=== PATIENT | female | born 1995 | race Two or more races ===

== ENCOUNTER 2023-03-04 13:58 | Inpatient (IN) | payer MEDICAID ==
[2023-03-04] VITALS (15 sets, daily range): BP systolic 92–116; BP diastolic 52–66
[~2023-03-04] VITALS: Ht 170.2 cm; Wt 80.6 kg
[2023-03-04] MEDS ORDERED: DEXTROSE (50%) 50ML SYRG IV PRN (14:00)
[2023-03-04] MEDS ORDERED: INSULIN LANTUS (GLARGINE) 1 /0.01ml (100units/ml) SC ONE (14:00)
[2023-03-04] MEDS ORDERED: SODIUM CHLORIDE 0.9% 1,000 ML IV ONE ×3 (14:00→16:15)
[2023-03-04 14:45] LABS: Mean Corpuscular Volume 95.2 fL (80.0-100.0); Red Cell Distribution Width 14.9 % (11.8-14.3)
[2023-03-04 14:47] LABS: Basophils # (auto) 0 10 ^3/uL (0-0.2); Basophils % (auto) 0.2 % (0.0-2.0); Eosinophils # (auto) 0 10 ^3/uL (0-0.8); Hematocrit 46.6 % (36.0-46.0); Hemoglobin 14.5 g/dL (12.2-16.2); Lymphocytes # (auto) 1.3 10 ^3/uL (0.4-5.4); Lymphocytes % (auto) 8.5 % (10.0-50.0); Mean Corpuscular Hemoglobin 29.6 pg (28.0-32.0); Mean Corpuscular Hgb Conc. 31.1 g/dL (32.0-36.0); Monocytes # (auto) 0.1 10 ^3/uL (0-1.3); Monocytes % (auto) 0.9 % (0.0-12.0); Neutrophils # (auto) 14.1 10 ^3/uL (1.6-8.6); Neutrophils % (auto) 90.4 % (37.0-80.0); Red Blood Cells 4.89 10^6/uL (4.0-5.20); White Blood Cell 15.5 10^3/uL (4.4-10.8)
[2023-03-04 15:08] LABS: BUN/Creatinine Ratio 18.2 (10.0-20.0); Magnesium 2.5 mg/dL (1.6-2.6); Phosphorus 6.5 mg/dL (2.5-4.90)
[2023-03-04] MEDS ORDERED: SODIUM BICARBONATE 8.4 % INJ 50ML VIAL IV ONE ×2 (15:30→20:45)
[2023-03-04 15:31] LABS: Potassium 6.1 mmol/L (3.5-5.1)
[2023-03-04] MEDS ORDERED: CALCIUM GLUC 1,000mg/50ml-NS 50 ML IV ONE (15:45)
[2023-03-04] MEDS ORDERED: FUROSEMIDE 20 MG/2 ML VIAL IV ONE (15:45)
[2023-03-04] MEDS: ACCU-CHEK COMFORT CURVE STRIP VI SCH ×6 (15:56→23:01)
[2023-03-04] MEDS ORDERED: ONDANSETRON HCL 4 MG/2 ML VIAL IV ONE (16:00)
[2023-03-04] MEDS: SODIUM CHLORIDE 0.9% 1,000 ML IV SCH ×2 (16:13→17:35)
[2023-03-04] MEDS ORDERED: MORPHINE SULFATE INJ 2 MG/ml SYRG IV PRN (16:15)
[2023-03-04] MEDS ORDERED: HYDROcodone-ACET 5/325MG TAB PO PRN (16:15)
[2023-03-04] MEDS ORDERED: ONDANSETRON HCL 4 MG/2 ML VIAL IV PRN (16:15)
[2023-03-04] MEDS ORDERED: NITROGLYCERIN 0.4 MG SL TAB SL PRN (16:15)
[2023-03-04] MEDS ORDERED: ACETAMINOPHEN 325 MG TAB PO PRN (16:15)
[2023-03-04 16:30] LABS: Urine Bacteria FEW /hpf (None Seen); Urine Blood TRACE /uL (Negative); Urine Specific Gravity 1.023 (1.001-1.035); Urine WBC <1 /hpf (0 - 5)
[2023-03-04] MEDS ORDERED: PANTOPRAZOLE 40 MG/10 ML VIAL INJ IV ONE (16:30)
[2023-03-04] MEDS: InsuLIN R (HUMAN) 100 UNITS in SODIUM CHL 0.9% 99 ML IV SCH ×2 (16:58→18:25)
[2023-03-04] MEDS ORDERED: SODIUM CHLORIDE 0.9% 1,000 ML IV SCH ×3 (18:00→20:45)
[2023-03-04 20:43] LABS: BUN/Creatinine Ratio 15.1 (10.0-20.0); Calcium 7.9 mg/dL (8.5-10.1); Potassium 4.5 mmol/L (3.5-5.1)
[2023-03-04] MEDS ORDERED: SODIUM BICARBONATE 50ML VIAL 50 ML in SODIUM CHLORIDE 0.9% 1,000 ML IV SCH (21:15)
[2023-03-04] MEDS: SODIUM BICARBONATE 50ML VIAL 50 ML in SOD CHL 0.45% 1,000 ML IV SCH (23:32)
[2023-03-05] VITALS (33 sets, daily range): BP systolic 92–132; BP diastolic 48–82
[2023-03-05] MEDS: ACCU-CHEK COMFORT CURVE STRIP VI SCH ×14 (00:05→23:55)
[2023-03-05] MEDS ORDERED: SODIUM BICARBONATE 8.4 % INJ 50ML VIAL IV ONE (00:45)
[2023-03-05 02:50] LABS: Calcium 7.8 mg/dL (8.5-10.1); Potassium 3.7 mmol/L (3.5-5.1)
[2023-03-05 02:52] LABS: BUN/Creatinine Ratio 14.2 (10.0-20.0)
[2023-03-05 06:33] LABS: Basophils # (auto) 0 10 ^3/uL (0-0.2); Basophils % (auto) 0.2 % (0.0-2.0); Eosinophils # (auto) 0 10 ^3/uL (0-0.8); Hematocrit 39.1 % (36.0-46.0); Hemoglobin 12.7 g/dL (12.2-16.2); Lymphocytes # (auto) 1.6 10 ^3/uL (0.4-5.4); Lymphocytes % (auto) 9.1 % (10.0-50.0); Mean Corpuscular Hemoglobin 29.4 pg (28.0-32.0); Mean Corpuscular Hgb Conc. 32.5 g/dL (32.0-36.0); Mean Corpuscular Volume 90.4 fL (80.0-100.0); Monocytes # (auto) 0.6 10 ^3/uL (0-1.3); Monocytes % (auto) 3.2 % (0.0-12.0); Neutrophils # (auto) 15.9 10 ^3/uL (1.6-8.6); Neutrophils % (auto) 87.5 % (37.0-80.0); Red Blood Cells 4.33 10^6/uL (4.0-5.20); White Blood Cell 18.2 10^3/uL (4.4-10.8)
[2023-03-05 06:45] LABS: Albumin 3.3 g/dL (3.4-5.0); Potassium 3.8 mmol/L (3.5-5.1)
[2023-03-05] MEDS: METOCLOPRAMIDE HCL 5MG/ml INJ 2ml VIAL IV PRN ×2 (06:47→14:09)
[2023-03-05] MEDS: SODIUM BICARBONATE 50ML VIAL 50 ML in SOD CHL 0.45% 1,000 ML IV SCH (06:48)
[2023-03-05 06:49] LABS: BUN/Creatinine Ratio 16.2 (10.0-20.0); Bilirubin, Total 0.6 mg/dL (0.2-1.0); Total Protein 6.8 g/dL (6.4-8.2)
[2023-03-05] MEDS ORDERED: LACTATED RINGER'S 1,000 ML IV ONE (09:30)
[2023-03-05] MEDS: ENOXAPARIN SOD 40 MG/0.4 ML SYRINGE SC SCH (09:51)
[2023-03-05] MEDS: PANTOPRAZOLE 40 MG/10 ML VIAL INJ IV SCH (09:52)
[2023-03-05] MEDS ORDERED: INSULIN LANTUS (GLARGINE) 1 /0.01ml (100units/ml) SC SCH (10:00)
[2023-03-05] MEDS: LACTATED RINGER'S 1,000 ML IV SCH ×3 (13:58→20:19)
[2023-03-05 14:46] LABS: BUN/Creatinine Ratio 11.5 (10.0-20.0); Potassium 3.5 mmol/L (3.5-5.1)
[2023-03-05] MEDS ORDERED: DEXTROSE (50%) 50ML SYRG IV PRN (15:45)
[2023-03-05] MEDS: InsuLIN REG 1unit/0.01ml Soln (100units/ml) SC SCH ×2 (16:31→20:08)
[2023-03-05] MEDS: PROMETHAZINE HCL 25 MG/ML 1ML IV PRN (19:36)
[2023-03-05] MEDS: PIPERACILLIN-TAZOB 3.375GM 100 ML IV SCH (20:26)
[2023-03-06] VITALS (13 sets, daily range): BP systolic 97–131; BP diastolic 49–90
[2023-03-06] MEDS: InsuLIN REG 1unit/0.01ml Soln (100units/ml) SC SCH ×7 (04:00→23:13)
[2023-03-06] MEDS: ACCU-CHEK COMFORT CURVE STRIP VI SCH ×6 (04:25→23:14)
[2023-03-06 05:04] LABS: Basophils # (auto) 0 10 ^3/uL (0-0.2); Basophils % (auto) 0.1 % (0.0-2.0); Eosinophils # (auto) 0 10 ^3/uL (0-0.8); Hemoglobin 12.5 g/dL (12.2-16.2); Lymphocytes # (auto) 1.7 10 ^3/uL (0.4-5.4); Lymphocytes % (auto) 13.4 % (10.0-50.0); Mean Corpuscular Hemoglobin 30.1 pg (28.0-32.0); Mean Corpuscular Hgb Conc. 32.8 g/dL (32.0-36.0); Mean Corpuscular Volume 91.7 fL (80.0-100.0); Monocytes # (auto) 0.5 10 ^3/uL (0-1.3); Monocytes % (auto) 4.1 % (0.0-12.0); Neutrophils # (auto) 10.3 10 ^3/uL (1.6-8.6); Neutrophils % (auto) 82.4 % (37.0-80.0); Nucleated Red Blood Cells % 0.1 %; Red Blood Cells 4.14 10^6/uL (4.0-5.20); Red Cell Distribution Width 14.5 % (11.8-14.3); White Blood Cell 12.6 10^3/uL (4.4-10.8)
[2023-03-06] MEDS: PROMETHAZINE HCL 25 MG/ML 1ML IV PRN ×2 (05:14→19:36)
[2023-03-06 05:16] LABS: Calcium 8.5 mg/dL (8.5-10.1); Potassium 3.5 mmol/L (3.5-5.1)
[2023-03-06] MEDS: PIPERACILLIN-TAZOB 3.375GM 100 ML IV SCH ×3 (05:17→21:20)
[2023-03-06] MEDS: LACTATED RINGER'S 1,000 ML IV SCH ×2 (05:17→17:34)
[2023-03-06 05:19] LABS: Bilirubin, Total 0.4 mg/dL (0.2-1.0)
[2023-03-06] MEDS: MORPHINE SULFATE INJ 2 MG/ml SYRG IV PRN (08:14)
[2023-03-06] MEDS ORDERED: LACTATED RINGER'S 1,000 ML IV ONE (09:45)
[2023-03-06] MEDS: PANTOPRAZOLE 40 MG/10 ML VIAL INJ IV SCH (09:45)
[2023-03-06] MEDS: ENOXAPARIN SOD 40 MG/0.4 ML SYRINGE SC SCH (09:45)
[2023-03-06] MEDS: METOCLOPRAMIDE HCL 5MG/ml INJ 2ml VIAL IV SCH ×2 (14:51→21:21)
[2023-03-07] MEDS: LACTATED RINGER'S 1,000 ML IV SCH ×2 (00:03→11:45)
[2023-03-07] MEDS: ACCU-CHEK COMFORT CURVE STRIP VI SCH ×6 (03:33→23:24)
[2023-03-07] MEDS: InsuLIN REG 1unit/0.01ml Soln (100units/ml) SC SCH ×6 (03:35→23:26)
[2023-03-07] MEDS: PROMETHAZINE HCL 25 MG/ML 1ML IV PRN ×3 (04:42→18:19)
[2023-03-07 05:00] VITALS: BP 127/75
[2023-03-07] MEDS: PIPERACILLIN-TAZOB 3.375GM 100 ML IV SCH ×3 (05:05→21:37)
[2023-03-07] MEDS: METOCLOPRAMIDE HCL 5MG/ml INJ 2ml VIAL IV SCH ×3 (05:13→21:36)
[2023-03-07 06:41] LABS: Albumin 2.5 g/dL (3.4-5.0); BUN/Creatinine Ratio 11.8 (10.0-20.0); Calcium 8.2 mg/dL (8.5-10.1)
[2023-03-07 06:44] LABS: Bilirubin, Total 0.7 mg/dL (0.2-1.0); Total Protein 6.1 g/dL (6.4-8.2)
[2023-03-07 07:05] LABS: Basophils # (auto) 0.1 10 ^3/uL (0-0.2); Basophils % (auto) 0.6 % (0.0-2.0); Eosinophils # (auto) 0 10 ^3/uL (0-0.8); Eosinophils % (auto) 0.2 % (0.0-7.0); Hematocrit 34.9 % (36.0-46.0); Hemoglobin 11.8 g/dL (12.2-16.2); Lymphocytes # (auto) 1.7 10 ^3/uL (0.4-5.4); Lymphocytes % (auto) 18.7 % (10.0-50.0); Mean Corpuscular Hemoglobin 30.2 pg (28.0-32.0); Mean Corpuscular Hgb Conc. 33.7 g/dL (32.0-36.0); Mean Corpuscular Volume 89.4 fL (80.0-100.0); Monocytes # (auto) 0.4 10 ^3/uL (0-1.3); Monocytes % (auto) 4.6 % (0.0-12.0); Neutrophils # (auto) 6.9 10 ^3/uL (1.6-8.6); Neutrophils % (auto) 75.9 % (37.0-80.0); Nucleated Red Blood Cells % 0.2 %; Red Cell Distribution Width 13.9 % (11.8-14.3); White Blood Cell 9.1 10^3/uL (4.4-10.8)
[2023-03-07] MEDS: ENOXAPARIN SOD 40 MG/0.4 ML SYRINGE SC SCH (08:54)
[2023-03-07] MEDS: PANTOPRAZOLE 40 MG/10 ML VIAL INJ IV SCH (08:54)
[2023-03-07 09:00] VITALS: BP 149/86
[2023-03-07] MEDS ORDERED: POTASSIUM EFFERVESENT TAB 25 MEQ PO ONE (09:15)
[2023-03-07 13:00] VITALS: BP 167/92
[2023-03-07] MEDS ORDERED: hydrALAZINE HCL 20 MG/ML VL IV PRN (16:30)
[2023-03-07 16:44] VITALS: BP 173/72
[2023-03-07 16:48] VITALS: BP 156/87
[2023-03-07] MEDS: MORPHINE SULFATE INJ 2 MG/ml SYRG IV PRN (18:20)
[2023-03-07 22:00] VITALS: BP 137/86
[2023-03-08] MEDS: ACCU-CHEK COMFORT CURVE STRIP VI SCH ×6 (03:44→23:54)
[2023-03-08] MEDS: InsuLIN REG 1unit/0.01ml Soln (100units/ml) SC SCH ×6 (03:45→23:54)
[2023-03-08] MEDS: LACTATED RINGER'S 1,000 ML IV SCH (03:47)
[2023-03-08 04:49] VITALS: BP 142/96
[2023-03-08] MEDS: PIPERACILLIN-TAZOB 3.375GM 100 ML IV SCH ×3 (05:29→21:45)
[2023-03-08] MEDS: METOCLOPRAMIDE HCL 5MG/ml INJ 2ml VIAL IV SCH ×3 (05:29→21:45)
[2023-03-08 06:06] LABS: Basophils # (auto) 0 10 ^3/uL (0-0.2); Basophils % (auto) 0.5 % (0.0-2.0); Eosinophils # (auto) 0.1 10 ^3/uL (0-0.8); Eosinophils % (auto) 1.2 % (0.0-7.0); Hematocrit 37.3 % (36.0-46.0); Lymphocytes # (auto) 2.8 10 ^3/uL (0.4-5.4); Lymphocytes % (auto) 38.7 % (10.0-50.0); Mean Corpuscular Hemoglobin 30.5 pg (28.0-32.0); Mean Corpuscular Hgb Conc. 34.8 g/dL (32.0-36.0); Mean Corpuscular Volume 87.7 fL (80.0-100.0); Monocytes # (auto) 0.4 10 ^3/uL (0-1.3); Monocytes % (auto) 5.9 % (0.0-12.0); Neutrophils # (auto) 3.8 10 ^3/uL (1.6-8.6); Neutrophils % (auto) 53.7 % (37.0-80.0); Red Blood Cells 4.26 10^6/uL (4.0-5.20); Red Cell Distribution Width 13.7 % (11.8-14.3); White Blood Cell 7.1 10^3/uL (4.4-10.8)
[2023-03-08 06:17] LABS: BUN/Creatinine Ratio 8.5 (10.0-20.0); Calcium 7.7 mg/dL (8.5-10.1)
[2023-03-08 06:35] LABS: Potassium 2.7 mmol/L (3.5-5.1)
[2023-03-08 09:00] VITALS: BP 147/93
[2023-03-08] MEDS: POTASSIUM CHL 20MEQ/100ML 100 ML IV SCH ×3 (09:52→14:07)
[2023-03-08] MEDS: PANTOPRAZOLE 40 MG/10 ML VIAL INJ IV SCH (09:52)
[2023-03-08] MEDS: ENOXAPARIN SOD 40 MG/0.4 ML SYRINGE SC SCH (09:52)
[2023-03-08] MEDS: PROMETHAZINE HCL 25 MG/ML 1ML IV PRN ×2 (12:04→20:29)
[2023-03-08] MEDS: MORPHINE SULFATE INJ 2 MG/ml SYRG IV PRN (12:05)
[2023-03-08 13:00] VITALS: BP 142/71
[2023-03-08] MEDS: SOD CHL 0.45% WITH 20MEQ KCL 1,000 ML IV SCH ×4 (16:29→20:19)
[2023-03-08 16:50] VITALS: BP 133/86
[2023-03-08 20:00] VITALS: BP 134/86
[2023-03-09] MEDS: ACCU-CHEK COMFORT CURVE STRIP VI SCH ×5 (04:03→19:51)
[2023-03-09] MEDS: InsuLIN REG 1unit/0.01ml Soln (100units/ml) SC SCH ×5 (04:05→19:51)
[2023-03-09 05:21] VITALS: BP 146/93
[2023-03-09] MEDS: METOCLOPRAMIDE HCL 5MG/ml INJ 2ml VIAL IV SCH ×3 (05:47→21:23)
[2023-03-09] MEDS: PIPERACILLIN-TAZOB 3.375GM 100 ML IV SCH ×3 (05:47→21:24)
[2023-03-09 07:17] LABS: BUN/Creatinine Ratio 8.3 (10.0-20.0); Calcium 7.7 mg/dL (8.5-10.1); Magnesium 1.8 mg/dL (1.6-2.6)
[2023-03-09 07:25] LABS: Potassium 2.8 mmol/L (3.5-5.1)
[2023-03-09] MEDS ORDERED: POTASSIUM CHL 20 Meq TABLET PO ONE (07:30)
[2023-03-09 09:00] VITALS: BP 119/84
[2023-03-09] MEDS: PANTOPRAZOLE 40 MG/10 ML VIAL INJ IV SCH (09:04)
[2023-03-09] MEDS: ENOXAPARIN SOD 40 MG/0.4 ML SYRINGE SC SCH (09:04)
[2023-03-09] MEDS: SOD CHL 0.45% WITH 20MEQ KCL 1,000 ML IV SCH (09:06)
[2023-03-09] MEDS ORDERED: MAGNESIUM SULFATE 1GM/100ML 100 ML IV ONE (11:15)
[2023-03-09] MEDS ORDERED: POTASSIUM CHL 20MEQ/100ML 100 ML IV ONE (11:15)
[2023-03-09 13:00] VITALS: BP 130/86
[2023-03-09] MEDS: POTASSIUM CHLORIDE 40 MEQ in SOD CHL 0.45% 1,000 ML IV SCH (13:17)
[2023-03-09 16:45] VITALS: BP 143/95
[2023-03-09] MEDS: PROMETHAZINE HCL 25 MG/ML 1ML IV PRN (17:57)
[2023-03-09 20:00] VITALS: BP 105/63
[2023-03-09] MEDS ORDERED: INSU100I28 IJ (21:34)
[2023-03-09] MEDS ORDERED: LEVEMIR SC (21:35)
[2023-03-09 22:00] VITALS: BP 105/63
[2023-03-09 22:30] LABS: Urine Bacteria NONE SEEN /hpf (None Seen); Urine Blood Negative /uL (Negative); Urine Budding Yeast MODERATE /hpf (None Seen); Urine Specific Gravity 1.008 (1.001-1.035); Urine WBC 1 /hpf (0 - 5)
[2023-03-09 23:05] LABS: INR 1.19 (0.9-1.15); Partial Thromboplastin Time 27.3 sec (24.6-33.4)
[2023-03-10] MEDS: ACCU-CHEK COMFORT CURVE STRIP VI SCH ×6 (00:15→21:42)
[2023-03-10] MEDS: InsuLIN REG 1unit/0.01ml Soln (100units/ml) SC SCH ×6 (00:15→21:50)
[2023-03-10] MEDS: POTASSIUM CHLORIDE 40 MEQ in SOD CHL 0.45% 1,000 ML IV SCH ×2 (01:21→11:40)
[2023-03-10 05:00] VITALS: BP 114/69
[2023-03-10] MEDS: PIPERACILLIN-TAZOB 3.375GM 100 ML IV SCH ×3 (05:50→21:42)
[2023-03-10] MEDS: METOCLOPRAMIDE HCL 5MG/ml INJ 2ml VIAL IV SCH ×3 (05:50→21:42)
[2023-03-10] MEDS ORDERED: LIDOCAINE VISCOUS 2% 15ML UD ONE (08:34)
[2023-03-10] MEDS ORDERED: SODIUM CHLORIDE LOCK 10 ML ONE (08:35)
[2023-03-10] MEDS: PANTOPRAZOLE 40 MG/10 ML VIAL INJ IV SCH (09:33)
[2023-03-10] MEDS: ENOXAPARIN SOD 40 MG/0.4 ML SYRINGE SC SCH (09:38)
[2023-03-10 09:58] VITALS: BP 119/79
[2023-03-10] MEDS: diphenhdrAMINE HCL 50 MG/1 ML VL ONE ×2 (16:26→16:27)
[2023-03-10] MEDS: MIDAZOLAM HCL 5 MG/ML-1ML VIAL ONE ×2 (16:26→16:29)
[2023-03-10] MEDS: fentaNYL CITRATE 100 MCG/2 ML VL ONE ×2 (16:26→16:29)
[2023-03-10 17:04] VITALS: BP 139/90
[2023-03-10 22:00] VITALS: BP 135/81
[2023-03-11] MEDS: POTASSIUM CHLORIDE 40 MEQ in SOD CHL 0.45% 1,000 ML IV SCH ×2 (00:11→08:00)
[2023-03-11] MEDS: ACCU-CHEK COMFORT CURVE STRIP VI SCH ×6 (00:24→20:45)
[2023-03-11] MEDS: InsuLIN REG 1unit/0.01ml Soln (100units/ml) SC SCH ×6 (00:27→20:48)
[2023-03-11 05:00] VITALS: BP 102/69
[2023-03-11] MEDS: METOCLOPRAMIDE HCL 5MG/ml INJ 2ml VIAL IV SCH ×2 (05:48→14:11)
[2023-03-11] MEDS: PIPERACILLIN-TAZOB 3.375GM 100 ML IV SCH ×2 (05:48→14:11)
[2023-03-11 06:50] LABS: BUN/Creatinine Ratio 4.1 (10.0-20.0); Calcium 8.2 mg/dL (8.5-10.1); Potassium 3.5 mmol/L (3.5-5.1)
[2023-03-11 09:00] VITALS: BP 112/78
[2023-03-11] MEDS: PANTOPRAZOLE 40 MG/10 ML VIAL INJ IV SCH (10:39)
[2023-03-11] MEDS: ENOXAPARIN SOD 40 MG/0.4 ML SYRINGE SC SCH (10:40)
[2023-03-11 12:53] VITALS: BP 112/76
[2023-03-11] MEDS ORDERED: SUCR1SUS26 PO (16:49)
[2023-03-11] MEDS ORDERED: PANT40TA2 PO (16:49)
[2023-03-11 16:50] VITALS: BP 102/71
[2023-03-11] MEDS ORDERED: LEVEMIR SC (16:52)
[2023-03-11] MEDS ORDERED: LEVO500T91 PO (16:52)
== END 2023-03-11 21:15 | disposition home or self-care (01) | DRG 720 ==
LOC: ER 13:58 → EDBD 13:58 → TELE 16:03 → DOU IN ICU 17:57 → ICU CENTRL 23:34 → DOU IN ICU 03-05 11:17 → TELE-WESTW 03-06 16:22 → WEST WING 03-07 10:04
PROVIDERS: ADMIT Nurse Practitioner Family; ATTEND Internal Medicine
PROC: 02HV33Z Insertion of Infusion Device into Superior Vena Cava, Percutaneous Approach (ICD-10-PCS; 2023-03-04)
PROC: 0DB68ZX Excision of Stomach, Via Natural or Artificial Opening Endoscopic, Diagnostic (ICD-10-PCS; 2023-03-10)
PROC: 0DB98ZX Excision of Duodenum, Via Natural or Artificial Opening Endoscopic, Diagnostic (ICD-10-PCS; principal; 2023-03-10 16:22)
DX: A41.9 Sepsis, unspecified organism (principal); E11.10 Type 2 diabetes mellitus with ketoacidosis without coma; E43 Unspecified severe protein-calorie malnutrition; E87.1 Hypo-osmolality and hyponatremia; N30.90 Cystitis, unspecified without hematuria; E87.5 Hyperkalemia; K25.9 Gastric ulcer, unspecified as acute or chronic, without hemorrhage or perforation; K29.70 Gastritis, unspecified, without bleeding; K44.9 Diaphragmatic hernia without obstruction or gangrene; F32.A Depression, unspecified; Z68.28 Body mass index [BMI] 28.0-28.9, adult
CPT/HCPCS: 36415; 36556; 36600; 43239; 51702; 71045; 74018; 74176; 76705; 80048; 80053; 81001; 81025; 82010; 82805; 82962; 83036; 83690; 83735; 83930; 84100; 84132; 84484; 84702; 85025; 85610; 85730; 86850; 86900; 86901; 87040; 87081; 93005; 96365; 96372; 99291; C9113; G0378; J1815; J2250; J2405; J2543; J3480

== ENCOUNTER 2023-05-13 23:01 | Emergency (ER) | payer MEDICAID ==
[~2023-05-13] VITALS: Ht 167.6 cm; Wt 80.0 kg
[~2023-05-13 23:01] MED LIST: INSU100I28 IJ; LEVEMIR SC; LEVO500T91 PO; PANT40TA2 PO; SUCR1SUS26 PO
[2023-05-14 00:16] VITALS: TEMP 98.6
[2023-05-14 00:17] VITALS: PULSE 133; RESP 20; O2SAT 96
[2023-05-14 00:23] LABS: Basophils # (auto) 0 10 ^3/uL (0-0.2); Basophils % (auto) 0.2 % (0.0-2.0); Eosinophils # (auto) 0 10 ^3/uL (0-0.8); Eosinophils % (auto) 0.1 % (0.0-7.0); Hematocrit 46.4 % (36.0-46.0); Hemoglobin 14.9 g/dL (12.2-16.2); Lymphocytes % (auto) 9.1 % (10.0-50.0); Mean Corpuscular Hgb Conc. 32.1 g/dL (32.0-36.0); Mean Corpuscular Volume 90.4 fL (80.0-100.0); Monocytes # (auto) 0.7 10 ^3/uL (0-1.3); Neutrophils # (auto) 19.3 10 ^3/uL (1.6-8.6); Neutrophils % (auto) 87.6 % (37.0-80.0); Red Blood Cells 5.13 10^6/uL (4.0-5.20)
[2023-05-14 00:44] LABS: Alanine Aminotransferase 15 U/L (7-40); Albumin 4.3 g/dL (3.2-4.8); Alkaline Phosphatase 102 U/L (46-116); Anion Gap 12.1 (5-15); Aspartate Aminotransferase 14 U/L (13-40); BUN/Creatinine Ratio 13.2 (10.0-20.0); Blood Urea Nitrogen 10 mg/dL (9-23); Calcium 9.2 mg/dL (8.7-10.4); Carbon Dioxide 19.9 mmol/L (20-30); Chloride 99 mmol/L (98-107); Sodium 131 mmol/L (136-145)
[2023-05-14 00:45] LABS: Bilirubin, Total 0.3 mg/dL (0.2-1.0); Total Protein 7.2 g/dL (5.7-8.2)
[2023-05-14 01:12] LABS: Glucose 438 mg/dL (74-106)
[2023-05-14] MEDS ORDERED: SODIUM CHLORIDE 0.9% 1,000 ML IV ONE (02:45)
[2023-05-14 03:51] VITALS: BP 107/66; PULSE 84; RESP 20; O2SAT 97
== END 2023-05-14 04:13 | disposition home or self-care (01) ==
LOC: EDBD 23:01 → ER 23:09
DX: T78.40XA Allergy, unspecified, initial encounter (principal); R06.02 Shortness of breath; E11.9 Type 2 diabetes mellitus without complications; X58.XXXA Exposure to other specified factors, initial encounter
CPT/HCPCS: 36415; 71045; 80053; 82962; 85025; 96360; 99284; J7030

== ENCOUNTER 2023-07-31 18:09 | Inpatient (IN) | payer MEDICAID ==
[~2023-07-31] VITALS: Ht 170.2 cm; Wt 73.1 kg
[2023-07-31] MEDS ORDERED: SODIUM CHLORIDE 0.9% 3,000 ML IV ONE (18:30)
[2023-07-31 18:31] VITALS: PULSE 147; RESP 25; O2SAT 98
[2023-07-31 19:17] LABS: Eosinophils # (auto) 0 10 ^3/uL (0-0.8); Mean Corpuscular Hemoglobin 29.9 pg (28.0-32.0); Nucleated Red Blood Cells % 0.1 %
[2023-07-31 19:18] LABS: Basophils # (auto) 0 10 ^3/uL (0-0.2); Basophils % (auto) 0.5 % (0.0-2.0); Eosinophils % (auto) 0.2 % (0.0-7.0); Hematocrit 54.8 % (36.0-46.0); Hemoglobin 17.7 g/dL (12.2-16.2); Lymphocytes # (auto) 1.6 10 ^3/uL (0.4-5.4); Lymphocytes % (auto) 16.3 % (10.0-50.0); Mean Corpuscular Hgb Conc. 32.3 g/dL (32.0-36.0); Mean Corpuscular Volume 92.6 fL (80.0-100.0); Monocytes # (auto) 0.2 10 ^3/uL (0-1.3); Monocytes % (auto) 2.5 % (0.0-12.0); Neutrophils # (auto) 7.8 10 ^3/uL (1.6-8.6); Neutrophils % (auto) 80.5 % (37.0-80.0); Red Blood Cells 5.92 10^6/uL (4.0-5.20); Red Cell Distribution Width 14.6 % (11.8-14.3); White Blood Cell 9.7 10^3/uL (4.4-10.8)
[2023-07-31 19:30] VITALS: PULSE 140; RESP 24; O2SAT 100
[2023-07-31 19:44] LABS: Alanine Aminotransferase 13 U/L (7-40); Albumin 5.5 g/dL (3.2-4.8); Alkaline Phosphatase 122 U/L (46-116); Anion Gap 21.00001 (5-15); Aspartate Aminotransferase 15 U/L (13-40); BUN/Creatinine Ratio 6.6 (10.0-20.0); Bilirubin, Total 0.5 mg/dL (0.2-1.0); Blood Urea Nitrogen 10 mg/dL (9-23); Calcium 9.5 mg/dL (8.7-10.4); Chloride 97 mmol/L (98-107); Potassium 4.7 mmol/L (3.5-5.1); Sodium 128 mmol/L (136-145); Total Protein 9.4 g/dL (5.7-8.2)
[2023-07-31 20:06] LABS: Carbon Dioxide < 10 mmol/L (20-30); Glucose 593 mg/dL (74-106)
[2023-07-31] MEDS ORDERED: DEXTROSE (50%) 50ML SYRG IV PRN (20:15)
[2023-07-31] MEDS ORDERED: SODIUM CHLORIDE 0.9% 1,000 ML IV ONE (20:15)
[2023-07-31] MEDS ORDERED: INSULIN LANTUS (GLARGINE) 1 /0.01ml (100units/ml) SC ONE (20:15)
[2023-07-31 20:22] LABS: Urine WBC None Seen /hpf (0 - 5)
[2023-07-31] MEDS ORDERED: InsuLIN REG 1unit/0.01ml Soln (100units/ml) IV ONE (20:30)
[2023-07-31 20:36] LABS: Urine Bacteria FEW /hpf (None Seen); Urine Blood Negative /uL (Negative); Urine Clarity Clear (Clear); Urine Color Colorless (Yellow); Urine Protein, UAD TRACE (Negative); Urine Specific Gravity 1.028 (1.001-1.035); Urine Urobilinogen Normal (Negative)
[2023-07-31] MEDS: INSULIN DRIP 100 UNIT/100ML 100 ML IV SCH ×2 (20:38→21:40)
[2023-07-31 20:44] LABS: Amphetamine Screen, Urine Neg (NEGATIVE); Barbiturate Scree,Urine Neg (NEGATIVE); Benzodiazephine Screen, Urine Neg (NEGATIVE); Cocaine Screen, Urine Neg (NEGATIVE)
[2023-07-31 20:45] LABS: Cannabinoid Screen, Urine Neg (NEGATIVE); Opiate Scree,Urine Neg (NEGATIVE); Phencyclidine Screen, Urine Neg (NEGATIVE)
[2023-07-31] MEDS ORDERED: LACTATED RINGER'S 1,000 ML IV ONE (20:45)
[2023-07-31] MEDS: ACCU-CHEK COMFORT CURVE STRIP VI SCH ×2 (21:39→22:30)
[2023-07-31] MEDS ORDERED: ONDANSETRON HCL 4 MG/2 ML VIAL IV PRN (22:30)
[2023-07-31] MEDS ORDERED: HYDROcodone-ACET 5/325MG TAB PO PRN (22:30)
[2023-07-31] MEDS ORDERED: ACETAMINOPHEN 325 MG TAB PO PRN (22:30)
[2023-07-31] MEDS ORDERED: DOCUSATE SOD 100 MG CAP PO PRN (22:30)
[2023-07-31] MEDS ORDERED: MORPHINE SULFATE INJ 2 MG/ml SYRG IV PRN (23:00)
[2023-07-31] MEDS ORDERED: NITROGLYCERIN 0.4 MG SL TAB SL PRN (23:00)
[2023-08-01] VITALS (33 sets, daily range): BP systolic 94–119; BP diastolic 57–81; PULSE 79–112; RESP 14–19; TEMP 98.3–99.3; O2SAT 98–100
[2023-08-01] MEDS: ACCU-CHEK COMFORT CURVE STRIP VI SCH ×16 (00:06→22:32)
[2023-08-01] MEDS: D5W/SOD CHL 0.45% 1,000 ML IV SCH ×2 (00:32→12:47)
[2023-08-01 01:13] LABS: Albumin 3.7 g/dL (3.2-4.8); Alkaline Phosphatase 76 U/L (46-116); Anion Gap 16.00001 (5-15); Aspartate Aminotransferase 11 U/L (13-40); BUN/Creatinine Ratio 6.3 (10.0-20.0); Blood Urea Nitrogen 7 mg/dL (9-23); Calcium 7.8 mg/dL (8.7-10.4); Glucose 216 mg/dL (74-106); Potassium 4.4 mmol/L (3.5-5.1); Sodium 140 mmol/L (136-145)
[2023-08-01 01:14] LABS: Bilirubin, Total 0.3 mg/dL (0.2-1.0); Total Protein 6.4 g/dL (5.7-8.2)
[2023-08-01 01:15] LABS: Chloride 114 mmol/L (98-107)
[2023-08-01 01:16] LABS: Alanine Aminotransferase < 9 U/L (7-40)
[2023-08-01 05:44] LABS: Basophils # (auto) 0.1 10 ^3/uL (0-0.2); Basophils % (auto) 0.4 % (0.0-2.0); Eosinophils # (auto) 0.1 10 ^3/uL (0-0.8); Hematocrit 43.9 % (36.0-46.0); Hemoglobin 14.4 g/dL (12.2-16.2); Lymphocytes # (auto) 2.5 10 ^3/uL (0.4-5.4); Mean Corpuscular Hemoglobin 29.8 pg (28.0-32.0); Mean Corpuscular Hgb Conc. 32.8 g/dL (32.0-36.0); Mean Corpuscular Volume 90.6 fL (80.0-100.0); Monocytes # (auto) 0.9 10 ^3/uL (0-1.3); Monocytes % (auto) 7.1 % (0.0-12.0); Neutrophils # (auto) 8.4 10 ^3/uL (1.6-8.6); Neutrophils % (auto) 70.5 % (37.0-80.0); Nucleated Red Blood Cells % 0.1 %; Red Blood Cells 4.85 10^6/uL (4.0-5.20); Red Cell Distribution Width 14.1 % (11.8-14.3)
[2023-08-01 06:22] LABS: Albumin 3.9 g/dL (3.2-4.8); Alkaline Phosphatase 76 U/L (46-116); Anion Gap 16.00001 (5-15); Aspartate Aminotransferase 9 U/L (13-40); BUN/Creatinine Ratio 5.7 (10.0-20.0); Blood Urea Nitrogen 6 mg/dL (9-23); Calcium 8.4 mg/dL (8.7-10.4); Chloride 115 mmol/L (98-107); Glucose 168 mg/dL (74-106); Potassium 3.8 mmol/L (3.5-5.1); Sodium 141 mmol/L (136-145)
[2023-08-01 06:23] LABS: Bilirubin, Total 0.6 mg/dL (0.2-1.0); Total Protein 6.6 g/dL (5.7-8.2)
[2023-08-01 06:36] LABS: Alanine Aminotransferase < 9 U/L (7-40)
[2023-08-01 06:38] LABS: Carbon Dioxide < 10 mmol/L (20-30)
[2023-08-01] MEDS ORDERED: INSULIN LANTUS (GLARGINE) 1 /0.01ml (100units/ml) SC SCH (10:00)
[2023-08-01 10:05] LABS: Alanine Aminotransferase 10 U/L (7-40); Albumin 3.8 g/dL (3.2-4.8); Alkaline Phosphatase 66 U/L (46-116); Anion Gap 14 (5-15); Aspartate Aminotransferase < 8 U/L (13-40); BUN/Creatinine Ratio 9.9 (10.0-20.0); Blood Urea Nitrogen 9 mg/dL (9-23); Calcium 8.5 mg/dL (8.5-10.1); Carbon Dioxide 12 mmol/L (20-30); Chloride 116 mmol/L (98-107); Glucose 159 mg/dL (74-106); Potassium 3.5 mmol/L (3.5-5.1); Sodium 142 mmol/L (136-145)
[2023-08-01 10:06] LABS: Bilirubin, Total 0.4 mg/dL (0.2-1.0); Total Protein 6.2 g/dL (5.7-8.2)
[2023-08-01] MEDS: FAMOTIDINE (10MG/ML) 2ML VL IV SCH ×2 (11:41→21:45)
[2023-08-01] MEDS: INSULIN DRIP 100 UNIT/100ML 100 ML IV SCH ×2 (15:08→20:15)
[2023-08-01 15:44] LABS: Chloride 110 mmol/L (98-107); Potassium 3.6 mmol/L (3.5-5.1)
[2023-08-01 15:45] LABS: Anion Gap 15 (5-15); Carbon Dioxide 10 mmol/L (20-30)
[2023-08-01 15:46] LABS: Calcium 8.2 mg/dL (8.7-10.4)
[2023-08-01 15:50] LABS: BUN/Creatinine Ratio 8.2 (10.0-20.0); Blood Urea Nitrogen 8 mg/dL (9-23); Glucose 217 mg/dL (74-106)
[2023-08-01 15:58] LABS: Sodium 135 mmol/L (136-145)
[2023-08-01 21:31] LABS: Chloride 107 mmol/L (98-107); Potassium 3.1 mmol/L (3.5-5.1); Sodium 133 mmol/L (136-145)
[2023-08-01 21:32] LABS: Anion Gap 10 (5-15); Carbon Dioxide 16 mmol/L (20-30)
[2023-08-01 21:33] LABS: Calcium 8.1 mg/dL (8.7-10.4)
[2023-08-01 21:37] LABS: BUN/Creatinine Ratio 6.5 (10.0-20.0); Blood Urea Nitrogen 6 mg/dL (9-23); Glucose 207 mg/dL (74-106)
[2023-08-01] MEDS: INSULIN LANTUS (GLARGINE) 1 /0.01ml (100units/ml) SC SCH (21:46)
[2023-08-01] MEDS ORDERED: POTASSIUM CHL 20MEQ/100ML 100 ML IV ONE ×2 (22:30)
[2023-08-02] VITALS (43 sets, daily range): BP systolic 93–135; BP diastolic 59–93; PULSE 65–109; RESP 10–19; TEMP 98.4–98.6; O2SAT 95–100
[2023-08-02] MEDS: ACCU-CHEK COMFORT CURVE STRIP VI SCH ×10 (00:01→23:51)
[2023-08-02] MEDS: D5W/SOD CHL 0.45% 1,000 ML IV SCH (01:32)
[2023-08-02] MEDS ORDERED: INSULIN DRIP 100 UNIT/100ML 100 ML IV SCH (03:45)
[2023-08-02 04:08] LABS: Basophils # (auto) 0.1 10 ^3/uL (0-0.2); Eosinophils # (auto) 0.3 10 ^3/uL (0-0.8); Eosinophils % (auto) 3.3 % (0.0-7.0); Hematocrit 38.5 % (36.0-46.0); Lymphocytes # (auto) 2.7 10 ^3/uL (0.4-5.4); Lymphocytes % (auto) 29.9 % (10.0-50.0); Mean Corpuscular Hemoglobin 29.6 pg (28.0-32.0); Mean Corpuscular Hgb Conc. 33.6 g/dL (32.0-36.0); Mean Corpuscular Volume 88.1 fL (80.0-100.0); Monocytes # (auto) 0.7 10 ^3/uL (0-1.3); Monocytes % (auto) 7.4 % (0.0-12.0); Neutrophils # (auto) 5.3 10 ^3/uL (1.6-8.6); Neutrophils % (auto) 58.4 % (37.0-80.0); Red Blood Cells 4.38 10^6/uL (4.0-5.20); Red Cell Distribution Width 14.3 % (11.8-14.3); White Blood Cell 9.1 10^3/uL (4.4-10.8)
[2023-08-02 04:25] LABS: Chloride 111 mmol/L (98-107); Sodium 138 mmol/L (136-145)
[2023-08-02 04:26] LABS: Anion Gap 9 (5-15); Calcium 8.4 mg/dL (8.7-10.4); Carbon Dioxide 18 mmol/L (20-30)
[2023-08-02 04:31] LABS: BUN/Creatinine Ratio 5.9 (10.0-20.0); Blood Urea Nitrogen 5 mg/dL (9-23); Glucose 186 mg/dL (74-106)
[2023-08-02 04:46] LABS: Potassium 2.7 mmol/L (3.5-5.1)
[2023-08-02] MEDS ORDERED: POTASSIUM EFFERVESENT TAB 25 MEQ PO ONE (05:15)
[2023-08-02] MEDS: FAMOTIDINE (10MG/ML) 2ML VL IV SCH (09:23)
[2023-08-02] MEDS: INSULIN LANTUS (GLARGINE) 1 /0.01ml (100units/ml) SC SCH ×2 (09:24→21:32)
[2023-08-02 10:07] LABS: Chloride 111 mmol/L (98-107); Potassium 3.6 mmol/L (3.5-5.1); Sodium 139 mmol/L (136-145)
[2023-08-02 10:09] LABS: Anion Gap 8 (5-15); Calcium 8.6 mg/dL (8.5-10.1); Carbon Dioxide 20 mmol/L (20-30)
[2023-08-02 10:14] LABS: Glucose 182 mg/dL (74-106)
[2023-08-02 10:15] LABS: BUN/Creatinine Ratio 7.7 (10.0-20.0); Blood Urea Nitrogen < 5 mg/dL (9-23)
[2023-08-02] MEDS ORDERED: DEXTROSE (50%) 50ML SYRG IV PRN (10:45)
[2023-08-02] MEDS: InsuLIN REG 1unit/0.01ml Soln (100units/ml) SC SCH ×3 (12:19→23:52)
[2023-08-03] VITALS (13 sets, daily range): BP systolic 103–122; BP diastolic 63–89; PULSE 68–89; RESP 11–23; TEMP 98.3–98.5; O2SAT 97–100
[2023-08-03] MEDS: ACCU-CHEK COMFORT CURVE STRIP VI SCH (05:45)
[2023-08-03] MEDS: InsuLIN REG 1unit/0.01ml Soln (100units/ml) SC SCH (05:45)
[2023-08-03] MEDS ORDERED: INSU100I28 IJ (10:02)
[2023-08-03] MEDS ORDERED: LEVEMIR SC (10:02)
== END 2023-08-03 12:00 | disposition home or self-care (01) | DRG 420 ==
LOC: EDBD 18:09 → ER 18:09 → TELE 22:54 → ICU WEST 08-01 10:49
PROVIDERS: ADMIT Nurse Practitioner Family; ATTEND Hospitalist
DX: E11.10 Type 2 diabetes mellitus with ketoacidosis without coma (principal); N17.9 Acute kidney failure, unspecified; E87.1 Hypo-osmolality and hyponatremia; R00.0 Tachycardia, unspecified; D45 Polycythemia vera
CPT/HCPCS: 36415; 36600; 71045; 80048; 80053; 80307; 81001; 82010; 82805; 82962; 83036; 83605; 83735; 84702; 85025; 87081; G0378; J1815; J3480; J3490

== ENCOUNTER 2023-09-20 16:23 | Inpatient (IN) | payer MEDICAID ==
[~2023-09-20] VITALS: Ht 175.3 cm; Wt 72.4 kg
[~2023-09-20 16:23] MED LIST changes: -LEVO500T91 PO
[2023-09-20] MEDS ORDERED: SODIUM CHLORIDE 0.9% 2,000 ML IV ONE (16:45)
[2023-09-20] MEDS ORDERED: ONDANSETRON HCL 4 MG/2 ML VIAL IV ONE (17:15)
[2023-09-20] MEDS ORDERED: ONDANSETRON HCL 4 MG/2 ML VIAL ONE (17:17)
[2023-09-20 17:59] LABS: Urine Bacteria NONE SEEN /hpf (None Seen); Urine Blood Negative /uL (Negative); Urine Clarity Clear (Clear); Urine Color Colorless (Yellow); Urine Hyaline Cast FEW /lpf (0 - 2); Urine Protein, UAD 1+ (Negative); Urine Specific Gravity 1.017 (1.001-1.035); Urine Urobilinogen Normal (Negative); Urine WBC <1 /hpf (0 - 5)
[2023-09-20 18:55] VITALS: PULSE 130; RESP 38; O2SAT 0
[2023-09-20] MEDS ORDERED: SODIUM BICARBONATE 50ML VIAL 50 ML in SOD CHL 0.45% 1,000 ML IV ONE (19:15)
[2023-09-20] MEDS ORDERED: InsuLIN REG 1unit/0.01ml Soln (100units/ml) IV ONE (19:15)
[2023-09-20 19:23] LABS: Hematocrit 49.1 % (36.0-46.0); Hemoglobin 14.6 g/dL (12.2-16.2)
[2023-09-20] MEDS ORDERED: SODIUM BICARBONATE 8.4 % INJ 50ML VIAL IV ONE ×3 (19:28→21:45)
[2023-09-20 19:29] LABS: Mean Corpuscular Hemoglobin 29.5 pg (28.0-32.0); Mean Corpuscular Hgb Conc. 29.8 g/dL (32.0-36.0); Red Blood Cells 4.96 10^6/uL (4.0-5.20); Red Cell Distribution Width 15.7 % (11.8-14.3); White Blood Cell 27.8 10^3/uL (4.4-10.8)
[2023-09-20 19:30] VITALS: PULSE 138; RESP 24; O2SAT 98
[2023-09-20 19:37] LABS: Basophils % (manual) 0 (0.0-2.0); Blast Cells 0; Eosinophils % (manual) 0 (0-7); Metamyelocytes % 0; Myelocytes % 0; Promyelocytes % 0; Reactive Lymphocytes 0
[2023-09-20 19:42] LABS: Alanine Aminotransferase 28 U/L (7-40); Albumin 4.9 g/dL (3.2-4.8); Alkaline Phosphatase 128 U/L (46-116); Anion Gap 24.00001 (5-15); Aspartate Aminotransferase 15 U/L (13-40); BUN/Creatinine Ratio 12.1 (10.0-20.0); Blood Urea Nitrogen 18 mg/dL (9-23); Calcium 8.9 mg/dL (8.7-10.4); Chloride 106 mmol/L (98-107); Lipase 26 U/L (12-53); Magnesium 2.7 mg/dL (1.6-2.6); Sodium 140 mmol/L (136-145)
[2023-09-20 19:43] LABS: Bilirubin, Total 0.2 mg/dL (0.2-1.0); Total Protein 8.2 g/dL (5.7-8.2)
[2023-09-20 19:50] LABS: Band Neutrophils % (manual) 1; Lymphocytes % (manual) 14 (10.0-50.0); Monocytes % (manual) 4 (0-12); Platelet Estimate Adequate
[2023-09-20 20:00] LABS: Carbon Dioxide < 10 mmol/L (20-30); Glucose 661 mg/dL (74-106); Potassium 6.2 mmol/L (3.5-5.1)
[2023-09-20] MEDS ORDERED: cefTRIAXone 1GM/50ML D5W 50 ML IV ONE (20:00)
[2023-09-20] MEDS ORDERED: INSULIN LANTUS (GLARGINE) 1 /0.01ml (100units/ml) SC ONE (20:15)
[2023-09-20] MEDS ORDERED: INSULIN DRIP 100 UNIT/100ML 100 ML IV SCH (20:15)
[2023-09-20] MEDS: INSULIN DRIP 100 UNIT/100ML 100 ML IV SCH (20:41)
[2023-09-20 21:27] LABS: Lactic Acid w/Reflex 3.3 mmol/L (0.4-2.0)
[2023-09-20] MEDS ORDERED: VANCOMYCIN 1GM/200ML 250 ML IV ONE (21:30)
[2023-09-20] MEDS ORDERED: MORPHINE SULFATE INJ 2 MG/ml SYRG IV PRN (22:00)
[2023-09-20] MEDS ORDERED: NITROGLYCERIN 0.4 MG SL TAB SL PRN (22:00)
[2023-09-20] MEDS ORDERED: ONDANSETRON HCL 4 MG/2 ML VIAL IV PRN (22:00)
[2023-09-20] MEDS ORDERED: DEXTROSE (50%) 50ML SYRG IV PRN (22:00)
[2023-09-20] MEDS: ACCU-CHEK COMFORT CURVE STRIP VI SCH ×2 (22:14→23:39)
[2023-09-20 22:46] LABS: Mean Corpuscular Hgb Conc. 29.7 g/dL (32.0-36.0)
[2023-09-20 22:48] LABS: Hematocrit 49.7 % (36.0-46.0); Hemoglobin 14.7 g/dL (12.2-16.2); Mean Corpuscular Hemoglobin 29.5 pg (28.0-32.0); Mean Corpuscular Volume 99.3 fL (80.0-100.0); Red Cell Distribution Width 15.9 % (11.8-14.3)
[2023-09-20] MEDS ORDERED: SODIUM BICARBONATE 50ML VIAL 150 ML in SOD CHL 0.45% 1,000 ML IV ONE (23:00)
[2023-09-20 23:09] LABS: Basophils % (manual) 0 (0.0-2.0); Blast Cells 0; Eosinophils % (manual) 0 (0-7); Metamyelocytes % 0; Myelocytes % 0; Promyelocytes % 0; Reactive Lymphocytes 0
[2023-09-20 23:10] LABS: Alanine Aminotransferase 26 U/L (7-40); Albumin 4.8 g/dL (3.2-4.8); Alkaline Phosphatase 117 U/L (46-116); Anion Gap 24.00001 (5-15); Aspartate Aminotransferase 14 U/L (13-40); Bilirubin, Total 0.2 mg/dL (0.2-1.0); Blood Urea Nitrogen 16 mg/dL (9-23); Calcium 8.7 mg/dL (8.7-10.4); Chloride 113 mmol/L (98-107); Potassium 4.7 mmol/L (3.5-5.1)
[2023-09-20 23:11] LABS: Total Protein 7.9 g/dL (5.7-8.2)
[2023-09-20 23:25] LABS: Band Neutrophils % (manual) 5; Carbon Dioxide < 10 mmol/L (20-30); Glucose 499 mg/dL (74-106); Lymphocytes % (manual) 17 (10.0-50.0); Monocytes % (manual) 3 (0-12); Sodium 147 mmol/L (136-145)
[2023-09-20 23:26] LABS: Platelet Estimate Adequate
[2023-09-20] MEDS ORDERED: LABETALOL HCL 5 MG/ML 4ML SYRINGE IV ONE (23:45)
[2023-09-21] MEDS ORDERED: ACCU-CHEK COMFORT CURVE STRIP VI SCH
[2023-09-21] MEDS: ACCU-CHEK COMFORT CURVE STRIP VI SCH ×15 (01:15→23:04)
[2023-09-21] MEDS ORDERED: SODIUM CHLORIDE 0.9% 1,000 ML IV SCH (03:45)
[2023-09-21 05:57] LABS: Hematocrit 42.1 % (36.0-46.0); Hemoglobin 13.7 g/dL (12.2-16.2); Mean Corpuscular Hemoglobin 29.4 pg (28.0-32.0); Mean Corpuscular Hgb Conc. 32.6 g/dL (32.0-36.0); Mean Corpuscular Volume 90.2 fL (80.0-100.0); Red Blood Cells 4.66 10^6/uL (4.0-5.20); Red Cell Distribution Width 14.3 % (11.8-14.3); White Blood Cell 25.6 10^3/uL (4.4-10.8)
[2023-09-21 06:00] LABS: Chloride 120 mmol/L (98-107); Potassium 3.8 mmol/L (3.5-5.1)
[2023-09-21 06:01] LABS: Anion Gap 21 (5-15); Carbon Dioxide 13 mmol/L (20-30)
[2023-09-21 06:02] LABS: Calcium 9.1 mg/dL (8.5-10.1)
[2023-09-21 06:07] LABS: BUN/Creatinine Ratio 12.8 (10.0-20.0); Blood Urea Nitrogen 16 mg/dL (9-23); Glucose 135 mg/dL (74-106)
[2023-09-21 06:08] LABS: Base Excess -10.8 mmol/L (-2.0-2.0)
[2023-09-21 06:26] LABS: Sodium 154 mmol/L (136-145)
[2023-09-21] MEDS ORDERED: LACTATED RINGER'S 1,000 ML IV ONE (06:45)
[2023-09-21 07:31] VITALS: PULSE 120; RESP 16; O2SAT 96
[2023-09-21 08:06] LABS: Band Neutrophils % (manual) 0; Basophils % (manual) 0 (0.0-2.0); Blast Cells 0; Eosinophils % (manual) 0 (0-7); Metamyelocytes % 0; Myelocytes % 0; Promyelocytes % 0; Reactive Lymphocytes 0
[2023-09-21] MEDS ORDERED: cefTRIAXone 1GM/50ML D5W 50 ML IV ONE (09:00)
[2023-09-21] MEDS ORDERED: cefTRIAXone 1GM/50ML D5W 50 ML IV SCH ×2 (09:00→20:00)
[2023-09-21] MEDS ORDERED: INSULIN LANTUS (GLARGINE) 1 /0.01ml (100units/ml) SC SCH (10:00)
[2023-09-21 10:14] LABS: Lymphocytes % (manual) 10 (10.0-50.0); Monocytes % (manual) 7 (0-12); Platelet Estimate Adequate
[2023-09-21 10:37] LABS: Chloride 123 mmol/L (98-107); Potassium 3.7 mmol/L (3.5-5.1); Sodium 155 mmol/L (136-145)
[2023-09-21 10:38] LABS: Anion Gap 17 (5-15); Calcium 8.9 mg/dL (8.5-10.1); Carbon Dioxide 15 mmol/L (20-30)
[2023-09-21 10:43] LABS: BUN/Creatinine Ratio 13.1 (10.0-20.0); Blood Urea Nitrogen 14 mg/dL (9-23); Glucose 123 mg/dL (74-106)
[2023-09-21] MEDS: D5W 5% 1,000 ML IV SCH (15:51)
[2023-09-21 16:47] LABS: Chloride 117 mmol/L (98-107); Potassium 3.6 mmol/L (3.5-5.1)
[2023-09-21 16:48] LABS: Anion Gap 14 (5-15); Calcium 8.7 mg/dL (8.5-10.1); Carbon Dioxide 17 mmol/L (20-30)
[2023-09-21 16:53] LABS: BUN/Creatinine Ratio 10.2 (10.0-20.0); Blood Urea Nitrogen 10 mg/dL (9-23); Glucose 103 mg/dL (74-106)
[2023-09-21 17:04] LABS: Sodium 148 mmol/L (136-145)
[2023-09-21 19:30] VITALS: PULSE 106; RESP 16; O2SAT 97
[2023-09-21] MEDS: INSULIN DRIP 100 UNIT/100ML 100 ML IV SCH ×4 (20:43→23:29)
[2023-09-21 22:40] LABS: Chloride 112 mmol/L (98-107); Sodium 142 mmol/L (136-145)
[2023-09-21 22:41] LABS: Anion Gap 15 (5-15); Calcium 8.4 mg/dL (8.7-10.4); Carbon Dioxide 15 mmol/L (20-30)
[2023-09-21 22:46] LABS: BUN/Creatinine Ratio 9.5 (10.0-20.0); Blood Urea Nitrogen 8 mg/dL (9-23); Glucose 110 mg/dL (74-106)
[2023-09-22] MEDS: ACCU-CHEK COMFORT CURVE STRIP VI SCH ×9 (00:32→21:03)
[2023-09-22] MEDS ORDERED: POTASSIUM CHL 20 Meq TABLET PO ONE ×3 (03:45→12:00)
[2023-09-22] MEDS: D5W 5% 1,000 ML IV SCH (06:03)
[2023-09-22 07:09] LABS: Basophils # (auto) 0.1 10 ^3/uL (0-0.2); Basophils % (auto) 0.9 % (0.0-2.0); Eosinophils # (auto) 0.1 10 ^3/uL (0-0.8); Eosinophils % (auto) 0.9 % (0.0-7.0); Hematocrit 36.4 % (36.0-46.0); Hemoglobin 12.1 g/dL (12.2-16.2); Lymphocytes # (auto) 2.3 10 ^3/uL (0.4-5.4); Lymphocytes % (auto) 16.9 % (10.0-50.0); Mean Corpuscular Hemoglobin 29.7 pg (28.0-32.0); Mean Corpuscular Hgb Conc. 33.4 g/dL (32.0-36.0); Monocytes # (auto) 0.9 10 ^3/uL (0-1.3); Monocytes % (auto) 6.6 % (0.0-12.0); Neutrophils # (auto) 10.1 10 ^3/uL (1.6-8.6); Neutrophils % (auto) 74.7 % (37.0-80.0); Red Blood Cells 4.09 10^6/uL (4.0-5.20); Red Cell Distribution Width 14.4 % (11.8-14.3); White Blood Cell 13.5 10^3/uL (4.4-10.8)
[2023-09-22 07:27] LABS: Alanine Aminotransferase 16 U/L (7-40); Albumin 3.6 g/dL (3.2-4.8); Alkaline Phosphatase 72 U/L (46-116); Anion Gap 10 (5-15); Aspartate Aminotransferase 25 U/L (13-40); BUN/Creatinine Ratio 10.4 (10.0-20.0); Bilirubin, Total 0.4 mg/dL (0.2-1.0); Blood Urea Nitrogen 8 mg/dL (9-23); Calcium 8.2 mg/dL (8.7-10.4); Carbon Dioxide 19 mmol/L (20-30); Chloride 111 mmol/L (98-107); Glucose 130 mg/dL (74-106); Magnesium 1.7 mg/dL (1.6-2.6); Potassium 2.8 mmol/L (3.5-5.1); Sodium 140 mmol/L (136-145); Total Protein 5.8 g/dL (5.7-8.2)
[2023-09-22 07:30] VITALS: RESP 16; O2SAT 97
[2023-09-22] MEDS ORDERED: cefTRIAXone 1GM/50ML D5W 50 ML IV SCH (09:00)
[2023-09-22] MEDS ORDERED: DEXTROSE (50%) 50ML SYRG IV PRN (09:15)
[2023-09-22] MEDS: INSULIN LANTUS (GLARGINE) 1 /0.01ml (100units/ml) SC SCH ×2 (09:36→21:10)
[2023-09-22] MEDS: D5W/SOD CHL 0.45%/KCL 20MEQ 1,000 ML IV SCH ×2 (09:56→22:35)
[2023-09-22] MEDS: InsuLIN REG 1unit/0.01ml Soln (100units/ml) SC SCH ×2 (11:49→16:09)
[2023-09-22 13:58] VITALS: BP 125/86; PULSE 74; PULSE 79; RESP 16; RESP 19; TEMP 97.8; O2SAT 97; O2SAT 99
[2023-09-22 17:00] VITALS: BP 116/79; PULSE 90; RESP 15; TEMP 97.9; O2SAT 97
[2023-09-22 20:00] VITALS: PULSE 89; RESP 17; O2SAT 98
[2023-09-22 22:00] VITALS: BP 112/70; PULSE 94; RESP 20; TEMP 98.5; O2SAT 96
[2023-09-22] MEDS ORDERED: InsuLIN REG 1unit/0.01ml Soln (100units/ml) SC SCH (22:00)
[2023-09-23] MEDS: D5W/SOD CHL 0.45%/KCL 20MEQ 1,000 ML IV SCH (02:15)
[2023-09-23 05:00] VITALS: BP 117/74; PULSE 71; RESP 19; TEMP 98; O2SAT 97
[2023-09-23] MEDS: ACCU-CHEK COMFORT CURVE STRIP VI SCH ×2 (06:15→11:02)
[2023-09-23] MEDS: InsuLIN REG 1unit/0.01ml Soln (100units/ml) SC SCH ×2 (06:25→11:14)
[2023-09-23 06:35] LABS: Alanine Aminotransferase 17 U/L (7-40); Alkaline Phosphatase 75 U/L (46-116); Anion Gap 6 (5-15); BUN/Creatinine Ratio 6.9 (10.0-20.0); Blood Urea Nitrogen 5 mg/dL (9-23); Calcium 8.2 mg/dL (8.7-10.4); Carbon Dioxide 25 mmol/L (20-30); Chloride 108 mmol/L (98-107); Glucose 267 mg/dL (74-106); Magnesium 1.7 mg/dL (1.6-2.6); Potassium 3.8 mmol/L (3.5-5.1); Sodium 139 mmol/L (136-145)
[2023-09-23 06:36] LABS: Albumin 3.3 g/dL (3.2-4.8); Aspartate Aminotransferase 23 U/L (13-40); Bilirubin, Total 0.6 mg/dL (0.2-1.0)
[2023-09-23 07:03] LABS: Basophils # (auto) 0.1 10 ^3/uL (0-0.2); Eosinophils # (auto) 0.3 10 ^3/uL (0-0.8); Eosinophils % (auto) 3.7 % (0.0-7.0); Hematocrit 36.1 % (36.0-46.0); Lymphocytes # (auto) 2.7 10 ^3/uL (0.4-5.4); Lymphocytes % (auto) 39.4 % (10.0-50.0); Mean Corpuscular Hemoglobin 29.3 pg (28.0-32.0); Mean Corpuscular Hgb Conc. 33.2 g/dL (32.0-36.0); Mean Corpuscular Volume 88.4 fL (80.0-100.0); Monocytes # (auto) 0.6 10 ^3/uL (0-1.3); Monocytes % (auto) 8.5 % (0.0-12.0); Neutrophils # (auto) 3.3 10 ^3/uL (1.6-8.6); Neutrophils % (auto) 47.4 % (37.0-80.0); Nucleated Red Blood Cells % 0.2 %; Red Blood Cells 4.08 10^6/uL (4.0-5.20); White Blood Cell 6.9 10^3/uL (4.4-10.8)
[2023-09-23 07:08] LABS: Total Protein 5.4 g/dL (5.7-8.2)
[2023-09-23] MEDS: INSULIN LANTUS (GLARGINE) 1 /0.01ml (100units/ml) SC SCH (08:39)
[2023-09-23 09:00] VITALS: BP 120/88; PULSE 72; RESP 18; TEMP 97.6; O2SAT 97
== END 2023-09-23 12:29 | disposition home or self-care (01) | DRG 420 ==
LOC: EDBD 16:23 → ER 16:23 → TELE 21:57 → TELE-CENTR 09-22 14:13
PROVIDERS: ADMIT Nurse Practitioner; ATTEND Internal Medicine Geriatric Medicine
DX: E10.10 Type 1 diabetes mellitus with ketoacidosis without coma (principal); N17.9 Acute kidney failure, unspecified; E87.0 Hyperosmolality and hypernatremia; E87.5 Hyperkalemia; E87.6 Hypokalemia; D72.829 Elevated white blood cell count, unspecified; Z79.4 Long term (current) use of insulin; Z91.018 Allergy to other foods
CPT/HCPCS: 36415; 36600; 71045; 80048; 80053; 81001; 82010; 82805; 82962; 83605; 83690; 83735; 83930; 84702; 85007; 85025; 85027; 87040; 96365; 96367; 96372; 96375; G0378; J1815; J2405

== ENCOUNTER 2024-03-08 20:26 | Emergency (ER) | payer MEDICAID ==
[~2024-03-08] VITALS: Ht 170.2 cm; Wt 60.0 kg
[2024-03-08 20:53] VITALS: BP 129/89; RESP 21; O2SAT 97
[2024-03-08 23:36] VITALS: PULSE 115
== END 2024-03-09 00:07 | disposition left against medical advice (07) ==
LOC: ER 20:26
DX: R05.9 Cough, unspecified (principal); R06.02 Shortness of breath; R09.89 Other specified symptoms and signs involving the circulatory and respiratory systems; M79.10 Myalgia, unspecified site; Z53.21 Procedure and treatment not carried out due to patient leaving prior to being seen by health care provider

== ENCOUNTER 2024-08-02 17:27 | Inpatient (IN) | payer MEDICAID ==
[~2024-08-02] VITALS: Ht 170.2 cm; Wt 74.8 kg
--- NOTE | 2024-08-02 18:09 | ED.PDOC ---
STOCK TRACER HPI Comments HPI: Poor Historian. 28-year-old female presents to emergency department for evaluation of right inguinal abscess that she noted four days ago. Yesterday she started noticing it draining while she was in the shower. She went to urgent care today. She was sent from urgent care with a note stating labial majora abscess with hyperglycemia. Patient's blood sugar was 430 so they sent her to the emergency department for further evaluation and treatment. Patient has history of diabetes compliant with the medications. Denies any history of STDs. Vitals: respiratory rate of 16, pulse rate of 97, SpO2 of 96%RA, and a blood pressure of 118/81 PMHx: DM I PSHx: denies REVIEW OF SYSTEMS: CONSTITUTIONAL: Denies acute: fever, diaphoresis, chills, generalized weakness. HEAD: Denies acute: headache, photophobia Eyes: Denies acute: Double vision, vision loss, eye pain, eye discharge. EARS: Denies acute: tinnitus, hearing loss, ear discharge, ear pain, THROAT: Denies acute: sore throat, swelling, difficulty swallowing , pain with swallowing, change in voice. NECK: Denies acute: neck pain, neck swelling, stiff neck. HEART: Denies acute : chest pain, palpitations, LUNGS: Denies acute: SOB, wheezing, cough, hemoptysis ABDOMEN: Denies acute: abdominal pain, Nausea, Vomiting, diarrhea, melena , hematemesis, hematochezia SKIN: Denies acute: rash, redness, lesions, itchiness. EXTREMITIES: Denies acute: calf pain, numbness, tingling, weakness, denies pain in extremity. Denies acute: Low back pain. Neuro: Denies acute: focal neurological deficit, motor or sensory focal neurological deficit, tremors, seizure like activity, confusion, dizziness, change in mental status, loss of bowel or bladder function, cauda equina like symptoms. : Denies acute: dysuria, hematuria, flank pain, increase in urinary frequency. PSYCH: Denies acute: hallucination, suicidal ideation, homicidal ideation. FEMALE: Denies acute: abnormal vaginal bleeding, foul odor, unusual discharge. PHYSICAL EXAM: General: no acute distress, awake and alert. Head: normocephalic, atraumatic. Neck: supple, trachea is midline, no swelling. Throat: Normal phonation. Eyes:, no erythema, no purulent discharge, no proptosis, no icterus. Heart: regular rate, regular rhythm, no significant murmur appreciated. Lungs: no apparent respiratory distress, Able to speak in full sentences. No wheezing, no rhonchi, no crackles. No stridors Clear to auscultation bilaterally. Abdomen: RLQ tender to palpation, non distended, soft, no guarding, no rebound, + bowel sounds. : Evaluation of the abscess in the presence of a tank tender nurse Odalys in triage Noted right inguinal abscess with purulent discharge with erythema it and swelling and tenderness to palpation. This also noted right medial proximal thigh enlarged mass with associated erythema on the skin that is also firm and tender to palpation. Neuro: Awake, Alert, oriented to name, self, situation, follows commands GCS=15. Speech is normal. Skin: no petechia, no purpura, no cyanosis, non-pale, not jaundice. Lower extremities: --no - Pitting edema no deformity, no focal swelling, no calf TTP. Makes eye contact. moves all four extremities. Face: no apparent facial droop. Ambulating in the ED independently. No nuchal rigidity, Kernig's sign, Brudzinski's sign, no meningeal signs. Chief Complaint: Hyperglycemia Time Seen by MD: 18:00 Reviewed Notes: Nurses Notes, Medications, Allergies Allergies: Coded Allergies: Soy Allergy (Verified Allergy, Severe, sob, 05/14/23) Home Meds Active Scripts Insulin Detemir (Levemir) Inj, 20 ' SC HS, #30 INJ Prov:JUAN CARLOS VOGEL MD 08/03/23 Insulin Aspart (Novolog) 100 Unit/Ml Inj, 10 UNIT IJ TID, #30 INJ Prov:JUAN CARLOS VOGEL MD 08/03/23 Sucralfate (CARAFATE SUSP) 1 Gm/10 Ml Ss, 10 ML PO QID, #1200 ML 3 Refills Prov:ANATOLIY SANCHEZ MD 03/11/23 Pantoprazole Sodium Sesquihydr (Protonix) 40 Mg Tab, 40 MG PO QAM, #30 TAB Prov:ANATOLIY SANCHEZ MD 03/11/23 Information Source: Patient Was a procedure done? Was a procedure done?: No Differential Diagnosis (HEALTHCARE SPECIALIST) Vaginal Bleeding: N/A Mass / Lesion: Bartholin Abscess, Bartholin Cyst, Hidradenitis Suppurativa, Perianal Abscess, PID, Subcutaneous Abscess, Vaginitis - Bacterial, Vaginitis - Candidal, Vaginitis - Herpetic, Vaginitis - Trichomonas X-Ray, Labs, Meds, VS Vital Signs Date Time Temp Pulse Resp B/P (MAP) Pulse Ox O2 Delivery O2 Flow Rate FiO2 08/02/24 17:40 98.6 97 16 118/81 (93) 96 Lab Test 08/02/24 18:13 Range/Units White Blood Count 10.6 4.4-10.8 10^3/uL Red Blood Count 4.46 4.0-5.20 10^6/uL Hemoglobin 13.0 12.2-16.2 g/dL Hematocrit 39.0 36.0-46.0 % Mean Corpuscular Volume 87.4 80.0-100.0 fL Mean Corpuscular Hemoglobin 29.1 28.0-32.0 pg Mean Corpuscular Hemoglobin Concent 33.2 32.0-36.0 g/dL Red Cell Distribution Width 14.0 11.8-14.3 % Platelet Count 463 H 140-450 10^3/uL Mean Platelet Volume 6.8 L 6.9-10.8 fL Neutrophils (%) (Auto) 76.8 37.0-80.0 % Lymphocytes (%) (Auto) 17.4 10.0-50.0 % Monocytes (%) (Auto) 3.7 0.0-12.0 % Eosinophils (%) (Auto) 1.4 0.0-7.0 % Basophils (%) (Auto) 0.7 0.0-2.0 % Neutrophils # (Auto) 8.2 1.6-8.6 10 ^3/uL Lymphocytes # (Auto) 1.8 0.4-5.4 10 ^3/uL Monocytes # (Auto) 0.4 0-1.3 10 ^3/uL Eosinophils # (Auto) 0.1 0-0.8 10 ^3/uL Basophils # (Auto) 0.1 0-0.2 10 ^3/uL Nucleated Red Blood Cells 0.0 % Sodium Level 134 L 136-145 mmol/L Potassium Level 4.7 3.5-5.1 mmol/L Chloride Level 99 98-107 mmol/L Carbon Dioxide Level 19 L 20-31 mmol/L Anion Gap 16 H 5-15 Blood Urea Nitrogen 13 9-23 mg/dL Creatinine 0.93 0.550-1.02 mg/dL Glomerular Filtration Rate Calc 87 >90 mL/min BUN/Creatinine Ratio 14.0 10.0-20.0 Serum Glucose 488 *H 74-106 mg/dL Lactic Acid Level 1.3 0.4-2.0 mmol/L Calcium Level 9.3 8.7-10.4 mg/dL Magnesium Level 1.7 1.6-2.6 mg/dL Total Bilirubin 0.3 0.2-1.0 mg/dL Aspartate Amino Transferase (AST) 8 L 13-40 U/L Alanine Aminotransferase (ALT) 10 7-40 U/L Alkaline Phosphatase 165 H 46-116 U/L Total Protein 7.0 5.7-8.2 g/dL Albumin 4.1 3.2-4.8 g/dL Lipase 25 12-53 U/L Beta-Hydroxybutyric Acid 4.455 H < 0.4 mmol/L Beta HCG, Quantitative 0.1 L 1.5-4.2 mIU/mL Current Medications Medications (Trade) Dose Ordered Sig/Alfie Route Start Time Stop Time Status Last Admin Sodium Chloride 1,000 ml @ 1,000 mls/hr Q1H ONCE IV 08/02/24 18:15 08/02/24 19:14 DC 08/02/24 22:28 Piperacillin Sod/ Tazobactam Sod 100 ml @ 100 mls/hr ONCE ONCE IV 08/02/24 18:45 08/02/24 19:44 DC 08/02/24 22:27 Insulin Human Regular (InsuLIN R) 5 units ONCE ONCE IV 08/02/24 19:30 08/02/24 19:32 DC 08/02/24 22:34 [place] [id number] Ph: [phone] DIAGNOSTIC IMAGING Diagnostic Imaging Report : [id number] Signed PATIENT: FERNANDO SINGHIAACCT: [id number] UNIT: [id number] : 1995 LOC: ER ROOM / BED: / AGE / SEX: 28 / F ADM STATUS: REG ER SERVICE 1800 ORDERING PHYSICIAN: LIBERTY GARRIDO DO PROCEDURE(s): PELUS - PELVIC REASON: RLQ pain, Labia abscess ORDER NUMBER(s): [id number], ACCESSION NUMBER(s): [id number] TRANSABDOMINAL PELVIC ULTRASOUND CLINICAL HISTORY: RLQ pain, Labia abscess TECHNIQUE: Multiple grayscale ultrasound images were obtained of the pelvis via transabdominal approach. Limited color Doppler and spectral Doppler acquisition s were also obtained. COMPARISON: None FINDINGS: Uterus: 8.9 x 4.1 x 5.1 cm. The uterine contour is smooth. No myometrial masses are seen. Endometrium: 1.2 cm. No endometrial mass is seen. Right adnexa: right ovary 2.1 x 1.0 x 1.9 cm. Normal arterial blood flow in the ovary. No right adnexal mass seen. Left adnexa: left ovary 2.7 x 3.0 x 1.4 cm. Normal arterial blood flow in the ovary. No left adnexal mass seen. Other: There is particulate debris in the urinary bladder. Additional trans labial images demonstrate ill-defined pocket of fluid in the right labia measuring 3.1 x 3.1 x 1.6 cm with surrounding hyperemia and soft tissue swelling. IMPRESSION: 1. Normal uterus and ovaries. 2. Ill-defined pocket of fluid in the right labia measuring up to 3.1 cm with surrounding hyperemia and soft tissue swelling which could reflect developing abscess and surrounding cellulitis ATED BY: BREANA GLOVER MD DICTATED DATE/TIME: 08/02/241949 SIGNED BY: BREANA GLOVER MD SIGNED DATE/TIME: 08/02/241949 CC: Time of 1ST Reevaluation: 18:30 Reevaluation 1ST: Unchanged Patient Education/Counseling: Diagnosis, Treatment Family Education/Counseling: No Family Present Comments Patient presented with the above HPI.--hyperglycemia and right inguinal abscess----workup was initiated. patient was found with the above mentioned diagnosis. Patient was given: Fluids, insulin, fluids, antibiotics Zosyn and vancomycin. Patient ED course and VS have been stabilized. Patient has been reassessed in the ED and remained in a stable condition. Pertinent incidental findings were discussed with the patient and/or family. Patient/family voices understanding and is agreeable with plan. Patient has been observed in the ED adequate length of time to insure improvement/stability. patient was admitted to the medicine team for further evaluation and treatment of their presentation. CT scan report is still pending. All the reports of any imaging studies that were ordered by myself were reviewed by myself. Evaluation of the abscess appears to be draining pus already. He is in a benefit from further debridement by surgery. CT scan was ordered with contrast to see if there is any deep communication of the abscess. Departure 1 Departure Time of Disposition: 19:28 Impression: Primary Impression: Hyperglycemia Additional Impressions: Inguinal abscess Abscess of labia majora Cellulitis of groin, right Disposition: HOME / SELF CARE / HOMELESS Condition: Stable Discharged With: Self Critical Care Note Critical Care Time?: Yes (1 hr-critical care time only) I personally scribed for LIBERTY GARRIDO DO ([email or web address]) on 08/02/24 at 18:09. Electronically submitted by Lewis Oliver ([email or web address]). I personally scribed for LIBERTY GARRIDO DO ([email or web address]) on 08/02/24 at 19:35. Electronically submitted by Lewis Oliver ([email or web address]). I personally scribed for LIBERTY GARRIDO DO ([email or web address]) on 08/02/24 at 21:39. Electronically submitted by Lewis Oliver [email or web address]). LIBERTY GARRIDO DO Aug 02, 2024 18:09
[2024-08-02 18:39] LABS: Lymphocytes # (auto) 1.8 10 ^3/uL (0.4-5.4); Neutrophils # (auto) 8.2 10 ^3/uL (1.6-8.6); White Blood Cell 10.6 10^3/uL (4.4-10.8)
[2024-08-02 18:40] LABS: Basophils # (auto) 0.1 10 ^3/uL (0-0.2); Basophils % (auto) 0.7 % (0.0-2.0); Eosinophils # (auto) 0.1 10 ^3/uL (0-0.8); Eosinophils % (auto) 1.4 % (0.0-7.0); Lymphocytes % (auto) 17.4 % (10.0-50.0); Mean Corpuscular Hemoglobin 29.1 pg (28.0-32.0); Mean Corpuscular Hgb Conc. 33.2 g/dL (32.0-36.0); Mean Corpuscular Volume 87.4 fL (80.0-100.0); Monocytes # (auto) 0.4 10 ^3/uL (0-1.3); Monocytes % (auto) 3.7 % (0.0-12.0); Neutrophils % (auto) 76.8 % (37.0-80.0); Platelet Count (auto) 463 10^3/uL (140-450); Red Blood Cells 4.46 10^6/uL (4.0-5.20)
[2024-08-02] MEDS ORDERED: VANCOMYCIN PER PHARMACY 0 MG IV SCH (18:45)
[2024-08-02 18:52] LABS: Alanine Aminotransferase 10 U/L (7-40); Albumin 4.1 g/dL (3.2-4.8); Alkaline Phosphatase 165 U/L (46-116); Anion Gap 16 (5-15); Aspartate Aminotransferase 8 U/L (13-40); Bilirubin, Total 0.3 mg/dL (0.2-1.0); Blood Urea Nitrogen 13 mg/dL (9-23); Calcium 9.3 mg/dL (8.7-10.4); Carbon Dioxide 19 mmol/L (20-31); Chloride 99 mmol/L (98-107); Lipase 25 U/L (12-53); Potassium 4.7 mmol/L (3.5-5.1); Sodium 134 mmol/L (136-145)
[2024-08-02 19:15] LABS: Glucose 488 mg/dL (74-106)
--- NOTE | 2024-08-02 19:52 | DVH ---
TRANSABDOMINAL PELVIC ULTRASOUND CLINICAL HISTORY: RLQ pain, Labia abscess TECHNIQUE: Multiple grayscale ultrasound images were obtained of the pelvis via transabdominal appro ach. Limited color Doppler and spectral Doppler acquisitions were also obtained. COMPARISON: None FINDINGS: Uterus: 8.9 x 4.1 x 5.1 cm. The uterine contour is smooth. No myometrial masses are seen. Endometrium: 1.2 cm. No endometrial mass is seen. Right adnexa: right ovary 2.1 x 1.0 x 1.9 cm. Normal arterial blood flow in the ovary. No right adnex al mass seen. Left adnexa: left ovary 2.7 x 3.0 x 1.4 cm. Normal arterial blood flow in the ovary. No left adnexal mass seen. Other: There is particulate debris in the urinary bladder. Additional trans labial images demonstrate ill-defined pocket of fluid in the right labia measuring 3 .1 x 3.1 x 1.6 cm with surrounding hyperemia and soft tissue swelling. IMPRESSION: 1. Normal uterus and ovaries. 2. Ill-defined pocket of fluid in the right labia measuring up to 3.1 cm with surrounding hyperemia a nd soft tissue swelling which could reflect developing abscess and surrounding cellulitis
[2024-08-02] MEDS ORDERED: MORPHINE SULFATE INJ 2 MG/ml SYRG IV PRN (20:45)
[2024-08-02] MEDS ORDERED: NITROGLYCERIN 0.4 MG SL TAB SL PRN (20:45)
[2024-08-02 22:10] VITALS: PULSE 106; RESP 20; O2SAT 99
[2024-08-02] MEDS ORDERED: DEXTROSE (50%) 50ML SYRG IV PRN ×2 (22:15→23:45)
--- NOTE | 2024-08-02 22:16 | DVHHPRES ---
History of Present Illness Resident Creating Document: ANETTE MORALES RESIDENT History of Present Illness Antoine Duong is a 28 years old female with a PMH of type 1 DM presented to the ED with the chief complaints of right inguinal abscess for 5 days. Patient reported she has been having abscess for 5 days which is recently been tested oozing pus, painful unable to walk properly, She went to urgent care today. She was sent from urgent care with a note stating labial majora abscess with hyperglycemia. On my assessment patient denies fever, vomiting, diarrhea, abdominal pain, abnormal sexual behaviour and other associated symptoms Past Medical History Type 1 DM Past Surgical History: None Family History: None Past Social History Patient lives with cousin. denies smoking, alcohol and other drug abuse Review of Systems Constitutional: No: Fever, Chills, Sweats, Weakness, Malaise, Other Eyes: No: Pain, Vision change, Conjunctivae inflammation, Eyelid inflammation, Other, Redness ENT: No: Ear pain, Ear discharge, Nose pain, Nose discharge, Nose congestion, Mouth pain, Mouth swelling, Throat pain, Throat swelling, Other Respiratory: No: Cough, Dry, Shortness of breath, SOB with excertion, Wheezing, Hemoptysis, Pleuritic Pain, Sputum, Wheezing, Other Cardiovascular: No: Chest Pain, Palpitations, Orthopnea, Paroxysmal Noc. Dyspnea, Edema, Lt Headedness, Other Gastrointestinal: No: Nausea, Vomiting, Abdominal Pain, Diarrhea, Constipation, Melena, Hematochezia, Other Genitourinary: Other (Pus oozing, draining abscess near right labia ) Allergies: Coded Allergies: Soy Allergy (Verified Allergy, Severe, sob, 05/14/23) Medications Current Medications Medications Dose Ordered Sig/Alfie Route Start Time Stop Time Status Last Admin Dose Admin Vancomycin HCl 0 ml @ 0 mls/hr UD IV 08/02/24 18:45 Sodium Chloride 10 ml Q8HR IV 08/02/24 22:00 Ondansetron HCl 4 mg Q4HP PRN IV 08/02/24 20:45 Acetaminophen 650 mg Q6HP PRN PO 08/02/24 20:45 Morphine Sulfate 2 mg Q4HPRN PRN IV 08/02/24 20:45 Nitroglycerin 0.4 mg Q5MINP PRN SL 08/02/24 20:45 Morphine Sulfate 2 mg Q30M PRN IV 08/02/24 20:45 Piperacillin Sod/ Tazobactam Sod 100 ml @ 25 mls/hr Q8HR IV 08/03/24 06:00 Diagnostic Test (Pha) 1 strip ACHS 08/03/24 07:00 Insulin Human Regular HS SC 08/03/24 22:00 Insulin Human Regular AC SC 08/03/24 07:00 Dextrose 50 ml UD PRN IV 08/02/24 22:15 Insulin Glargine 15 units QAM SC 08/03/24 07:00 Exam Vital Signs Vital Signs Date Time Temp Pulse Resp B/P (MAP) Pulse Ox O2 Delivery O2 Flow Rate FiO2 08/02/24 22:10 106 20 121/94 (103) 99 08/02/24 17:40 98.6 Exam Pt is lying on bed General Appearance: Alert, Oriented X3, Cooperative, Moderate distress HEENT: Atraumatic, Mucous membranes moist/pink Respiratory: Clear to auscultation, Normal air movement, No added sounds Cardiovascular: Regular rate, Normal S1, Normal S2, No murmurs Abdominal: Active bowel sounds, Soft, no distention, no tenderness Extremities: No edema, Normal pulses, No tenderness/swelling Skin: Pus oozing, draining abscess, red, swollen, tender in right medial inguinal, right labia majora Neuro: Normal speech, sensorimotor deficits none Psych/Mental Status: Mental status NL, Mood NL Nurse was there as sharperone during examination Labs/Xrays Labs Test 08/02/24 18:13 Range/Units White Blood Count 10.6 4.4-10.8 10^3/uL Red Blood Count 4.46 4.0-5.20 10^6/uL Hemoglobin 13.0 12.2-16.2 g/dL Hematocrit 39.0 36.0-46.0 % Mean Corpuscular Volume 87.4 80.0-100.0 fL Mean Corpuscular Hemoglobin 29.1 28.0-32.0 pg Mean Corpuscular Hemoglobin Concent 33.2 32.0-36.0 g/dL Red Cell Distribution Width 14.0 11.8-14.3 % Platelet Count 463 H 140-450 10^3/uL Mean Platelet Volume 6.8 L 6.9-10.8 fL Neutrophils (%) (Auto) 76.8 37.0-80.0 % Lymphocytes (%) (Auto) 17.4 10.0-50.0 % Monocytes (%) (Auto) 3.7 0.0-12.0 % Eosinophils (%) (Auto) 1.4 0.0-7.0 % Basophils (%) (Auto) 0.7 0.0-2.0 % Neutrophils # (Auto) 8.2 1.6-8.6 10 ^3/uL Lymphocytes # (Auto) 1.8 0.4-5.4 10 ^3/uL Monocytes # (Auto) 0.4 0-1.3 10 ^3/uL Eosinophils # (Auto) 0.1 0-0.8 10 ^3/uL Basophils # (Auto) 0.1 0-0.2 10 ^3/uL Nucleated Red Blood Cells 0.0 % Sodium Level 134 L 136-145 mmol/L Potassium Level 4.7 3.5-5.1 mmol/L Chloride Level 99 98-107 mmol/L Carbon Dioxide Level 19 L 20-31 mmol/L Anion Gap 16 H 5-15 Blood Urea Nitrogen 13 9-23 mg/dL Creatinine 0.93 0.550-1.02 mg/dL Glomerular Filtration Rate Calc 87 >90 mL/min BUN/Creatinine Ratio 14.0 10.0-20.0 Serum Glucose 488 *H 74-106 mg/dL Lactic Acid Level 1.3 0.4-2.0 mmol/L Calcium Level 9.3 8.7-10.4 mg/dL Magnesium Level 1.7 1.6-2.6 mg/dL Total Bilirubin 0.3 0.2-1.0 mg/dL Aspartate Amino Transferase (AST) 8 L 13-40 U/L Alanine Aminotransferase (ALT) 10 7-40 U/L Alkaline Phosphatase 165 H 46-116 U/L Total Protein 7.0 5.7-8.2 g/dL Albumin 4.1 3.2-4.8 g/dL Lipase 25 12-53 U/L Beta-Hydroxybutyric Acid 4.455 H < 0.4 mmol/L Beta HCG, Quantitative 0.1 L 1.5-4.2 mIU/mL Assessment/Plan Assessment/Plan # right labia majora abscess with draining pus -ordered wound cultures -ordered wound consult -given vancomycin and Zosyn, discontinued Zosyn -consulted OBGYN and surgical for further evaluation -pain management as needed # diabetic ketoacidosis # hyponatremia likely due to DKA # uncontrolled type 1 DM -elevated anion gap -ordered insulin drip -ordered DKA protocol -HbA1c more than 14 -ordered ABG # Vit D deficiency - Repleting # acute complicated UTI -evident on urinalysis -Currently on Rocephin -ordered urine culture No VTE ppx for now No GIB ppx NPo after midnight Reconciled home meds Goals of care discussed with the patient for more than 27 minutes: Full code status Case management discussed with Dr. Rocha, patient and nurse Plan discussed with: Patient My Orders Orders - ANETTE MORALES RESIDENT Procedure Category Date Status Time Admit ADMIT 08/02/24 Transmitted 20:40 Allergies MOY 08/02/24 In Process 20:40 Code Status CODE 08/02/24 Transmitted 20:40 Sodium Chloride Lock PHA 08/02/24 In Process (Saline Lock Ns) 22:00 Ondansetron Hcl PHA 08/02/24 In Process (Zofran) 20:45 Complete Blood Count LAB 08/03/24 Verified 04:00 Comprehensive LAB 08/03/24 Verified Metabolic Panel 04:00 Npo (Nothing By DIET 08/03/24 Transmitted Mouth) Diet Breakfast Acetaminophen Tablet PHA 08/02/24 In Process (Tylenol Tablet) 20:45 Morphine Sulfate PHA 08/02/24 In Process Injection 20:45 Nitroglycerin PHA 08/02/24 In Process Sublingual (Ntrostat 20:45 Morphine Sulfate PHA 08/02/24 In Process Injection 20:45 Oxygen By Nasal RT 08/02/24 Transmitted Cannula 20:40 Stat Ekg For Chest MOY 08/02/24 In Process Pain 20:40 Notify Of Changes [facility] 08/02/24 In Process From Base 20:40 Professor Of Languages For [facility] 08/02/24 In Process 24 Hours 20:40 Emergency Dysrhythmia MOY 08/02/24 In Process Protocol 20:40 Rhythm Strips Once MOY 08/02/24 In Process Every Shift 20:40 * Hop Weigher Consultation CONS 08/02/24 Transmitted 22:01 Piperacillin-Tazob PHA 08/03/24 In Process 3.375gm (Zosyn 3.375g 06:00 Chlamydia/Gc LAB 08/02/24 Logged Amplification 22:01 Vitamin D, 25-Hydroxy LAB 08/02/24 Logged 22:07 Vitamin B12 LAB 08/02/24 Logged 22:07 Thyroid Stimulating LAB 08/02/24 Logged Hormone 22:07 PTPTT LAB 08/02/24 Logged 22:07 Hemoglobin A1c LAB 08/02/24 Logged 22:07 Drug Screen LAB 08/02/24 Logged 22:07 Blood Alcohol LAB 08/02/24 Logged 22:07 Chest Xray 1 View XY 08/02/24 Logged 22:07 Glucose Blood PHA 08/03/24 In Process (Accu-Chek Comfort 07:00 Insulin R (Human) PHA 08/03/24 In Process (Insulin R) 22:00 Insulin R (Human) PHA 08/03/24 In Process (Insulin R) 07:00 Dextrose 50% Syringe PHA 08/02/24 In Process 22:15 Insulin Lantus PHA 08/03/24 In Process (Glargine) (Lantus) 07:00 Date of Service: Aug 02, 2024 Billing Provider: ANATOLIY ROCHA MD Common Visit Codes: 29400-AUSTGNA INP/OBS CARE (HIGH) Secondary Visit Codes: 73020-RMTEOSSH CARE PLAN 30 MINUTES ANETTE MORALES RESIDENT Aug 02, 2024 22:16 ANATOLIY ROCHA MD Aug 03, 2024 13:36
[2024-08-02] MEDS: SODIUM CHLOR 0.9% PF (SALINE LOCK) 10ML VIAL/SYR IV SCH (22:21)
[2024-08-02] MEDS: IOHEXOL 300 MG/ML 100ML BOTTLE IJ ONE (22:27)
[2024-08-02] MEDS: PIPERACILLIN-TAZOB 3.375GM 100 ML IV ONE (22:27)
[2024-08-02] MEDS: SODIUM CHLORIDE 0.9% 1,000 ML IV ONE (22:28)
[2024-08-02] MEDS: InsuLIN REG 1unit/0.01ml Soln (100units/ml) IV ONE (22:34)
--- NOTE | 2024-08-02 22:41 | DVH ---
CHEST RADIOGRAPH Indication:sob Technique: Single frontal view of the chest was obtained Comparison: XY CHEST PORTABLE on DOS: 09/20/23, XY CHEST PORTABLE on DOS: 07/31/23, XY CHEST XRAY 1 VIE W on DOS: 05/14/23 FINDINGS: Lines and Tubes: None Lungs: No focal consolidation. Pleura: No effusion. No pneumothorax. Cardiomediastinal contours: Unremarkable Bones: No acute osseous abnormality. IMPRESSION: 1. No acute cardiopulmonary disease.
[2024-08-02 22:45] LABS: Urine Bacteria FEW /hpf (None Seen); Urine Blood 1+ /uL (Negative); Urine Clarity Turbid (Clear); Urine Color Colorless (Yellow); Urine Protein, UAD TRACE (Negative); Urine Specific Gravity 1.031 (1.001-1.035); Urine Urobilinogen Normal (Negative); Urine WBC 167 /hpf (0 - 5); Urine WBC Clumps PRESENT /hpf (None Seen)
[2024-08-02 22:46] LABS: Amphetamine Screen, Urine Neg (NEGATIVE); Barbiturate Scree,Urine Neg (NEGATIVE); Benzodiazephine Screen, Urine Neg (NEGATIVE); Cocaine Screen, Urine Neg (NEGATIVE)
[2024-08-02 22:47] LABS: Cannabinoid Screen, Urine Neg (NEGATIVE); Opiate Scree,Urine Neg (NEGATIVE); Phencyclidine Screen, Urine Neg (NEGATIVE)
[2024-08-02 23:05] LABS: Base Excess -12.4 mmol/L (-2.0-3.0)
[2024-08-02 23:17] LABS: Chloride 100 mmol/L (98-107); Potassium 3.7 mmol/L (3.5-5.1); Sodium 133 mmol/L (136-145)
[2024-08-02 23:18] LABS: Anion Gap 21 (5-15); Calcium 8.9 mg/dL (8.7-10.4); Carbon Dioxide 12 mmol/L (20-31)
[2024-08-02 23:23] LABS: Blood Urea Nitrogen 11 mg/dL (9-23); INR 1.08 (0.9-1.15); Partial Thromboplastin Time 33.9 SEC (24.5-34.5); Prothrombin Time 11.4 sec (9.3-11.8)
[2024-08-02 23:33] LABS: Glucose 498 mg/dL (74-106)
[2024-08-02] MEDS: ERGOCALCIFEROL 50,000 UNIT(1.25MG) CAP PO SCH (23:45)
[2024-08-03] VITALS (13 sets, daily range): BP systolic 97–124; BP diastolic 71–84; PULSE 84–99; RESP 12–19; TEMP 97.9–98.3; O2SAT 95–99
[2024-08-03 00:10] LABS: Phosphorus 3.2 mg/dL (2.4-5.1)
[2024-08-03] MEDS: ACCU-CHEK COMFORT CURVE STRIP VI SCH ×2 (00:24→17:28)
[2024-08-03] MEDS: INSULIN LANTUS (GLARGINE) 1 /0.01ml (100units/ml) SC ONE (00:28)
[2024-08-03] MEDS: INSULIN DRIP 100 UNIT/100ML 100 ML IV SCH (00:29)
--- NOTE | 2024-08-03 00:31 | DVH ---
CLINICAL HISTORY: RLQ pain, Labia abscess TECHNIQUE: CT of the abdomen and pelvis was performed with intravenous contrast. This exam was perfor med according to our departmental dose optimization program. Up-to-date CT equipment and radiation do se reduction techniques are utilized as appropriate. WID: COMPARISON: Report from CT CT AB PEL WO CON-NO ORAL OR IV on DOS: 03/05/23 FINDINGS: Lower Thorax: Unremarkable. Liver and Biliary system: Unremarkable. Spleen: Unremarkable. Adrenal Glands and Kidneys: Unremarkable. Pancreas and Retroperitoneum: Unremarkable. Aorta and Major Vessels: Unremarkable. Bowel, Mesentery and Peritoneal space: Normal caliber small and large bowel. Moderate distention of the stomach with ingested contents. There is no free air or loculated fluid collection. There is mild ascites in the pelvis Pelvis: Circumferential bladder wall thickening. The uterus and ovaries are grossly unremarkable. The re is no pelvic lymphadenopathy. Abdominal wall and Osseous Structures: There is mild body wall edema. No destructive osseous lesion. Minor lower thoracic and lumbar spondylosis. There is skin thickening and ill-defined fluid within th e lower right inguinal region extending to the anterior right perineum no soft tissue gas IMPRESSION: 1. Soft tissue thickening and ill-defined fluid within the lower right inguinal region extending to t he anterior right perineum which could be cellulitis and developing abscess. 2. Circumferential bladder wall thickening. This could reflect cystitis. Correlate with urinalysis.
[2024-08-03 00:41] LABS: Magnesium 1.7 mg/dL (1.6-2.6)
[2024-08-03] MEDS: VANCOMYCIN 1.5GM/300ML 300 ML IV ONE (03:16)
[2024-08-03] MEDS: SODIUM CHLORIDE 0.9% 1,000 ML IV SCH ×3 (03:26→08:20)
[2024-08-03 05:53] LABS: Basophils # (auto) 0.1 10 ^3/uL (0-0.2); Basophils % (auto) 0.5 % (0.0-2.0); Eosinophils # (auto) 0.2 10 ^3/uL (0-0.8); Eosinophils % (auto) 1.6 % (0.0-7.0); Hematocrit 33.3 % (36.0-46.0); Hemoglobin 10.9 g/dL (12.2-16.2); Lymphocytes # (auto) 2.1 10 ^3/uL (0.4-5.4); Lymphocytes % (auto) 17.5 % (10.0-50.0); Mean Corpuscular Hemoglobin 28.6 pg (28.0-32.0); Mean Corpuscular Hgb Conc. 32.8 g/dL (32.0-36.0); Mean Corpuscular Volume 87.3 fL (80.0-100.0); Monocytes # (auto) 0.7 10 ^3/uL (0-1.3); Monocytes % (auto) 5.5 % (0.0-12.0); Neutrophils % (auto) 74.9 % (37.0-80.0); Platelet Count (auto) 450 10^3/uL (140-450); Red Blood Cells 3.82 10^6/uL (4.0-5.20); Red Cell Distribution Width 14.2 % (11.8-14.3)
[2024-08-03] MEDS ORDERED: PIPERACILLIN-TAZOB 3.375GM 100 ML IV SCH (06:00)
[2024-08-03 06:11] LABS: Alkaline Phosphatase 139 U/L (46-116); Anion Gap 15 (5-15); Blood Urea Nitrogen 9 mg/dL (9-23); Calcium 8.6 mg/dL (8.7-10.4); Carbon Dioxide 17 mmol/L (20-31); Chloride 107 mmol/L (98-107); Glucose 279 mg/dL (74-106); Potassium 3.5 mmol/L (3.5-5.1); Sodium 139 mmol/L (136-145)
[2024-08-03 06:12] LABS: Albumin 3.6 g/dL (3.2-4.8); Aspartate Aminotransferase < 8 U/L (13-40); Bilirubin, Total 0.2 mg/dL (0.2-1.0); Total Protein 6.6 g/dL (5.7-8.2)
[2024-08-03 06:19] LABS: Alanine Aminotransferase < 9 U/L (7-40)
[2024-08-03] MEDS ORDERED: INSULIN LANTUS (GLARGINE) 1 /0.01ml (100units/ml) SC SCH (07:00)
[2024-08-03] MEDS ORDERED: InsuLIN REG 1unit/0.01ml Soln (100units/ml) SC SCH ×2 (07:00→22:00)
[2024-08-03] MEDS ORDERED: ACCU-CHEK COMFORT CURVE STRIP VI SCH (07:00)
[2024-08-03 07:23] LABS: Base Excess -4.4 mmol/L (-2.0-3.0)
[2024-08-03] MEDS: cefTRIAXone 1GM/50ML D5W 50 ML IV SCH (09:08)
[2024-08-03] MEDS: INSULIN LANTUS (GLARGINE) 1 /0.01ml (100units/ml) SC SCH (10:12)
[2024-08-03 10:49] LABS: Chloride 110 mmol/L (98-107); Potassium 3.5 mmol/L (3.5-5.1); Sodium 142 mmol/L (136-145)
[2024-08-03 10:50] LABS: Anion Gap 12 (5-15); Calcium 8.6 mg/dL (8.7-10.4); Carbon Dioxide 20 mmol/L (20-31)
[2024-08-03 10:55] LABS: BUN/Creatinine Ratio 11.1 (10.0-20.0); Blood Urea Nitrogen 8 mg/dL (9-23); Glucose 178 mg/dL (74-106)
[2024-08-03] MEDS: VANCOMYCIN 1GM/200ML PREMIX 200 ML IV SCH (12:54)
[2024-08-03] MEDS ORDERED: DEXTROSE (50%) 50ML SYRG IV PRN (15:30)
[2024-08-03] MEDS: InsuLIN REG 1unit/0.01ml Soln (100units/ml) SC SCH (17:28)
[2024-08-03] MEDS: MORPHINE SULFATE INJ 2 MG/ml SYRG IV PRN (17:53)
[2024-08-03] MEDS: ONDANSETRON HCL 4 MG/2 ML VIAL IV PRN (17:54)
[2024-08-04] VITALS (7 sets, daily range): BP systolic 97–132; BP diastolic 67–93; PULSE 76–124; RESP 16–20; TEMP 97.6–98.3; O2SAT 97–98
[2024-08-04] MEDS: ACETAMINOPHEN 325 MG TAB PO PRN (09:49)
--- NOTE | 2024-08-04 11:31 | DVHINCON2 ---
Date of service: Aug 04, 2024 History of Present Illness 28-year-old female with type 1 diabetes complaining of one-week history of painful swelling and drainage in the right inguinal region. Patient denies any fevers or chills. Past Medical History Diabetes Past Surgical History None Family History: Cervical cancer G8 MOTHER Family History Noncontributory Social History Denies alcohol, tobacco, IV drug use Allergies: Coded Allergies: Soy Allergy (Verified Allergy, Severe, sob, 05/14/23) Home Meds Active Scripts Insulin Detemir (Levemir) Inj, 20 ' SC HS, #30 INJ Prov:JUAN CARLOS VOGEL MD 08/03/23 Insulin Aspart (Novolog) 100 Unit/Ml Inj, 10 UNIT IJ TID, #30 INJ Prov:JUAN CARLOS VOGEL MD 08/03/23 Sucralfate (CARAFATE SUSP) 1 Gm/10 Ml Ss, 10 ML PO QID, #1200 ML 3 Refills Prov:ANATOLIY SANCHEZ MD 03/11/23 Pantoprazole Sodium Sesquihydr (Protonix) 40 Mg Tab, 40 MG PO QAM, #30 TAB Prov:ANATOLIY SANCHEZ MD 03/11/23 Current Medications Current Medications Medications (Trade) Dose Ordered Sig/Alfie Route PRN Reason Start Time Stop Time Status Last Admin Insulin Human Regular (InsuLIN R) HS ID 08/03/24 22:00 08/02/24 23:58 DC Insulin Human Regular (InsuLIN R) Q6HR SC 08/03/24 18:00 08/04/24 11:01 Dextrose 50 ml UD PRN IV Blood Sugar LESS THAN 60 08/03/24 15:30 Diagnostic Test (Pha) (Accu-Chek Comfort Curve T) 1 strip Q6HR 08/03/24 18:00 08/04/24 10:51 Vancomycin HCl 250 ml @ 200 mls/hr Q12H IV 08/04/24 12:00 Vital Signs Vital Signs Date Time Temp Pulse Resp B/P (MAP) Pulse Ox O2 Delivery O2 Flow Rate FiO2 08/04/24 08:53 97.9 81 16 105/69 (81) 97 97.9 08/03/24 19:30 Room Air* 0 21 Physical Exam GEN: Age-appropriate young female in no acute distress. Alert. HEENT: Normocephalic atraumatic. Moist mucous membranes. Anicteric sclerae. CV: RRR Respiratory: CTAB ABD: Soft. Nontender nondistended Right inguinal region: There is a 5 x 3 cm erythematous fluctuance involving the right inguinal region extending into her peritoneum with purulent fluid draining. Area is tender to palpation. Labs/Diagnostic Data Labs Test 08/04/24 10:49 08/04/24 06:05 08/04/24 01:53 08/03/24 10:10 Range/Units POC Glucose 243 H 70-106 mg/dl Creatinine 0.54 L 0.550-1.02 mg/dL Glomerular Filtration Rate Calc 130 >90 mL/min Vancomycin Level Trough 10.8 H 5-10 ug/mL Sodium Level 142 136-145 mmol/L Potassium Level 3.5 3.5-5.1 mmol/L Chloride Level 110 H 98-107 mmol/L Carbon Dioxide Level 20 20-31 mmol/L Anion Gap 12 5-15 Blood Urea Nitrogen 8 L 9-23 mg/dL BUN/Creatinine Ratio 11.1 10.0-20.0 Serum Glucose 178 H 74-106 mg/dL Calcium Level 8.6 L 8.7-10.4 mg/dL Test 08/03/24 07:16 08/03/24 05:07 08/02/24 22:55 08/02/24 22:51 Range/Units Blood Gas Specimen Type Arterial Blood Gas Sample Site Right brachial Blood Gas Patient Temperature 37.0 Arterial Blood Date Drawn [id number] Arterial Blood pH 7.390 7.350-7.450 Arterial Blood Partial Pressure CO2 33.4 32.0-45.0 mmHg Arterial Blood Partial Pressure O2 84.8 83.0-108.0 mmHg Arterial Blood HCO3 19.8 L 21.0-28.0 mmol/L Arterial Blood Oxygen Saturation 96.6 94.0-98.0 % Arterial Blood Base Excess -4.4 L -2.0-3.0 mmol/L Arterial Blood Oxyhemoglobin 95.7 94.0-98.0 % Arterial Blood Carboxyhemoglobin 0.4 L 0.5-1.5 % Arterial Blood Methemoglobin 0.5 0.0-1.5 % [place] Test N/a Blood Gas Total Hemoglobin 11.90 L 12.0-16.0 g/dL Blood Gas Modality Room air FiO2 % 21.0 White Blood Count 12.0 H 4.4-10.8 10^3/uL Red Blood Count 3.82 L 4.0-5.20 10^6/uL Hemoglobin 10.9 #L 12.2-16.2 g/dL Hematocrit 33.3 #L 36.0-46.0 % Mean Corpuscular Volume 87.3 80.0-100.0 fL Mean Corpuscular Hemoglobin 28.6 28.0-32.0 pg Mean Corpuscular Hemoglobin Concent 32.8 32.0-36.0 g/dL Red Cell Distribution Width 14.2 11.8-14.3 % Platelet Count 450 140-450 10^3/uL Mean Platelet Volume 7.0 6.9-10.8 fL Neutrophils (%) (Auto) 74.9 37.0-80.0 % Lymphocytes (%) (Auto) 17.5 10.0-50.0 % Monocytes (%) (Auto) 5.5 0.0-12.0 % Eosinophils (%) (Auto) 1.6 0.0-7.0 % Basophils (%) (Auto) 0.5 0.0-2.0 % Neutrophils # (Auto) 9.0 H 1.6-8.6 10 ^3/uL Lymphocytes # (Auto) 2.1 0.4-5.4 10 ^3/uL Monocytes # (Auto) 0.7 0-1.3 10 ^3/uL Eosinophils # (Auto) 0.2 0-0.8 10 ^3/uL Basophils # (Auto) 0.1 0-0.2 10 ^3/uL Nucleated Red Blood Cells 0.0 % Total Bilirubin 0.2 0.2-1.0 mg/dL Aspartate Amino Transferase (AST) < 8 L 13-40 U/L Alanine Aminotransferase (ALT) < 9 7-40 U/L Alkaline Phosphatase 139 H 46-116 U/L Total Protein 6.6 5.7-8.2 g/dL Albumin 3.6 3.2-4.8 g/dL Prothrombin Time 11.4 9.3-11.8 sec Prothrombin Time INR 1.08 0.9-1.15 Activated Partial Thromboplast Time 33.9 24.5-34.5 SEC Hemoglobin A1c > 14.0 H <5.7 % A1C Serum Osmolality 314 H 278-298 mOsm/kg Phosphorus Level 3.2 2.4-5.1 mg/dL Magnesium Level 1.7 1.6-2.6 mg/dL Vitamin B12 Level 745 211-911 pg/mL Vitamin D 25-Hydroxy 23.0 L 30.0-100 ng/mL Beta-Hydroxybutyric Acid > 4.500 H < 0.4 mmol/L Thyroid Stimulating Hormone (TSH) 1.35 0.55-4.78 uIU/mL Plasma/Serum Blood Alcohol 4.4 <10 mg/dL Blood Gas Liter Flow 0.00 Test 08/02/24 22:24 08/02/24 18:13 Range/Units Urine Color Colorless Yellow Urine Clarity Turbid H Clear Urine pH 5.0 5.0-9.0 Urine Specific [place] 1.031 1.001-1.035 Urine Protein Trace H Negative Urine Ketones 4+ H Negative Urine Blood 1+ H Negative /uL Urine Nitrite Negative Negative Urine Bilirubin Negative Negative Urine Urobilinogen Normal Negative mg/dL Urine Leukocyte Esterase 3+ Negative /uL Urine RBC 9 0 - 4 /hpf Urine WBC 167 0 - 5 /hpf Urine WBC Clumps Present None Seen /hpf Urine Squamous Epithelial Cells Few <5 /hpf Urine Bacteria Few H None Seen /hpf Urine Glucose 4+ H Normal mg/dL Urine Opiates Screen Neg NEGATIVE Urine Fentanyl Screen Neg NEGATIVE Urine Barbiturates Screen Neg NEGATIVE Urine Phencyclidine Screen Neg NEGATIVE Urine Amphetamines Screen Neg NEGATIVE Urine Benzodiazepines Screen Neg NEGATIVE Urine Cocaine Screen Neg NEGATIVE Urine Cannabinoids Screen Neg NEGATIVE Lactic Acid Level 1.3 0.4-2.0 mmol/L Lipase 25 12-53 U/L Beta HCG, Quantitative 0.1 L 1.5-4.2 mIU/mL Microbiology Date/Time Source Procedure Growth Status 08/02/24 22:24 Voided Urine Urine Culture - Preliminary Resulted Assessment 1. Right inguinal abscess Plan/Recommendation 1. Incision drainage of right inguinal abscess Informed consent: The surgery and its risks including but not limited to infection, bleeding requiring possible blood transfusion, open surgical site requiring local wound care were explained to the patient. All questions were answered to her satisfaction. She expressed verbal understanding and wished to proceed with the surgery. Plan discussed with: Patient KARY PICKERING MD Aug 04, 2024 11:31
[2024-08-04] MEDS: VANCOMYCIN 1.25GM/250ML 250 ML IV SCH (11:44)
[2024-08-04] MEDS ORDERED: MIDAZOLAM HCL 2MG/2ML 2ml VIAL (1mg/ml) ONE (16:04)
[2024-08-04] MEDS ORDERED: fentaNYL CITRATE 100 MCG/2 ML VL ONE (16:04)
[2024-08-04] MEDS ORDERED: HYDROmorphone HCL 2 MG/ML VL/or syr ONE (16:04)
[2024-08-04] MEDS ORDERED: PROPOFOL 10 MG/ML 20 ML IV ONE (16:05)
[2024-08-04] MEDS ORDERED: LIDOCAINE 2% (LOCAL ANESTH.) PF 5ml SDV ONE (16:05)
[2024-08-04] MEDS ORDERED: GLYCOPYRROLATE 0.2 MG/ML 1ML VIAL ONE (16:05)
[2024-08-04] MEDS ORDERED: ONDANSETRON HCL 4 MG/2 ML VIAL ONE (16:05)
[2024-08-04] MEDS ORDERED: ROCURONIUM 10MG/ML 10ML VIAL IV ONE (16:05)
[2024-08-04] MEDS ORDERED: KETOROLAC TROMETH 30 MG/ML 1ML VIAL ONE (16:05)
[2024-08-04] MEDS: LIDOCAINE W/ EPINEPHRINE 1% 20ML VIAL ONE (16:38)
[2024-08-04] MEDS: BUPIVACAINE W/ EPINEPH 0.5% MPF 30ML VIAL IJ ONE (16:38)
[2024-08-04] MEDS: ONDANSETRON HCL 4 MG/2 ML VIAL IV ONE (17:00)
[2024-08-04] MEDS ORDERED: HYDROmorphone HCL 2 MG/ML VL/or syr IV PRN (17:00)
[2024-08-04] MEDS ORDERED: SUGAMMADEX 200mg/2ml Vial (100MG/ML) IV ONE (17:31)
--- NOTE | 2024-08-04 17:39 | DVHOP2 ---
Operative Report - 2 Report Details Date: 08/04/24 Preop Diagnosis: Right inguinal abscess Postop Diagnosis: Same Surgeon: Kary Briggs MD Glued Wood Tester: None Anesthesiologist: Dr. Valverde Anesthesia: General, Local Consent: The surgery and its risks including but not limited to infection, bleeding, open surgical site requiring local wound care were explained to the patient. All questions were answered to her satisfaction. She expressed verbal understanding and wished to proceed with the surgery. Complications: None Estimated Blood Loss: 5 mL Fluids: 1 L Name of Procedure Performed Incision and drainage of right inguinal abscess Procedure Details Procedure Details: After induction of general anesthesia, patient's right inguinal region was prepped and draped in standard surgical fashion. Approximately 15 mL of 1% lidocaine with epinephrine was used as a local anesthesia. Patient already had a 1 cm opening of the skin I was packed with infected fibrinous plug which was removed. Abscess cavity was then swabbed for Gram stain and culture. The abscess cavity continued subcutaneously and extended more inferiorly and so this was fully opened. Some of the fibrinous exudate covering the base of the absce ss wall was curetted until healthier tissue was encountered. The area was well irrigated and packed with 4 x 4 gauze dressing soaked in diluted Betadine irrigation. Surgical site was cleaned and dried and dressings were applied. Sponge, needle, instrument count at the end of the case were reported to be correct by the nursing staff. The patient tolerated procedure well. At the time of dictation she is being awakened from general anesthesia. Specimen: Gram stain and culture Condition Stable Disposition Still a Patient KARY BRIGGS MD Aug 04, 2024 17:39
[2024-08-05] VITALS (7 sets, daily range): BP systolic 101–124; BP diastolic 61–89; PULSE 70–91; RESP 18–20; TEMP 98.1–98.9; O2SAT 96–98
[2024-08-05 05:07] LABS: Chlamydia Trachomatis, NAA Negative (Negative); Neisseria gonorrhoeae, NAA Negative (Negative)
[2024-08-05 06:38] LABS: Basophils # (auto) 0 10 ^3/uL (0-0.2); Basophils % (auto) 0.4 % (0.0-2.0); Eosinophils # (auto) 0.2 10 ^3/uL (0-0.8); Eosinophils % (auto) 3.7 % (0.0-7.0); Hematocrit 33.9 % (36.0-46.0); Hemoglobin 11.8 g/dL (12.2-16.2); Lymphocytes # (auto) 2.1 10 ^3/uL (0.4-5.4); Lymphocytes % (auto) 35.7 % (10.0-50.0); Mean Corpuscular Hemoglobin 29.6 pg (28.0-32.0); Mean Corpuscular Hgb Conc. 34.6 g/dL (32.0-36.0); Mean Corpuscular Volume 85.6 fL (80.0-100.0); Monocytes # (auto) 0.4 10 ^3/uL (0-1.3); Monocytes % (auto) 6.9 % (0.0-12.0); Neutrophils # (auto) 3.1 10 ^3/uL (1.6-8.6); Neutrophils % (auto) 53.3 % (37.0-80.0); Nucleated Red Blood Cells % 0.1 %; Platelet Count (auto) 384 10^3/uL (140-450); Red Blood Cells 3.97 10^6/uL (4.0-5.20); Red Cell Distribution Width 13.8 % (11.8-14.3); White Blood Cell 5.8 10^3/uL (4.4-10.8)
--- NOTE | 2024-08-05 13:39 | DVHPN2 ---
Progress Note - Dictate Date Seen: Aug 05, 2024 Medical Necessity Reason Pt with a Central, PICC or Fol: No Subjective E: no major events o/n. no complaints. vital signs Vital Sign Date Time Temp Pulse Resp B/P (MAP) Pulse Ox O2 Delivery O2 Flow Rate FiO2 08/05/24 09:03 70 18 104/73 08/05/24 08:00 98 Room Air* 0 21 08/05/24 08:00 98.4 98.4 Total Intake and Output 08/04/24 08/04/24 08/05/24 15:00 23:00 07:00 Intake Total 660 ml 1800 ml Output Total 300 ml 1500 ml Balance 360 ml 300 ml medications Current Medications Medications Dose Ordered Sig/Alfie Route Start Time Stop Time Status Last Admin Dose Admin Vancomycin HCl 0 ml @ 0 mls/hr UD IV 08/02/24 18:45 Sodium Chloride 10 ml Q8HR IV 08/02/24 22:00 08/05/24 05:31 10 ML Ondansetron HCl 4 mg Q4HP PRN IV 08/02/24 20:45 08/03/24 17:54 4 MG Acetaminophen 650 mg Q6HP PRN PO 08/02/24 20:45 08/04/24 09:49 650 MG Morphine Sulfate 2 mg Q4HPRN PRN IV 08/02/24 20:45 08/05/24 08:33 2 MG Nitroglycerin 0.4 mg Q5MINP PRN SL 08/02/24 20:45 Morphine Sulfate 2 mg Q30M PRN IV 08/02/24 20:45 Ergocalciferol 50,000 unit Q7D PO 08/02/24 23:45 Hold Ceftriaxone Sodium 50 ml @ 100 mls/hr DAILY@09 IV 08/03/24 09:00 08/05/24 08:22 100 MLS/HR Insulin Human Regular Q6HR SC 08/03/24 18:00 08/04/24 22:44 9 UNITS Dextrose 50 ml UD PRN IV 08/03/24 15:30 Diagnostic Test (Pha) 1 strip Q6HR 08/03/24 18:00 08/05/24 12:00 1 STRIP Vancomycin HCl 250 ml @ 200 mls/hr Q12H IV 08/04/24 12:00 08/05/24 12:35 200 MLS/HR objective GEN: NAD RIGHT INGUINAL: surgical dressing intact. laboratory and microbiology Laboratory Tests 08/05/24 05:35 08/03/24 10:10 Test 08/03/24 10:10 Range/Units Serum Glucose 178 H 74-106 mg/dL Assessment/Plan A: 1. s/p I+D right groin abscess POD #1 doing well. P: 1. BID dressing with 1/2 iodoform packing strips. 2. if DC'ed f/u on 08/15 clinic. call [phone] for appt. Dietary Evaluation Review Comments: 1) Consider JEET 1 pkt BID 2) Refer pt to a RD/CDE for upon DC 3) Continue current plan of care Expected Outcomes/Goals: 1) Pt appetite to improve 2) Pt labs to improve Plan discussed with: Patient KARY PICKERING MD Aug 05, 2024 13:39
--- NOTE | 2024-08-05 14:30 | DVHPN2 ---
Reviewed: Care Plan, H&P, Labs, Medications, Previous Orders, Radiology Changes from previous H/P or p: No Changes General: Per HPI Eyes: No Pain, No Vision change, No Conjunctivae inflammation, No Eyelid inflammation, No Other, No Redness ENT: No Ear pain, No Ear discharge, No Nose pain, No Nose discharge, No Nose congestion, No Mouth pain, No Mouth swelling, No Throat pain, No Throat swelling, No Other Cardiovascular: No Chest Pain, No Palpitations, No Orthopnea, No Paroxysmal Noc. Dyspnea, No Edema, No Lt Headedness, No Other Respiratory: No Cough, No Dry, No Shortness of breath, No SOB with excertion, No Wheezing, No Hemoptysis, No Pleuritic Pain, No Sputum, No Other Gastrointestinal: No Nausea, No Vomiting, No Abdominal Pain, No Diarrhea, No Constipation, No Melena, No Hematochezia, No Other Genitourinary: Other (Pus oozing, draining abscess near right labia ) Objective Vitals Vital Signs Date Time Temp Pulse Resp B/P (MAP) Pulse Ox O2 Delivery O2 Flow Rate FiO2 08/05/24 12:00 98.8 75 18 124/86 (99) 96 98.8 08/05/24 08:00 Room Air* 0 21 Intake/Output Intake and Output 08/05/24 07:00 Intake Total 2460 ml Output Total 1800 ml Balance 660 ml Intake Oral 2160 ml IV Total 300 ml Output Urine Total 1800 ml General Appearance: Alert, Oriented X3, Cooperative, No acute distress Cardiovascular: Regular rate, Normal S1, Normal S2 Abdomen: Normal bowel sounds, Soft Medications Current Medications Medications Dose Ordered Sig/Alfie Route Start Time Stop Time Status Last Admin Dose Admin Vancomycin HCl 0 ml @ 0 mls/hr UD IV 08/02/24 18:45 Sodium Chloride 10 ml Q8HR IV 08/02/24 22:00 08/05/24 14:03 10 ML Ondansetron HCl 4 mg Q4HP PRN IV 08/02/24 20:45 08/03/24 17:54 4 MG Acetaminophen 650 mg Q6HP PRN PO 08/02/24 20:45 08/04/24 09:49 650 MG Morphine Sulfate 2 mg Q4HPRN PRN IV 08/02/24 20:45 08/05/24 08:33 2 MG Nitroglycerin 0.4 mg Q5MINP PRN SL 08/02/24 20:45 Morphine Sulfate 2 mg Q30M PRN IV 08/02/24 20:45 Ergocalciferol 50,000 unit Q7D PO 08/02/24 23:45 Hold Ceftriaxone Sodium 50 ml @ 100 mls/hr DAILY@09 IV 08/03/24 09:00 08/05/24 08:22 100 MLS/HR Insulin Human Regular Q6HR SC 08/03/24 18:00 08/05/24 13:40 12 UNITS Dextrose 50 ml UD PRN IV 08/03/24 15:30 Diagnostic Test (Pha) 1 strip Q6HR 08/03/24 18:00 08/05/24 12:00 1 STRIP Vancomycin HCl 250 ml @ 200 mls/hr Q12H IV 08/04/24 12:00 08/05/24 12:35 200 MLS/HR Laboratory Results Laboratory Tests 08/03/24 10:10 08/05/24 05:35 Urinalysis Test 08/02/24 22:24 Urine Color Colorless (Yellow) Urine Clarity Turbid (Clear) H Urine pH 5.0 (5.0-9.0) Urine Specific [place] 1.031 (1.001-1.035) Urine Protein Trace (Negative) H Urine Ketones 4+ (Negative) H Urine Blood 1+ /uL (Negative) H Urine Nitrite Negative (Negative) Urine Bilirubin Negative (Negative) Urine Urobilinogen Normal mg/dL (Negative) Urine Leukocyte Esterase 3+ /uL (Negative) Urine RBC 9 /hpf (0 - 4) Urine WBC 167 /hpf (0 - 5) Urine WBC Clumps Present /hpf (None Seen) Urine Squamous Epithelial Cells Few /hpf (<5) Urine Bacteria Few /hpf (None Seen) H Urine Glucose 4+ mg/dL (Normal) H Microbiology Microbiology Date/Time Source Procedure Growth Status 08/04/24 18:10 Groin Gram Stain - Final Resulted 08/04/24 18:10 Groin Anaerobic Culture Pending Resulted 08/04/24 18:10 Groin Aerobic Culture - Preliminary Resulted 08/04/24 00:45 Genital Gram Stain - Final Resulted 08/04/24 00:45 Genital Wound Culture - Preliminary Resulted 08/02/24 22:24 Voided Urine Urine Culture - Final Complete Labs and/or images reviewed: Labs reviewed by me, Image(s) reviewed by me Assessment/Plan Assessment/Plan Antoine Duong is a 28 years old female with a PMH of type 1 DM presented to the ED with the chief complaints of right inguinal abscess for 5 days. Patient reported she has been having abscess for 5 days which is recently been tested oozing pus, painful unable to walk properly, She went to urgent care today. She was sent from urgent care with a note stating labial majora abscess with hyperglycemia. On my assessment patient denies fever, vomiting, diarrhea, abdominal pain, abnormal sexual behaviour and other associated symptoms # right labia majora abscess with draining pus -ordered wound cultures -ordered wound consult -given vancomycin and Zosyn, discontinued Zosyn -consulted OBGYN and surgical for further evaluation -pain management as needed # diabetic ketoacidosis # hyponatremia likely due to DKA # uncontrolled type 1 DM -elevated anion gap -ordered insulin drip -ordered DKA protocol -HbA1c more than 14 -ordered ABG # Vit D deficiency - Repleting # acute complicated UTI -evident on urinalysis -Currently on Rocephin -ordered urine culture Plan discussed with: Patient My Orders Orders - HERIBERTO MASON DO Procedure Category Date Status Time Dietary NOTICE 08/04/24 Transmitted Recommendations 15:14 Date of Service: Aug 04, 2024 Billing Provider: HERIBERTO MASON DO Common Visit Codes: [id number] INP/OBS CARE(HIGH) HERIBERTO MASON DO Aug 05, 2024 14:30
--- NOTE | 2024-08-05 14:32 | DVHPN2 ---
Reviewed: Care Plan, H&P, Labs, Medications, Previous Orders, Radiology Changes from previous H/P or p: No Changes General: Per HPI Eyes: No Pain, No Vision change, No Conjunctivae inflammation, No Eyelid inflammation, No Other, No Redness ENT: No Ear pain, No Ear discharge, No Nose pain, No Nose discharge, No Nose congestion, No Mouth pain, No Mouth swelling, No Throat pain, No Throat swelling, No Other Cardiovascular: No Chest Pain, No Palpitations, No Orthopnea, No Paroxysmal Noc. Dyspnea, No Edema, No Lt Headedness, No Other Respiratory: No Cough, No Dry, No Shortness of breath, No SOB with excertion, No Wheezing, No Hemoptysis, No Pleuritic Pain, No Sputum, No Other Gastrointestinal: No Nausea, No Vomiting, No Abdominal Pain, No Diarrhea, No Constipation, No Melena, No Hematochezia, No Other Genitourinary: Other (Pus oozing, draining abscess near right labia ) Objective Vitals Vital Signs Date Time Temp Pulse Resp B/P (MAP) Pulse Ox O2 Delivery O2 Flow Rate FiO2 08/05/24 12:00 98.8 75 18 124/86 (99) 96 98.8 08/05/24 08:00 Room Air* 0 21 Intake/Output Intake and Output 08/05/24 07:00 Intake Total 2460 ml Output Total 1800 ml Balance 660 ml Intake Oral 2160 ml IV Total 300 ml Output Urine Total 1800 ml General Appearance: Alert, Oriented X3, Cooperative Lungs: Clear to auscultation Cardiovascular: Regular rate, Normal S1, Normal S2 Abdomen: Normal bowel sounds Medications Current Medications Medications Dose Ordered Sig/Alfie Route Start Time Stop Time Status Last Admin Dose Admin Vancomycin HCl 0 ml @ 0 mls/hr UD IV 08/02/24 18:45 Sodium Chloride 10 ml Q8HR IV 08/02/24 22:00 08/05/24 14:03 10 ML Ondansetron HCl 4 mg Q4HP PRN IV 08/02/24 20:45 08/03/24 17:54 4 MG Acetaminophen 650 mg Q6HP PRN PO 08/02/24 20:45 08/04/24 09:49 650 MG Morphine Sulfate 2 mg Q4HPRN PRN IV 08/02/24 20:45 08/05/24 08:33 2 MG Nitroglycerin 0.4 mg Q5MINP PRN SL 08/02/24 20:45 Morphine Sulfate 2 mg Q30M PRN IV 08/02/24 20:45 Ergocalciferol 50,000 unit Q7D PO 08/02/24 23:45 Hold Ceftriaxone Sodium 50 ml @ 100 mls/hr DAILY@09 IV 08/03/24 09:00 08/05/24 08:22 100 MLS/HR Insulin Human Regular Q6HR SC 08/03/24 18:00 08/05/24 13:40 12 UNITS Dextrose 50 ml UD PRN IV 08/03/24 15:30 Diagnostic Test (Pha) 1 strip Q6HR 08/03/24 18:00 08/05/24 12:00 1 STRIP Vancomycin HCl 250 ml @ 200 mls/hr Q12H IV 08/04/24 12:00 08/05/24 12:35 200 MLS/HR Laboratory Results Laboratory Tests 08/03/24 10:10 08/05/24 05:35 Urinalysis Test 08/02/24 22:24 Urine Color Colorless (Yellow) Urine Clarity Turbid (Clear) H Urine pH 5.0 (5.0-9.0) Urine Specific [place] 1.031 (1.001-1.035) Urine Protein Trace (Negative) H Urine Ketones 4+ (Negative) H Urine Blood 1+ /uL (Negative) H Urine Nitrite Negative (Negative) Urine Bilirubin Negative (Negative) Urine Urobilinogen Normal mg/dL (Negative) Urine Leukocyte Esterase 3+ /uL (Negative) Urine RBC 9 /hpf (0 - 4) Urine WBC 167 /hpf (0 - 5) Urine WBC Clumps Present /hpf (None Seen) Urine Squamous Epithelial Cells Few /hpf (<5) Urine Bacteria Few /hpf (None Seen) H Urine Glucose 4+ mg/dL (Normal) H Microbiology Microbiology Date/Time Source Procedure Growth Status 08/04/24 18:10 Groin Gram Stain - Final Resulted 08/04/24 18:10 Groin Anaerobic Culture Pending Resulted 08/04/24 18:10 Groin Aerobic Culture - Preliminary Resulted 08/04/24 00:45 Genital Gram Stain - Final Resulted 08/04/24 00:45 Genital Wound Culture - Preliminary Resulted 08/02/24 22:24 Voided Urine Urine Culture - Final Complete Labs and/or images reviewed: Labs reviewed by me, Image(s) reviewed by me Assessment/Plan Assessment/Plan Antoine Duong is a 28 years old female with a PMH of type 1 DM presented to the ED with the chief complaints of right inguinal abscess for 5 days. Patient reported she has been having abscess for 5 days which is recently been tested oozing pus, painful unable to walk properly, She went to urgent care today. She was sent from urgent care with a note stating labial majora abscess with hyperglycemia. On my assessment patient denies fever, vomiting, diarrhea, abdominal pain, abnormal sexual behaviour and other associated symptoms # right labia majora abscess with draining pus -ordered wound cultures -ordered wound consult -given vancomycin and Zosyn, discontinued Zosyn -consulted OBGYN and surgical for further evaluation -pain management as needed # diabetic ketoacidosis # hyponatremia likely due to DKA # uncontrolled type 1 DM -elevated anion gap -ordered insulin drip -ordered DKA protocol -HbA1c more than 14 -ordered ABG # Vit D deficiency - Repleting # acute complicated UTI -evident on urinalysis -Currently on Rocephin -ordered urine culture s/p I&D, needs 2-3 days of IV aBx Plan discussed with: Patient My Orders Orders - HERIEBRTO MASON DO Procedure Category Date Status Time Dietary NOTICE 08/04/24 Transmitted Recommendations 15:14 Date of Service: Aug 05, 2024 Billing Provider: HERIBERTO MASON DO Common Visit Codes: [id number] INP/OBS CARE(HIGH) HERIBERTO MASON DO Aug 05, 2024 14:32
[2024-08-06] VITALS (7 sets, daily range): BP systolic 105–119; BP diastolic 71–80; PULSE 76–101; RESP 16–19; TEMP 97.4–98.5; O2SAT 96–99
[2024-08-06 06:59] LABS: Basophils # (auto) 0 10 ^3/uL (0-0.2); Basophils % (auto) 0.9 % (0.0-2.0); Eosinophils # (auto) 0.3 10 ^3/uL (0-0.8); Eosinophils % (auto) 5.7 % (0.0-7.0); Hematocrit 32.9 % (36.0-46.0); Hemoglobin 11.4 g/dL (12.2-16.2); Lymphocytes # (auto) 1.9 10 ^3/uL (0.4-5.4); Lymphocytes % (auto) 40.6 % (10.0-50.0); Mean Corpuscular Hemoglobin 29.5 pg (28.0-32.0); Mean Corpuscular Hgb Conc. 34.6 g/dL (32.0-36.0); Mean Corpuscular Volume 85.2 fL (80.0-100.0); Monocytes # (auto) 0.4 10 ^3/uL (0-1.3); Monocytes % (auto) 7.7 % (0.0-12.0); Neutrophils # (auto) 2.1 10 ^3/uL (1.6-8.6); Neutrophils % (auto) 45.1 % (37.0-80.0); Nucleated Red Blood Cells % 0.1 %; Platelet Count (auto) 400 10^3/uL (140-450); Red Blood Cells 3.87 10^6/uL (4.0-5.20); Red Cell Distribution Width 13.9 % (11.8-14.3); White Blood Cell 4.7 10^3/uL (4.4-10.8)
--- NOTE | 2024-08-06 08:25 | DVHPN2 ---
Progress Note - Dictate Date Seen: Aug 06, 2024 Medical Necessity Reason Pt with a Central, PICC or Fol: No Subjective E: no major events o/n. no complaints. vital signs Vital Sign Date Time Temp Pulse Resp B/P (MAP) Pulse Ox O2 Delivery O2 Flow Rate FiO2 08/06/24 05:00 97.4 79 18 107/71 (83) 96 97.4 08/05/24 20:00 Room Air* 0 21 Total Intake and Output 08/05/24 08/05/24 08/06/24 15:00 23:00 07:00 Intake Total 753 ml 1000 ml 550 ml Output Total 2000 ml 350 ml Balance 753 ml -1000 ml 200 ml medications Current Medications Medications Dose Ordered Sig/Alfie Route Start Time Stop Time Status Last Admin Dose Admin Vancomycin HCl 0 ml @ 0 mls/hr UD IV 08/02/24 18:45 Sodium Chloride 10 ml Q8HR IV 08/02/24 22:00 08/06/24 05:47 10 ML Ondansetron HCl 4 mg Q4HP PRN IV 08/02/24 20:45 08/03/24 17:54 4 MG Acetaminophen 650 mg Q6HP PRN PO 08/02/24 20:45 08/04/24 09:49 650 MG Morphine Sulfate 2 mg Q4HPRN PRN IV 08/02/24 20:45 08/05/24 17:53 2 MG Nitroglycerin 0.4 mg Q5MINP PRN SL 08/02/24 20:45 Morphine Sulfate 2 mg Q30M PRN IV 08/02/24 20:45 Ergocalciferol 50,000 unit Q7D PO 08/02/24 23:45 Hold Ceftriaxone Sodium 50 ml @ 100 mls/hr DAILY@09 IV 08/03/24 09:00 08/05/24 08:22 100 MLS/HR Insulin Human Regular Q6HR SC 08/03/24 18:00 08/06/24 05:42 6 UNITS Dextrose 50 ml UD PRN IV 08/03/24 15:30 Diagnostic Test (Pha) 1 strip Q6HR 08/03/24 18:00 08/06/24 05:37 1 STRIP Vancomycin HCl 250 ml @ 200 mls/hr Q12H IV 08/04/24 12:00 08/05/24 23:39 200 MLS/HR objective GEN: NAD RIGHT INGUINAL: surgical dressing intact. laboratory and microbiology Laboratory Tests 08/06/24 06:12 08/03/24 10:10 Test 08/03/24 10:10 Range/Units Serum Glucose 178 H 74-106 mg/dL Assessment/Plan A: 1. s/p I+D right groin abscess POD #2 doing well. P: 1. BID dressing with 1/2 iodoform packing strips. 2. if DC'ed f/u on 08/15 clinic. call [phone] for appt. Dietary Evaluation Review Comments: 1) Consider JEET 1 pkt BID 2) Refer pt to a RD/CDE for upon DC 3) Continue current plan of care Expected Outcomes/Goals: 1) Pt appetite to improve 2) Pt labs to improve Plan discussed with: Patient KARY PICKERING MD Aug 06, 2024 08:25
[2024-08-06] MEDS ORDERED: VANCOMYCIN 1.5GM/300ML 300 ML IV SCH (11:00)
[2024-08-06] MEDS: VANCOMYCIN 1.5GM/300ML 300 ML IV SCH (13:38)
[2024-08-06] MEDS: VANCOMYCIN 1,500 MG in D5W 5% 250 ML IV ONE (13:39)
[2024-08-06] MEDS ORDERED: LEVO500T91 PO (14:41)
--- NOTE | 2024-08-06 14:43 | DVHDS2 ---
Discharge Summary Date of Admission Aug 02, 2024 at 20:40 Date of Discharge: Aug 06, 2024 Labs/Diagnostic Data: Laboratory Results Test 08/06/24 11:17 08/06/24 06:12 08/05/24 22:00 08/03/24 10:10 POC Glucose 244 mg/dl (70-106) White Blood Count 4.7 10^3/uL (4.4-10.8) Red Blood Count 3.87 10^6/uL (4.0-5.20) Hemoglobin 11.4 g/dL (12.2-16.2) Hematocrit 32.9 % (36.0-46.0) Mean Corpuscular Volume 85.2 fL (80.0-100.0) Mean Corpuscular Hemoglobin 29.5 pg (28.0-32.0) Mean Corpuscular Hemoglobin Concent 34.6 g/dL (32.0-36.0) Red Cell Distribution Width 13.9 % (11.8-14.3) Platelet Count 400 10^3/uL (140-450) Mean Platelet Volume 7.3 fL (6.9-10.8) Neutrophils (%) (Auto) 45.1 % (37.0-80.0) Lymphocytes (%) (Auto) 40.6 % (10.0-50.0) Monocytes (%) (Auto) 7.7 % (0.0-12.0) Eosinophils (%) (Auto) 5.7 % (0.0-7.0) Basophils (%) (Auto) 0.9 % (0.0-2.0) Neutrophils # (Auto) 2.1 10 ^3/uL (1.6-8.6) Lymphocytes # (Auto) 1.9 10 ^3/uL (0.4-5.4) Monocytes # (Auto) 0.4 10 ^3/uL (0-1.3) Eosinophils # (Auto) 0.3 10 ^3/uL (0-0.8) Basophils # (Auto) 0 10 ^3/uL (0-0.2) Nucleated Red Blood Cells 0.1 % Creatinine 0.49 mg/dL (0.550-1.02) Glomerular Filtration Rate Calc 133 mL/min (>90) Vancomycin Level Trough 8.1 ug/mL (5-10) Sodium Level 142 mmol/L (136-145) Potassium Level 3.5 mmol/L (3.5-5.1) Chloride Level 110 mmol/L (98-107) Carbon Dioxide Level 20 mmol/L (20-31) Anion Gap 12 (5-15) Blood Urea Nitrogen 8 mg/dL (9-23) BUN/Creatinine Ratio 11.1 (10.0-20.0) Serum Glucose 178 mg/dL (74-106) Calcium Level 8.6 mg/dL (8.7-10.4) Test 08/03/24 07:16 08/03/24 05:07 08/02/24 22:55 08/02/24 22:51 Blood Gas Specimen Type Arterial Blood Gas Sample Site Right brachial Blood Gas Patient Temperature 37.0 Arterial Blood Date Drawn [id number] Arterial Blood pH 7.390 (7.350-7.450) Arterial Blood Partial Pressure CO2 33.4 mmHg (32.0-45.0) Arterial Blood Partial Pressure O2 84.8 mmHg (83.0-108.0) Arterial Blood HCO3 19.8 mmol/L (21.0-28.0) Arterial Blood Oxygen Saturation 96.6 % (94.0-98.0) Arterial Blood Base Excess -4.4 mmol/L (-2.0-3.0) Arterial Blood Oxyhemoglobin 95.7 % (94.0-98.0) Arterial Blood Carboxyhemoglobin 0.4 % (0.5-1.5) Arterial Blood Methemoglobin 0.5 % (0.0-1.5) Zenon Test N/a Blood Gas Total Hemoglobin 11.90 g/dL (12.0-16.0) Blood Gas Modality Room air FiO2 % 21.0 Total Bilirubin 0.2 mg/dL (0.2-1.0) Aspartate Amino Transferase (AST) < 8 U/L (13-40) Alanine Aminotransferase (ALT) < 9 U/L (7-40) Alkaline Phosphatase 139 U/L (46-116) Total Protein 6.6 g/dL (5.7-8.2) Albumin 3.6 g/dL (3.2-4.8) Prothrombin Time 11.4 sec (9.3-11.8) Prothrombin Time INR 1.08 (0.9-1.15) Activated Partial Thromboplast Time 33.9 SEC (24.5-34.5) Hemoglobin A1c > 14.0 % A1C (<5.7) Serum Osmolality 314 mOsm/kg (278-298) Phosphorus Level 3.2 mg/dL (2.4-5.1) Magnesium Level 1.7 mg/dL (1.6-2.6) Vitamin B12 Level 745 pg/mL (211-911) Vitamin D 25-Hydroxy 23.0 ng/mL (30.0-100) Beta-Hydroxybutyric Acid > 4.500 mmol/L (< 0.4) Thyroid Stimulating Hormone (TSH) 1.35 uIU/mL (0.55-4.78) Plasma/Serum Blood Alcohol 4.4 mg/dL (<10) Blood Gas Liter Flow 0.00 Test 08/02/24 22:24 08/02/24 18:13 Urine Color Colorless (Yellow) Urine Clarity Turbid (Clear) Urine pH 5.0 (5.0-9.0) Urine Specific [place] 1.031 (1.001-1.035) Urine Protein Trace (Negative) Urine Ketones 4+ (Negative) Urine Blood 1+ /uL (Negative) Urine Nitrite Negative (Negative) Urine Bilirubin Negative (Negative) Urine Urobilinogen Normal mg/dL (Negative) Urine Leukocyte Esterase 3+ /uL (Negative) Urine RBC 9 /hpf (0 - 4) Urine WBC 167 /hpf (0 - 5) Urine WBC Clumps Present /hpf (None Seen) Urine Squamous Epithelial Cells Few /hpf (<5) Urine Bacteria Few /hpf (None Seen) Urine Glucose 4+ mg/dL (Normal) Urine Opiates Screen Neg (NEGATIVE) Urine Fentanyl Screen Neg (NEGATIVE) Urine Barbiturates Screen Neg (NEGATIVE) Urine Phencyclidine Screen Neg (NEGATIVE) Urine Amphetamines Screen Neg (NEGATIVE) Urine Benzodiazepines Screen Neg (NEGATIVE) Urine Cocaine Screen Neg (NEGATIVE) Urine Cannabinoids Screen Neg (NEGATIVE) Chlamydia trachomatis (MAHSA) Negative (Negative) Neisseria gonorrhoeae (MAHSA) Negative (Negative) Lactic Acid Level 1.3 mmol/L (0.4-2.0) Lipase 25 U/L (12-53) Beta HCG, Quantitative 0.1 mIU/mL (1.5-4.2) Other Laboratory Tests 08/06/24 06:12 08/03/24 10:10 Brief Hx & Hospital Course: Antoine Duong is a 28 years old female with a PMH of type 1 DM presented to the ED with the chief complaints of right inguinal abscess for 5 days. Patient reported she has been having abscess for 5 days which is recently been tested oozing pus, painful unable to walk properly, She went to urgent care today. She was sent from urgent care with a note stating labial majora abscess with hyperglycemia. On my assessment patient denies fever, vomiting, diarrhea, abdominal pain, abnormal sexual behaviour and other associated symptoms # right labia majora abscess with draining pus -ordered wound cultures -ordered wound consult -given vancomycin and Zosyn, discontinued Zosyn -consulted OBGYN and surgical for further evaluation -pain management as needed # diabetic ketoacidosis # hyponatremia likely due to DKA # uncontrolled type 1 DM -elevated anion gap -ordered insulin drip -ordered DKA protocol -HbA1c more than 14 -ordered ABG # Vit D deficiency - Repleting # acute complicated UTI -evident on urinalysis -Currently on Rocephin -ordered urine culture s/p I&D, needs 2-3 days of IV aBx after 2 days of IV abx, pt discharged to home with self care oral abx sent to local pharmacy for picker 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 Patient was counseled about treatment plan, medications, possible side effects, patientverbalized understanding. All questions were answered to the best of my ability. This discharge took greater then 30 minutes in planning, reviewing documentation, counseling the patient, and discussing with other team members." ASSESSMENT ASSESSMENT Assessment Same Date of Service: Aug 06, 2024 Billing Provider: HERIBERTO MASON DO Common Visit Codes: [id number] DISCH DAY >30min HERIBERTO MASON DO Aug 06, 2024 14:42
[2024-08-06] MEDS ORDERED: VANCOMYCIN 1,500 MG in SODIUM CHL 0.9% 250 ML IV ONE (23:00)
== END 2024-08-06 19:10 | disposition home or self-care (01) | DRG 364 ==
LOC: ER 17:27 → OVERFLOW 20:40 → WEST WING 08-03 23:37
PROVIDERS: ADMIT Internal Medicine; ATTEND Internal Medicine
PROC: 0Y950ZZ Drainage of Right Inguinal Region, Open Approach (ICD-10-PCS; principal; 2024-08-04 17:06)
DX: L02.214 Cutaneous abscess of groin (principal); E10.10 Type 1 diabetes mellitus with ketoacidosis without coma; N76.4 Abscess of vulva; L03.314 Cellulitis of groin; N39.0 Urinary tract infection, site not specified; E55.9 Vitamin D deficiency, unspecified; Z80.49 Family history of malignant neoplasm of other genital organs; Z79.4 Long term (current) use of insulin
CPT/HCPCS: 36415; 36600; 71045; 74177; 76856; 80048; 80053; 80202; 80307; 80320; 81001; 82010; 82306; 82565; 82607; 82805; 82962; 83036; 83605; 83690; 83735; 83930; 84100; 84443; 84702; 85025; 85610; 85730; 87070; 87075; 87077; 87086; 87186; 87205; 96365; 99291; G0378; J1815; J1885; J2003; J2250; J2405; J2543; J2704; J7060

== ENCOUNTER 2024-08-09 19:42 | Inpatient (IN) | payer MEDICAID ==
[~2024-08-09] VITALS: Ht 172.7 cm; Wt 78.5 kg
[~2024-08-09 19:42] MED LIST changes: +LEVO500T91 PO
[2024-08-09 20:15] VITALS: PULSE 143; RESP 27; O2SAT 97
[2024-08-09] MEDS ORDERED: ONDANSETRON HCL 4 MG/2 ML VIAL IV PRN ×2 (20:15→22:30)
[2024-08-09] MEDS ORDERED: DEXTROSE (50%) 50ML SYRG IV PRN ×2 (20:30→22:30)
--- NOTE | 2024-08-09 20:35 | ED.PDOC ---
History of Present Illness HPI Comments 28 year female past medical history of type 1 diabetes mellitus presented with complaints of nausea/vomiting/abdominal pain. She was recently discharged from the hospital with diagnosis of right inguinal abscess status post I and D. patient is tachypneic and having difficulty to finish sentences, gave a brief history. Per EMS, patient was with her boyfriend started having increased rate of breathing and later nausea/vomiting and abdominal pain and then Boyfriend called the EMS. Past medical history type 1 diabetes mellitus, DKA, right inguinal abscess Surgical history I and D done for inguinal abscess Social history Medication history insulin, pantoprazole and Sucralfate allergic history Soy ROS as described in HPI Examination General Appearance: Alert, Oriented X3, Cooperative, in distress, not able to finish sentences Respiratory: Clear to auscultation, tachypneic, in distress Cardiovascular: Regular rate, Normal S1, Normal S2 Abdominal: Normal bowel sounds Extremities: No cyanosis, No edema, Normal pulses, No tenderness/swelling Skin: No rashes, No breakdown, right inguinal dressing Neuro: Normal speech, tone Chief Complaint: Hyperglycemia Time Seen by MD: 20:25 Primary Care Provider: unknown Allergies: Coded Allergies: Soy Allergy (Verified Allergy, Severe, sob, 05/14/23) Home Meds Active Scripts Levofloxacin Hemihydrate (LEVOFLOXACIN) 500 Mg Tab, 1 TAB PO DAILY, #10 TAB Prov:HERIBERTO MASON DO 08/06/24 Insulin Detemir (Levemir) Inj, 20 ' SC HS, #30 INJ Prov:JUAN CARLOS VOGEL MD 08/03/23 Insulin Aspart (Novolog) 100 Unit/Ml Inj, 10 UNIT IJ TID, #30 INJ Prov:JUAN CARLOS VOGEL MD 08/03/23 Sucralfate (CARAFATE SUSP) 1 Gm/10 Ml Ss, 10 ML PO QID, #1200 ML 3 Refills Prov:ANATOLIY SANCHEZ MD 03/11/23 Pantoprazole Sodium Sesquihydr (Protonix) 40 Mg Tab, 40 MG PO QAM, #30 TAB Prov:ANATOLIY SANCHEZ MD 03/11/23 Mode of Arrival: Ambulatory Differential Dx Considerations may include: DKA UTI Sepsis [place] PE Pneumonia peritonitis gastritis gastroenteritis pancreatitis electrolyte abnormality X-Ray, Labs, Meds, VS Vital Signs Date Time Temp Pulse Resp B/P (MAP) Pulse Ox O2 Delivery O2 Flow Rate FiO2 08/09/24 20:00 139 08/09/24 19:59 141 08/09/24 19:42 98.9 140 20 117/82 (94) 99 Lab Test 08/09/24 21:25 08/09/24 20:59 08/09/24 20:25 08/09/24 20:23 Range/Units Troponin I High Sensitivity < 3 L < 3 L </=34 ng/L POC Glucose 569 *H 70-106 mg/dl Blood Gas Specimen Type Arterial Blood Gas Sample Site Right radial Blood Gas Patient Temperature 37.0 Arterial Blood Date Drawn [id number] Arterial Blood pH 6.989 *L 7.350-7.450 Arterial Blood Partial Pressure CO2 < 12.6 *L 32.0-45.0 mmHg Arterial Blood Partial Pressure O2 102.1 83.0-108.0 mmHg Arterial Blood Oxygen Saturation 96.5 94.0-98.0 % Arterial Blood Oxyhemoglobin 95.2 94.0-98.0 % Arterial Blood Carboxyhemoglobin 0.6 0.5-1.5 % Arterial Blood Methemoglobin 0.7 0.0-1.5 % Zenon Test Yes Blood Gas Total Hemoglobin 14.70 12.0-16.0 g/dL Blood Gas Liter Flow 0.00 Blood Gas Modality Room air FiO2 % 21.0 Blood Gas Critical Value Read Back Yes Blood Gas Notified Whom Blood Gas Notified Time [id number] Blood Gas Notified By [employer] cassy rojo White Blood Count 22.6 #H 4.4-10.8 10^3/uL Red Blood Count 5.06 4.0-5.20 10^6/uL Hemoglobin 14.6 # 12.2-16.2 g/dL Hematocrit 46.7 #H 36.0-46.0 % Mean Corpuscular Volume 92.3 # 80.0-100.0 fL Mean Corpuscular Hemoglobin 28.9 28.0-32.0 pg Mean Corpuscular Hemoglobin Concent 31.3 L 32.0-36.0 g/dL Red Cell Distribution Width 15.6 H 11.8-14.3 % Platelet Count 634 H 140-450 10^3/uL Mean Platelet Volume 7.4 6.9-10.8 fL Neutrophils (%) (Auto) 37.0-80.0 % Lymphocytes (%) (Auto) 10.0-50.0 % Monocytes (%) (Auto) 0.0-12.0 % Basophils (%) (Auto) 0.0-2.0 % Neutrophils # (Auto) 1.6-8.6 10 ^3/uL Lymphocytes # (Auto) 0.4-5.4 10 ^3/uL Monocytes # (Auto) 0-1.3 10 ^3/uL Differential Total Cells Counted Pending Neutrophils % (Manual) Pending Band Neutrophils % (Manual) Pending Lymphocytes % (Manual) Pending Monocytes % (Manual) Pending Eosinophils % (Manual) Pending Basophils % (Manual) Pending Metamyelocytes % (manual) Pending Myelocytes % (Manual) Pending Promyelocytes % (Manual) Pending Blast Cells % (Manual) Pending Reactive Lymphocytes Pending Platelet Estimate Pending Sodium Level 132 #L 136-145 mmol/L Potassium Level 5.1 3.5-5.1 mmol/L Chloride Level 102 98-107 mmol/L Carbon Dioxide Level < 10 *L 20-31 mmol/L Anion Gap 20.79277 H 5-15 Blood Urea Nitrogen 13 9-23 mg/dL Creatinine 1.43 #H 0.550-1.02 mg/dL Glomerular Filtration Rate Calc 52 >90 mL/min BUN/Creatinine Ratio 9.1 L 10.0-20.0 Serum Glucose 588 *H 74-106 mg/dL Serum Osmolality 331 H 278-298 mOsm/kg Lactic Acid Level 3.5 *H 0.4-2.0 mmol/L Calcium Level 9.6 8.7-10.4 mg/dL Phosphorus Level 4.8 2.4-5.1 mg/dL Magnesium Level 2.1 1.6-2.6 mg/dL Total Bilirubin 0.2 0.2-1.0 mg/dL Aspartate Amino Transferase (AST) 13 13-40 U/L Alanine Aminotransferase (ALT) < 9 7-40 U/L Alkaline Phosphatase 128 H 46-116 U/L B-Type Natriuretic Peptide 6.28 0-100 pg/mL Total Protein 8.8 H 5.7-8.2 g/dL Albumin 4.8 3.2-4.8 g/dL Beta-Hydroxybutyric Acid > 4.500 H < 0.4 mmol/L Thyroid Stimulating Hormone (TSH) 2.15 0.55-4.78 uIU/mL Beta HCG, Quantitative 1.8 1.5-4.2 mIU/mL Current Medications Medications (Trade) Dose Ordered Sig/Alfie Route Start Time Stop Time Status Last Admin Sodium Chloride 1,000 ml @ 1,000 mls/hr Q1H ONCE IV 08/09/24 20:15 08/09/24 21:14 DC 08/09/24 21:08 Diagnostic Test (Pha) (Accu-Chek Comfort Curve T) 1 strip Q90MIN 08/09/24 21:00 08/09/24 21:22 Insulin Human (Reg)/Sodium Chloride 100 ml @ 0.5 mls/hr Q24H IV 08/09/24 20:30 08/09/24 21:24 Sodium Bicarbonate 100 ml ONCE ONCE IV 08/09/24 20:45 08/09/24 20:46 DC 08/09/24 21:22 Time of 1ST Reevaluation: 22:00 (Patient is still tachypneic, has nausea) Reevaluation 1ST: Unchanged Patient Education/Counseling: Diagnosis, Treatment Family Education/Counseling: No Family Present Comments Patient presented with the above HPI. Tachypnea, nausea, vomiting, abdominal pain. workup was initiated. Patient was found to be tachypneic and tachycardic 140s, EKG revealed sinus tach, blood glucose was found to be 569 Patient was given: IV fluids 1 L bolus ABG revealed pH of 7.69, 2 amps of bicarb were initiated Patient was started on DKA protocol and insulin drip per protocol labs showed elevated WBC count, patient was started on 1 g vancomycin and 3.375 g of Zosyn once. Labs were reviewed Repeat BMP and ABG were ordered 2 hours after the 1st check patient was admitted to the medicine team for further evaluation and treatment of their presentation. Level of care suggested was ICU level Departure 1 Departure Time of Disposition: 22:00 Impression: Primary Impression: DKA (diabetic ketoacidosis) Additional Impressions: Sepsis Tachycardia Tachypnea Vomiting Disposition: ADMITTED INPATIENT Admit to: ICU Condition: Critical Critical Care Note Critical Care Time?: Yes (1 hr-critical care time only) ANNA MARIE PENA RESIDENT Aug 09, 2024 20:35
--- NOTE | 2024-08-09 20:50 | DVH ---
EXAM: XY CHEST PORTABLE CLINICAL HISTORY: sob TECHNIQUE: Single AP view of the chest WID: COMPARISON: XY CHEST XRAY 1 VIEW on DOS: 08/02/24, FINDINGS: Lines and tubes: None Chest: The heart size and pulmonary vasculature is within normal limits. No pleural effusion, pneumothorax, or consolidation. The osseous structures are grossly intact. IMPRESSION: No acute cardiopulmonary abnormality.
[2024-08-09 21:05] LABS: Hematocrit 46.7 % (36.0-46.0); Hemoglobin 14.6 g/dL (12.2-16.2); Mean Corpuscular Hemoglobin 28.9 pg (28.0-32.0); Mean Corpuscular Hgb Conc. 31.3 g/dL (32.0-36.0); Mean Corpuscular Volume 92.3 fL (80.0-100.0); Platelet Count (auto) 634 10^3/uL (140-450); Red Blood Cells 5.06 10^6/uL (4.0-5.20); Red Cell Distribution Width 15.6 % (11.8-14.3); White Blood Cell 22.6 10^3/uL (4.4-10.8)
[2024-08-09] MEDS: SODIUM CHLORIDE 0.9% 1,000 ML IV ONE ×2 (21:08→22:55)
[2024-08-09 21:10] LABS: Albumin 4.8 g/dL (3.2-4.8); Alkaline Phosphatase 128 U/L (46-116); Anion Gap 20.00001 (5-15); Aspartate Aminotransferase 13 U/L (13-40); BUN/Creatinine Ratio 9.1 (10.0-20.0); Bilirubin, Total 0.2 mg/dL (0.2-1.0); Blood Urea Nitrogen 13 mg/dL (9-23); Calcium 9.6 mg/dL (8.7-10.4); Chloride 102 mmol/L (98-107); Magnesium 2.1 mg/dL (1.6-2.6); Phosphorus 4.8 mg/dL (2.4-5.1); Potassium 5.1 mmol/L (3.5-5.1)
[2024-08-09 21:11] LABS: Total Protein 8.8 g/dL (5.7-8.2)
[2024-08-09] MEDS: SODIUM BICARB 8.4% 50Meq/50ml SYR Vial IV ONE (21:22)
[2024-08-09] MEDS: ACCU-CHEK COMFORT CURVE STRIP VI SCH (21:22)
[2024-08-09] MEDS: INSULIN DRIP 100 UNIT/100ML 100 ML IV SCH ×2 (21:24→22:36)
[2024-08-09 21:42] LABS: Alanine Aminotransferase < 9 U/L (7-40); Sodium 132 mmol/L (136-145)
[2024-08-09 21:46] LABS: Basophils % (manual) 0 (0.0-2.0); Blast Cells 0; Carbon Dioxide < 10 mmol/L (20-31); Eosinophils % (manual) 0 (0-7); Glucose 588 mg/dL (74-106); Lactic Acid w/Reflex 3.5 mmol/L (0.4-2.0); Metamyelocytes % 0; Myelocytes % 0; Promyelocytes % 0; Reactive Lymphocytes 0
[2024-08-09 22:30] LABS: Band Neutrophils % (manual) 4; Lymphocytes % (manual) 5 (10.0-50.0); Monocytes % (manual) 1 (0-12); Platelet Estimate Increased; RBC Morphology Normal
[2024-08-09] MEDS ORDERED: ACETAMINOPHEN 325 MG TAB PO PRN (22:30)
[2024-08-09] MEDS ORDERED: HYDROcodone-ACET 5/325MG TAB PO PRN (22:30)
[2024-08-09] MEDS ORDERED: MORPHINE SULFATE INJ 2 MG/ml SYRG IV PRN (22:30)
[2024-08-09] MEDS ORDERED: NITROGLYCERIN 0.4 MG SL TAB SL PRN (22:30)
[2024-08-09] MEDS: VANCOMYCIN 1GM/200ML PREMIX 200 ML IV ONE (23:15)
[2024-08-09] MEDS: INSULIN LANTUS (GLARGINE) 1 /0.01ml (100units/ml) SC ONE (23:17)
[2024-08-10] MEDS: SODIUM BICARB 50mEq/50ml Vial 150 ML in SOD CHL 0.45% 1,000 ML IV SCH ×2 (00:09→05:01)
[2024-08-10] MEDS: InsuLIN REG 1unit/0.01ml Soln (100units/ml) IV ONE (00:20)
[2024-08-10] MEDS: SODIUM BICARB 8.4% 50Meq/50ml SYR Vial IV ONE ×2 (00:25→05:11)
[2024-08-10 00:46] LABS: Urine Bacteria FEW /hpf (None Seen); Urine Blood 3+ /uL (Negative); Urine Clarity Clear (Clear); Urine Color Light-Yellow (Yellow); Urine Protein, UAD 1+ (Negative); Urine Specific Gravity 1.024 (1.001-1.035); Urine Urobilinogen Normal (Negative); Urine WBC 1 /hpf (0 - 5); Urine pH 5.5 (5.0-9.0)
[2024-08-10] MEDS: PIPERACILLIN-TAZOB 3.375GM 100 ML IV ONE (01:05)
[2024-08-10 01:59] LABS: Amphetamine Screen, Urine Neg (NEGATIVE); Barbiturate Scree,Urine Neg (NEGATIVE); Benzodiazephine Screen, Urine Neg (NEGATIVE); Cannabinoid Screen, Urine Neg (NEGATIVE); Cocaine Screen, Urine Neg (NEGATIVE); Opiate Scree,Urine Neg (NEGATIVE); Phencyclidine Screen, Urine Neg (NEGATIVE)
[2024-08-10 02:20] LABS: Potassium 3.9 mmol/L (3.5-5.1); Sodium 145 mmol/L (136-145)
[2024-08-10 02:21] LABS: Anion Gap 22.00001 (5-15); Calcium 8.5 mg/dL (8.7-10.4)
[2024-08-10 02:26] LABS: Blood Urea Nitrogen 13 mg/dL (9-23); Glucose 400 mg/dL (74-106)
[2024-08-10 02:29] LABS: Carbon Dioxide < 10 mmol/L (20-31); Chloride 113 mmol/L (98-107)
[2024-08-10] MEDS: SODIUM CHLORIDE 0.9% 1,000 ML IV SCH ×2 (02:57→05:08)
--- NOTE | 2024-08-10 04:16 | ECG ---
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
[2024-08-10] MEDS: SODIUM CHLORIDE 0.9% 1,000 ML IV ONE (05:01)
[2024-08-10] MEDS ORDERED: PIPERACILLIN-TAZOB 3.375GM 100 ML IV SCH ×2 (06:00→09:00)
--- NOTE | 2024-08-10 06:29 | DVHHP2 ---
History of Present Illness Reason for Visit: Nausea and vomiting History of Present Illness 28-year-old female presents for evaluation of nausea and vomiting. Patient was recently discharged after being admitted for a left groin abscess status post I&D. She was discharged in stable condition. Today she returns with complaints of a one day history of nausea vomiting and abdominal pain. She is slightly altered as well with Kussmaul respirations. Her blood sugars were greater than 600 on arrival. DKA protocol was initiated in the emergency department. Past Medical History Diabetes mellitus Past Surgical History I and D Family History Noncontributory Smoke: No ALCOHOL: none Drugs: None Lives: with Family Review of Systems Review of Systems Review of systems are currently negative otherwise addressed in HPI. Allergies: Coded Allergies: Soy Allergy (Verified Allergy, Severe, sob, 05/14/23) Medications Current Medications Medications Dose Ordered Sig/Alfie Route Start Time Stop Time Status Last Admin Dose Admin Diagnostic Test (Pha) 1 strip Q90MIN 08/09/24 21:00 08/10/24 06:04 1 STRIP Sodium Chloride 1,000 ml @ 150 mls/hr Q6H40M IV 08/10/24 04:30 08/10/24 05:08 150 MLS/HR Insulin Human (Reg)/Sodium Chloride 100 ml @ 0.5 mls/hr Q24H IV 08/09/24 22:30 08/10/24 01:45 0.5 MLS/HR Dextrose 50 ml UD PRN IV 08/09/24 22:30 Insulin Glargine 15 units DAILY SC 08/10/24 10:00 Acetaminophen/ Hydrocodone Bitart 1 tab Q4HP PRN PO 08/09/24 22:30 Ondansetron HCl 4 mg Q4HP PRN IV 08/09/24 22:30 Acetaminophen 650 mg Q6HP PRN PO 08/09/24 22:30 Nitroglycerin 0.4 mg Q5MINP PRN SL 08/09/24 22:30 Morphine Sulfate 2 mg Q30M PRN IV 08/09/24 22:30 Sodium Bicarbonate 150 ml/Sodium Chloride 1,150 ml @ 125 mls/hr Q9H12M IV 08/10/24 04:45 08/10/24 05:01 125 MLS/HR Piperacillin Sod/ Tazobactam Sod 100 ml @ 25 mls/hr Q8H IV 08/10/24 09:00 Exam Vital Signs Vital Signs Date Time Temp Pulse Resp B/P (MAP) Pulse Ox O2 Delivery O2 Flow Rate FiO2 08/09/24 20:15 143 27 97 Room Air* 0 21 08/09/24 19:42 98.9 117/82 (94) Exam Gen: 28-year-old female in moderate distress Skin: Warm, dry, normal color and texture, right inguinal healing wound HEENT: Normocephalic atraumatic, mucous membranes moist and pink. Neck: Cervical and supraclavicular nodes normal without enlargement, trachea is midline, thyroid gland is normal without masses. Pulmonary: Clear to auscultation and percussion bilaterally. Cardiac: Sinus tachycardia Abdomen: Soft, nontender, nondistended, bowel sounds present all 4 quadrants, no guarding, no rigidity, no organomegaly. Extremities: No cyanosis, clubbing, no edema Neuro: Cranial nerves II through XII grossly intact, normal affect and speech, no focal motor deficits. Labs/Xrays ORDERING PHYSICIAN: ANNA MARIE PENA RESIDENT PROCEDURE(s): CXRP - CHEST PORTABLE REASON: sob ORDER NUMBER(s): [id number], ACCESSION NUMBER(s): [id number] EXAM: XY CHEST PORTABLE CLINICAL HISTORY: sob TECHNIQUE: Single AP view of the chest WID: COMPARISON: XY CHEST XRAY 1 VIEW on DOS: 08/02/24, FINDINGS: Lines and tubes: None Chest: The heart size and pulmonary vasculature is within normal limits. No pleural effusion, pneumothorax, or consolidation. The osseous structures are grossly intact. IMPRESSION: No acute cardiopulmonary abnormality. ATED BY: BREANA GLOVER MD DICTATED DATE/TIME: 08/09/242047 Labs Test 08/10/24 06:04 08/10/24 06:02 08/10/24 02:35 08/10/24 00:25 Range/Units POC Glucose 204 H 70-106 mg/dl Blood Gas Specimen Type Arterial Blood Gas Sample Site Left brachial Blood Gas Patient Temperature 37.0 Arterial Blood Date Drawn [id number] Arterial Blood pH 7.192 *L 7.350-7.450 Arterial Blood Partial Pressure CO2 < 12.6 *L 32.0-45.0 mmHg Arterial Blood Partial Pressure O2 92.8 83.0-108.0 mmHg Arterial Blood Oxygen Saturation 97.8 94.0-98.0 % Arterial Blood Oxyhemoglobin 96.4 94.0-98.0 % Arterial Blood Carboxyhemoglobin 0.6 0.5-1.5 % Arterial Blood Methemoglobin 0.8 0.0-1.5 % Zenon Test N/a Blood Gas Total Hemoglobin 13.50 12.0-16.0 g/dL Blood Gas Modality Room air FiO2 % 21.0 Specimen Drawn By Mine Motor Engineer cassy rojo Blood Gas Critical Value Read Back Yes Blood Gas Notified Whom Blood Gas Notified Time Blood Gas Notified By Mine Motor Engineer cassy rojo Urine Color Light-yellow Yellow Urine Clarity Clear Clear Urine pH 5.5 5.0-9.0 Urine Specific [place] 1.024 1.001-1.035 Urine Protein 1+ H Negative Urine Blood 3+ H Negative /uL Urine Nitrite Negative Negative Urine Bilirubin Negative Negative Urine Urobilinogen Normal Negative mg/dL Urine Leukocyte Esterase Negative Negative /uL Urine RBC 24 0 - 4 /hpf Urine WBC 1 0 - 5 /hpf Urine Squamous Epithelial Cells Few <5 /hpf Urine Bacteria Few H None Seen /hpf Urine Glucose 4+ H Normal mg/dL Urine Test Negative Negative Urine Opiates Screen Neg NEGATIVE Urine Fentanyl Screen Neg NEGATIVE Urine Barbiturates Screen Neg NEGATIVE Urine Phencyclidine Screen Neg NEGATIVE Urine Amphetamines Screen Neg NEGATIVE Urine Benzodiazepines Screen Neg NEGATIVE Urine Cocaine Screen Neg NEGATIVE Urine Cannabinoids Screen Neg NEGATIVE Test 08/09/24 22:18 08/09/24 21:25 08/09/24 20:25 08/09/24 20:23 Range/Units Lactic Acid Level 3.8 *H 0.4-2.0 mmol/L Troponin I High Sensitivity < 3 L </=34 ng/L Blood Gas Liter Flow 0.00 Differential Total Cells Counted 100.0 100 Neutrophils % (Manual) 90 H 37.0-80.0 Band Neutrophils % (Manual) 4 Lymphocytes % (Manual) 5 L 10.0-50.0 Monocytes % (Manual) 1 0-12 Eosinophils % (Manual) 0 0-7 Basophils % (Manual) 0 0.0-2.0 Metamyelocytes % (manual) 0 Myelocytes % (Manual) 0 Promyelocytes % (Manual) 0 Blast Cells % (Manual) 0 Reactive Lymphocytes 0 Platelet Estimate Increased Red Blood Cell Morphology Normal Serum Osmolality 331 H 278-298 mOsm/kg Phosphorus Level 4.8 2.4-5.1 mg/dL Magnesium Level 2.1 1.6-2.6 mg/dL B-Type Natriuretic Peptide 6.28 0-100 pg/mL Beta-Hydroxybutyric Acid > 4.500 H < 0.4 mmol/L Thyroid Stimulating Hormone (TSH) 2.15 0.55-4.78 uIU/mL Beta HCG, Quantitative 1.8 1.5-4.2 mIU/mL Assessment/Plan Assessment/Plan Assessment Diabetic ketoacidosis Leukocytosis ? Reactive versus early sepsis Acute kidney injury Plan Admit the patient to ICU to the hospitalist DKA protocol Blood cultures pending Prophylactic Zosyn continue treatment per orders Total critical care time excluding procedures performed this 50 minutes. Plan discussed with: Patient My Orders Orders - GIAN LINDSAY AGACNP Procedure Category Date Status Time Sodium Chloride 0.9% PHA 08/10/24 In Process 04:30 Insulin Drip 100 PHA 08/09/24 In Process Unit/100ml (Myxredlin 22:30 Dextrose 50% Syringe PHA 08/09/24 In Process 22:30 Insulin Lantus PHA 08/10/24 In Process (Glargine) (Lantus) 10:00 Admit ADMIT 08/09/24 Transmitted 22:20 Hydrocodone-Acet PHA 08/09/24 In Process 5/325mg Tab ([place] 22:30 Ondansetron Hcl PHA 08/09/24 In Process (Zofran) 22:30 Complete Blood Count LAB 08/10/24 In Process 04:00 Comprehensive LAB 08/10/24 In Process Metabolic Panel 04:00 Npo (Nothing By DIET 08/10/24 Transmitted Mouth) Diet Breakfast Condition: Critical MOY 08/09/24 In Process 22:20 Acetaminophen Tablet PHA 08/09/24 In Process (Tylenol Tablet) 22:30 Bedrest With Bathroom MOY 08/09/24 In Process Privileg 22:20 Nitroglycerin PHA 08/09/24 In Process Sublingual (Ntrostat 22:30 Morphine Sulfate PHA 08/09/24 In Process Injection 22:30 Stat Ekg For Chest MOY 08/09/24 In Process Pain 22:20 Notify Of Changes MOY 08/09/24 In Process From Base 22:20 Feather Renovator For MOY 08/09/24 In Process 24 Hours 22:20 Emergency Dysrhythmia MOY 08/09/24 In Process Protocol 22:20 Rhythm Strips Once MOY 08/09/24 In Process Every Shift 22:20 Oxygen By Nasal RT 08/09/24 Transmitted Cannula 22:20 Abg W/ Co-Ox RT 08/10/24 Logged 01:30 Sod Chl 0.45% PHA 08/10/24 In Process (Sodi... W/Sodium 04:45 Piperacillin-Tazob PHA 08/10/24 In Process 3.375gm (Zosyn 3.375g 09:00 Date of Service: Aug 09, 2024 Billing Provider: GIAN LINDSAY Common Visit Codes: [id number] CARE 30-74 MIN GIAN LINDSAY Aug 10, 2024 06:29
[2024-08-10 06:34] LABS: Mean Corpuscular Hemoglobin 28.8 pg (28.0-32.0); Mean Corpuscular Volume 89.5 fL (80.0-100.0)
[2024-08-10 06:37] LABS: Hematocrit 34.2 % (36.0-46.0); Mean Corpuscular Hgb Conc. 32.2 g/dL (32.0-36.0); Platelet Count (auto) 521 10^3/uL (140-450); Red Blood Cells 3.83 10^6/uL (4.0-5.20); Red Cell Distribution Width 14.4 % (11.8-14.3)
[2024-08-10 06:50] LABS: Albumin 3.5 g/dL (3.2-4.8); Alkaline Phosphatase 87 U/L (46-116); Anion Gap 21.00001 (5-15); Aspartate Aminotransferase < 8 U/L (13-40); BUN/Creatinine Ratio 10.4 (10.0-20.0); Bilirubin, Total 0.3 mg/dL (0.2-1.0); Blood Urea Nitrogen 11 mg/dL (9-23); Calcium 8.4 mg/dL (8.7-10.4); Chloride 118 mmol/L (98-107); Glucose 227 mg/dL (74-106); Potassium 3.3 mmol/L (3.5-5.1); Sodium 149 mmol/L (136-145); Total Protein 6.3 g/dL (5.7-8.2)
[2024-08-10 06:55] LABS: Alanine Aminotransferase < 9 U/L (7-40); Carbon Dioxide < 10 mmol/L (20-31)
[2024-08-10 06:59] LABS: White Blood Cell 41.7 10^3/uL (4.4-10.8)
[2024-08-10 07:00] LABS: Basophils % (manual) 0 (0.0-2.0); Blast Cells 0; Eosinophils % (manual) 0 (0-7); Metamyelocytes % 0; Myelocytes % 0; Promyelocytes % 0; Reactive Lymphocytes 0
[2024-08-10] MEDS ORDERED: VANCOMYCIN PER PHARMACY 0 MG IV SCH (07:15)
[2024-08-10 07:30] VITALS: PULSE 107; RESP 17; O2SAT 98
[2024-08-10 07:47] LABS: Band Neutrophils % (manual) 1; Lymphocytes % (manual) 10 (10.0-50.0); Monocytes % (manual) 1 (0-12); Platelet Estimate Increased
[2024-08-10 07:48] LABS: RBC Morphology Normal
[2024-08-10] MEDS: METOCLOPRAMIDE HCL 5MG/ml INJ 2ml VIAL IV ONE (07:56)
[2024-08-10] MEDS: PIPERACILLIN-TAZOB 3.375GM 100 ML IV SCH (07:56)
--- NOTE | 2024-08-10 08:19 | DVH ---
Exam: CT CT AB PEL WO CON-NO ORAL OR IV History: abd. pain Comparison Study: None available at time of dictation. TECHNIQUE: Multidetector CT of the abdomen and pelvis was performed from lung bases to ischial tubero sities. Imaging was performed without IV contrast using axial images. Coronal and sagittal reformats were obtained from the axial data set by the technologist. Radiation Dose Information: CT Dose: CTDI volume is 7.1 mGy. Dose-length product is 375.54 mGy*cm FINDINGS: Evaluation of solid organs is limited due to lack of intravenous contrast use. Findings: Lung Bases: No acute or significant lung base finding. Normal heart size. No pleural or pericardial effusion. Liver: The liver is normal in size. No focal lesions. Gallbladder and Biliary Tree: Gallbladder is unremarkable. No biliary ductal dilatation. Spleen: Unremarkable Pancreas: The pancreas is grossly normal in appearance. Adrenal Glands: Unremarkable Kidneys: Mild right hydronephrosis. No obstructing stone. GI Tract: The stomach is grossly normal in appearance. Small bowel and colon are normal in caliber an d distribution. The appendix is not visualized; however, no secondary findings of acute appendicitis identified. Peritoneal cavity: No pneumoperitoneum. No ascites. Lymphadenopathy: No mesenteric, retroperitoneal or periportal lymphadenopathy. Abdominal Wall and Mesentery: Unremarkable. Vasculature: The visualized abdominal aorta is normal in size and caliber. Evaluation of abdominal a nd pelvic vessels is limited due to lack of intravenous contrast. Pelvic Organs: Unremarkable Urinary Bladder: Distended urinary bladder. Small locule of air in the urinary bladder Musculoskeletal: No aggressive focal bony lesions, acute fractures or dislocation. Soft tissues: Unremarkable IMPRESSION: 1. Distended urinary bladder. Mild right hydronephrosis which may be related to the distended urinar y bladder. There is a small locule of air in the urinary bladder. Infection not excluded. Radiation optimization: All CT scans at this facility use at least one of these dose optimization mary carmen hniques: automated exposure control mA and/or kV adjustment per patient size (includes targeted exam s where dose is matched to clinical indication) or iterative reconstruction.
[2024-08-10 11:10] LABS: Anion Gap 18 (5-15); Calcium 8.2 mg/dL (8.7-10.4); Carbon Dioxide 13 mmol/L (20-31); Chloride 120 mmol/L (98-107); Sodium 151 mmol/L (136-145)
[2024-08-10 11:15] LABS: Glucose 187 mg/dL (74-106)
[2024-08-10 11:16] LABS: BUN/Creatinine Ratio 10.4 (10.0-20.0); Blood Urea Nitrogen 10 mg/dL (9-23)
[2024-08-10] MEDS: INSULIN LANTUS (GLARGINE) 1 /0.01ml (100units/ml) SC SCH (11:31)
[2024-08-10] MEDS: VANCOMYCIN 1GM/200ML PREMIX 200 ML IV ONE (11:41)
[2024-08-10] MEDS: POTASSIUM EFFERVESENT TAB 25 MEQ PO ONE ×2 (13:29→16:44)
[2024-08-10] MEDS: POTASSIUM CHLORIDE 40 MEQ in D5W/LACTATED RINGERS 1,000 ML IV SCH ×2 (13:29→18:50)
--- NOTE | 2024-08-10 14:28 | DVHPN2 ---
Assessment/Plan Assessment/Plan ICU progress note Subjective 28-year-old female with type 1 diabetes on insulin at home admitted for DKA Objective Physical exam Alert, oriented x3 Speaking in full sentences PERRLA No JVD Clear breath sounds bilaterally No increased work of breathing S1-S2 regular rate and rhythm no murmur Abdomen soft nontender, no organomegaly Moving all four extremities No lower extremity edema Lab Elevated lactate Low bicarb Elevated anion gap Elevated glucose Hypokalemia Hypernatremia Imaging CT abdomen and pelvis with air on the bladder Chest x-ray clear Assessment and plan DKA, improving Possible UTI, asymptomatic Type 1 diabetes insulin-dependent Continue an insulin drip, titrate up to goal of 0.1/kg/hr Maintain blood glucose between 180-250, increase rate of D5 as needed BMP q.6 Fingerstick q.2 D5 LR plus potassium running on 200 Continue with Yan Strict I&O Continue with ceftriaxone Once gap close x2 we will bridge Lines For large-bore pIV, Yan phosphate of 3 and magnesium of 2 Diet NPO except meds DVT prophylaxis ambulatory 85 minutes critical care time spent on this patient including evaluation, chart review, formulating plan and communication with team, excluding any procedures or point of care imaging Plan discussed with: Patient My Orders Orders - ROSELIA BAUM MD Procedure Category Date Status Time D5w/Lactated PHA 08/10/24 In Process Ringer... W/Potassium 12:45 Venous Blood Gas RT 08/10/24 Logged 14:00 Blood Glucose Q2h MOY 08/10/24 In Process 14:00 Npo Except For MOY 08/10/24 In Process Medications 12:44 Communication Order ORDERS 08/10/24 Transmitted 12:44 Date of Service: Aug 10, 2024 Billing Provider: ROSELIA BAUM MD Common Visit Codes: [id number] INP/OBS CARE(HIGH), [id number] CARE 30-74 MIN, [id number] CARE-EACH +30MIN ROSELIA BAUM MD Aug 10, 2024 14:28
[2024-08-10 14:31] LABS: Chloride 120 mmol/L (98-107); Potassium 2.9 mmol/L (3.5-5.1); Sodium 152 mmol/L (136-145)
[2024-08-10 14:32] LABS: Anion Gap 17 (5-15); Calcium 8.3 mg/dL (8.7-10.4); Carbon Dioxide 15 mmol/L (20-31)
[2024-08-10 14:37] LABS: BUN/Creatinine Ratio 10.5 (10.0-20.0); Blood Urea Nitrogen 10 mg/dL (9-23); Glucose 163 mg/dL (74-106)
[2024-08-10 19:08] LABS: Chloride 118 mmol/L (98-107); Potassium 3.9 mmol/L (3.5-5.1); Sodium 150 mmol/L (136-145)
[2024-08-10 19:09] LABS: Anion Gap 13 (5-15); Carbon Dioxide 19 mmol/L (20-31)
[2024-08-10 19:10] LABS: Calcium 8.5 mg/dL (8.7-10.4)
[2024-08-10 19:14] LABS: BUN/Creatinine Ratio 9.9 (10.0-20.0); Blood Urea Nitrogen 9 mg/dL (9-23); Glucose 259 mg/dL (74-106)
[2024-08-10 20:00] VITALS: PULSE 107; RESP 13; O2SAT 98
[2024-08-10] MEDS: VANCOMYCIN 1GM/200ML PREMIX 200 ML IV SCH (21:17)
[2024-08-10 22:39] LABS: Chloride 112 mmol/L (98-107); Potassium 3.2 mmol/L (3.5-5.1); Sodium 143 mmol/L (136-145)
[2024-08-10 22:40] LABS: Anion Gap 12 (5-15); Carbon Dioxide 19 mmol/L (20-31)
[2024-08-10 22:41] LABS: Calcium 7.5 mg/dL (8.7-10.4)
[2024-08-10 22:45] LABS: Glucose 235 mg/dL (74-106)
[2024-08-10 22:46] LABS: BUN/Creatinine Ratio 8.8 (10.0-20.0); Blood Urea Nitrogen 6 mg/dL (9-23)
[2024-08-11 00:50] LABS: Chloride 117 mmol/L (98-107); Potassium 3.4 mmol/L (3.5-5.1)
[2024-08-11 00:51] LABS: Anion Gap 10 (5-15); Calcium 8.6 mg/dL (8.7-10.4); Carbon Dioxide 23 mmol/L (20-31)
[2024-08-11 00:54] LABS: Sodium 150 mmol/L (136-145)
[2024-08-11 00:56] LABS: BUN/Creatinine Ratio 6.4 (10.0-20.0); Blood Urea Nitrogen 5 mg/dL (9-23); Glucose 232 mg/dL (74-106)
[2024-08-11 06:49] LABS: Chloride 118 mmol/L (98-107); Potassium 3.4 mmol/L (3.5-5.1); Sodium 151 mmol/L (136-145)
[2024-08-11 06:50] LABS: Anion Gap 9 (5-15); Calcium 8.4 mg/dL (8.7-10.4); Carbon Dioxide 24 mmol/L (20-31)
[2024-08-11 06:55] LABS: Glucose 197 mg/dL (74-106)
[2024-08-11 06:56] LABS: BUN/Creatinine Ratio 7.1 (10.0-20.0); Blood Urea Nitrogen < 5 mg/dL (9-23)
[2024-08-11 07:30] VITALS: PULSE 87; RESP 14; O2SAT 98
[2024-08-11] MEDS: INSULIN LANTUS (GLARGINE) 1 /0.01ml (100units/ml) SC ONE ×2 (09:21→21:39)
[2024-08-11 12:03] LABS: Chloride 117 mmol/L (98-107); Potassium 3.6 mmol/L (3.5-5.1); Sodium 149 mmol/L (136-145)
[2024-08-11 12:04] LABS: Anion Gap 8 (5-15); Carbon Dioxide 24 mmol/L (20-31)
[2024-08-11 12:05] LABS: Calcium 8.5 mg/dL (8.7-10.4)
[2024-08-11 12:09] LABS: Glucose 183 mg/dL (74-106)
[2024-08-11 12:16] LABS: BUN/Creatinine Ratio 6.4 (10.0-20.0); Blood Urea Nitrogen < 5 mg/dL (9-23)
[2024-08-11 16:13] VITALS: BP 112/68; PULSE 88; RESP 16; TEMP 98.2; O2SAT 96
[2024-08-11 17:00] VITALS: BP 142/95; PULSE 74; RESP 17; TEMP 97.5; O2SAT 97
[2024-08-11 17:38] LABS: Chloride 109 mmol/L (98-107); Potassium 3.6 mmol/L (3.5-5.1); Sodium 139 mmol/L (136-145)
[2024-08-11 17:39] LABS: Anion Gap 8 (5-15); Carbon Dioxide 22 mmol/L (20-31)
[2024-08-11 17:40] LABS: Calcium 8.5 mg/dL (8.7-10.4)
[2024-08-11 17:44] LABS: Glucose 321 mg/dL (74-106)
[2024-08-11 17:46] LABS: BUN/Creatinine Ratio 6.8 (10.0-20.0); Blood Urea Nitrogen < 5 mg/dL (9-23)
[2024-08-11] MEDS: POTASSIUM EFFERVESENT TAB 25 MEQ PO ONE (17:48)
[2024-08-11] MEDS: ACCU-CHEK COMFORT CURVE STRIP VI SCH (17:49)
[2024-08-11] MEDS: InsuLIN REG 1unit/0.01ml Soln (100units/ml) SC SCH ×2 (17:49→21:37)
[2024-08-11 20:00] VITALS: PULSE 81; PULSE 84; RESP 19; O2SAT 99
--- NOTE | 2024-08-11 20:40 | DVHPN2 ---
Assessment/Plan Assessment/Plan ICU progress note Subjective 28-year-old female with type 1 diabetes on insulin at home admitted for DKA. Patient is seen by me today during rounds, gap closed x2, bridged. downgrade to tele Objective Physical exam Alert, oriented x3 Speaking in full sentences PERRLA No JVD Clear breath sounds bilaterally No increased work of breathing S1-S2 regular rate and rhythm no murmur Abdomen soft nontender, no organomegaly Moving all four extremities No lower extremity edema Lab Elevated lactate Low bicarb Elevated anion gap Elevated glucose Hypokalemia Hypernatremia Imaging CT abdomen and pelvis with air on the bladder Chest x-ray clear Assessment and plan DKA, resolved Possible UTI, asymptomatic Type 1 diabetes insulin-dependent Continue an insulin drip, titrate up to goal of 0.1/kg/hr Maintain blood glucose between 180-250, increase rate of D5 as needed BMP q.6 Fingerstick q.2 D5 LR plus potassium running on 200 Continue with Solorio Strict I&O Continue with ceftriaxone closed gap x2 bridge with 15 units lantus, hyperglycemic after, increased to 25 moderate sliding scale downgrade to telemetry Lines For large-bore pIV, dc solorio K of 4 phosphate of 3 and magnesium of 2 Diet NPO except meds DVT prophylaxis ambulatory 82 minutes critical care time spent on this patient including evaluation, chart review, formulating plan and communication with team, excluding any procedures or point of care imaging Plan discussed with: Patient My Orders Orders - ROSELIA BAUM MD Procedure Category Date Status Time Communication Order ORDERS 08/11/24 Transmitted 09:09 Consistent DIET 08/11/24 Transmitted Carb(Ccho)Diabetes Lunch Mrsa Screen MEREDITH 08/11/24 In Process 17:51 * Wound Consult CONS 08/11/24 Transmitted Wound Culture W/ Gs MEREDITH 08/11/24 In Process 17:51 Insulin Lantus PHA 08/12/24 Verified (Glargine) (Lantus) 22:00 Insulin Lantus PHA 08/11/24 Verified (Glargine) (Lantus) 20:45 Basic Metabolic Panel LAB 08/12/24 Verified 04:00 Magnesium LAB 08/12/24 Verified 04:00 Phosphorus LAB 08/12/24 Verified 04:00 Date of Service: Aug 11, 2024 Billing Provider: ROSELIA BAUM MD Common Visit Codes: [id number] INP/OBS CARE(HIGH), [id number] CARE 30-74 MIN, 44230-FEKDEQUE CARE-EACH +30MIN ROSELIA BAUM MD Aug 11, 2024 20:40
[2024-08-11 21:00] VITALS: BP 132/96; PULSE 81; RESP 19; TEMP 97.9; O2SAT 99
[2024-08-11] MEDS: PIPERACILLIN-TAZOB 3.375GM 100 ML IV SCH (21:46)
[2024-08-12 01:00] VITALS: BP 107/75; PULSE 75; RESP 19; TEMP 98.2; O2SAT 97
[2024-08-12 05:00] VITALS: BP 97/67; PULSE 67; RESP 19; TEMP 98.2; O2SAT 97
[2024-08-12 06:02] LABS: Basophils # (auto) 0.1 10 ^3/uL (0-0.2); Basophils % (auto) 1.2 % (0.0-2.0); Eosinophils # (auto) 0.3 10 ^3/uL (0-0.8); Eosinophils % (auto) 4.2 % (0.0-7.0); Hematocrit 30.8 % (36.0-46.0); Hemoglobin 10.5 g/dL (12.2-16.2); Lymphocytes # (auto) 3.4 10 ^3/uL (0.4-5.4); Lymphocytes % (auto) 44.9 % (10.0-50.0); Mean Corpuscular Hemoglobin 29.1 pg (28.0-32.0); Mean Corpuscular Volume 85.6 fL (80.0-100.0); Monocytes # (auto) 0.4 10 ^3/uL (0-1.3); Monocytes % (auto) 5.8 % (0.0-12.0); Neutrophils # (auto) 3.3 10 ^3/uL (1.6-8.6); Neutrophils % (auto) 43.9 % (37.0-80.0); Nucleated Red Blood Cells % 0.1 %; Platelet Count (auto) 392 10^3/uL (140-450); Red Cell Distribution Width 14.3 % (11.8-14.3); White Blood Cell 7.5 10^3/uL (4.4-10.8)
[2024-08-12 06:12] LABS: Anion Gap 6 (5-15); Carbon Dioxide 29 mmol/L (20-31); Chloride 105 mmol/L (98-107); Potassium 3.2 mmol/L (3.5-5.1); Sodium 140 mmol/L (136-145)
[2024-08-12 06:13] LABS: Calcium 8.4 mg/dL (8.7-10.4)
[2024-08-12 06:18] LABS: Glucose 144 mg/dL (74-106)
[2024-08-12 06:19] LABS: Magnesium 1.4 mg/dL (1.6-2.6)
[2024-08-12 06:20] LABS: Phosphorus 1.3 mg/dL (2.4-5.1)
[2024-08-12 06:46] LABS: BUN/Creatinine Ratio 7.7 (10.0-20.0); Blood Urea Nitrogen < 5 mg/dL (9-23)
[2024-08-12 07:11] VITALS: PULSE 70
[2024-08-12 09:00] VITALS: BP 101/68; PULSE 60; RESP 16; TEMP 97.9; O2SAT 98
[2024-08-12 13:00] VITALS: BP 118/87; PULSE 72; RESP 16; TEMP 98; O2SAT 98
[2024-08-12] MEDS ORDERED: LEVO500T91 PO (14:59)
[2024-08-12] MEDS ORDERED: LEVEMIR SC (14:59)
[2024-08-12] MEDS ORDERED: INSU100I28 IJ (14:59)
[2024-08-12] MEDS: POTASSIUM EFFERVESENT TAB 25 MEQ PO ONE (16:29)
[2024-08-12 16:55] VITALS: BP 149/99; PULSE 75; RESP 17; TEMP 97.8; O2SAT 98
--- NOTE | 2024-08-12 20:26 | DVHDS2 ---
Discharge Summary Date of Admission Aug 09, 2024 at 22:20 Date of Discharge: Aug 12, 2024 Labs/Diagnostic Data: Laboratory Results Test 08/12/24 11:40 08/12/24 05:20 08/11/24 11:15 08/10/24 06:04 POC Glucose 309 mg/dl (70-106) White Blood Count 7.5 10^3/uL (4.4-10.8) Red Blood Count 3.60 10^6/uL (4.0-5.20) Hemoglobin 10.5 g/dL (12.2-16.2) Hematocrit 30.8 % (36.0-46.0) Mean Corpuscular Volume 85.6 fL (80.0-100.0) Mean Corpuscular Hemoglobin 29.1 pg (28.0-32.0) Mean Corpuscular Hemoglobin Concent 34.0 g/dL (32.0-36.0) Red Cell Distribution Width 14.3 % (11.8-14.3) Platelet Count 392 10^3/uL (140-450) Mean Platelet Volume 6.9 fL (6.9-10.8) Neutrophils (%) (Auto) 43.9 % (37.0-80.0) Lymphocytes (%) (Auto) 44.9 % (10.0-50.0) Monocytes (%) (Auto) 5.8 % (0.0-12.0) Eosinophils (%) (Auto) 4.2 % (0.0-7.0) Basophils (%) (Auto) 1.2 % (0.0-2.0) Neutrophils # (Auto) 3.3 10 ^3/uL (1.6-8.6) Lymphocytes # (Auto) 3.4 10 ^3/uL (0.4-5.4) Monocytes # (Auto) 0.4 10 ^3/uL (0-1.3) Eosinophils # (Auto) 0.3 10 ^3/uL (0-0.8) Basophils # (Auto) 0.1 10 ^3/uL (0-0.2) Nucleated Red Blood Cells 0.1 % Sodium Level 140 mmol/L (136-145) Potassium Level 3.2 mmol/L (3.5-5.1) Chloride Level 105 mmol/L (98-107) Carbon Dioxide Level 29 mmol/L (20-31) Anion Gap 6 (5-15) Blood Urea Nitrogen < 5 mg/dL (9-23) Creatinine 0.65 mg/dL (0.550-1.02) Glomerular Filtration Rate Calc 124 mL/min (>90) BUN/Creatinine Ratio 7.7 (10.0-20.0) Serum Glucose 144 mg/dL (74-106) Calcium Level 8.4 mg/dL (8.7-10.4) Phosphorus Level 1.3 mg/dL (2.4-5.1) Magnesium Level 1.4 mg/dL (1.6-2.6) Vancomycin Level Trough 15.6 ug/mL (5-10) Differential Total Cells Counted 100.0 (100) Neutrophils % (Manual) 88 (37.0-80.0) Band Neutrophils % (Manual) 1 Lymphocytes % (Manual) 10 (10.0-50.0) Monocytes % (Manual) 1 (0-12) Eosinophils % (Manual) 0 (0-7) Basophils % (Manual) 0 (0.0-2.0) Metamyelocytes % (manual) 0 Myelocytes % (Manual) 0 Promyelocytes % (Manual) 0 Blast Cells % (Manual) 0 Reactive Lymphocytes 0 Platelet Estimate Increased Red Blood Cell Morphology Normal Total Bilirubin 0.3 mg/dL (0.2-1.0) Aspartate Amino Transferase (AST) < 8 U/L (13-40) Alanine Aminotransferase (ALT) < 9 U/L (7-40) Alkaline Phosphatase 87 U/L (46-116) Total Protein 6.3 g/dL (5.7-8.2) Albumin 3.5 g/dL (3.2-4.8) Test 08/10/24 02:35 08/10/24 02:00 08/10/24 00:25 08/09/24 22:18 Blood Gas Specimen Type Arterial Blood Gas Sample Site Left brachial Blood Gas Patient Temperature 37.0 Arterial Blood Date Drawn [id number] Arterial Blood pH 7.192 (7.350-7.450) Arterial Blood Partial Pressure CO2 < 12.6 mmHg (32.0-45.0) Arterial Blood Partial Pressure O2 92.8 mmHg (83.0-108.0) Arterial Blood Oxygen Saturation 97.8 % (94.0-98.0) Arterial Blood Oxyhemoglobin 96.4 % (94.0-98.0) Arterial Blood Carboxyhemoglobin 0.6 % (0.5-1.5) Arterial Blood Methemoglobin 0.8 % (0.0-1.5) Zenon Test N/a Blood Gas Total Hemoglobin 13.50 g/dL (12.0-16.0) Blood Gas Modality Room air FiO2 % 21.0 Specimen Drawn By Landing Signal Officer cassy rojo Blood Gas Critical Value Read Back Yes Blood Gas Notified Whom Blood Gas Notified Time Blood Gas Notified By Landing Signal Officer cassy rojo Lipase 30 U/L (12-53) Urine Color Light-yellow (Yellow) Urine Clarity Clear (Clear) Urine pH 5.5 (5.0-9.0) Urine Specific [place] 1.024 (1.001-1.035) Urine Protein 1+ (Negative) Urine Ketones 4+ (Negative) Urine Blood 3+ /uL (Negative) Urine Nitrite Negative (Negative) Urine Bilirubin Negative (Negative) Urine Urobilinogen Normal mg/dL (Negative) Urine Leukocyte Esterase Negative /uL (Negative) Urine RBC 24 /hpf (0 - 4) Urine WBC 1 /hpf (0 - 5) Urine Squamous Epithelial Cells Few /hpf (<5) Urine Bacteria Few /hpf (None Seen) Urine Glucose 4+ mg/dL (Normal) Urine Test Negative (Negative) Urine Opiates Screen Neg (NEGATIVE) Urine Fentanyl Screen Neg (NEGATIVE) Urine Barbiturates Screen Neg (NEGATIVE) Urine Phencyclidine Screen Neg (NEGATIVE) Urine Amphetamines Screen Neg (NEGATIVE) Urine Benzodiazepines Screen Neg (NEGATIVE) Urine Cocaine Screen Neg (NEGATIVE) Urine Cannabinoids Screen Neg (NEGATIVE) Lactic Acid Level 3.8 mmol/L (0.4-2.0) Test 08/09/24 21:25 08/09/24 20:25 08/09/24 20:23 Troponin I High Sensitivity < 3 ng/L (</=34) Blood Gas Liter Flow 0.00 Serum Osmolality 331 mOsm/kg (278-298) B-Type Natriuretic Peptide 6.28 pg/mL (0-100) Beta-Hydroxybutyric Acid > 4.500 mmol/L (< 0.4) Thyroid Stimulating Hormone (TSH) 2.15 uIU/mL (0.55-4.78) Beta HCG, Quantitative 1.8 mIU/mL (1.5-4.2) Other Laboratory Tests 08/12/24 05:20 Brief Hx & Hospital Course: 28-year-old female admitted for DKA, initially started on low-dose insulin drip in ED. switched to DKA protocol for insulin, with addition of D5 LR and potassium. Gap close time stool, bridge to subcutaneous long-acting insulin. Patient able to tolerate diet, vomiting resolved, stable to discharge. Given antibiotics to cover for possible UTI Condition at Discharge: Good Final Diagnosis/Problems List DKA possible UTI Discharge Disposition: Home Discharge Instruct/Medications Diet: Consistent carbohydrate Activity: No Restrictions, As Tolerated Follow Up/Referral: machine inker PCP Medications: detemir 25 units daily aspart sliding scale levofloxacin for 5 days 45 Discharge Statement: "Patient was advised to return to the ER or call 911 if any headaches, dizziness, shortness of breath, chest pain, abdominal pain, bleeding, fevers, or worsening of medical condition. Patient was counseled about treatment plan, medications, possible side effects, patientverbalized understanding. All questions were answered to the best of my ability. This discharge took greater then 30 minutes in planning, reviewing documentation, counseling the patient, and discussing with other team members." ASSESSMENT ASSESSMENT Assessment DKA possible UTI IDDM type 1 Date of Service: Aug 12, 2024 Billing Provider: ROSELIA BAUM MD Common Visit Codes: [id number]/[id number] DISCH DAY >30min ROSELIA BAUM MD Aug 12, 2024 20:26
[2024-08-12] MEDS ORDERED: INSULIN LANTUS (GLARGINE) 1 /0.01ml (100units/ml) SC SCH (22:00)
== END 2024-08-12 18:58 | disposition home or self-care (01) | DRG 720 ==
LOC: ER 19:42 → EDBD 19:42 → OVERFLOW 22:20 → TELE-CENTR 08-11 16:12
PROVIDERS: ADMIT Nurse Practitioner; ATTEND Student in an Organized Health Care Education/Training Program
DX: A41.9 Sepsis, unspecified organism (principal); N17.0 Acute kidney failure with tubular necrosis; E10.10 Type 1 diabetes mellitus with ketoacidosis without coma; N39.0 Urinary tract infection, site not specified; Z79.4 Long term (current) use of insulin; Z91.018 Allergy to other foods; Z79.899 Other long term (current) drug therapy
CPT/HCPCS: 36415; 36600; 71045; 74176; 80048; 80053; 80202; 80307; 81001; 81025; 82010; 82805; 82962; 83605; 83690; 83735; 83880; 83930; 84100; 84443; 84484; 84702; 85007; 85025; 85027; 87040; 87077; 87081; 87086; 87088; 87186; 87205; 93005; 99291; G0378; J1815; J2405; J2543

== ENCOUNTER 2024-09-05 09:58 | Emergency (ER) | payer MEDICAID ==
[~2024-09-05] VITALS: Ht 170.2 cm; Wt 72.8 kg
[~2024-09-05 09:58] MED LIST changes: -PANT40TA2 PO; -SUCR1SUS26 PO
[2024-09-05] MEDS ORDERED: CLIN1CAP70 PO (12:15)
[2024-09-05] MEDS ORDERED: IBUP-1454 PO (12:15)
[2024-09-05] MEDS ORDERED: HYDR-4902 PO (12:15)
--- NOTE | 2024-09-05 12:17 | ED.PDOC ---
History of Present Illness(SKN HPI Comments 28 year old female patient presents to the clinic for pain to the left buttocks area. Patient reports that she started to feel a bump 4 days ago. Patient has a history of diabetes. Patient reports that drainage started 2 days ago. Patient has a moderate amount of drainage on the dressing at this time that is both purulent and bloody. Patient denies any fevers. Skin is warm to the touch. Chief Complaint: Abscess Time Seen by MD: 10:18 Primary Care Provider: JUAN Allergies: Coded Allergies: Soy Allergy (Verified Allergy, Severe, sob, 05/14/23) Home Meds Active Scripts Ibuprofen (Ibuprofen) 600 Mg Tab, 1 TAB PO TID PRN for 30 Days, #90 TAB 0 Refills Prov:JOEL [facility] 09/05/24 Hydrocodone-Acetaminophen (Hydrocodone Bitartrate/AC 5-325 mg) 1 Tab Tab, 1 TAB PO Q6HR for 3 Days, #12 TAB 0 Refills Prov:[facility] 09/05/24 Clindamycin Hcl (Clindamycin Hcl) 300 Mg Cap, 1 CAP PO TID for 10 Days, #21 CAP 0 Refills Prov:[facility] 09/05/24 Levofloxacin Hemihydrate (LEVOFLOXACIN) 500 Mg Tab, 1 TAB PO DAILY for 5 Days, #5 TAB Prov:ROSELIA BAUM MD 08/12/24 Insulin Detemir (Levemir) Inj, 25 ' SC HS, #30 INJ Prov:ROSLEIA BAUM MD 08/12/24 Insulin Aspart (Novolog) 100 Unit/Ml Inj, 10 UNIT IJ TID, #30 INJ Prov:ROSELIA BAUM MD 08/12/24 Information Source: Patient Mode of Arrival: Ambulatory Past Medical History PAST MEDICAL HISTORY: DM Surgical History: Unknown YARD PIPE GRADER History: Denies all YARD PIPE GRADER Hx Family History Family History: Unknown Social History Smoker: Non-Smoker Alcohol: Denies ETOH Use Drugs: Marijuana Lives In: Home Integumetry: reports: wounds (abscess to the inner portion of the left buttocks with drainage) Physical Exam General Appearance: No Apparent Distress, Normal HEENT: Normal ENT Inspection, Pharynx Normal, TMs Normal Neck: Full Range of Motion, Non-Tender, Normal, Normal Inspection Respiratory: Chest Non-Tender, Lungs Clear, No Accessory Muscle Use, No Respiratory Distress, Normal Breath Sounds Cardiovascular: No Edema, No JVD, No Murmur, No Gallop, Normal Peripheral Pulses, Regular Rate/Rhythm Breast Exam: Deferred Gastrointestinal: No Organomegaly, Non Tender, No Pulsatile Mass, Normal Bowel Sounds, Soft Genitalia: Deferred Pelvic: Deferred Rectal: Deferred Extremities: No calf tenderness, Normal capillary refill, Normal inspection, Normal range of motion, Non-tender, No pedal edema Musculoskeletal : Location: NOT DONE Apperance: Normal Neurologic: Alert, fleet technician II-XII nml as Tested, No Motor Deficits, Normal Affect, Normal Mood, No Sensory Deficits Cerebellar Function: Normal Reflexes: Normal Skin: Dry, Normal Color, Wounds (area of erythema to the left upper buttock approximately 8 cm in diameter, abscess with drainage and excoriated skin with surrounding erythema, small amount of fluctuation noted. Moderate amount of purulent drainage. ) Lymphatic: No Adenopathy Was a procedure done? Was a procedure done?: No Differential Diagnosis (INTG) Differential Diagnosis: Cellulitis, Hematoma Differential Diagnosis: Abscess, Cellulitis Differential Diagnosis: Cellulitis, Hematoma Abscess: Abscess, Bacteremia, Cellulitis Differential Diagnosis: Cellulitis X-Ray, Labs, Meds, VS Vital Signs Date Time Temp Pulse Resp B/P (MAP) Pulse Ox O2 Delivery O2 Flow Rate FiO2 09/05/24 13:45 98.1 90 17 91/54 (66) 97 98.1 09/05/24 13:45 17 97 Room Air* 0 21 09/05/24 10:10 98.7 98 17 93/60 (71) 97 Current Medications Medications (Trade) Dose Ordered Sig/Alfie Route Start Time Stop Time Status Last Admin Ketorolac Tromethamine (Toradol Injection) 60 mg ONCE ONCE IM 09/05/24 12:30 09/05/24 13:11 DC 09/05/24 13:35 X-Ray, Labs, Meds, VS Comment Pt advised to take antibiotics as prescribed and to apply warm compresses to facilitate drainage. Pt to return for an I and D if she has worsening pain or increased redness. On re-evaluation patient has symptomatic improvement. Patient is stable for discharge at this time. All test results and diagnostic imaging have been interpreted. All diagnostic findings, discharge care, and education instruction provided to the patient. Follow-up with PCP in 2-3 days Patient verbalized understanding, discharge instructions and agrees to treatment plan Vital signs are stable Patient is ambulatory Patient advised of which symptoms necessitate a return visit to the emergency room. Patient to return emergency room for any new worsening symptoms. Patient is aware that the purpose of this visit is for an acute medical emergency requiring emergent stabilization. Chronic conditions, including malignancies have not been ruled out. Patient is instructed to follow up with PCP as directed for continued care and workup. If unable to arrange follow up, patient is to return to the emergency room for reassessment. Patient was given verbal and written discharge instructions and acknowledges understanding Time of 1ST Reevaluation: 12:30 Reevaluation 1ST: Improved Patient Education/Counseling: Diagnosis, Treatment, Prognosis, Need For Follow Up Family Education/Counseling: No Family Present Departure 1 Departure Time of Disposition: 12:47 Impression: Primary Impression: Abscess Disposition: 01 HOME / SELF CARE / HOMELESS Condition: Stable e-Prescriptions Ibuprofen (Ibuprofen) 600 Mg Tab 1 TAB PO TID PRN for 30 Days, #90 TAB 0 Refills Prov: [facility] 09/05/24 Hydrocodone-Acetaminophen (Hydrocodone Bitartrate/AC 5-325 mg) 1 Tab Tab 1 TAB PO Q6HR for 3 Days, #12 TAB 0 Refills Prov: [facility] 09/05/24 Clindamycin Hcl (Clindamycin Hcl) 300 Mg Cap 1 CAP PO TID for 10 Days, #21 CAP 0 Refills Prov: [facility] 09/05/24 Critical Care Note Critical Care Time?: No Stability Stability form required: No Heart Score Heart Score: Heart Score Response (Comments) Value History N/A 0 EKG N/A 0 Age N/A 0 Risk Factors N/A 0 Troponin N/A 0 Total 0 [facility] Sep 05, 2024 12:17
[2024-09-05] MEDS: KETOROLAC TROMETH 60MG/2ML VIAL IM ONE (13:35)
[2024-09-05 13:45] VITALS: BP 91/54; PULSE 90; RESP 17; TEMP 98.1; O2SAT 97
== END 2024-09-05 13:47 | disposition home or self-care (01) ==
LOC: ER 09:58
DX: L02.31 Cutaneous abscess of buttock (principal); E11.9 Type 2 diabetes mellitus without complications; Z79.899 Other long term (current) drug therapy; Z88.8 Allergy status to other drugs, medicaments and biological substances
CPT/HCPCS: 96372; 99283; J1885

== ENCOUNTER → 2024-11-21 | Outpatient (CLI) | payer MEDICAID ==
[~2024-11-21] MED LIST changes: +CLIN1CAP70 PO; +HYDR-4902 PO; +IBUP-1454 PO
[2024-11-21 09:00] LABS: Basophils # (auto) 0.1 10 ^3/uL (0-0.2); Eosinophils # (auto) 0.3 10 ^3/uL (0-0.8); Eosinophils % (auto) 4.6 % (0.0-7.0); Hematocrit 37.6 % (36.0-46.0); Hemoglobin 12.5 g/dL (12.2-16.2); Lymphocytes # (auto) 2.3 10 ^3/uL (0.4-5.4); Lymphocytes % (auto) 33.4 % (10.0-50.0); Mean Corpuscular Hemoglobin 27.4 pg (28.0-32.0); Mean Corpuscular Hgb Conc. 33.2 g/dL (32.0-36.0); Mean Corpuscular Volume 82.6 fL (80.0-100.0); Monocytes # (auto) 0.4 10 ^3/uL (0-1.3); Monocytes % (auto) 5.5 % (0.0-12.0); Neutrophils # (auto) 3.9 10 ^3/uL (1.6-8.6); Neutrophils % (auto) 55.5 % (37.0-80.0); Nucleated Red Blood Cells % 0.1 %; Platelet Count (auto) 411 10^3/uL (140-450); Red Blood Cells 4.55 10^6/uL (4.0-5.20); Red Cell Distribution Width 15.1 % (11.8-14.3)
[2024-11-21 09:30] LABS: Creatinine, Urine 59.46 mg/dL (30.0-125.0)
[2024-11-21 09:32] LABS: Alanine Aminotransferase 20 U/L (7-40); Anion Gap 10 (5-15); Aspartate Aminotransferase 18 U/L (13-40); Calcium 9.6 mg/dL (8.7-10.4); Carbon Dioxide 22 mmol/L (20-31); Chloride 102 mmol/L (98-107); Potassium 4.3 mmol/L (3.5-5.1)
[2024-11-21 09:33] LABS: BUN/Creatinine Ratio 19.8 (10.0-20.0); Blood Urea Nitrogen 16 mg/dL (9-23); Triglycerides 113 mg/dL (< 150)
[2024-11-21 09:34] LABS: Albumin 4.5 g/dL (3.2-4.8); Cholesterol 176 mg/dL (< 200)
[2024-11-21 09:35] LABS: Bilirubin, Total 0.5 mg/dL (0.2-1.0)
[2024-11-21 09:52] LABS: Glucose 271 mg/dL (74-106); HDL Cholesterol 61 mg/dL (40-59); LDL Cholesterol 106 mg/dL (< 100); Sodium 134 mmol/L (136-145)
[2024-11-21 10:09] LABS: Alkaline Phosphatase 116 U/L (46-116)
== END | disposition home or self-care (01) ==
LOC: LAB 08:10
PROVIDERS: ATTEND Nurse Practitioner Family
DX: E10.649 Type 1 diabetes mellitus with hypoglycemia without coma (principal); E10.69 Type 1 diabetes mellitus with other specified complication
CPT/HCPCS: 36415; 80053; 80061; 82043; 82570; 83036; 84443; 85025

== ENCOUNTER 2025-02-07 08:44 | Emergency (ER) | payer MEDICAID ==
[~2025-02-07] VITALS: Ht 170.2 cm; Wt 76.4 kg
[2025-02-07 10:12] LABS: Basophils # (auto) 0 10 ^3/uL (0-0.2); Basophils % (auto) 0.4 % (0.0-2.0); Eosinophils # (auto) 0.2 10 ^3/uL (0-0.8); Eosinophils % (auto) 2.9 % (0.0-7.0); Hematocrit 39.1 % (36.0-46.0); Lymphocytes # (auto) 1.8 10 ^3/uL (0.4-5.4); Lymphocytes % (auto) 28.5 % (10.0-50.0); Mean Corpuscular Hgb Conc. 33.4 g/dL (32.0-36.0); Mean Corpuscular Volume 83.8 fL (80.0-100.0); Monocytes # (auto) 0.4 10 ^3/uL (0-1.3); Monocytes % (auto) 6.2 % (0.0-12.0); Neutrophils # (auto) 3.9 10 ^3/uL (1.6-8.6); Platelet Count (auto) 378 10^3/uL (140-450); Red Blood Cells 4.66 10^6/uL (4.0-5.20); Red Cell Distribution Width 15.8 % (11.8-14.3); White Blood Cell 6.3 10^3/uL (4.4-10.8)
[2025-02-07 10:19] VITALS: BP 112/72; PULSE 103; RESP 16; TEMP 98.6; O2SAT 100
[2025-02-07 10:22] LABS: Chloride 106 mmol/L (98-107); Potassium 4.4 mmol/L (3.5-5.1)
[2025-02-07 10:23] LABS: Anion Gap 11 (5-15); Calcium 9.6 mg/dL (8.7-10.4)
[2025-02-07 10:24] LABS: Carbon Dioxide 19 mmol/L (20-31); Sodium 136 mmol/L (136-145)
[2025-02-07 10:28] LABS: BUN/Creatinine Ratio 25.7 (10.0-20.0); Blood Urea Nitrogen 19 mg/dL (9-23)
[2025-02-07 10:33] LABS: Glucose 164 mg/dL (74-106)
[2025-02-07 10:54] LABS: Urine Bacteria None Seen /hpf (None Seen)
[2025-02-07 11:17] LABS: Urine Blood 1+ /uL (Negative); Urine Clarity Turbid (Clear); Urine Color Yellow (Yellow); Urine Mucus FEW (None Seen); Urine Protein, UAD TRACE (Negative); Urine Specific Gravity 1.029 (1.001-1.035); Urine Squamous Epithelial Cell FEW /hpf (<5); Urine Urobilinogen Normal (Negative); Urine WBC 6 /HPF (0-5)
[2025-02-07 12:02] LABS: COVID19 ANTIGEN SOFIA FIA NEGATIVE (NEGATIVE)
[2025-02-07] MEDS ORDERED: METH-1181 PO (12:23)
--- NOTE | 2025-02-07 12:23 | ED.PDOC ---
Back pain HPI HPI Comments 29-year-old female with a history of type 1 diabetes migraines presents with a chief complaint of myalgia. Predominantly located to the upper shoulders and lower back. Symptoms started three days ago. No trauma no injury. Pain has been constant since in his aggravated with lateral movements. Tried [id number] ibuprofen in his able to get temporary relief. Denies any associated symptoms. Chief Complaint: Headache Time Seen by MD: 09:05 Primary Care Provider: Shivani WOLFE Reviewed Notes: Nurses Notes, Medications, Allergies Allergies: Coded Allergies: Soy Allergy (Verified Allergy, Severe, sob, 05/14/23) Home Meds Active Scripts Methocarbamol (Methocarbamol) 500 Mg Tab, 500 MG PO Q6HP PRN for 10 Days, #40 TAB 0 Refills Prov:NITA GEORGES [employer]LECTRO MECHANIC 02/07/25 Ibuprofen (Ibuprofen) 600 Mg Tab, 1 TAB PO TID PRN for 30 Days, #90 TAB 0 Refills Prov:JOEL HOWE [facility] 09/05/24 Hydrocodone-Acetaminophen (Hydrocodone Bitartrate/AC 5-325 mg) 1 Tab Tab, 1 TAB PO Q6HR for 3 Days, #12 TAB 0 Refills Prov:JOEL HOWE [facility] 09/05/24 Clindamycin Hcl (Clindamycin Hcl) 300 Mg Cap, 1 CAP PO TID for 10 Days, #21 CAP 0 Refills Prov:[facility]LEYJOEL [facility] 09/05/24 Levofloxacin Hemihydrate (LEVOFLOXACIN) 500 Mg Tab, 1 TAB PO DAILY for 5 Days, #5 TAB Prov:ROSELIA BAUM MD 08/12/24 Insulin Detemir (Levemir) Inj, 25 ' SC HS, #30 INJ Prov:ROSELIA BAUM MD 08/12/24 Insulin Aspart (Novolog) 100 Unit/Ml Inj, 10 UNIT IJ TID, #30 INJ Prov:ROSELIA BAUM MD 08/12/24 Information Source: Patient Mode of Arrival: Ambulatory Past Medical History PAST MEDICAL HISTORY: DM, Denies Surgical History: Unknown DIRECTOR GEOPHYSICAL LABORATORY History: Denies all DIRECTOR GEOPHYSICAL LABORATORY Hx Family History Family History: Unknown Social History Smoker: Non-Smoker Alcohol: Denies ETOH Use Drugs: Marijuana Lives In: Home All Other Systems: Reviewed and Negative (Per hpi) Physical Exam General Appearance: No Apparent Distress, Normal HEENT: Normal ENT Inspection, Pharynx Normal, TMs Normal Neck: Full Range of Motion, Non-Tender, Normal, Normal Inspection Respiratory: Chest Non-Tender, Lungs Clear, No Accessory Muscle Use, No Respiratory Distress, Normal Breath Sounds Cardiovascular: No Edema, No JVD, No Murmur, No Gallop, Normal Peripheral Pulses, Regular Rate/Rhythm Breast Exam: Deferred Gastrointestinal: No Organomegaly, Non Tender, No Pulsatile Mass, Normal Bowel Sounds, Soft Genitalia: Deferred Pelvic: Deferred Rectal: Deferred Extremities: No calf tenderness, Normal capillary refill, Normal inspection, Normal range of motion, Non-tender, No pedal edema Musculoskeletal : Apperance: Normal Neurologic: Alert, education paraprofessional II-XII nml as Tested, No Motor Deficits, Normal Affect, Normal Mood, No Sensory Deficits Cerebellar Function: Normal Reflexes: Normal Skin: Dry, Normal Color, Warm Lymphatic: No Adenopathy Was a procedure done? Was a procedure done?: No Back Pain Differential Dx Differential Diagnosis: Musculoskeletal Pain, Strain, Other X-Ray, Labs, Meds, VS Vital Signs Date Time Temp Pulse Resp B/P (MAP) Pulse Ox O2 Delivery O2 Flow Rate FiO2 02/07/25 10:19 103 16 100 Room Air 02/07/25 10:19 98.6 103 16 112/72 (85) 100 98.6 02/07/25 08:52 98.6 103 16 112/72 (85) 100 98.6 Lab Test 02/07/25 10:53 02/07/25 10:35 02/07/25 10:04 02/07/25 08:51 Range/Units SARS-CoV-2 Antigen (Rapid) Negative NEGATIVE Urine Color Yellow Yellow Urine Clarity Turbid H Clear Urine pH 6.0 5.0-9.0 Urine Specific [place] 1.029 1.001-1.035 Urine Protein Trace H Negative Urine Ketones 1+ H Negative Urine Blood 1+ H Negative /uL Urine Nitrite Negative Negative Urine Bilirubin Negative Negative Urine Urobilinogen Normal Negative mg/dL Urine Leukocyte Esterase Negative Negative /uL Urine RBC 104 0 - 4 /hpf Urine Microscopic WBC 6 H 0-5 /HPF Urine Squamous Epithelial Cells Few <5 /hpf Urine Bacteria None seen None Seen /hpf Urine Mucus Few None Seen Urine Glucose 3+ H Normal mg/dL Urine Test Negative Negative White Blood Count 6.3 4.4-10.8 10^3/uL Red Blood Count 4.66 4.0-5.20 10^6/uL Hemoglobin 13.0 12.2-16.2 g/dL Hematocrit 39.1 36.0-46.0 % Mean Corpuscular Volume 83.8 80.0-100.0 fL Mean Corpuscular Hemoglobin 28.0 28.0-32.0 pg Mean Corpuscular Hemoglobin Concent 33.4 32.0-36.0 g/dL Red Cell Distribution Width 15.8 H 11.8-14.3 % Platelet Count 378 140-450 10^3/uL Mean Platelet Volume 6.6 L 6.9-10.8 fL Neutrophils (%) (Auto) 62.0 37.0-80.0 % Lymphocytes (%) (Auto) 28.5 10.0-50.0 % Monocytes (%) (Auto) 6.2 0.0-12.0 % Eosinophils (%) (Auto) 2.9 0.0-7.0 % Basophils (%) (Auto) 0.4 0.0-2.0 % Neutrophils # (Auto) 3.9 1.6-8.6 10 ^3/uL Lymphocytes # (Auto) 1.8 0.4-5.4 10 ^3/uL Monocytes # (Auto) 0.4 0-1.3 10 ^3/uL Eosinophils # (Auto) 0.2 0-0.8 10 ^3/uL Basophils # (Auto) 0 0-0.2 10 ^3/uL Nucleated Red Blood Cells 0.0 % Sodium Level 136 136-145 mmol/L Potassium Level 4.4 3.5-5.1 mmol/L Chloride Level 106 98-107 mmol/L Carbon Dioxide Level 19 L 20-31 mmol/L Anion Gap 11 5-15 Blood Urea Nitrogen 19 9-23 mg/dL Creatinine 0.74 0.550-1.02 mg/dL Glomerular Filtration Rate Calc 114 >90 mL/min BUN/Creatinine Ratio 25.7 H 10.0-20.0 Serum Glucose 164 H 74-106 mg/dL Calcium Level 9.6 8.7-10.4 mg/dL POC Glucose 128 H 70-106 mg/dl X-Ray, Labs, Meds, VS Comment Presentation most consistent with nonemergent musculoskeletal etiology ED workup: Defer imaging and lab work for outpatient follow up at this time Disposition: Discharge. Strict return precautions discussed with the patient with full understanding. Supportive care advised (rest, ice, heat, NSAIDs, stretching exercises) Massage muscles with cold pack or ice for 20 minutes 4 times per day. Usually most useful if there is swelling during the first 48 hours Heating pad on the most painful area for 20 minutes to relieve muscle spasm Sleep and the most comfortable sleeping position (usually on the side with knees bent) Light stretching, no strenuous activity, avoid frequent bending, avoid carrying heavy objects Discussed possible benefits of yoga and acupuncture Additional MDM Review of External, Non-ED records: External records reviewed. Discussion with independent historian (EMS, family) history obtained from the patient at bedside Chronic conditions affecting care: none Social determinants of health affecting care: none Consideration of admission (observation or admission): I considered escalation of care to admission for this patient, however given the reassuring workup, the patient is safe for outpatient management. Time of 1ST Reevaluation: 12:22 Reevaluation 1ST: Improved Patient Education/Counseling: Diagnosis, Treatment Family Education/Counseling: Diagnosis, Treatment Departure 1 Departure Time of Disposition: 12:23 Impression: Primary Impression: Myalgia Additional Impression: Malaise Disposition: 01 HOME / SELF CARE / HOMELESS Condition: Stable e-Prescriptions Methocarbamol (Methocarbamol) 500 Mg Tab 500 MG PO Q6HP PRN for 10 Days, #40 TAB 0 Refills Prov: NITA GEORGES NP 02/07/25 Critical Care Note Critical Care Time?: No Stability Stability form required: No Heart Score Heart Score: Heart Score Response (Comments) Value History N/A 0 EKG N/A 0 Age N/A 0 Risk Factors N/A 0 Troponin N/A 0 Total 0 NITA GEORGES NP February 07, 2025 12:23
== END 2025-02-07 12:29 | disposition home or self-care (01) ==
LOC: ER 08:44
DX: M79.10 Myalgia, unspecified site (principal); R53.81 Other malaise; G43.909 Migraine, unspecified, not intractable, without status migrainosus; E10.9 Type 1 diabetes mellitus without complications; F19.90 Other psychoactive substance use, unspecified, uncomplicated; Z88.8 Allergy status to other drugs, medicaments and biological substances; Z79.899 Other long term (current) drug therapy; Z79.4 Long term (current) use of insulin; Z20.822 Contact with and (suspected) exposure to COVID-19
CPT/HCPCS: 36415; 80048; 81001; 81025; 82947; 82962; 85025; 87426

== ENCOUNTER 2025-02-13 13:40 | Inpatient (IN) | payer BC, MEDICAID ==
[~2025-02-13] VITALS: Ht 170.2 cm; Wt 76.9 kg
[~2025-02-13 13:40] MED LIST changes: +METH-1181 PO
[2025-02-13 14:20] LABS: Basophils # (auto) 0 10 ^3/uL (0-0.2); Basophils % (auto) 0.4 % (0.0-2.0); Eosinophils # (auto) 0 10 ^3/uL (0-0.8); Eosinophils % (auto) 0.2 % (0.0-7.0); Hematocrit 39.3 % (36.0-46.0); Hemoglobin 12.9 g/dL (12.2-16.2); Lymphocytes % (auto) 7.6 % (10.0-50.0); Mean Corpuscular Hemoglobin 27.9 pg (28.0-32.0); Mean Corpuscular Hgb Conc. 32.8 g/dL (32.0-36.0); Mean Corpuscular Volume 85.1 fL (80.0-100.0); Monocytes # (auto) 0.2 10 ^3/uL (0-1.3); Monocytes % (auto) 1.6 % (0.0-12.0); Neutrophils # (auto) 11.4 10 ^3/uL (1.6-8.6); Neutrophils % (auto) 90.2 % (37.0-80.0); Platelet Count (auto) 360 10^3/uL (140-450); Red Blood Cells 4.61 10^6/uL (4.0-5.20); Red Cell Distribution Width 15.4 % (11.8-14.3); White Blood Cell 12.6 10^3/uL (4.4-10.8)
[2025-02-13 14:29] LABS: Urine Bacteria None Seen /hpf (None Seen)
[2025-02-13 14:43] LABS: Urine Blood TRACE /uL (Negative); Urine Clarity Clear (Clear); Urine Color Yellow (Yellow); Urine Protein, UAD Negative (Negative); Urine Specific Gravity 1.024 (1.001-1.035); Urine Squamous Epithelial Cell FEW /hpf (<5); Urine Urobilinogen Normal (Negative); Urine WBC 1 /HPF (0-5); Urine pH 5.5 (5.0-9.0)
[2025-02-13] MEDS: SODIUM CHLORIDE 0.9% 1,000 ML IV ONE (14:51)
--- NOTE | 2025-02-13 15:21 | DVH ---
INDICATION: sob TECHNIQUE: Frontal view of the chest. COMPARISON: XY CHEST PORTABLE on DOS: 08/09/24, XY CHEST XRAY 1 VIEW on DOS: 08/02/24, XY CHEST RUI BLE on DOS: 09/20/23, XY CHEST PORTABLE on DOS: 07/31/23, XY CHEST XRAY 1 VIEW on DOS: 05/14/23 FINDINGS: . The heart and mediastinal contours are grossly unremarkable. There is no evidence of pleural disea se. The lungs are clear. The bony structures of the chest are intact without fracture. IMPRESSION: 1. No evidence of acute disease.
[2025-02-13 15:22] LABS: Chloride 98 mmol/L (98-107)
[2025-02-13 15:23] LABS: Anion Gap 20.00001 (5-15); Calcium 9.6 mg/dL (8.7-10.4)
[2025-02-13 15:28] LABS: BUN/Creatinine Ratio 16.4 (10.0-20.0); Blood Urea Nitrogen 18 mg/dL (9-23)
[2025-02-13] MEDS: InsuLIN REG 1unit/0.01ml Soln (100units/ml) IV ONE (15:29)
--- NOTE | 2025-02-13 15:32 | ED.PDOC ---
History of Present Illness HPI Comments 29-year-old female who comes in with chief complaint of elevated blood sugar. The symptoms started this morning and the patient checked her blood sugar and was well over 500. She has been complaining of weakness as well as decreased urine output, nausea and vomiting for the past two weeks. She was brought into the emergency department's by her significant other. The patient denies any chest pain but she is complaining of some mild shortness a breath Chief Complaint: Shortness of Breath Time Seen by MD: 13:58 Primary Care Provider: Shivani WOLFE Reviewed Notes: Nurses Notes, Medications, Allergies (No allergies to medications) Allergies: Coded Allergies: Soy Allergy (Verified Allergy, Severe, sob, 05/14/23) Home Meds Active Scripts Methocarbamol (Methocarbamol) 500 Mg Tab, 500 MG PO Q6HP PRN for 10 Days, #40 TAB 0 Refills Prov:NITA GEORGES [employer]VAGE DETERMINER 02/07/25 Ibuprofen (Ibuprofen) 600 Mg Tab, 1 TAB PO TID PRN for 30 Days, #90 TAB 0 Refills Prov:JOEL HOWE [facility] 09/05/24 Hydrocodone-Acetaminophen (Hydrocodone Bitartrate/AC 5-325 mg) 1 Tab Tab, 1 TAB PO Q6HR for 3 Days, #12 TAB 0 Refills Prov:JOEL HOWE [facility] 09/05/24 Clindamycin Hcl (Clindamycin Hcl) 300 Mg Cap, 1 CAP PO TID for 10 Days, #21 CAP 0 Refills Prov:JOEL HOWE [facility] 09/05/24 Levofloxacin Hemihydrate (LEVOFLOXACIN) 500 Mg Tab, 1 TAB PO DAILY for 5 Days, #5 TAB Prov:ROSELIA BAUM MD 08/12/24 Insulin Detemir (Levemir) Inj, 25 ' SC HS, #30 INJ Prov:ROSELIA BAUM MD 08/12/24 Insulin Aspart (Novolog) 100 Unit/Ml Inj, 10 UNIT IJ TID, #30 INJ Prov:ROSELIA BAUM MD 08/12/24 Information Source: Patient Mode of Arrival: Ambulatory Severity: Moderate Timing: Hours (Symptoms seemed to start this morning) Duration: Since onset Prehospital treatment: None Associated signs and symptoms Generalized weakness with decreased urine output as well as nausea and vomiting Past Medical History PAST MEDICAL HISTORY: DM Surgical History (Other): Abscess removed from the right pelvis area GENERAL PRODUCTION LABORER History: Denies all GENERAL PRODUCTION LABORER Hx Family History Family History: Family hx of Cancer Social History Smoker: Non-Smoker Alcohol: Denies ETOH Use Drugs: Marijuana Lives In: Home Constitutional: reports: weakness; denies: chills, diaphoresis, fatigue, fever, malaise, sweats, others EENTM: denies: blurred vision, double vision, ear bleeding, ear discharge, ear drainage, ear pain, ear ringing, eye pain, eye redness, hearing loss, mouth pain, mouth swelling, nasal discharge, nose bleeding, nose congestion, nose pain, photophobia, tearing, throat pain, throat swelling, voice changes, others Respiratory: denies: cough, hemoptysis, orthopnea, SOB at rest, shortness of breath, SOB with excertion, stridor, wheezing, others Cardiovascular: denies: chest pain, dizzy spells, diaphoresis, Dyspnea on exertion, edema, irregular heart beat, left arm pain, lightheadedness, palpitations, PND, syncope, others Gastrointestinal: reports: nausea, vomiting; denies: abdomen distended, abdominal pain, blood streaked bowels, constipated, diarrhea, dysphagia, difficulty swallowing, hematemesis, melena, poor appetite, poor fluid intake, rectal bleeding, rectal pain, others Genitourinary: reports: others (Decreased urine output); denies: abnormal vagina bleeding, burning, dyspareunia, dysuria, flank pain, frequency, hematuria, incontinence, pain, , vagina discharge, urgency Neurological: denies: dizziness, fainting, headache, left sided numbness, left sided weakness, numbness, paresthesia, pre-existing deficit, right sided numbness, right sided weakness, seizure, speech problems, tingling, tremors, weakness, others Musculoskeletal: denies: back pain, gout, joint pain, joint swelling, muscle pain, muscle stiffness, neck pain, others Integumetry: denies: bruises, change in color, change in hair/nails, dryness, laceration, lesions, lumps, rash, wounds, others Allergic/Immunocompromised: denies: Difficulty Healing, Frequent Infections, Hives, Itching, others Hematologic/Lymphatic: denies: anemia, blood clots, easy bleeding, easy bruising, swollen glands, others Endocrine: denies: excessive hunger, excessive sweating, excessive thirst, excessive urination, flushing, intolerance to cold, intolerance to heat, unexplained weight gain, unexplained weight loss, others Psychiatric: denies: anxiety, bipolar disorder, depression, hopeless, panic disorder, schizophrenia, sleepless, suicidal, others Physical Exam General Appearance: Moderate Distress HEENT: Pale [place] (L), Pale Conjuntivae (R), Pharynx Normal, TMs Normal Neck: Full Range of Motion, Non-Tender, Normal, Normal Inspection Respiratory: Chest Non-Tender, Lungs Clear, No Accessory Muscle Use, No Respiratory Distress, Normal Breath Sounds Cardiovascular: No Edema, No JVD, No Murmur, No Gallop, Normal Peripheral Pulses, Tachycardia Breast Exam: Deferred Gastrointestinal: No Organomegaly, Non Tender, No Pulsatile Mass, Normal Bowel Sounds, Soft Genitalia: Deferred Pelvic: Deferred Rectal: Deferred Extremities: No calf tenderness, Normal capillary refill, No pedal edema Musculoskeletal : Apperance: Normal Neurologic: Alert, family worker II-XII nml as Tested, Motor Weakness, Normal Affect, Normal Mood, No Sensory Deficits Cerebellar Function: Unable to Test Reflexes: Normal Skin: Dry, Normal Color, Warm Lymphatic: No Adenopathy Was a procedure done? Was a procedure done?: No EKG EKG : Pulse Rate (adult): 122 Cardiac Rhythm: ST Block: None ST: Nonsp Differential Dx Considerations may include: DKA, generalized weakness, hyperglycemia, dehydration X-Ray, Labs, Meds, VS Vital Signs Date Time Temp Pulse Resp B/P (MAP) Pulse Ox O2 Delivery O2 Flow Rate FiO2 02/13/25 13:57 122 02/13/25 13:56 98.2 138 18 85/56 (66) 95 98.2 Lab Test 02/13/25 15:03 02/13/25 14:28 02/13/25 14:03 Range/Units Sodium Level Pending Potassium Level Pending Chloride Level Pending Carbon Dioxide Level Pending Anion Gap Pending Blood Urea Nitrogen Pending Creatinine Pending Glomerular Filtration Rate Calc Pending BUN/Creatinine Ratio Pending Serum Glucose Pending Calcium Level Pending Urine Color Yellow Yellow Urine Clarity Clear Clear Urine pH 5.5 5.0-9.0 Urine Specific [place] 1.024 1.001-1.035 Urine Protein Negative Negative Urine Ketones 3+ H Negative Urine Blood Trace H Negative /uL Urine Nitrite Negative Negative Urine Bilirubin Negative Negative Urine Urobilinogen Normal Negative mg/dL Urine Leukocyte Esterase Negative Negative /uL Urine RBC 18 0 - 4 /hpf Urine Microscopic WBC 1 0-5 /HPF Urine Squamous Epithelial Cells Few <5 /hpf Urine Bacteria None seen None Seen /hpf Urine Glucose 4+ H Normal mg/dL Urine Test Negative Negative White Blood Count 12.6 #H 4.4-10.8 10^3/uL Red Blood Count 4.61 4.0-5.20 10^6/uL Hemoglobin 12.9 12.2-16.2 g/dL Hematocrit 39.3 36.0-46.0 % Mean Corpuscular Volume 85.1 80.0-100.0 fL Mean Corpuscular Hemoglobin 27.9 L 28.0-32.0 pg Mean Corpuscular Hemoglobin Concent 32.8 32.0-36.0 g/dL Red Cell Distribution Width 15.4 H 11.8-14.3 % Platelet Count 360 140-450 10^3/uL Mean Platelet Volume 7.5 6.9-10.8 fL Neutrophils (%) (Auto) 90.2 H 37.0-80.0 % Lymphocytes (%) (Auto) 7.6 L 10.0-50.0 % Monocytes (%) (Auto) 1.6 0.0-12.0 % Eosinophils (%) (Auto) 0.2 0.0-7.0 % Basophils (%) (Auto) 0.4 0.0-2.0 % Neutrophils # (Auto) 11.4 H 1.6-8.6 10 ^3/uL Lymphocytes # (Auto) 1.0 0.4-5.4 10 ^3/uL Monocytes # (Auto) 0.2 0-1.3 10 ^3/uL Eosinophils # (Auto) 0 0-0.8 10 ^3/uL Basophils # (Auto) 0 0-0.2 10 ^3/uL Nucleated Red Blood Cells 0.0 % Beta-Hydroxybutyric Acid > 4.500 H < 0.4 mmol/L Current Medications Medications (Trade) Dose Ordered Sig/Alfie Route Start Time Stop Time Status Last Admin Sodium Chloride 1,000 ml @ 1,000 mls/hr Q1H ONCE IV 02/13/25 14:15 02/13/25 15:18 DC 02/13/25 14:51 Insulin Human Regular (InsuLIN R) 5 units ONCE ONCE IV 02/13/25 14:15 02/13/25 14:16 DC 02/13/25 15:29 IV Hep-Lock was established. The patient was given a 1 L bolus of normal saline initially. The patient's Accu-Chek read very high so the patient was given insulin 5 units IV push. The patient's beta hydroxybutyric acid is greater than 4.5 The patient's CBC shows an elevated white blood cell count of 12.6 The patient's chemistry panel is pending. The urine test is negative for glucose. An ABG was done which shows a pH of approximately 7.2 The patient is being admitted at this time Images Reviewed?: Images reviewed and evaluated by me Time of 1ST Reevaluation: 17:01 Reevaluation 1ST: Unchanged Patient Education/Counseling: Diagnosis, Treatment, Prognosis Family Education/Counseling: Diagnosis, Treatment, Prognosis Departure 1 Departure Time of Disposition: 17:42 Impression: Primary Impression: DKA (diabetic ketoacidosis) Qualified Codes: E13.10 - Other specified diabetes mellitus with ketoacidosis without coma Disposition: ADMITTED INPATIENT Admit to: TERE Condition: Fair Critical Care Note Critical Care Time?: Yes (55 min-critical care time only) Stability Stability form required: Yes Unstable for transfer: ICU, CCU, PCU, TERE (Intensive VS monitoring), ED Physician Assesment (Clinical assesment) Heart Score Heart Score: Heart Score Response (Comments) Value History N/A 0 EKG N/A 0 Age N/A 0 Risk Factors N/A 0 Troponin N/A 0 Total 0 YUNIOR ROWAN MD February 13, 2025 15:32
[2025-02-13 15:34] LABS: Potassium 5.4 mmol/L (3.5-5.1); Sodium 128 mmol/L (136-145)
[2025-02-13 15:36] LABS: Carbon Dioxide < 10 mmol/L (20-31); Glucose 571 mg/dL (74-106)
[2025-02-13] MEDS ORDERED: ACETAMINOPHEN 325 MG TAB PO PRN (16:00)
[2025-02-13] MEDS ORDERED: INSULIN DRIP 100 UNIT/100ML 100 ML IV SCH (16:00)
[2025-02-13] MEDS ORDERED: DOCUSATE SOD 100 MG CAP PO PRN ×2 (16:00→16:15)
[2025-02-13] MEDS ORDERED: HYDROcodone-ACET 5/325MG TAB PO PRN (16:00)
[2025-02-13] MEDS ORDERED: MORPHINE SULFATE INJ 2 MG/ml SYRG IV PRN ×2 (16:00→16:15)
[2025-02-13] MEDS ORDERED: SODIUM CHLORIDE 0.9% 1,000 ML IV SCH ×3 (16:00→22:00)
[2025-02-13] MEDS ORDERED: ONDANSETRON HCL 4 MG/2 ML VIAL IV PRN (16:00)
[2025-02-13] MEDS ORDERED: DEXTROSE (50%) 50ML SYRG IV PRN ×2 (16:00→16:15)
[2025-02-13] MEDS ORDERED: INSULIN LANTUS (GLARGINE) 1 /0.01ml (100units/ml) SC ONE (16:00)
--- NOTE | 2025-02-13 16:18 | DVHHP2 ---
History of Present Illness Reason for Visit: Shortness of breath History of Present Illness Antoine Duong is a 29-year-old female with past medical history of type 1 diabetes, who came in due to shortness of breath. Patient states for the past 1.5 weeks she has not been feeling well. She has had shortness of breath, abdominal pain, fatigue, and low back pain. Labs were completed while in the ER that showed the patient is in DKA. She will be admitted for further care. Patient states she use to take long acting and short acting insulin. She has been switched to an insulin pump and her long acting insulin has been stopped. Endocrine: Diabetes Past Surgical History: Other (abscess removal) Smoke: No ALCOHOL: none Drugs: None Lives: with Family Domestic Violence: Neg Review of Systems Constitutional: Yes: Weakness, Malaise; No: Fever, Chills, Sweats, Other Eyes: No: Pain, Vision change, Conjunctivae inflammation, Eyelid inflammation, Other, Redness ENT: No: Ear pain, Ear discharge, Nose pain, Nose discharge, Nose congestion, Mouth pain, Mouth swelling, Throat pain, Throat swelling, Other Respiratory: Shortness of breath; No: Cough, Dry, SOB with excertion, Wheezing, Hemoptysis, Pleuritic Pain, Sputum, Wheezing, Other Cardiovascular: No: Chest Pain, Palpitations, Orthopnea, Paroxysmal Noc. Dyspnea, Edema, Lt Headedness, Other Gastrointestinal: Nausea, Abdominal Pain; No: Vomiting, Diarrhea, Constipation, Melena, Hematochezia, Other Genitourinary: No Dysuria, No Frequency, No Incontinence, No Hematuria, No Retention, No Other Musculoskeletal: No: other, neck pain, shoulder pain, arm pain, back pain, hand pain, leg pain, foot pain Skin: No: Rash, Lesions, Jaundice, Bruising, Other Neurological: No: Weakness, Numbness, Incoordination, Change in speech, Confusi on, Seizures, Other Allergies: Coded Allergies: Soy Allergy (Verified Allergy, Severe, sob, 05/14/23) Exam Vital Signs Vital Signs Date Time Temp Pulse Resp B/P (MAP) Pulse Ox O2 Delivery O2 Flow Rate FiO2 02/13/25 15:43 98.7 126 25 97 98.7 General Appearance: Alert, Oriented X3, Cooperative, moderate distress HEENT: Atraumatic, PERRLA Respiratory: Clear to auscultation, Other (Diminshed breath sounds, short of breath) Cardiovascular: Normal S1, Normal S2, Other (ST) Abdominal: Normal bowel sounds, Soft, No hepatospenomegaly, Other (C/O abdomina l pain) Extremities: No clubbing, No cyanosis, No edema, Normal pulses, No tenderness/swelling Skin: No rashes, No breakdown, No significant lesion Neuro: Normal gait, Normal speech, Strength at 5/5 X4 ext Psych/Mental Status: Mental status NL, Mood NL Labs/Xrays Labs Test 02/13/25 15:35 02/13/25 15:21 02/13/25 15:03 02/13/25 14:28 Range/Units Blood Gas Specimen Type Arterial Blood Gas Sample Site Right radial Blood Gas Patient Temperature 37.0 Arterial Blood Date Drawn [id number] Arterial Blood pH 7.276 L 7.350-7.450 Arterial Blood Partial Pressure CO2 18.7 *L 32.0-45.0 mmHg Arterial Blood Partial Pressure O2 98.3 83.0-108.0 mmHg Arterial Blood HCO3 8.5 L 21.0-28.0 mmol/L Arterial Blood Oxygen Saturation 96.8 94.0-98.0 % Arterial Blood Base Excess -16.0 L -2.0-3.0 mmol/L Arterial Blood Oxyhemoglobin 95.8 94.0-98.0 % Arterial Blood Carboxyhemoglobin 0.4 L 0.5-1.5 % Arterial Blood Methemoglobin 0.6 0.0-1.5 % Zenon Test Yes Blood Gas Total Hemoglobin 12.90 12.0-16.0 g/dL Blood Gas Modality Room air FiO2 % 21.0 Blood Gas Critical Value Read Back Yes Blood Gas Notified Whom dilshad Kelly md Blood Gas Notified Time [id number] Blood Gas Notified By Scuba Diving Instructor dona chowdhury POC Glucose 554 *H 70-106 mg/dl Sodium Level 128 #L 136-145 mmol/L Potassium Level 5.4 H 3.5-5.1 mmol/L Chloride Level 98 98-107 mmol/L Carbon Dioxide Level < 10 *L 20-31 mmol/L Anion Gap 20.34060 H 5-15 Blood Urea Nitrogen 18 9-23 mg/dL Creatinine 1.10 #H 0.550-1.02 mg/dL Glomerular Filtration Rate Calc 71 >90 mL/min BUN/Creatinine Ratio 16.4 10.0-20.0 Serum Glucose 571 *H 74-106 mg/dL Calcium Level 9.6 8.7-10.4 mg/dL Urine Color Yellow Yellow Urine Clarity Clear Clear Urine pH 5.5 5.0-9.0 Urine Specific [place] 1.024 1.001-1.035 Urine Protein Negative Negative Urine Ketones 3+ H Negative Urine Blood Trace H Negative /uL Urine Nitrite Negative Negative Urine Bilirubin Negative Negative Urine Urobilinogen Normal Negative mg/dL Urine Leukocyte Esterase Negative Negative /uL Urine RBC 18 0 - 4 /hpf Urine Microscopic WBC 1 0-5 /HPF Urine Squamous Epithelial Cells Few <5 /hpf Urine Bacteria None seen None Seen /hpf Urine Glucose 4+ H Normal mg/dL Urine Test Negative Negative Test 02/13/25 14:03 Range/Units White Blood Count 12.6 #H 4.4-10.8 10^3/uL Red Blood Count 4.61 4.0-5.20 10^6/uL Hemoglobin 12.9 12.2-16.2 g/dL Hematocrit 39.3 36.0-46.0 % Mean Corpuscular Volume 85.1 80.0-100.0 fL Mean Corpuscular Hemoglobin 27.9 L 28.0-32.0 pg Mean Corpuscular Hemoglobin Concent 32.8 32.0-36.0 g/dL Red Cell Distribution Width 15.4 H 11.8-14.3 % Platelet Count 360 140-450 10^3/uL Mean Platelet Volume 7.5 6.9-10.8 fL Neutrophils (%) (Auto) 90.2 H 37.0-80.0 % Lymphocytes (%) (Auto) 7.6 L 10.0-50.0 % Monocytes (%) (Auto) 1.6 0.0-12.0 % Eosinophils (%) (Auto) 0.2 0.0-7.0 % Basophils (%) (Auto) 0.4 0.0-2.0 % Neutrophils # (Auto) 11.4 H 1.6-8.6 10 ^3/uL Lymphocytes # (Auto) 1.0 0.4-5.4 10 ^3/uL Monocytes # (Auto) 0.2 0-1.3 10 ^3/uL Eosinophils # (Auto) 0 0-0.8 10 ^3/uL Basophils # (Auto) 0 0-0.2 10 ^3/uL Nucleated Red Blood Cells 0.0 % Beta-Hydroxybutyric Acid > 4.500 H < 0.4 mmol/L Chest X-Ray FINDINGS: The heart and mediastinal contours are grossly unremarkable. There is no evidence of pleural disease. The lungs are clear. The bony structures of the chest are intact without fracture. IMPRESSION: 1. No evidence of acute disease. Assessment/Plan Assessment/Plan Assessment: DKA (diabetic ketoacidosis), Tachycardia, Hypotension, Leukocytosis, Plan: Admit to TERE, Insulin drip, IV hydration, NPO except ice chips, Manage/Monitor electrolytes closely, BMP Q 6 hours, A1c, Plan discussed with: Patient My Orders Orders - CARMELITA JIANG CAFE ASSOCIATE Procedure Category Date Status Time Admit ADMIT 02/13/25 Transmitted 15:58 Code Status CODE 02/13/25 Transmitted 15:58 Hydrocodone-Acet PHA 02/13/25 Transmitted 5/325mg Tab ([place] 16:00 Ondansetron Hcl PHA 02/13/25 Transmitted (Zofran) 16:00 Docusate Sodium PHA 02/13/25 Verified Capsule ([place] 16:00 Complete Blood Count LAB 02/14/25 Verified 04:00 Npo (Nothing By DIET 02/13/25 Verified Mouth) Diet Dinner Condition: Critical MOY 02/13/25 Verified 15:58 Acetaminophen Tablet PHA 02/13/25 Verified (Tylenol Tablet) 16:00 Morphine Sulfate PHA 02/13/25 Verified Injection 16:00 Insulin Drip Protocol MOY 02/13/25 Verified Sodium Chloride 0.9% PHA 02/13/25 Verified 16:00 Sodium Chloride 0.9% PHA 02/13/25 Verified 20:00 Sodium Chloride 0.9% PHA 02/13/25 Verified 22:00 Insulin Algorithm # 1 PHA 02/13/25 Verified 16:00 Dextrose 50% Syringe PHA 02/13/25 Verified 16:00 Glucose Blood PHA 02/13/25 Verified (Accu-Chek Comfort 16:30 Phosphorus LAB 02/13/25 Verified 15:58 Magnesium LAB 02/13/25 Verified 15:58 Osmolality, Serum LAB 02/13/25 Verified 15:58 Basic Metabolic Panel LAB 02/13/25 Verified 15:58 Basic Metabolic Panel LAB 02/13/25 Verified 21:58 Basic Metabolic Panel LAB 02/14/25 Verified 03:58 Basic Metabolic Panel LAB 02/14/25 Verified 09:58 Urinalysis LAB 02/13/25 Verified 15:58 Neurological MOY 02/13/25 Verified Assessment 15:58 Vs/Hemodynamics MOY 02/13/25 Verified 15:58 Acetone LAB 02/13/25 Verified 15:58 Long Acting Insulin PHA 02/13/25 Verified 16:00 Long Acting Insulin PHA 02/14/25 Verified 10:00 Date of Service: February 13, 2025 Billing Provider: CARMELITA JIANG Common Visit Codes: [id number] INP/OBS CARE (HIGH) CARMELITA JIANG February 13, 2025 16:18
[2025-02-13] MEDS ORDERED: ACCU-CHEK COMFORT CURVE STRIP VI SCH (16:30)
[2025-02-13] MEDS: SODIUM CHLORIDE 0.9% 1,000 ML IV SCH ×3 (17:03→22:09)
[2025-02-13] MEDS: INSULIN LANTUS (GLARGINE) 1 /0.01ml (100units/ml) SC ONE (17:04)
[2025-02-13] MEDS: INSULIN DRIP 100 UNIT/100ML 100 ML IV SCH ×2 (17:05→18:15)
[2025-02-13 17:07] LABS: Magnesium 1.9 mg/dL (1.6-2.6)
[2025-02-13 17:14] LABS: Phosphorus 5.5 mg/dL (2.4-5.1)
[2025-02-13 17:20] LABS: Chloride 100 mmol/L (98-107); Potassium 4.8 mmol/L (3.5-5.1)
[2025-02-13 17:21] LABS: Anion Gap 23.00001 (5-15)
[2025-02-13 17:26] LABS: BUN/Creatinine Ratio 18.7 (10.0-20.0)
[2025-02-13 17:31] LABS: Blood Urea Nitrogen 25 mg/dL (9-23); Carbon Dioxide < 10 mmol/L (20-31); Glucose 524 mg/dL (74-106); Sodium 133 mmol/L (136-145)
[2025-02-13] MEDS: ACCU-CHEK COMFORT CURVE STRIP VI SCH (18:15)
[2025-02-13 19:45] VITALS: RESP 21; O2SAT 98
[2025-02-13 22:08] LABS: Calcium 9.2 mg/dL (8.7-10.4)
[2025-02-13 22:13] LABS: BUN/Creatinine Ratio 19.6 (10.0-20.0); Blood Urea Nitrogen 20 mg/dL (9-23)
[2025-02-13 22:15] LABS: Potassium 4.2 mmol/L (3.5-5.1); Sodium 140 mmol/L (136-145)
[2025-02-13 22:18] LABS: Chloride 112 mmol/L (98-107)
[2025-02-13 22:19] LABS: Anion Gap 11 (5-15); Carbon Dioxide 17 mmol/L (20-31); Glucose 230 mg/dL (74-106)
[2025-02-14] MEDS ORDERED: DEXTROSE (50%) 50ML SYRG IV PRN ×2 (00:45→12:15)
[2025-02-14] MEDS: InsuLIN REG 1unit/0.01ml Soln (100units/ml) SC SCH (03:38)
[2025-02-14] MEDS: ACCU-CHEK COMFORT CURVE STRIP VI SCH ×2 (03:38→18:41)
[2025-02-14 06:39] LABS: Basophils # (auto) 0.1 10 ^3/uL (0-0.2); Basophils % (auto) 0.5 % (0.0-2.0); Eosinophils # (auto) 0.1 10 ^3/uL (0-0.8); Eosinophils % (auto) 0.6 % (0.0-7.0); Hematocrit 32.8 % (36.0-46.0); Hemoglobin 10.9 g/dL (12.2-16.2); Lymphocytes # (auto) 2.2 10 ^3/uL (0.4-5.4); Lymphocytes % (auto) 18.8 % (10.0-50.0); Mean Corpuscular Hemoglobin 27.8 pg (28.0-32.0); Mean Corpuscular Hgb Conc. 33.1 g/dL (32.0-36.0); Mean Corpuscular Volume 83.9 fL (80.0-100.0); Monocytes # (auto) 0.5 10 ^3/uL (0-1.3); Monocytes % (auto) 4.8 % (0.0-12.0); Neutrophils # (auto) 8.7 10 ^3/uL (1.6-8.6); Neutrophils % (auto) 75.3 % (37.0-80.0); Platelet Count (auto) 337 10^3/uL (140-450); Red Blood Cells 3.91 10^6/uL (4.0-5.20); Red Cell Distribution Width 15.9 % (11.8-14.3); White Blood Cell 11.6 10^3/uL (4.4-10.8)
[2025-02-14 06:50] LABS: Sodium 142 mmol/L (136-145)
[2025-02-14 06:51] LABS: Anion Gap 12 (5-15)
[2025-02-14 06:57] LABS: BUN/Creatinine Ratio 18.2 (10.0-20.0); Blood Urea Nitrogen 16 mg/dL (9-23)
[2025-02-14 07:05] LABS: Carbon Dioxide 16 mmol/L (20-31); Chloride 114 mmol/L (98-107); Glucose 151 mg/dL (74-106)
[2025-02-14 07:50] VITALS: PULSE 122; RESP 16; O2SAT 97
[2025-02-14] MEDS: ONDANSETRON HCL 4 MG/2 ML VIAL IV PRN (08:24)
[2025-02-14] MEDS ORDERED: INSULIN LANTUS (GLARGINE) 1 /0.01ml (100units/ml) SC SCH (10:00)
[2025-02-14 10:08] LABS: Potassium 4.1 mmol/L (3.5-5.1); Sodium 141 mmol/L (136-145)
[2025-02-14 10:09] LABS: Anion Gap 15 (5-15)
[2025-02-14 10:10] LABS: Calcium 8.8 mg/dL (8.7-10.4); Carbon Dioxide 13 mmol/L (20-31); Chloride 113 mmol/L (98-107)
[2025-02-14 10:15] LABS: Glucose 229 mg/dL (74-106)
[2025-02-14] MEDS: INSULIN LANTUS (GLARGINE) 1 /0.01ml (100units/ml) SC SCH (10:41)
[2025-02-14 10:52] LABS: BUN/Creatinine Ratio 16.7 (10.0-20.0); Blood Urea Nitrogen 15 mg/dL (9-23)
[2025-02-14 12:21] LABS: Base Excess -10.8 mmol/L (-2.0-3.0)
[2025-02-14] MEDS: SODIUM CHLORIDE 0.9% 1,000 ML IV SCH (12:42)
[2025-02-14] MEDS: INSULIN LISPRO (HUMAN) 100 UNITS/ML ML SC SCH (12:51)
--- NOTE | 2025-02-14 13:38 | DVHPN2 ---
Subjective Seen and examined at bedside, patient is admitted for DKA. Will get Endo consult. C/o Nausea and Vomiting. Changes from previous H/P or p: No Changes Eyes: No Pain, No Vision change, No Conjunctivae inflammation, No Eyelid inflammation, No Other, No Redness ENT: No Ear pain, No Ear discharge, No Nose pain, No Nose discharge, No Nose congestion, No Mouth pain, No Mouth swelling, No Throat pain, No Throat swelling, No Other Cardiovascular: No Chest Pain, No Palpitations, No Orthopnea, No Paroxysmal Noc. Dyspnea, No Edema, No Lt Headedness, No Other Respiratory: No Cough, No Dry, No Shortness of breath, No SOB with excertion, No Wheezing, No Hemoptysis, No Pleuritic Pain, No Sputum, No Other Gastrointestinal: No Nausea, No Vomiting, No Abdominal Pain, No Diarrhea, No Constipation, No Melena, No Hematochezia, No Other Genitourinary: No Dysuria, No Frequency, No Incontinence, No Hematuria, No Retention, No Other Musculoskeletal: No other, No neck pain, No shoulder pain, No arm pain, No back pain, No hand pain, No leg pain, No foot pain Skin: No Rash, No Lesions, No Jaundice, No Bruising, No Other Objective Vitals Vital Signs Date Time Temp Pulse Resp B/P (MAP) Pulse Ox O2 Delivery O2 Flow Rate FiO2 02/14/25 08:00 122 02/14/25 07:50 98.5 16 92/51 (65) 97 98.5 02/14/25 07:50 Room Air* 0 21 Intake/Output Intake and Output 02/14/25 07:00 Intake Total 4350 ml Balance 4350 ml Intake IV Total 4350 ml General Appearance: Alert, Oriented X3, Cooperative, mild distress HEENT: Atraumatic Lungs: Clear to auscultation Cardiovascular: Other (Tachycardic) Abdomen: Normal bowel sounds, Soft Psych/Mental Status: Mental status NL Medications Current Medications Medications Dose Ordered Sig/Alfie Route Start Time Stop Time Status Last Admin Dose Admin Ondansetron HCl 4 mg Q4HP PRN IV 02/13/25 16:15 02/14/25 08:24 4 MG Morphine Sulfate 2 mg Q4HPRN PRN IV 02/13/25 16:15 Insulin Glargine 15 units DAILY SC 02/14/25 10:00 02/14/25 10:41 15 UNITS Acetaminophen/ Hydrocodone Bitart 1 tab Q4HP PRN PO 02/13/25 16:15 Docusate Sodium 100 mg BIDPRN PRN PO 02/13/25 16:15 Acetaminophen 650 mg Q6HP PRN PO 02/13/25 16:15 Sodium Chloride 1,000 ml @ 125 mls/hr Q8H IV 02/14/25 12:15 02/14/25 12:42 125 MLS/HR Diagnostic Test (Pha) 1 strip ACHS 02/14/25 17:00 Dextrose 50 ml PRN PRN IV 02/14/25 12:15 Insulin Human Lispro ACHS SC 02/14/25 12:51 Laboratory Results Laboratory Tests 02/14/25 06:04 02/14/25 09:52 Chemistry Test 02/13/25 15:03 02/13/25 16:41 02/13/25 21:45 02/14/25 06:04 Calcium Level 9.6 mg/dL (8.7-10.4) 10.0 mg/dL (8.7-10.4) 9.2 mg/dL (8.7-10.4) 9.0 mg/dL (8.7-10.4) Magnesium Level 1.9 mg/dL (1.6-2.6) Phosphorus Level 5.5 mg/dL (2.4-5.1) H Test 02/14/25 09:52 Calcium Level 8.8 mg/dL (8.7-10.4) HgA1c, TSH Test 02/14/25 06:04 Hemoglobin A1c 6.6 % A1C (<5.7) H Urinalysis Test 02/13/25 14:28 Urine Color Yellow (Yellow) Urine Clarity Clear (Clear) Urine pH 5.5 (5.0-9.0) Urine Specific [place] 1.024 (1.001-1.035) Urine Protein Negative (Negative) Urine Ketones 3+ (Negative) H Urine Blood Trace /uL (Negative) H Urine Nitrite Negative (Negative) Urine Bilirubin Negative (Negative) Urine Urobilinogen Normal mg/dL (Negative) Urine Leukocyte Esterase Negative /uL (Negative) Urine RBC 18 /hpf (0 - 4) Urine Microscopic WBC 1 /HPF (0-5) Urine Squamous Epithelial Cells Few /hpf (<5) Urine Bacteria None seen /hpf (None Seen) Urine Glucose 4+ mg/dL (Normal) H Urine Test Negative (Negative) Blood Gas Results Test 02/13/25 15:35 02/14/25 12:17 Arterial Blood pH 7.276 (7.350-7.450) 7.350 (7.350-7.450) FiO2 % 21.0 21.0 Assessment/Plan Assessment/Plan # DKA - Insulin Drip DC # Uncontrolled DM1 - Endo Consult - Has Insulin Pump at home # FER due to VMN/ATN - NS IVF - Improving # SIRS and Sepsis RULED OUT Critical care time 45 mins Plan discussed with: Patient My Orders Orders - ANATOLIY SANCHEZ MD Procedure Category Date Status Time * Endocrinology CONS 02/14/25 Transmitted Consult 12:05 Sodium Chloride 0.9% PHA 02/14/25 In Process 12:15 Glucose Blood PHA 02/14/25 In Process (Accu-Chek Comfort 17:00 Dextrose 50% Syringe PHA 02/14/25 In Process 12:15 Insulin Lispro PHA 02/14/25 In Process (Human) (Humalog) 12:51 Thyroid Stimulating LAB 02/14/25 Verified Hormone 13:34 Free T4 (Free LAB 02/14/25 Verified Thyroxine) 13:34 Date of Service: February 14, 2025 Billing Provider: ANATOLIY SANCHEZ MD Common Visit Codes: [id number] CARE 30-74 MIN ANATOLIY SANCHEZ MD February 14, 2025 13:38
[2025-02-14] MEDS ORDERED: MAALOX PLUS or MAALOX 30 ML PO PRN (13:45)
[2025-02-14] MEDS ORDERED: ONDANSETRON ODT 4 MG TAB PO PRN (13:45)
[2025-02-14] MEDS: PANTOPRAZOLE 40 MG TAB PO ONE (14:23)
[2025-02-14 17:00] VITALS: BP 120/77; PULSE 106; RESP 18; TEMP 98.3; O2SAT 99
[2025-02-14] MEDS ORDERED: InsuLIN REG 1unit/0.01ml Soln (100units/ml) SC SCH (17:00)
[2025-02-14 18:06] VITALS: BP 130/72; PULSE 105; RESP 16; O2SAT 98
[2025-02-14 20:00] VITALS: PULSE 101; PULSE 104; RESP 16; O2SAT 97
[2025-02-14] MEDS: ACETAMINOPHEN 325 MG TAB PO PRN (20:41)
[2025-02-14 21:00] VITALS: BP 131/89; PULSE 101; RESP 16; TEMP 99.1; O2SAT 97
[2025-02-14 22:54] LABS: Anion Gap 8 (5-15); Sodium 139 mmol/L (136-145)
[2025-02-14 22:55] LABS: Calcium 8.8 mg/dL (8.7-10.4)
[2025-02-14 23:00] LABS: BUN/Creatinine Ratio 13.3 (10.0-20.0); Blood Urea Nitrogen 11 mg/dL (9-23); Magnesium 1.6 mg/dL (1.6-2.6)
[2025-02-14 23:04] LABS: Carbon Dioxide 20 mmol/L (20-31); Chloride 111 mmol/L (98-107); Glucose 123 mg/dL (74-106); Phosphorus 2.1 mg/dL (2.4-5.1); Potassium 3.4 mmol/L (3.5-5.1)
--- NOTE | 2025-02-14 23:50 | DVHINCON2 ---
Date of service: February 14, 2025 History of Present Illness 29yo F w/ hx of type I DM who presented to hospital with progressive onset malaise, nausea, dec appetite. Patient states for 3 days prior to admission she had been experiencing generalized malaise and weakness. She also endorsed intermittent nausea, diffuse upper back and lower back sharp pain, as well as some decreased appetite. She had also noticed her insulin pump was not attached properly and when eval uating her BG values they were persistently elevatdd > 500mg/dL. Upon presentation to ED, labs notable for BG 571, HCO3 < 10, AG 20, Cr 1.1., BHB > 4.5. Patient was started on insulin gtt provided IVF and admitted for further management. After improvement in acidosis and closure of anion gap patient was switched to basal-correctional regimen of insulin. Regarding hx, patient follows with me in outpatient endocrinology clinic. She wears an Omnipod 5 insulin pump with Humalog. Originally dx with DM at age 18yo. Last seen in my clinic on 12/15 at that time with substantial improvements in dysglycemia. Most recent A1c 6.6%. Past Medical History Problems Medical Problems: (1) DKA (diabetic ketoacidosis) Status: Acute Past Surgical History Past Surgical History Medical Problems: (1) DKA (diabetic ketoacidosis) Status: Acute Family History: Cervical cancer G8 MOTHER Allergies: Coded Allergies: Soy Allergy (Verified Allergy, Severe, sob, 05/14/23) Home Meds Active Scripts Methocarbamol (Methocarbamol) 500 Mg Tab, 500 MG PO Q6HP PRN for 10 Days, #40 TAB 0 Refills Prov:NITA GEORGES RAILWAY ENGINEER 02/07/25 Ibuprofen (Ibuprofen) 600 Mg Tab, 1 TAB PO TID PRN for 30 Days, #90 TAB 0 Refills Prov:JOEL HOWE SLITTER SCORER CUT OFF OPERATOR 09/05/24 Hydrocodone-Acetaminophen (Hydrocodone Bitartrate/AC 5-325 mg) 1 Tab Tab, 1 TAB PO Q6HR for 3 Days, #12 TAB 0 Refills Prov:JOEL HOWE SLITTER SCORER CUT OFF OPERATOR 09/05/24 Insulin Detemir (Levemir) Inj, 25 ' SC HS, #30 INJ Prov:ROSELIA BAUM MD 08/12/24 Insulin Aspart (Novolog) 100 Unit/Ml Inj, 10 UNIT IJ TID, #30 INJ Prov:ROSELIA BAUM MD 08/12/24 Discontinued Scripts Clindamycin Hcl (Clindamycin Hcl) 300 Mg Cap, 1 CAP PO TID for 10 Days, #21 CAP 0 Refills Prov:JOEL HOWE SLITTER SCORER CUT OFF OPERATOR 09/05/24 Levofloxacin Hemihydrate (LEVOFLOXACIN) 500 Mg Tab, 1 TAB PO DAILY for 5 Days, #5 TAB Prov:ROSELIA BAUM MD 08/12/24 Current Medications Current Medications Medications (Trade) Dose Ordered Sig/Alfie Route PRN Reason Start Time Stop Time Status Last Admin Insulin Glargine (Lantus) 15 units DAILY SC 02/14/25 10:00 02/13/25 16:16 DC Insulin Glargine (Lantus) 15 units DAILY SC 02/14/25 10:00 02/14/25 10:41 Diagnostic Test (Pha) (Accu-Chek Comfort Curve T) 1 strip IQ4HR 02/14/25 04:00 02/14/25 12:15 DC 02/14/25 12:07 Insulin Human Regular (InsuLIN R) IQ4HR SC 02/14/25 04:00 02/14/25 12:15 DC 02/14/25 12:09 Dextrose 50 ml UD PRN IV Blood Sugar LESS THAN 60 02/14/25 00:45 02/14/25 12:15 DC Sodium Chloride 1,000 ml @ 125 mls/hr Q8H IV 02/14/25 12:15 02/14/25 21:15 Diagnostic Test (Pha) (Accu-Chek Comfort Curve T) 1 strip ACHS 02/14/25 17:00 02/14/25 21:12 Insulin Human Regular (InsuLIN R) ACHS SC 02/14/25 17:00 02/14/25 12:46 DC Dextrose 50 ml PRN PRN IV Blood Sugar LESS THAN 60 02/14/25 12:15 Insulin Human Lispro (HumaLOG) ACHS SC 02/14/25 12:51 02/14/25 21:12 Pantoprazole Sodium (Protonix Tablet) 40 mg DAILY@0600 PO 02/15/25 06:00 Al Hydrox/Mg Hydrox/Simethicone (Maalox Plus) 30 ml Q8HP PRN PO FOR STOMACH DISTRESS 02/14/25 13:45 Ondansetron HCl (Zofran Po) 4 mg Q6HP PRN PO NAUSEA / VOMITING 02/14/25 13:45 Vital Signs Vital Signs Date Time Temp Pulse Resp B/P (MAP) Pulse Ox O2 Delivery O2 Flow Rate FiO2 02/14/25 21:00 99.1 101 16 131/89 (103) 97 99.1 02/14/25 18:06 Room Air* 0 21 Physical Exam Gen - no acute distress HEENT - no thyromegaly, no lymphadenopathy CV - RRR, no m/r/g Resp - CTAB Ext - no edema Psych - appropriate mood and affect Labs/Diagnostic Data Labs Test 02/14/25 21:58 02/14/25 21:00 02/14/25 12:17 02/14/25 09:52 Range/Units Sodium Level 139 136-145 mmol/L Potassium Level 3.4 L 3.5-5.1 mmol/L Chloride Level 111 H 98-107 mmol/L Carbon Dioxide Level 20 20-31 mmol/L Anion Gap 8 5-15 Blood Urea Nitrogen 11 9-23 mg/dL Creatinine 0.83 0.550-1.02 mg/dL Glomerular Filtration Rate Calc 99 >90 mL/min BUN/Creatinine Ratio 13.3 10.0-20.0 Serum Glucose 123 H 74-106 mg/dL Calcium Level 8.8 8.7-10.4 mg/dL Phosphorus Level 2.1 L 2.4-5.1 mg/dL Magnesium Level 1.6 1.6-2.6 mg/dL POC Glucose 146 H 70-106 mg/dl Blood Gas Specimen Type Arterial Blood Gas Sample Site Right radial Blood Gas Patient Temperature 37.0 Arterial Blood Date Drawn [id number] Arterial Blood pH 7.350 7.350-7.450 Arterial Blood Partial Pressure CO2 24.4 L 32.0-45.0 mmHg Arterial Blood Partial Pressure O2 95.2 83.0-108.0 mmHg Arterial Blood HCO3 13.2 L 21.0-28.0 mmol/L Arterial Blood Oxygen Saturation 97.2 94.0-98.0 % Arterial Blood Base Excess -10.8 L -2.0-3.0 mmol/L Arterial Blood Oxyhemoglobin 96.5 94.0-98.0 % Arterial Blood Carboxyhemoglobin 0.3 L 0.5-1.5 % Arterial Blood Methemoglobin 0.4 0.0-1.5 % Zenon Test Yes Blood Gas Total Hemoglobin 11.20 L 12.0-16.0 g/dL Blood Gas Modality Room air FiO2 % 21.0 Thyroid Stimulating Hormone (TSH) 1.18 0.55-4.78 uIU/mL Free Thyroxine (T4) Calculated 1.34 0.89-1.76 ng/dL Test 02/14/25 06:04 02/13/25 16:41 02/13/25 15:35 02/13/25 14:28 Range/Units White Blood Count 11.6 H 4.4-10.8 10^3/uL Red Blood Count 3.91 L 4.0-5.20 10^6/uL Hemoglobin 10.9 #L 12.2-16.2 g/dL Hematocrit 32.8 #L 36.0-46.0 % Mean Corpuscular Volume 83.9 80.0-100.0 fL Mean Corpuscular Hemoglobin 27.8 L 28.0-32.0 pg Mean Corpuscular Hemoglobin Concent 33.1 32.0-36.0 g/dL Red Cell Distribution Width 15.9 H 11.8-14.3 % Platelet Count 337 140-450 10^3/uL Mean Platelet Volume 6.9 6.9-10.8 fL Neutrophils (%) (Auto) 75.3 37.0-80.0 % Lymphocytes (%) (Auto) 18.8 10.0-50.0 % Monocytes (%) (Auto) 4.8 0.0-12.0 % Eosinophils (%) (Auto) 0.6 0.0-7.0 % Basophils (%) (Auto) 0.5 0.0-2.0 % Neutrophils # (Auto) 8.7 H 1.6-8.6 10 ^3/uL Lymphocytes # (Auto) 2.2 0.4-5.4 10 ^3/uL Monocytes # (Auto) 0.5 0-1.3 10 ^3/uL Eosinophils # (Auto) 0.1 0-0.8 10 ^3/uL Basophils # (Auto) 0.1 0-0.2 10 ^3/uL Nucleated Red Blood Cells 0.0 % Hemoglobin A1c 6.6 H <5.7 % A1C Beta-Hydroxybutyric Acid 2.519 H < 0.4 mmol/L Serum Osmolality 313 H 278-298 mOsm/kg Blood Gas Critical Value Read Back Yes Blood Gas Notified Whom dilshad Kelly md Blood Gas Notified Time [id number] Blood Gas Notified By Electric Serviceman dona chowdhury Urine Color Yellow Yellow Urine Clarity Clear Clear Urine pH 5.5 5.0-9.0 Urine Specific [place] 1.024 1.001-1.035 Urine Protein Negative Negative Urine Ketones 3+ H Negative Urine Blood Trace H Negative /uL Urine Nitrite Negative Negative Urine Bilirubin Negative Negative Urine Urobilinogen Normal Negative mg/dL Urine Leukocyte Esterase Negative Negative /uL Urine RBC 18 0 - 4 /hpf Urine Microscopic WBC 1 0-5 /HPF Urine Squamous Epithelial Cells Few <5 /hpf Urine Bacteria None seen None Seen /hpf Urine Glucose 4+ H Normal mg/dL Urine Test Negative Negative Assessment # DKA # Type I DM # 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 DKA resolved now switched to basal-correctional reigmen. - Continue glargine 15 units daily - Continue low intensity correctional lispro tidac, qhs - POC BG tidac, qhs - Hypoglycemia protocol - Asked patient to have her OmniPod 5 supplies brought to the hospital so she can attach her pod and sensor prior to discharge Plan discussed with: Patient NANDO PACHECO MD February 14, 2025 23:50
[2025-02-15] VITALS (8 sets, daily range): BP systolic 115–143; BP diastolic 72–85; PULSE 90–98; RESP 16–18; TEMP 97.9–98.6; O2SAT 97–99
[2025-02-15 02:33] LABS: Urine Bacteria None Seen /hpf (None Seen)
[2025-02-15 02:42] LABS: Urine Blood Negative /uL (Negative); Urine Clarity Clear (Clear); Urine Color Light-Yellow (Yellow); Urine Mucus FEW (None Seen); Urine Protein, UAD Negative (Negative); Urine Specific Gravity 1.019 (1.001-1.035); Urine Squamous Epithelial Cell FEW /hpf (<5); Urine Urobilinogen Normal (Negative); Urine WBC 1 /HPF (0-5)
[2025-02-15] MEDS: PANTOPRAZOLE 40 MG TAB PO SCH (06:38)
[2025-02-15 06:55] LABS: Sodium 142 mmol/L (136-145)
[2025-02-15 06:56] LABS: Anion Gap 11 (5-15); Calcium 8.7 mg/dL (8.7-10.4)
[2025-02-15 07:01] LABS: BUN/Creatinine Ratio 11.4 (10.0-20.0)
[2025-02-15 07:02] LABS: Magnesium 1.7 mg/dL (1.6-2.6)
[2025-02-15 07:03] LABS: Blood Urea Nitrogen 8 mg/dL (9-23); Carbon Dioxide 19 mmol/L (20-31); Chloride 112 mmol/L (98-107); Glucose 54 mg/dL (74-106); Phosphorus 3.2 mg/dL (2.4-5.1); Potassium 3.5 mmol/L (3.5-5.1)
--- NOTE | 2025-02-15 09:47 | ECG ---
[facility] Test Date: 2025-02-13 Test Time: 13:57:14 Pat Name: FERNANDO AYALA Department: ER Room: 0205 A Gender: F Quality Control Assistant: WARNER : 1995 Requested By: YUNIOR ROWAN Order Number: [id number] Reading MD: Maciej Espinal Measurements Intervals [place] Rate: 122 P: 64 IN: 148 QRS: 112 QRSD: 76 T: 56 QT: 319 QTc: 455 Interpretive Statements Sinus tachycardia Right axis deviation Baseline wander in lead(s) V2,V4 Electronically Signed On 02-18-2025 21:54:54 PDT by Maciej Espinal Please click the below link to view image of tracing.
--- NOTE | 2025-02-15 14:04 | DVHPN2 ---
Subjective Seen and examined at bedside, Blood sugars improving. Need to get Insulin pump prior to DC Home. Changes from previous H/P or p: No Changes Eyes: No Pain, No Vision change, No Conjunctivae inflammation, No Eyelid inflammation, No Other, No Redness ENT: No Ear pain, No Ear discharge, No Nose pain, No Nose discharge, No Nose congestion, No Mouth pain, No Mouth swelling, No Throat pain, No Throat swelling, No Other Cardiovascular: No Chest Pain, No Palpitations, No Orthopnea, No Paroxysmal Noc. Dyspnea, No Edema, No Lt Headedness, No Other Respiratory: No Cough, No Dry, No Shortness of breath, No SOB with excertion, No Wheezing, No Hemoptysis, No Pleuritic Pain, No Sputum, No Other Gastrointestinal: No Nausea, No Vomiting, No Abdominal Pain, No Diarrhea, No Constipation, No Melena, No Hematochezia, No Other Genitourinary: No Dysuria, No Frequency, No Incontinence, No Hematuria, No Retention, No Other Musculoskeletal: No other, No neck pain, No shoulder pain, No arm pain, No back pain, No hand pain, No leg pain, No foot pain Skin: No Rash, No Lesions, No Jaundice, No Bruising, No Other Objective Vitals Vital Signs Date Time Temp Pulse Resp B/P (MAP) Pulse Ox O2 Delivery O2 Flow Rate FiO2 02/15/25 12:30 98.0 96 18 126/80 (95) 99 98.0 02/15/25 08:00 Room Air* 0 21 Intake/Output Intake and Output 02/15/25 07:00 Intake Total 1200 ml Balance 1200 ml Intake Oral 300 ml IV Total 900 ml # Voids 2 General Appearance: Alert, Oriented X3, Cooperative HEENT: Atraumatic Lungs: Clear to auscultation Cardiovascular: Other (Tachycardic) Abdomen: Normal bowel sounds, Soft Psych/Mental Status: Mental status NL Medications Current Medications Medications Dose Ordered Sig/Alfie Route Start Time Stop Time Status Last Admin Dose Admin Morphine Sulfate 2 mg Q4HPRN PRN IV 02/13/25 16:15 Insulin Glargine 15 units DAILY SC 02/14/25 10:00 02/15/25 11:02 15 UNITS Acetaminophen/ Hydrocodone Bitart 1 tab Q4HP PRN PO 02/13/25 16:15 Docusate Sodium 100 mg BIDPRN PRN PO 02/13/25 16:15 Acetaminophen 650 mg Q6HP PRN PO 02/13/25 16:15 02/14/25 20:41 650 MG Sodium Chloride 1,000 ml @ 125 mls/hr Q8H IV 02/14/25 12:15 02/15/25 04:10 125 MLS/HR Diagnostic Test (Pha) 1 strip ACHS 02/14/25 17:00 02/15/25 11:01 1 STRIP Dextrose 50 ml PRN PRN IV 02/14/25 12:15 Insulin Human Lispro ACHS SC 02/14/25 12:51 02/15/25 11:03 6 UNITS Pantoprazole Sodium 40 mg DAILY@0600 PO 02/15/25 06:00 02/15/25 06:38 40 MG Al Hydrox/Mg Hydrox/Simethicone 30 ml Q8HP PRN PO 02/14/25 13:45 Ondansetron HCl 4 mg Q6HP PRN PO 02/14/25 13:45 Laboratory Results Laboratory Tests 02/14/25 06:04 02/15/25 05:18 Chemistry Test 02/14/25 21:58 02/15/25 05:18 Calcium Level 8.8 mg/dL (8.7-10.4) 8.7 mg/dL (8.7-10.4) Magnesium Level 1.6 mg/dL (1.6-2.6) 1.7 mg/dL (1.6-2.6) Phosphorus Level 2.1 mg/dL (2.4-5.1) L 3.2 mg/dL (2.4-5.1) Urinalysis Test 02/13/25 14:28 02/15/25 00:00 Urine Test Negative (Negative) Urine Color Light-yellow (Yellow) Urine Clarity Clear (Clear) Urine pH 6.0 (5.0-9.0) Urine Specific [place] 1.019 (1.001-1.035) Urine Protein Negative (Negative) Urine Ketones 3+ (Negative) H Urine Blood Negative /uL (Negative) Urine Nitrite Negative (Negative) Urine Bilirubin Negative (Negative) Urine Urobilinogen Normal mg/dL (Negative) Urine Leukocyte Esterase Negative /uL (Negative) Urine RBC 3 /hpf (0 - 4) Urine Microscopic WBC 1 /HPF (0-5) Urine Squamous Epithelial Cells Few /hpf (<5) Urine Bacteria None seen /hpf (None Seen) Urine Mucus Few (None Seen) Urine Glucose 3+ mg/dL (Normal) H Assessment/Plan Assessment/Plan # DKA - Insulin Drip DC # Uncontrolled DM1 A1c 6.6 - Endo Consult - Has Insulin Pump at home # FER due to VMN/ATN - NS IVF - Improving # SIRS and Sepsis RULED OUT Plan discussed with: Patient My Orders Orders - ANATOLIY SANCHEZ MD Procedure Category Date Status Time Potassium Er Tablet PHA 02/15/25 Transmitted (Klor-Con Tablet) 14:15 Magnesium Oxide PHA 02/15/25 Transmitted Tablet (Mag-Ox Tablet) 22:00 Magnesium Oxide PHA 02/15/25 Transmitted Tablet (Mag-Ox Tablet) 14:15 Date of Service: February 15, 2025 Billing Provider: ANATOLIY SANCHEZ MD Common Visit Codes: [id number] INP/OBS CARE(HIGH) ANATOLIY SANCHEZ MD February 15, 2025 14:04
[2025-02-15 14:13] LABS: Chloride 107 mmol/L (98-107)
[2025-02-15 14:14] LABS: Anion Gap 8 (5-15)
[2025-02-15 14:19] LABS: BUN/Creatinine Ratio 7.9 (10.0-20.0)
[2025-02-15 14:20] LABS: Blood Urea Nitrogen 6 mg/dL (9-23); Carbon Dioxide 20 mmol/L (20-31); Glucose 227 mg/dL (74-106); Magnesium 1.6 mg/dL (1.6-2.6); Potassium 3.4 mmol/L (3.5-5.1); Sodium 135 mmol/L (136-145)
[2025-02-15 14:23] LABS: Phosphorus 1.9 mg/dL (2.4-5.1)
[2025-02-15] MEDS: MAGNESIUM OXIDE 400 MG TAB PO ONE (15:07)
[2025-02-15] MEDS: POTASSIUM CHL 20 Meq TABLET PO ONE (15:08)
--- NOTE | 2025-02-15 15:50 | DVHPN2 ---
Progress Note - Dictate Date Seen: February 15, 2025 Medical Necessity Reason Pt with a Central, PICC or Fol: No Subjective No acute complaints. Some labile BG values including fasting hypoglycemia and postprandial hyperglycemia. vital signs Vital Sign Date Time Temp Pulse Resp B/P (MAP) Pulse Ox O2 Delivery O2 Flow Rate FiO2 02/15/25 12:30 98.0 96 18 126/80 (95) 99 98.0 02/15/25 08:00 Room Air* 0 21 Total Intake and Output 02/14/25 02/14/25 02/15/25 15:00 23:00 07:00 Intake Total 1200 ml Balance 1200 ml medications Current Medications Medications Dose Ordered Sig/Alfie Route Start Time Stop Time Status Last Admin Dose Admin Morphine Sulfate 2 mg Q4HPRN PRN IV 02/13/25 16:15 Insulin Glargine 15 units DAILY SC 02/14/25 10:00 02/15/25 11:02 15 UNITS Acetaminophen/ Hydrocodone Bitart 1 tab Q4HP PRN PO 02/13/25 16:15 Docusate Sodium 100 mg BIDPRN PRN PO 02/13/25 16:15 Acetaminophen 650 mg Q6HP PRN PO 02/13/25 16:15 02/14/25 20:41 650 MG Sodium Chloride 1,000 ml @ 125 mls/hr Q8H IV 02/14/25 12:15 02/15/25 04:10 125 MLS/HR Diagnostic Test (Pha) 1 strip ACHS 02/14/25 17:00 02/15/25 11:01 1 STRIP Dextrose 50 ml PRN PRN IV 02/14/25 12:15 Insulin Human Lispro ACHS SC 02/14/25 12:51 02/15/25 11:03 6 UNITS Pantoprazole Sodium 40 mg DAILY@0600 PO 02/15/25 06:00 02/15/25 06:38 40 MG Al Hydrox/Mg Hydrox/Simethicone 30 ml Q8HP PRN PO 02/14/25 13:45 Ondansetron HCl 4 mg Q6HP PRN PO 02/14/25 13:45 Magnesium Oxide 800 mg BID PO 02/15/25 22:00 objective Gen - no acute distress HEENT - no thyromegaly, no lymphadenopathy CV - RRR, no m/r/g Resp - CTAB Ext - no edema laboratory and microbiology Laboratory Tests 02/15/25 13:58 02/14/25 06:04 Test 02/15/25 13:58 Range/Units Serum Glucose 227 H 74-106 mg/dL Assessment/Plan # DKA # Type I DM # nursing home use of insulin pump Longstanding hx of type I DM, presented with DKA due to insulin pump malfunction, otherwise reasonably well controlled dysglycemia as an outpatient. DKA resolved now with labile BG values on MDI subq regimen. - Decrease glargine 10 units daily - Continue low intensity correctional lispro tidac, qhs - POC BG tidac, qhs - Hypoglycemia protocol - Asked patient to have her OmniPod 5 supplies brought to the hospital so she can attach her pod and sensor prior to discharge Plan discussed with: Patient NANDO PACHECO MD February 15, 2025 15:50
[2025-02-15] MEDS: POTASSIUM PHOSPHATE 26.4 MEQ in SODIUM CHL 0.9% 100 ML IV ONE (18:26)
[2025-02-15 22:30] LABS: Potassium 3.9 mmol/L (3.5-5.1); Sodium 138 mmol/L (136-145)
[2025-02-15] MEDS: MAGNESIUM OXIDE 400 MG TAB PO SCH (22:30)
[2025-02-15 22:31] LABS: Anion Gap 7 (5-15); Carbon Dioxide 22 mmol/L (20-31)
[2025-02-15 22:35] LABS: Calcium 8.5 mg/dL (8.7-10.4); Chloride 109 mmol/L (98-107)
[2025-02-15 22:37] LABS: BUN/Creatinine Ratio 6.8 (10.0-20.0); Magnesium 1.6 mg/dL (1.6-2.6)
[2025-02-15 22:39] LABS: Blood Urea Nitrogen 5 mg/dL (9-23); Glucose 215 mg/dL (74-106); Phosphorus 3.3 mg/dL (2.4-5.1)
[2025-02-16 01:00] VITALS: BP 123/85; PULSE 99; RESP 18; TEMP 98.1; O2SAT 95
[2025-02-16 05:00] VITALS: BP 139/86; PULSE 92; RESP 18; TEMP 98; O2SAT 98
[2025-02-16 06:50] LABS: Potassium 3.5 mmol/L (3.5-5.1); Sodium 139 mmol/L (136-145)
[2025-02-16 06:51] LABS: Anion Gap 9 (5-15); Calcium 8.8 mg/dL (8.7-10.4); Carbon Dioxide 22 mmol/L (20-31)
[2025-02-16 06:57] LABS: BUN/Creatinine Ratio 7.8 (10.0-20.0); Magnesium 1.6 mg/dL (1.6-2.6)
[2025-02-16 07:00] LABS: Blood Urea Nitrogen 5 mg/dL (9-23); Chloride 108 mmol/L (98-107); Glucose 226 mg/dL (74-106)
[2025-02-16 08:00] VITALS: PULSE 90; PULSE 93; RESP 18; O2SAT 97
[2025-02-16 09:00] VITALS: BP 140/92; PULSE 93; RESP 18; TEMP 98.3; O2SAT 97
[2025-02-16] MEDS: HYDROcodone-ACET 5/325MG TAB PO PRN (09:52)
[2025-02-16] MEDS: INSULIN LANTUS (GLARGINE) 1 /0.01ml (100units/ml) SC SCH (11:25)
--- NOTE | 2025-02-16 12:11 | DVHDS2 ---
Discharge Summary Date of Admission February 13, 2025 at 15:58 Date of Discharge: February 16, 2025 Admitting Diagnosis DKA Labs/Diagnostic Data: Laboratory Results Test 02/16/25 05:10 02/15/25 16:36 02/15/25 00:00 02/14/25 12:17 Sodium Level 139 mmol/L (136-145) Potassium Level 3.5 mmol/L (3.5-5.1) Chloride Level 108 mmol/L (98-107) Carbon Dioxide Level 22 mmol/L (20-31) Anion Gap 9 (5-15) Blood Urea Nitrogen 5 mg/dL (9-23) Creatinine 0.64 mg/dL (0.550-1.02) Glomerular Filtration Rate Calc 124 mL/min (>90) BUN/Creatinine Ratio 7.8 (10.0-20.0) Serum Glucose 226 mg/dL (74-106) Calcium Level 8.8 mg/dL (8.7-10.4) Phosphorus Level 3.0 mg/dL (2.4-5.1) Magnesium Level 1.6 mg/dL (1.6-2.6) POC Glucose 232 mg/dl (70-106) Urine Color Light-yellow (Yellow) Urine Clarity Clear (Clear) Urine pH 6.0 (5.0-9.0) Urine Specific [place] 1.019 (1.001-1.035) Urine Protein Negative (Negative) Urine Ketones 3+ (Negative) Urine Blood Negative /uL (Negative) Urine Nitrite Negative (Negative) Urine Bilirubin Negative (Negative) Urine Urobilinogen Normal mg/dL (Negative) Urine Leukocyte Esterase Negative /uL (Negative) Urine RBC 3 /hpf (0 - 4) Urine Microscopic WBC 1 /HPF (0-5) Urine Squamous Epithelial Cells Few /hpf (<5) Urine Bacteria None seen /hpf (None Seen) Urine Mucus Few (None Seen) Urine Glucose 3+ mg/dL (Normal) Blood Gas Specimen Type Arterial Blood Gas Sample Site Right radial Blood Gas Patient Temperature 37.0 Arterial Blood Date Drawn [id number] Arterial Blood pH 7.350 (7.350-7.450) Arterial Blood Partial Pressure CO2 24.4 mmHg (32.0-45.0) Arterial Blood Partial Pressure O2 95.2 mmHg (83.0-108.0) Arterial Blood HCO3 13.2 mmol/L (21.0-28.0) Arterial Blood Oxygen Saturation 97.2 % (94.0-98.0) Arterial Blood Base Excess -10.8 mmol/L (-2.0-3.0) Arterial Blood Oxyhemoglobin 96.5 % (94.0-98.0) Arterial Blood Carboxyhemoglobin 0.3 % (0.5-1.5) Arterial Blood Methemoglobin 0.4 % (0.0-1.5) Zenon Test Yes Blood Gas Total Hemoglobin 11.20 g/dL (12.0-16.0) Blood Gas Modality Room air FiO2 % 21.0 Test 02/14/25 09:52 02/14/25 06:04 02/13/25 16:41 02/13/25 15:35 Thyroid Stimulating Hormone (TSH) 1.18 uIU/mL (0.55-4.78) Free Thyroxine (T4) Calculated 1.34 ng/dL (0.89-1.76) White Blood Count 11.6 10^3/uL (4.4-10.8) Red Blood Count 3.91 10^6/uL (4.0-5.20) Hemoglobin 10.9 g/dL (12.2-16.2) Hematocrit 32.8 % (36.0-46.0) Mean Corpuscular Volume 83.9 fL (80.0-100.0) Mean Corpuscular Hemoglobin 27.8 pg (28.0-32.0) Mean Corpuscular Hemoglobin Concent 33.1 g/dL (32.0-36.0) Red Cell Distribution Width 15.9 % (11.8-14.3) Platelet Count 337 10^3/uL (140-450) Mean Platelet Volume 6.9 fL (6.9-10.8) Neutrophils (%) (Auto) 75.3 % (37.0-80.0) Lymphocytes (%) (Auto) 18.8 % (10.0-50.0) Monocytes (%) (Auto) 4.8 % (0.0-12.0) Eosinophils (%) (Auto) 0.6 % (0.0-7.0) Basophils (%) (Auto) 0.5 % (0.0-2.0) Neutrophils # (Auto) 8.7 10 ^3/uL (1.6-8.6) Lymphocytes # (Auto) 2.2 10 ^3/uL (0.4-5.4) Monocytes # (Auto) 0.5 10 ^3/uL (0-1.3) Eosinophils # (Auto) 0.1 10 ^3/uL (0-0.8) Basophils # (Auto) 0.1 10 ^3/uL (0-0.2) Nucleated Red Blood Cells 0.0 % Hemoglobin A1c 6.6 % A1C (<5.7) Beta-Hydroxybutyric Acid 2.519 mmol/L (< 0.4) Serum Osmolality 313 mOsm/kg (278-298) Blood Gas Critical Value Read Back Yes Blood Gas Notified Whom dilshad Kelly md Blood Gas Notified Time [id number] Blood Gas Notified By Renal Medicine Physician dona chowdhury Test 02/13/25 14:28 Urine Test Negative (Negative) Other Laboratory Tests 02/16/25 05:10 02/14/25 06:04 Brief Hx & Hospital Course: 29yo F w/ hx of type I DM who presented to hospital with progressive onset malaise, nausea, dec appetite. Patient states for 3 days prior to admission she had been experiencing generalized malaise and weakness. She also endorsed intermittent nausea, diffuse upper back and lower back sharp pain, as well as some decreased appetite. She had also noticed her insulin pump was not attached properly and when evaluating her BG values they were persistently elevated > 500mg/dL. Upon presentation to ED, labs notable for BG 571, HCO3 < 10, AG 20, Cr 1.1., BHB > 4.5. Patient was started on insulin gtt provided IVF and admitted for further management. After improvement in acidosis and closure of anion gap patient was switched to basal-correctional regimen of insulin. DKA resolved, patient was seen in Endocrine consult, Insulin pump was brought and restarted. Patient will need to followup with Dr. Munroe as outpatient. Condition at Discharge: Stable Final Diagnosis/Problems List # DKA - Insulin Pump # Uncontrolled DM1 A1c 6.6 - Endo Consult noted - Has Insulin Pump at home # FER due to VMN/ATN - Resolved # SIRS and Sepsis RULED OUT Discharge Disposition: Home Discharge Instruct/Medications Diet: Consistent carbohydrate Activity: Light activity Follow Up/Referral: Dr. Munroe Endocrine Medications: Insulin Pump Discharge Statement: "Patient was advised to return to the ER or call 911 if any headaches, dizziness, shortness of breath, chest pain, abdominal pain, bleeding, fevers, or worsening of medical condition. Patient was counseled about treatment plan, medications, possible side effects, patientverbalized understanding. All questions were answered to the best of my ability. This discharge took greater then 30 minutes in planning, reviewing documentation, counseling the patient, and discussing with other team members." ASSESSMENT ASSESSMENT Assessment Date of Service: February 16, 2025 Billing Provider: ANATOLIY SANCHEZ MD Common Visit Codes: [id number] DISCH DAY >30min ANATOLIY SANCHEZ MD February 16, 2025 12:11
[2025-02-16 13:00] VITALS: BP 112/80; PULSE 89; RESP 16; TEMP 98.2; O2SAT 98
[2025-02-16 14:26] LABS: Chloride 106 mmol/L (98-107); Sodium 137 mmol/L (136-145)
[2025-02-16 14:27] LABS: Anion Gap 7 (5-15); Calcium 9.1 mg/dL (8.7-10.4); Carbon Dioxide 24 mmol/L (20-31)
[2025-02-16 14:32] LABS: BUN/Creatinine Ratio 7.2 (10.0-20.0)
[2025-02-16 14:33] LABS: Blood Urea Nitrogen 5 mg/dL (9-23); Glucose 265 mg/dL (74-106); Magnesium 1.6 mg/dL (1.6-2.6); Potassium 3.5 mmol/L (3.5-5.1)
[2025-02-16 14:35] LABS: Phosphorus 2.3 mg/dL (2.4-5.1)
[2025-02-16 14:53] VITALS: BP 112/80; PULSE 89; RESP 16; TEMP 98.2; O2SAT 98
== END 2025-02-16 15:40 | disposition home or self-care (01) | DRG 919 ==
LOC: ER 13:44 → OVERFLOW 15:58 → ER 16:01 → CENTRAL 02-14 15:26
PROVIDERS: ADMIT Internal Medicine; ATTEND Internal Medicine
DX: T85.614A Breakdown (mechanical) of insulin pump, initial encounter (principal); E10.10 Type 1 diabetes mellitus with ketoacidosis without coma; N17.0 Acute kidney failure with tubular necrosis; D72.829 Elevated white blood cell count, unspecified; Z96.41 Presence of insulin pump (external) (internal); Y74.2 Prosthetic and other implants, materials and accessory general hospital and personal-use devices associated with adverse incidents; M54.50 Low back pain, unspecified; R00.0 Tachycardia, unspecified; I95.9 Hypotension, unspecified; Z91.018 Allergy to other foods; Z79.1 Long term (current) use of non-steroidal anti-inflammatories (NSAID); Z79.4 Long term (current) use of insulin; Z79.891 Long term (current) use of opiate analgesic; Z79.899 Other long term (current) drug therapy; Z80.49 Family history of malignant neoplasm of other genital organs; Y92.89 Other specified places as the place of occurrence of the external cause
CPT/HCPCS: 36415; 36600; 71045; 80048; 81001; 81025; 82010; 82805; 82962; 83036; 83735; 83930; 84100; 84439; 84443; 85025; 93005; 96374; 99291; G0378; J1815; J2405

== ENCOUNTER 2025-03-24 13:41 | Inpatient (IN) | payer BC, MEDICAID ==
[~2025-03-24] VITALS: Ht 170.2 cm; Wt 73.5 kg
[~2025-03-24 13:41] MED LIST changes: -CLIN1CAP70 PO; -HYDR-4902 PO; -IBUP-1454 PO; -LEVO500T91 PO; -METH-1181 PO
[2025-03-24 14:00] VITALS: PULSE 116; RESP 22; O2SAT 99
--- NOTE | 2025-03-24 14:03 | ED.PDOC ---
History of Present Illness HPI Comments 29-year-old female with PMHx DM presents with a chief complaint of weakness, chest pain, nausea, vomiting, headache, abdominal pain, and SOB x 3 days. Patient was sent over from Urgent Care due to chest pain and SOB. Patient states that she normally gets this way when she is in DKA, sugar was 173 in triage. Patient denies any diarrhea, rectal bleeding, hematemesis, or syncope. Chief Complaint: Chest Pain Time Seen by MD: 13:41 Primary Care Provider: Shivani WOLFE Reviewed Notes: Medications, Allergies Allergies: Coded Allergies: Soy Allergy (Verified Allergy, Severe, sob, 05/14/23) Home Meds Active Scripts Insulin Detemir (Levemir) Inj, 25 ' SC HS, #30 INJ Prov:ROSELIA BAUM MD 08/12/24 Insulin Aspart (Novolog) 100 Unit/Ml Inj, 10 UNIT IJ TID, #30 INJ Prov:ROSELIA BAUM MD 08/12/24 Information Source: Patient Mode of Arrival: Wheelchair Severity: Moderate Timing: Days Duration: Since onset Prehospital treatment: None Past Medical History PAST MEDICAL HISTORY: DM Surgical History: Denies all surgeries [employer] History: Denies all [employer]NT Hx Family History Family History: Reviewed,noncontributory to illness Social History Smoker: Non-Smoker Alcohol: Denies ETOH Use Drugs: Marijuana Lives In: Home Constitutional: reports: weakness; denies: chills, diaphoresis, fatigue, fever, malaise, sweats, others EENTM: denies: blurred vision, double vision, ear bleeding, ear discharge, ear drainage, ear pain, ear ringing, eye pain, eye redness, hearing loss, mouth pain, mouth swelling, nasal discharge, nose bleeding, nose congestion, nose pain, photophobia, tearing, throat pain, throat swelling, voice changes, others Respiratory: reports: shortness of breath; denies: cough, hemoptysis, orthopnea, SOB at rest, SOB with excertion, stridor, wheezing, others Cardiovascular: reports: chest pain; denies: dizzy spells, diaphoresis, Dyspnea on exertion, edema, irregular heart beat, left arm pain, lightheadedness, palpitations, PND, syncope, others Gastrointestinal: reports: abdominal pain, nausea, vomiting; denies: abdomen distended, blood streaked bowels, constipated, diarrhea, dysphagia, difficulty swallowing, hematemesis, melena, poor appetite, poor fluid intake, rectal bleeding, rectal pain, others Genitourinary: denies: abnormal vagina bleeding, burning, dyspareunia, dysuria, flank pain, frequency, hematuria, incontinence, pain, , vagina d ischarge, urgency, others Neurological: reports: headache; denies: dizziness, fainting, left sided numbness, left sided weakness, numbness, paresthesia, pre-existing deficit, right sided numbness, right sided weakness, seizure, speech problems, tingling, tremors, weakness, others Musculoskeletal: denies: back pain, gout, joint pain, joint swelling, muscle pain, muscle stiffness, neck pain, others Integumetry: denies: bruises, change in color, change in hair/nails, dryness, laceration, lesions, lumps, rash, wounds, others Allergic/Immunocompromised: denies: Difficulty Healing, Frequent Infections, Hives, Itching, others Hematologic/Lymphatic: denies: anemia, blood clots, easy bleeding, easy bruising, swollen glands, others Endocrine: denies: excessive hunger, excessive sweating, excessive thirst, excessive urination, flushing, intolerance to cold, intolerance to heat, unexplained weight gain, unexplained weight loss, others Psychiatric: denies: anxiety, bipolar disorder, depression, hopeless, panic disorder, schizophrenia, sleepless, suicidal, others All Other Systems: Reviewed and Negative Physical Exam General Appearance: Moderate Distress, Normal HEENT: Normal ENT Inspection, Pharynx Normal, TMs Normal Neck: Full Range of Motion, Non-Tender, Normal, Normal Inspection Respiratory: Chest Non-Tender, Lungs Clear, No Accessory Muscle Use, No Respi ratory Distress, Normal Breath Sounds Cardiovascular: No Edema, No JVD, No Murmur, No Gallop, Normal Peripheral Pulses, Tachycardia Breast Exam: Deferred Gastrointestinal: No Organomegaly, Non Tender, No Pulsatile Mass, Normal Bowel Sounds, Soft Genitalia: Deferred Pelvic: Deferred Rectal: Deferred Extremities: No calf tenderness, Normal capillary refill, Normal inspection, Normal range of motion, Non-tender, No pedal edema Musculoskeletal : Apperance: Normal Neurologic: Alert, inside sales account executive II-XII nml as Tested, No Motor Deficits, Normal Affect, Normal Mood, No Sensory Deficits Cerebellar Function: NOT DONE Reflexes: NOT DONE Skin: Dry, Normal Color, Warm Peripheral Pulses: 3+ Radial (R), 3+ Radial (L) Lymphatic: No Adenopathy Was a procedure done? Was a procedure done?: No EKG EKG : Pulse Rate (adult): 108 [place]: Normal Cardiac Rhythm: NSR Block: None Hypertrophy: None ST: Normal Differential Dx Considerations may include: Uncontrolled diabetes Electrolyte imbalance X-Ray, Labs, Meds, VS Vital Signs Date Time Temp Pulse Resp B/P (MAP) Pulse Ox O2 Delivery O2 Flow Rate FiO2 03/24/25 14:18 106 24 142/99 03/24/25 14:12 108 03/24/25 14:06 108 03/24/25 13:46 98.2 124 25 140/103 (115) 99 98.2 Lab Test 03/24/25 14:26 03/24/25 13:54 Range/Units Blood Gas Specimen Type Arterial Blood Gas Sample Site Right radial Blood Gas Patient Temperature 37.0 Arterial Blood Date Drawn [id number] Arterial Blood pH 7.561 *H 7.350-7.450 Arterial Blood Partial Pressure CO2 20.9 L 32.0-45.0 mmHg Arterial Blood Partial Pressure O2 104.0 83.0-108.0 mmHg Arterial Blood HCO3 18.3 L 21.0-28.0 mmol/L Arterial Blood Oxygen Saturation 98.6 H 94.0-98.0 % Arterial Blood Base Excess -1.6 -2.0-3.0 mmol/L Arterial Blood Oxyhemoglobin 97.0 94.0-98.0 % Arterial Blood Carboxyhemoglobin 1.1 0.5-1.5 % Arterial Blood Methemoglobin 0.5 0.0-1.5 % Zenon Test Yes Blood Gas Total Hemoglobin 14.20 12.0-16.0 g/dL Blood Gas Modality Nasal cannula FiO2 % 28.0 Blood Gas Critical Value Read Back yes Blood Gas Notified Whom antwon Yadav md Blood Gas Notified Time [id number] Blood Gas Notified By Angel chowdhury i. White Blood Count 6.8 4.4-10.8 10^3/uL Red Blood Count 5.19 4.0-5.20 10^6/uL Hemoglobin 14.4 12.2-16.2 g/dL Hematocrit 42.5 36.0-46.0 % Mean Corpuscular Volume 82.0 80.0-100.0 fL Mean Corpuscular Hemoglobin 27.9 L 28.0-32.0 pg Mean Corpuscular Hemoglobin Concent 33.9 32.0-36.0 g/dL Red Cell Distribution Width 14.9 H 11.8-14.3 % Platelet Count 426 140-450 10^3/uL Mean Platelet Volume 7.1 6.9-10.8 fL Neutrophils (%) (Auto) 72.9 37.0-80.0 % Lymphocytes (%) (Auto) 21.8 10.0-50.0 % Monocytes (%) (Auto) 4.4 0.0-12.0 % Eosinophils (%) (Auto) 0.4 0.0-7.0 % Basophils (%) (Auto) 0.5 0.0-2.0 % Neutrophils # (Auto) 5.0 1.6-8.6 10 ^3/uL Lymphocytes # (Auto) 1.5 0.4-5.4 10 ^3/uL Monocytes # (Auto) 0.3 0-1.3 10 ^3/uL Eosinophils # (Auto) 0 0-0.8 10 ^3/uL Basophils # (Auto) 0 0-0.2 10 ^3/uL Nucleated Red Blood Cells 0.0 % Sodium Level 138 136-145 mmol/L Potassium Level 4.1 3.5-5.1 mmol/L Chloride Level 101 98-107 mmol/L Carbon Dioxide Level 19 L 20-31 mmol/L Anion Gap 18 H 5-15 Blood Urea Nitrogen 18 9-23 mg/dL Creatinine 1.17 H 0.550-1.02 mg/dL Glomerular Filtration Rate Calc 66 >90 mL/min BUN/Creatinine Ratio 15.4 10.0-20.0 Serum Glucose 176 H 74-106 mg/dL Calcium Level 11.0 H 8.7-10.4 mg/dL Troponin I High Sensitivity 6 </=34 ng/L Beta-Hydroxybutyric Acid Pending Current Medications Medications (Trade) Dose Ordered Sig/Alfie Route Start Time Stop Time Status Last Admin Sodium Chloride 1,000 ml @ 1,000 mls/hr Q1H ONCE IVB 03/24/25 14:15 03/24/25 15:14 03/24/25 14:16 Morphine Sulfate 4 mg ONCE ONCE IV 03/24/25 14:15 03/24/25 14:16 DC 03/24/25 14:18 Ondansetron HCl (Zofran) 4 mg ONCE ONCE IV 03/24/25 14:15 03/24/25 14:16 DC 03/24/25 14:16 Patient alert. Complaining of chest discomfort. Vitals stable. Answering all questions. Recently seen in the ER. Possible anxiety related. Establish intravenous access. Was given fluids. Was given morphine. Was given Zofran. Reviewed her previous visit. Explained to the patient. Continue monitoring. Time of 1ST Reevaluation: 14:11 Reevaluation 1ST: Unchanged Patient Education/Counseling: Diagnosis, Treatment, Need For Follow Up Family Education/Counseling: No Family Present SEPSIS Sepsis Screen Date sepsis recognized/suspect: Mar 24, 2025 Time Sepsis recognized/suspect: 1345 Recent Procedure: No On Antibiotic Therapy: No Respiratory Rate >20: Yes Heart Rate >90: Yes Temp<36 C (96.8 F) or >38.3 C: No SBP <90 or MAP <65 mmHG: No New Acute Mental Status Change: No Is the patient on CPAP, BIPAP,: No Physician Orders Urinalysis (03/24/25 13:53) Sodium Chloride 0.9% (03/24/25 14:15) Sodium Chloride 0.9% (03/24/25 14:15) Troponin-I Hs (03/24/25 15:04) Troponin-I Hs (03/24/25 17:04) Abg W/ Co-Ox (03/24/25 14:04) Beta-Hydroxybutyrate (03/24/25 14:04) Electrocardigram (03/24/25 14:09) Electrocardigram (03/24/25 15:09) Electrocardigram (03/24/25 17:09) Vital Signs Date Time Temp Pulse Resp B/P (MAP) Pulse Ox O2 Delivery O2 Flow Rate FiO2 03/24/25 14:18 106 24 142/99 03/24/25 14:12 108 03/24/25 14:06 108 03/24/25 13:46 98.2 124 25 140/103 (115) 99 98.2 Laboratory Tests Test 03/24/25 13:54 White Blood Count 6.8 10^3/uL (4.4-10.8) Medications Medications Dose Ordered Sig/Alfie Route Start Time Stop Time Status Last Admin Dose Admin Morphine Sulfate 4 mg ONCE ONCE IV 03/24/25 14:15 03/24/25 14:16 DC 03/24/25 14:18 Ondansetron HCl 4 mg ONCE ONCE IV 03/24/25 14:15 03/24/25 14:16 DC 03/24/25 14:16 Sodium Chloride 1,000 ml @ 1,000 mls/hr Q1H ONCE IVB 03/24/25 14:15 03/24/25 15:14 03/24/25 14:16 Departure 1 Departure Time of Disposition: 14:52 Impression: Primary Impression: Uncontrolled diabetes mellitus Qualified Codes: E13.65 - Other specified diabetes mellitus with hyperglycemia Disposition: ADMITTED INPATIENT Admit to: Med Surg Condition: Guarded Critical Care Note Critical Care Time?: Yes (90 min-critical care time only) Stability Stability form required: No Heart Score Heart Score: Heart Score Response (Comments) Value History Slightly Suspicious 0 EKG Normal 0 Age <45 0 Risk Factors No known risk factors 0 Troponin Normal limit 0 Total 0 I personally scribed for BEREKET YADAV MD ([email or web address]) on 03/24/25 at 14:03. Electronically submitted by Binu Vergara ([email or web address]). I personally scribed for BEREKET YADAV MD ([email or web address]) on 03/24/25 at 14:12. Electronically submitted by Binu Vergara ([email or web address]). BEREKET YADAV MD Mar 24, 2025 14:03
[2025-03-24] MEDS: SODIUM CHLORIDE 0.9% 1,000 ML IVB ONE (14:16)
[2025-03-24] MEDS: ONDANSETRON HCL 4 MG/2 ML VIAL IV ONE ×2 (14:16→20:39)
[2025-03-24] MEDS: MORPHINE SULFATE 4 MG/ML SYR/VIAL IV ONE ×2 (14:18→20:40)
[2025-03-24 14:19] LABS: Hematocrit 42.5 % (36.0-46.0); Hemoglobin 14.4 g/dL (12.2-16.2); Mean Corpuscular Hemoglobin 27.9 pg (28.0-32.0); Mean Corpuscular Volume 82.0 fL (80.0-100.0); Nucleated Red Blood Cells % 0.0 %
[2025-03-24 14:31] LABS: Base Excess -1.6 mmol/L (-2.0-3.0)
[2025-03-24 14:32] LABS: Chloride 101 mmol/L (98-107); Potassium 4.1 mmol/L (3.5-5.1); Sodium 138 mmol/L (136-145)
[2025-03-24 14:33] LABS: Anion Gap 18 (5-15)
[2025-03-24 14:38] LABS: BUN/Creatinine Ratio 15.4 (10.0-20.0); Blood Urea Nitrogen 18 mg/dL (9-23)
[2025-03-24 14:41] LABS: Calcium 11.0 mg/dL (8.7-10.4); Carbon Dioxide 19 mmol/L (20-31); Glucose 176 mg/dL (74-106)
[2025-03-24] MEDS: InsuLIN REG 1unit/0.01ml Soln (100units/ml) IV ONE (15:16)
[2025-03-24] MEDS: SODIUM CHLORIDE 0.9% 1,000 ML IV ONE (15:20)
[2025-03-24] MEDS: LORazepam 2MG/ML-1ML VIAL IV ONE ×2 (15:53→20:39)
[2025-03-24 19:30] VITALS: PULSE 103; RESP 11; O2SAT 99
[2025-03-24] MEDS ORDERED: DOCUSATE SOD 100 MG CAP PO PRN (20:15)
[2025-03-24] MEDS ORDERED: HYDROcodone-ACET 5/325MG TAB PO PRN (20:15)
--- NOTE | 2025-03-24 20:24 | ECG ---
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
--- NOTE | 2025-03-24 20:33 | DVHHP2 ---
Admitting Diagnosis: high anion gap metabolic acidosis ketoacidosis type 1 DM Patient Family History: Cervical cancer G8 MOTHER Allergies: Coded Allergies: Soy Allergy (Verified Allergy, Severe, sob, 05/14/23) Home Meds Active Scripts Insulin Detemir (Levemir) Inj, 25 ' SC HS, #30 INJ Prov:ROSELIA BAUM MD 08/12/24 Insulin Aspart (Novolog) 100 Unit/Ml Inj, 10 UNIT IJ TID, #30 INJ Prov:ROSELIA BAUM MD 08/12/24 Current Medications Current Medications Medications (Trade) Dose Ordered Sig/Alfie Route PRN Reason Start Time Stop Time Status Last Admin Docusate Sodium (Colace Capsule) 100 mg BIDPRN PRN PO FOR CONSTIPATION 03/24/25 20:15 UNV Acetaminophen (Tylenol Tablet) 650 mg Q6HP PRN PO PAIN SCALE 1-3 OR TEMP>100.4 03/24/25 20:15 UNV Acetaminophen/ Hydrocodone Bitart ([place] 5/325MG Tab) 1 tab Q4HP PRN PO MODERATE PAIN (4-6 PAIN SCALE) 03/24/25 20:15 UNV Vital Signs Vital Signs Date Time Temp Pulse Resp B/P (MAP) Pulse Ox O2 Delivery O2 Flow Rate FiO2 03/24/25 19:30 103 11 99 Nasal Cannula* 2 28 03/24/25 19:25 121/85 (97) 03/24/25 18:00 98.3 98.3 Physical Exam Generally-nondistended years old woman, well nourished well developed. Mild distress HEENT-atraumatic, normocephalic Heart-sinus tachycardic Lungs to auscultate bilaterally Abdomen soft, epigastric tenderness, nondistended Musculoskeletal-no edema cyanosis Neuro-AO x3, no focal deficit Results Labs Test 03/24/25 15:10 03/24/25 14:26 03/24/25 13:54 Range/Units Troponin I High Sensitivity 5 </=34 ng/L Blood Gas Specimen Type Arterial Blood Gas Sample Site Right radial Blood Gas Patient Temperature 37.0 Arterial Blood Date Drawn [id number] Arterial Blood pH 7.561 *H 7.350-7.450 Arterial Blood Partial Pressure CO2 20.9 L 32.0-45.0 mmHg Arterial Blood Partial Pressure O2 104.0 83.0-108.0 mmHg Arterial Blood HCO3 18.3 L 21.0-28.0 mmol/L Arterial Blood Oxygen Saturation 98.6 H 94.0-98.0 % Arterial Blood Base Excess -1.6 -2.0-3.0 mmol/L Arterial Blood Oxyhemoglobin 97.0 94.0-98.0 % Arterial Blood Carboxyhemoglobin 1.1 0.5-1.5 % Arterial Blood Methemoglobin 0.5 0.0-1.5 % Zenon Test Yes Blood Gas Total Hemoglobin 14.20 12.0-16.0 g/dL Blood Gas Modality Nasal cannula FiO2 % 28.0 Blood Gas Critical Value Read Back yes Blood Gas Notified Whom antwon Brasher md Blood Gas Notified Time [id number] Blood Gas Notified By Angel chowdhury i. White Blood Count 6.8 4.4-10.8 10^3/uL Red Blood Count 5.19 4.0-5.20 10^6/uL Hemoglobin 14.4 12.2-16.2 g/dL Hematocrit 42.5 36.0-46.0 % Mean Corpuscular Volume 82.0 80.0-100.0 fL Mean Corpuscular Hemoglobin 27.9 L 28.0-32.0 pg Mean Corpuscular Hemoglobin Concent 33.9 32.0-36.0 g/dL Red Cell Distribution Width 14.9 H 11.8-14.3 % Platelet Count 426 140-450 10^3/uL Mean Platelet Volume 7.1 6.9-10.8 fL Neutrophils (%) (Auto) 72.9 37.0-80.0 % Lymphocytes (%) (Auto) 21.8 10.0-50.0 % Monocytes (%) (Auto) 4.4 0.0-12.0 % Eosinophils (%) (Auto) 0.4 0.0-7.0 % Basophils (%) (Auto) 0.5 0.0-2.0 % Neutrophils # (Auto) 5.0 1.6-8.6 10 ^3/uL Lymphocytes # (Auto) 1.5 0.4-5.4 10 ^3/uL Monocytes # (Auto) 0.3 0-1.3 10 ^3/uL Eosinophils # (Auto) 0 0-0.8 10 ^3/uL Basophils # (Auto) 0 0-0.2 10 ^3/uL Nucleated Red Blood Cells 0.0 % Sodium Level 138 136-145 mmol/L Potassium Level 4.1 3.5-5.1 mmol/L Chloride Level 101 98-107 mmol/L Carbon Dioxide Level 19 L 20-31 mmol/L Anion Gap 18 H 5-15 Blood Urea Nitrogen 18 9-23 mg/dL Creatinine 1.17 H 0.550-1.02 mg/dL Glomerular Filtration Rate Calc 66 >90 mL/min BUN/Creatinine Ratio 15.4 10.0-20.0 Serum Glucose 176 H 74-106 mg/dL Calcium Level 11.0 H 8.7-10.4 mg/dL Beta-Hydroxybutyric Acid 4.462 H < 0.4 mmol/L Primary Diagnosis Anion gap metabolic acidosis Ketoacidosis Type 1 diabetes on insulin pump Plan Patient has insulin pump , no antiplatelet Continue pt's insulin pump Fluid resuscitation LR at 150 cc an hour Check BNP q.4 hours monitor metabolic acidosis and anion gap NPO except meds Antiemetic resume home meds Full code PPI prophylaxis Plan discussed with: Patient Problems List: (1) DKA (diabetic ketoacidosis) Status: Acute Date of Service: Mar 24, 2025 Billing Provider: RONNY MARTINEZ MD Common Visit Codes: [id number] INP/OBS CARE (HIGH) RONNY MARTINEZ MD Mar 24, 2025 20:33
[2025-03-24] MEDS: LACTATED RINGER'S 1,000 ML IV ONE ×2 (20:40→21:40)
[2025-03-24 22:17] LABS: Potassium 3.9 mmol/L (3.5-5.1); Sodium 142 mmol/L (136-145)
[2025-03-24 22:18] LABS: Anion Gap 14 (5-15)
[2025-03-24 22:19] LABS: Calcium 9.3 mg/dL (8.7-10.4)
[2025-03-24 22:23] LABS: BUN/Creatinine Ratio 14.7 (10.0-20.0); Blood Urea Nitrogen 14 mg/dL (9-23)
[2025-03-24 22:26] LABS: Carbon Dioxide 19 mmol/L (20-31); Chloride 109 mmol/L (98-107); Glucose 135 mg/dL (74-106)
[2025-03-25] VITALS (20 sets, daily range): BP systolic 122–157; BP diastolic 84–110; PULSE 83–113; RESP 12–27; TEMP 98–98.6; O2SAT 94–98
[2025-03-25] MEDS ORDERED: DEXTROSE (50%) 50ML SYRG IV PRN (01:15)
[2025-03-25 02:35] LABS: Potassium 3.8 mmol/L (3.5-5.1); Sodium 142 mmol/L (136-145)
[2025-03-25 02:36] LABS: Anion Gap 12 (5-15); Carbon Dioxide 22 mmol/L (20-31)
[2025-03-25 02:39] LABS: Calcium 8.4 mg/dL (8.7-10.4); Chloride 108 mmol/L (98-107)
[2025-03-25 02:42] LABS: BUN/Creatinine Ratio 18.4 (10.0-20.0); Blood Urea Nitrogen 14 mg/dL (9-23)
[2025-03-25 02:46] LABS: Glucose 118 mg/dL (74-106)
[2025-03-25] MEDS: InsuLIN REG 1unit/0.01ml Soln (100units/ml) SC SCH (06:00)
[2025-03-25 06:03] LABS: Urine Protein, UAD 1+ (Negative)
[2025-03-25] MEDS: ACCU-CHEK COMFORT CURVE STRIP VI SCH (06:03)
--- NOTE | 2025-03-25 06:23 | DVH ---
EXAM: XY CHEST XRAY 1 VIEW HISTORY: SOB COMPARISON: XY CHEST PORTABLE on DOS: 02/13/25, XY CHEST PORTABLE on DOS: 08/09/24, XY CHEST XRAY 1 EW on DOS: 08/02/24, XY CHEST PORTABLE on DOS: 09/20/23, XY CHEST PORTABLE on DOS: 07/31/23 TECHNIQUE: Portable AP view of the chest was performed. FINDINGS: No pneumothorax, consolidative infiltrates, or pulmonary edema. The heart is not enlarged. IMPRESSION: No acute intrathoracic process.
[2025-03-25 07:22] LABS: Hematocrit 34.6 % (36.0-46.0); Hemoglobin 11.9 g/dL (12.2-16.2); Mean Corpuscular Hemoglobin 28.3 pg (28.0-32.0); Mean Corpuscular Volume 82.4 fL (80.0-100.0); Nucleated Red Blood Cells % 0.0 %
[2025-03-25 07:30] LABS: Potassium 3.6 mmol/L (3.5-5.1)
[2025-03-25 07:31] LABS: Anion Gap 11 (5-15); Calcium 9.4 mg/dL (8.7-10.4); Carbon Dioxide 24 mmol/L (20-31)
[2025-03-25 07:37] LABS: BUN/Creatinine Ratio 15.6 (10.0-20.0); Blood Urea Nitrogen 14 mg/dL (9-23); Glucose 103 mg/dL (74-106)
[2025-03-25 07:39] LABS: Chloride 110 mmol/L (98-107); Sodium 145 mmol/L (136-145)
[2025-03-25 10:15] LABS: Potassium 3.7 mmol/L (3.5-5.1); Sodium 143 mmol/L (136-145)
[2025-03-25 10:16] LABS: Anion Gap 10 (5-15); Calcium 9.4 mg/dL (8.7-10.4); Carbon Dioxide 24 mmol/L (20-31)
[2025-03-25 10:21] LABS: BUN/Creatinine Ratio 15.1 (10.0-20.0); Blood Urea Nitrogen 13 mg/dL (9-23); Chloride 109 mmol/L (98-107); Glucose 102 mg/dL (74-106)
[2025-03-25] MEDS: ONDANSETRON HCL 4 MG/2 ML VIAL IV PRN (11:54)
[2025-03-25] MEDS: MORPHINE SULFATE INJ 2 MG/ml SYRG IV PRN (11:55)
[2025-03-25] MEDS: SODIUM CHLORIDE 0.9% 1,000 ML IV SCH (13:00)
[2025-03-25 14:29] LABS: Potassium 3.7 mmol/L (3.5-5.1); Sodium 143 mmol/L (136-145)
[2025-03-25 14:30] LABS: Anion Gap 12 (5-15); Calcium 9.7 mg/dL (8.7-10.4); Carbon Dioxide 23 mmol/L (20-31)
[2025-03-25 14:35] LABS: BUN/Creatinine Ratio 15.3 (10.0-20.0); Blood Urea Nitrogen 13 mg/dL (9-23); Glucose 100 mg/dL (74-106)
[2025-03-25 14:36] LABS: Chloride 108 mmol/L (98-107)
--- NOTE | 2025-03-25 16:47 | DVHPN2 ---
Subjective Overnight events noted. Patient is currently off of insulin drip. 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 Medications Current Medications Medications Dose Ordered Sig/Alfie Route Start Time Stop Time Status Last Admin Dose Admin Docusate Sodium 100 mg BIDPRN PRN PO 03/24/25 20:15 Acetaminophen 650 mg Q6HP PRN PO 03/24/25 20:15 Acetaminophen/ Hydrocodone Bitart 1 tab Q4HP PRN PO 03/24/25 20:15 Diagnostic Test (Pha) 1 strip Q6HR 03/25/25 06:00 03/25/25 12:12 1 STRIP Insulin Human Regular Q6HR SC 03/25/25 06:00 Dextrose 50 ml UD PRN IV 03/25/25 01:15 Ondansetron HCl 4 mg Q4HPRN PRN IV 03/25/25 11:00 03/25/25 14:16 4 MG Morphine Sulfate 2 mg Q4HPRN PRN IV 03/25/25 11:00 03/25/25 11:55 2 MG Sodium Chloride 1,000 ml @ 125 mls/hr Q8H IV 03/25/25 13:00 03/25/25 13:00 125 MLS/HR Pantoprazole Sodium 40 mg BID IV 03/25/25 22:00 Laboratory Results Laboratory Tests 03/25/25 07:00 03/25/25 14:08 Chemistry Test 03/24/25 22:00 03/25/25 02:05 03/25/25 07:00 03/25/25 09:55 Calcium Level 9.3 mg/dL (8.7-10.4) 8.4 mg/dL (8.7-10.4) L 9.4 mg/dL (8.7-10.4) 9.4 mg/dL (8.7-10.4) Test 03/25/25 14:08 Calcium Level 9.7 mg/dL (8.7-10.4) Urinalysis Test 03/25/25 05:30 Urine Color Yellow (Yellow) Urine Clarity Turbid (Clear) H Urine pH 6.0 (5.0-9.0) Urine Specific [place] 1.028 (1.001-1.035) Urine Protein 1+ (Negative) H Urine Ketones 3+ (Negative) H Urine Blood 3+ /uL (Negative) H Urine Nitrite Negative (Negative) Urine Bilirubin Negative (Negative) Urine Urobilinogen Normal mg/dL (Negative) Urine Leukocyte Esterase Trace /uL (Negative) Urine RBC 312 /hpf (0 - 4) Urine Microscopic WBC 27 /HPF (0-5) H Urine Squamous Epithelial Cells Few /hpf (<5) Urine Bacteria None seen /hpf (None Seen) Urine Mucus Few (None Seen) Urine Glucose Normal mg/dL (Normal) Assessment/Plan Assessment/Plan 29-year-old young female with a known history of insulin-dependent diabetes mellitus, currently on insulin pump presented to the hospital with the abdominal pain nausea and vomiting found to have 1. Abdominal pain nausea and vomiting secondary to DKA 2. DKA resolved 3. Epigastric pain 4. Insulin-dependent diabetes mellitus currently on insulin pump -Accu-Cheks AC and HS, start diabetic diet as tolerated, continue insulin-pump -downgraded to telemetry. Plan discussed with: Patient My Orders Orders - NICKO THOMPSON MD Procedure Category Date Status Time Ondansetron Hcl PHA 03/25/25 In Process (Zofran) 11:00 Morphine Sulfate PHA 03/25/25 In Process Injection 11:00 Sodium Chloride 0.9% PHA 03/25/25 In Process 13:00 Pantoprazole PHA 03/25/25 In Process (Protonix) 22:00 Clear Liq Diet DIET 03/25/25 Transmitted Dinner Transfer Orders XFER 03/25/25 Transmitted 16:29 Date of Service: Mar 25, 2025 Billing Provider: NICKO THOMPSON MD Common Visit Codes: [id number] INP/OBS CARE(MOD) NICKO THOMPSON MD Mar 25, 2025 16:47
[2025-03-25 17:34] LABS: Amylase 59 U/L (30-118); Lipase 28 U/L (12-53); Total Protein 6.5 g/dL (5.7-8.2)
[2025-03-25 17:35] LABS: Albumin 4.0 g/dL (3.2-4.8); Bilirubin, Total 0.5 mg/dL (0.2-1.0)
[2025-03-25 17:37] LABS: Alanine Aminotransferase < 9 U/L (7-40); Alkaline Phosphatase 40 U/L (46-116)
[2025-03-25 17:49] LABS: Bilirubin, Direct 0.2 mg/dL (<0.3)
[2025-03-25] MEDS: METOCLOPRAMIDE HCL 5MG/ml INJ 2ml VIAL IV PRN (18:16)
--- NOTE | 2025-03-25 18:31 | DVH ---
Exam: CT CT AB PEL WO CON-NO ORAL OR IV History: EPIGASTRIC PAIN, N/V Comparison Study: CT CT AB PEL WO CON-NO ORAL OR IV on DOS: 08/10/24, CT CT AB PEL WO CON-NO ORAL OR IV on DOS: 03/05/23 TECHNIQUE: Multidetector CT of the abdomen and pelvis was performed from lung bases to pubic symphysi s. Imaging was performed without IV contrast. Axial, coronal, and sagittal multiplanar reformats were obtained from the axial data set by the technologist. RADIATION DOSE: DLP 311.04 mGy.cm; CTDI vol 6.16 mGy. Findings: Limited evaluation given noncontrast technique. Lungs: The lung bases are clear. Heart: No cardiomegaly or pericardial effusion. Liver: Unremarkable. Gallbladder: Unremarkable. Spleen: Unremarkable Pancreas: Unremarkable Adrenals: Unremarkable Kidneys: Unremarkable GI tract: Unremarkable : Unremarkable. Distended urinary bladder. Vasculature: Unremarkable Lymphadenopathy: Absent Peritoneum: No ascites Musculoskeletal: Unremarkable Soft tissues: Unremarkable Impression: 1. Limited evaluation given noncontrast technique. 2. No acute abdominopelvic abnormalities.
[2025-03-25] MEDS: PANTOPRAZOLE 40 MG/10 ML VIAL INJ IV SCH (21:10)
[2025-03-25] MEDS: MORPHINE SULFATE 4 MG/ML SYR/VIAL IV PRN (21:29)
[2025-03-26 01:00] VITALS: BP 133/92; PULSE 98; RESP 20; TEMP 98.5; O2SAT 97
[2025-03-26 05:00] VITALS: BP 129/93; PULSE 103; RESP 20; TEMP 98.2; O2SAT 97
[2025-03-26 07:21] LABS: Hematocrit 34.9 % (36.0-46.0); Hemoglobin 11.8 g/dL (12.2-16.2); Mean Corpuscular Hemoglobin 28.2 pg (28.0-32.0); Mean Corpuscular Volume 83.2 fL (80.0-100.0); Nucleated Red Blood Cells % 0.0 %
[2025-03-26 08:00] VITALS: PULSE 114; PULSE 90; RESP 20; O2SAT 99
[2025-03-26 08:52] VITALS: BP 133/94; PULSE 90; RESP 16; TEMP 98.3; O2SAT 99
[2025-03-26 08:59] LABS: Anion Gap 12 (5-15); Carbon Dioxide 22 mmol/L (20-31); Sodium 141 mmol/L (136-145)
[2025-03-26 09:00] LABS: Calcium 9.4 mg/dL (8.7-10.4)
[2025-03-26 09:05] LABS: BUN/Creatinine Ratio 10.8 (10.0-20.0); Glucose 84 mg/dL (74-106)
[2025-03-26 09:16] LABS: Blood Urea Nitrogen 8 mg/dL (9-23); Chloride 107 mmol/L (98-107); Potassium 3.5 mmol/L (3.5-5.1)
--- NOTE | 2025-03-26 11:49 | ECG ---
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
[2025-03-26 13:00] VITALS: BP 132/81; PULSE 83; RESP 17; TEMP 98.3; O2SAT 98
--- NOTE | 2025-03-26 19:21 | DVHPN2 ---
Subjective Overnight events noted. Patient is still complaining of nausea and vomiting. 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 Medications Current Medications Medications Dose Ordered Sig/Alfie Route Start Time Stop Time Status Last Admin Dose Admin Docusate Sodium 100 mg BIDPRN PRN PO 03/24/25 20:15 Acetaminophen 650 mg Q6HP PRN PO 03/24/25 20:15 Acetaminophen/ Hydrocodone Bitart 1 tab Q4HP PRN PO 03/24/25 20:15 Diagnostic Test (Pha) 1 strip Q6HR 03/25/25 06:00 03/26/25 18:00 1 STRIP Insulin Human Regular Q6HR SC 03/25/25 06:00 Dextrose 50 ml UD PRN IV 03/25/25 01:15 Ondansetron HCl 4 mg Q4HPRN PRN IV 03/25/25 11:00 03/26/25 15:49 4 MG Sodium Chloride 1,000 ml @ 125 mls/hr Q8H IV 03/25/25 13:00 03/26/25 12:58 125 MLS/HR Pantoprazole Sodium 40 mg BID IV 03/25/25 22:00 03/26/25 08:22 40 MG Morphine Sulfate 4 mg Q2HR PRN IV 03/25/25 17:30 03/26/25 15:50 4 MG Metoclopramide HCl 5 mg Q8HPRN PRN IV 03/25/25 18:00 03/26/25 17:17 5 MG Laboratory Results Laboratory Tests 03/26/25 05:57 Chemistry Test 03/26/25 05:57 Calcium Level 9.4 mg/dL (8.7-10.4) Urinalysis Test 03/25/25 05:30 Urine Color Yellow (Yellow) Urine Clarity Turbid (Clear) H Urine pH 6.0 (5.0-9.0) Urine Specific [place] 1.028 (1.001-1.035) Urine Protein 1+ (Negative) H Urine Ketones 3+ (Negative) H Urine Blood 3+ /uL (Negative) H Urine Nitrite Negative (Negative) Urine Bilirubin Negative (Negative) Urine Urobilinogen Normal mg/dL (Negative) Urine Leukocyte Esterase Trace /uL (Negative) Urine RBC 312 /hpf (0 - 4) Urine Microscopic WBC 27 /HPF (0-5) H Urine Squamous Epithelial Cells Few /hpf (<5) Urine Bacteria None seen /hpf (None Seen) Urine Mucus Few (None Seen) Urine Glucose Normal mg/dL (Normal) Assessment/Plan Assessment/Plan 29-year-old young female with a known history of insulin-dependent diabetes mellitus, currently on insulin pump presented to the hospital with the abdominal pain nausea and vomiting found to have 1. Abdominal pain nausea and vomiting secondary to DKA 2. DKA resolved 3. Epigastric pain 4. Insulin-dependent diabetes mellitus currently on insulin pump -Accu-Cheks AC and HS, patient is going for EGD today -after EGD start clear liquid diet as tolerated. Plan discussed with: Patient Date of Service: Mar 26, 2025 Billing Provider: NICKO THOMPSON MD Common Visit Codes: [id number] INP/OBS CARE(MOD), NOT BILLABLE NICKO THOMPSON MD Mar 26, 2025 19:21
[2025-03-26 20:00] VITALS: PULSE 89; RESP 18; O2SAT 97
--- NOTE | 2025-03-26 22:56 | DVHINCON2 ---
Date of service: Mar 26, [address] Bautista Reason for Consultation Nausea vomiting and epigastric pain History of Present Illness 29-year-old female with PMHx DM presents with a chief complaint of weakness, chest pain, nausea, vomiting, headache, epigastric abdominal pain, and SOB x 3 days. Patient was sent over from Urgent Care due to chest pain and SOB. Patient states that she normally gets this way when she is in DKA, sugar was 173 in triage. Patient was seen at bedside today and she is clinically starting to improve. She still complains of nausea GERD and epigastric pain Patient denied previous endoscopy however upon review records we did do one in February of 2023 which had shown mild gastritis and biopsies were negative Past Medical History Type 1 diabetes Diabetic ketoacidosis Anxiety depression Past Surgical History Negative Family History: Cervical cancer G8 MOTHER Allergies: Coded Allergies: Soy Allergy (Verified Allergy, Severe, sob, 05/14/23) Home Meds Active Scripts Insulin Detemir (Levemir) Inj, 25 ' SC HS, #30 INJ Prov:ROSELIA BAUM MD 08/12/24 Insulin Aspart (Novolog) 100 Unit/Ml Inj, 10 UNIT IJ TID, #30 INJ Prov:ROSELIA BAUM MD 08/12/24 Vital Signs Vital Signs Date Time Temp Pulse Resp B/P (MAP) Pulse Ox O2 Delivery O2 Flow Rate FiO2 03/26/25 22:05 105 17 124/90 03/26/25 13:00 98.3 98 98.3 03/26/25 08:00 Room Air* 0 21 Physical Exam Generally-nondistended young lady, well nourished well developed. Mild distress HEENT-atraumatic, normocephalic Heart-sinus tachycardic Lungs to auscultate bilaterally Abdomen soft, epigastric tenderness, nondistended Musculoskeletal-no edema cyanosis Neuro-AO x3, no focal deficit Labs/Diagnostic Data Labs Test 03/26/25 17:55 03/26/25 05:57 03/25/25 14:08 03/25/25 05:30 Range/Units POC Glucose 112 H 70-106 mg/dl White Blood Count 6.6 4.4-10.8 10^3/uL Red Blood Count 4.19 4.0-5.20 10^6/uL Hemoglobin 11.8 L 12.2-16.2 g/dL Hematocrit 34.9 L 36.0-46.0 % Mean Corpuscular Volume 83.2 80.0-100.0 fL Mean Corpuscular Hemoglobin 28.2 28.0-32.0 pg Mean Corpuscular Hemoglobin Concent 33.9 32.0-36.0 g/dL Red Cell Distribution Width 15.0 H 11.8-14.3 % Platelet Count 339 140-450 10^3/uL Mean Platelet Volume 7.3 6.9-10.8 fL Neutrophils (%) (Auto) 52.7 37.0-80.0 % Lymphocytes (%) (Auto) 36.1 10.0-50.0 % Monocytes (%) (Auto) 7.8 0.0-12.0 % Eosinophils (%) (Auto) 2.8 0.0-7.0 % Basophils (%) (Auto) 0.6 0.0-2.0 % Neutrophils # (Auto) 3.5 1.6-8.6 10 ^3/uL Lymphocytes # (Auto) 2.4 0.4-5.4 10 ^3/uL Monocytes # (Auto) 0.5 0-1.3 10 ^3/uL Eosinophils # (Auto) 0.2 0-0.8 10 ^3/uL Basophils # (Auto) 0 0-0.2 10 ^3/uL Nucleated Red Blood Cells 0.0 % Sodium Level 141 136-145 mmol/L Potassium Level 3.5 3.5-5.1 mmol/L Chloride Level 107 98-107 mmol/L Carbon Dioxide Level 22 20-31 mmol/L Anion Gap 12 5-15 Blood Urea Nitrogen 8 L 9-23 mg/dL Creatinine 0.74 0.550-1.02 mg/dL Glomerular Filtration Rate Calc 114 >90 mL/min BUN/Creatinine Ratio 10.8 10.0-20.0 Serum Glucose 84 74-106 mg/dL Calcium Level 9.4 8.7-10.4 mg/dL Total Bilirubin 0.5 0.2-1.0 mg/dL Direct Bilirubin 0.2 <0.3 mg/dL Aspartate Amino Transferase (AST) 14 13-40 U/L Alanine Aminotransferase (ALT) < 9 7-40 U/L Alkaline Phosphatase 40 L 46-116 U/L Total Protein 6.5 5.7-8.2 g/dL Albumin 4.0 3.2-4.8 g/dL Amylase Level 59 30-118 U/L Lipase 28 12-53 U/L Beta HCG, Quantitative 0.7 L 1.5-4.2 mIU/mL Urine Color Yellow Yellow Urine Clarity Turbid H Clear Urine pH 6.0 5.0-9.0 Urine Specific [place] 1.028 1.001-1.035 Urine Protein 1+ H Negative Urine Ketones 3+ H Negative Urine Blood 3+ H Negative /uL Urine Nitrite Negative Negative Urine Bilirubin Negative Negative Urine Urobilinogen Normal Negative mg/dL Urine Leukocyte Esterase Trace Negative /uL Urine RBC 312 0 - 4 /hpf Urine Microscopic WBC 27 H 0-5 /HPF Urine Squamous Epithelial Cells Few <5 /hpf Urine Bacteria None seen None Seen /hpf Urine Mucus Few None Seen Urine Glucose Normal Normal mg/dL Test 03/24/25 15:10 03/24/25 14:26 03/24/25 13:54 Range/Units Troponin I High Sensitivity 5 </=34 ng/L Blood Gas Specimen Type Arterial Blood Gas Sample Site Right radial Blood Gas Patient Temperature 37.0 Arterial Blood Date Drawn [id number] Arterial Blood pH 7.561 *H 7.350-7.450 Arterial Blood Partial Pressure CO2 20.9 L 32.0-45.0 mmHg Arterial Blood Partial Pressure O2 104.0 83.0-108.0 mmHg Arterial Blood HCO3 18.3 L 21.0-28.0 mmol/L Arterial Blood Oxygen Saturation 98.6 H 94.0-98.0 % Arterial Blood Base Excess -1.6 -2.0-3.0 mmol/L Arterial Blood Oxyhemoglobin 97.0 94.0-98.0 % Arterial Blood Carboxyhemoglobin 1.1 0.5-1.5 % Arterial Blood Methemoglobin 0.5 0.0-1.5 % Zenon Test Yes Blood Gas Total Hemoglobin 14.20 12.0-16.0 g/dL Blood Gas Modality Nasal cannula FiO2 % 28.0 Blood Gas Critical Value Read Back yes Blood Gas Notified Whom antwon Brasher md Blood Gas Notified Time [id number] Blood Gas Notified By Angel chowdhury i. Beta-Hydroxybutyric Acid 4.462 H < 0.4 mmol/L CT scan abdomen pelvis Negative Problems(with codes): (1) Uncontrolled diabetes mellitus (2) DKA (diabetic ketoacidosis) (3) Vomiting (4) Epigastric pain (5) Nausea & vomiting Plan/Recommendation Plan Protonix 40 mg IV q.12 hours Carafate 1 g p.o. twice a day Possible endoscopy on 03/27/2025 if the patient continues to be symptomatic Keep NPO after midnight and check beta hCG which was normal Plan discussed with: Patient, Other (Mother on the phone) DENTON CULP MD Mar 26, 2025 22:56
[2025-03-27] VITALS (11 sets, daily range): BP systolic 112–164; BP diastolic 71–104; PULSE 89–123; RESP 15–18; TEMP 98–98.8; O2SAT 97–99
[2025-03-27 07:04] LABS: INR 1.19 (0.9-1.15); Partial Thromboplastin Time 30.2 SEC (24.5-34.5); Prothrombin Time 12.4 sec (9.3-11.8)
[2025-03-27] MEDS ORDERED: SODIUM CHLORIDE LOCK 10 ML ONE (10:57)
[2025-03-27 11:28] LABS: Hematocrit 37.1 % (36.0-46.0); Hemoglobin 12.3 g/dL (12.2-16.2); Mean Corpuscular Hemoglobin 27.9 pg (28.0-32.0); Mean Corpuscular Volume 84.4 fL (80.0-100.0); Nucleated Red Blood Cells % 0.1 %
[2025-03-27 11:39] LABS: Chloride 106 mmol/L (98-107); Potassium 4.0 mmol/L (3.5-5.1); Sodium 140 mmol/L (136-145)
[2025-03-27 11:40] LABS: Anion Gap 19 (5-15)
[2025-03-27 11:41] LABS: Calcium 9.3 mg/dL (8.7-10.4)
[2025-03-27 11:42] LABS: Carbon Dioxide 15 mmol/L (20-31)
[2025-03-27 11:45] LABS: BUN/Creatinine Ratio 10.5 (10.0-20.0)
[2025-03-27 11:47] LABS: Blood Urea Nitrogen 8 mg/dL (9-23); Glucose 186 mg/dL (74-106)
[2025-03-27] MEDS: LIDOCAINE VISCOUS 2% 15ML UD ONE (14:21)
[2025-03-27] MEDS: fentaNYL CITRATE 100 MCG/2 ML VL ONE (14:22)
[2025-03-27] MEDS: diphenhdrAMINE HCL 50 MG/1 ML VL ONE (14:22)
[2025-03-27] MEDS: MIDAZOLAM HCL 5 MG/ML-1ML VIAL ONE (14:22)
[2025-03-27] MEDS ORDERED: SODIUM CHLORIDE 0.9% 1,000 ML IV SCH (14:30)
--- NOTE | 2025-03-27 14:33 | DVHOP2 ---
Operative Report DATE OF OPERATION: 03/27/25 PROCEDURE: Upper Endoscopy with biopsy PREOPERATIVE INDICATION: The patient is a 29 -year-old female undergoing endoscopy for with nausea vomiting and epigastric pains. POSTOPERATIVE DIAGNOSES: 1. Minimal gastritis 2. 0.5 cm to 1 cm sliding-type hiatal hernia without significant esophagitis PROCEDURE PERFORMED BY: Denton Mireles GI NURSE: Lila SCOPE: Olympus videoendoscope. ASA CLASS: 2. PREOPERATIVE MEDICATIONS: Versed 5 mg, Fentanyl 100 mcg, Benadryl 50 mg I administered moderate sedation throughout this _9_ minutes procedure. An independent trained observer pushed medications at my direction, and monitored the patient's level of consciousness and physiological status throughout. PROCEDURE IN DETAIL: After obtaining an informed consent, the patient was placed on left lateral decubitus position. The patient was then sedated with the above medications. A bite block was placed between her teeth. The endoscope was then passed through the oropharynx, into the esophagus, and through the stomach and pylorus up to the second and third part of the duodenum. The endoscope was then withdrawn. The 2nd and third part of the duodenal and the duodenal bulb were normal. Duodenal biopsies were obtained The pre-pyloric area antrum and body showed minimal gastritis. Gastric biopsies were obtained. On retroflexion the fundus cardia and angularis were normal. The endoscope was then withdrawn into distal esophagus Patient had a 5 mm extension of columnar epithelium into the distal esophagus, 0.5 cm sliding-type hiatal hernia GE junction biopsies were obtained. The remaining distal and proximal esophagus and oropharynx were unremarkable The patient tolerated the procedure well without difficulty. COMPLICATIONS : None SPECIMENS: Duodenum Biopsies Gastric biopsies GE junction biopsies DISPOSITION: Transfer back to the floor Stable PLAN: 1. Await for biopsy result 2. Will place pt on Protonix 40 mg p.o. daily 3. Carafate 1 g p.o. q.h.s. 4. DC aspirin NSAIDs smoking alcohol and marijuana 5. Resume soft mechanical diet advance as tolerated DENTON MIRELES MD Mar 27, 2025 14:33
[2025-03-27] MEDS: SODIUM CHLORIDE 0.9% 1,000 ML IV SCH (17:14)
--- NOTE | 2025-03-27 19:27 | DVHPN2 ---
Subjective Overnight events noted. Patient is status post EGD shows no evidence of any acute findings pt, patient's BNP shows evidence of metabolic acidosis may going into DKA. 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 Medications Current Medications Medications Dose Ordered Sig/Alfie Route Start Time Stop Time Status Last Admin Dose Admin Docusate Sodium 100 mg BIDPRN PRN PO 03/24/25 20:15 Acetaminophen 650 mg Q6HP PRN PO 03/24/25 20:15 Acetaminophen/ Hydrocodone Bitart 1 tab Q4HP PRN PO 03/24/25 20:15 Diagnostic Test (Pha) 1 strip Q6HR 03/25/25 06:00 03/27/25 17:24 1 STRIP Insulin Human Regular Q6HR SC 03/25/25 06:00 03/27/25 17:24 4 UNITS Dextrose 50 ml UD PRN IV 03/25/25 01:15 Ondansetron HCl 4 mg Q4HPRN PRN IV 03/25/25 11:00 03/27/25 17:14 4 MG Pantoprazole Sodium 40 mg BID IV 03/25/25 22:00 03/27/25 08:58 40 MG Morphine Sulfate 4 mg Q2HR PRN IV 03/25/25 17:30 03/27/25 09:26 4 MG Metoclopramide HCl 5 mg Q8HPRN PRN IV 03/25/25 18:00 03/27/25 11:28 5 MG Sodium Chloride 1,000 ml @ 200 mls/hr Q5H IV 03/27/25 14:30 UNV Sodium Chloride 1,000 ml @ 200 mls/hr Q5H IV 03/27/25 17:00 03/27/25 17:14 200 MLS/HR Laboratory Results Laboratory Tests 03/27/25 10:50 Chemistry Test 03/27/25 10:50 Calcium Level 9.3 mg/dL (8.7-10.4) Coagulation Test 03/27/25 06:00 Prothrombin Time 12.4 sec (9.3-11.8) H Prothrombin Time INR 1.19 (0.9-1.15) H Activated Partial Thromboplast Time 30.2 SEC (24.5-34.5) Urinalysis Test 03/25/25 05:30 Urine Color Yellow (Yellow) Urine Clarity Turbid (Clear) H Urine pH 6.0 (5.0-9.0) Urine Specific [place] 1.028 (1.001-1.035) Urine Protein 1+ (Negative) H Urine Ketones 3+ (Negative) H Urine Blood 3+ /uL (Negative) H Urine Nitrite Negative (Negative) Urine Bilirubin Negative (Negative) Urine Urobilinogen Normal mg/dL (Negative) Urine Leukocyte Esterase Trace /uL (Negative) Urine RBC 312 /hpf (0 - 4) Urine Microscopic WBC 27 /HPF (0-5) H Urine Squamous Epithelial Cells Few /hpf (<5) Urine Bacteria None seen /hpf (None Seen) Urine Mucus Few (None Seen) Urine Glucose Normal mg/dL (Normal) Assessment/Plan Assessment/Plan 29-year-old young female with a known history of insulin-dependent diabetes mellitus, currently on insulin pump presented to the hospital with the abdominal pain nausea and vomiting found to have 1. Abdominal pain nausea and vomiting secondary to DKA 2. Metabolic acidosis, watch for reoccurrence of DKA 3. Epigastric pain 4. Insulin-dependent diabetes mellitus currently on insulin pump -aggressive IV fluids hydration normal saline at 200 mL/hour, repeat BNP at 7:00 p.m. and call on-call physician. -Accu-Cheks AC and HS, patient is going for EGD today -after EGD start clear liquid diet as tolerated. Plan discussed with: Patient, Other (Patient's mom at bedside.) My Orders Orders - NICKO THOMPSON MD Procedure Category Date Status Time Sodium Chloride 0.9% PHA 03/27/25 In Process 17:00 Date of Service: Mar 27, 2025 Billing Provider: NICKO THOMPSON MD Common Visit Codes: [id number] INP/OBS CARE(MOD) NICKO THOMPSON MD Mar 27, 2025 19:27
[2025-03-27 22:17] LABS: Sodium 140 mmol/L (136-145)
[2025-03-27 22:18] LABS: Anion Gap 16 (5-15); Calcium 9.2 mg/dL (8.7-10.4)
[2025-03-27 22:23] LABS: BUN/Creatinine Ratio 9.0 (10.0-20.0)
[2025-03-27 22:25] LABS: Blood Urea Nitrogen 8 mg/dL (9-23); Carbon Dioxide 16 mmol/L (20-31); Chloride 108 mmol/L (98-107); Glucose 157 mg/dL (74-106); Potassium 3.1 mmol/L (3.5-5.1)
[2025-03-28] VITALS (8 sets, daily range): BP systolic 128–159; BP diastolic 89–102; PULSE 96–116; RESP 14–19; TEMP 97.2–98.9; O2SAT 96–99
[2025-03-28] MEDS: POTASSIUM CHL 20 Meq TABLET PO ONE (01:16)
[2025-03-28 09:34] LABS: Hematocrit 39.4 % (36.0-46.0); Hemoglobin 13.1 g/dL (12.2-16.2); Mean Corpuscular Hemoglobin 27.8 pg (28.0-32.0); Mean Corpuscular Volume 83.3 fL (80.0-100.0); Nucleated Red Blood Cells % 0.1 %
[2025-03-28 09:49] LABS: Potassium 3.8 mmol/L (3.5-5.1); Sodium 140 mmol/L (136-145)
[2025-03-28 09:50] LABS: Anion Gap 15 (5-15); Calcium 9.4 mg/dL (8.7-10.4)
[2025-03-28 09:55] LABS: BUN/Creatinine Ratio 7.4 (10.0-20.0); Glucose 96 mg/dL (74-106)
[2025-03-28 10:05] LABS: Blood Urea Nitrogen 6 mg/dL (9-23); Carbon Dioxide 17 mmol/L (20-31); Chloride 108 mmol/L (98-107)
[2025-03-28] MEDS ORDERED: ALPRAZolam 0.5 MG TAB PO PRN (14:15)
--- NOTE | 2025-03-28 17:06 | DVHPN2 ---
Subjective Overnight events noted. Patient is status post EGD shows no evidence of any acute findings pt, patient's BNP shows evidence of metabolic acidosis may going into DKA. 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 Medications Current Medications Medications Dose Ordered Sig/Alfie Route Start Time Stop Time Status Last Admin Dose Admin Docusate Sodium 100 mg BIDPRN PRN PO 03/24/25 20:15 Acetaminophen 650 mg Q6HP PRN PO 03/24/25 20:15 Acetaminophen/ Hydrocodone Bitart 1 tab Q4HP PRN PO 03/24/25 20:15 Diagnostic Test (Pha) 1 strip Q6HR 03/25/25 06:00 03/28/25 11:36 1 STRIP Insulin Human Regular Q6HR SC 03/25/25 06:00 03/27/25 17:24 4 UNITS Dextrose 50 ml UD PRN IV 03/25/25 01:15 Ondansetron HCl 4 mg Q4HPRN PRN IV 03/25/25 11:00 03/28/25 15:59 4 MG Pantoprazole Sodium 40 mg BID IV 03/25/25 22:00 03/28/25 08:46 40 MG Morphine Sulfate 4 mg Q2HR PRN IV 03/25/25 17:30 03/28/25 08:48 4 MG Metoclopramide HCl 5 mg Q8HPRN PRN IV 03/25/25 18:00 03/28/25 12:36 5 MG Sodium Chloride 1,000 ml @ 200 mls/hr Q5H IV 03/27/25 14:30 UNV Sodium Chloride 1,000 ml @ 200 mls/hr Q5H IV 03/27/25 17:00 03/28/25 14:27 200 MLS/HR Sucralfate 1 gm BID@0600,2200 PO 03/28/25 22:00 Dicyclomine HCl 20 mg QID PO 03/28/25 18:00 Alprazolam 0.5 mg Q8HPRN PRN PO 03/28/25 14:15 Laboratory Results Laboratory Tests 03/28/25 08:57 Chemistry Test 03/27/25 21:40 03/28/25 08:57 Calcium Level 9.2 mg/dL (8.7-10.4) 9.4 mg/dL (8.7-10.4) Urinalysis Test 03/25/25 05:30 Urine Color Yellow (Yellow) Urine Clarity Turbid (Clear) H Urine pH 6.0 (5.0-9.0) Urine Specific [place] 1.028 (1.001-1.035) Urine Protein 1+ (Negative) H Urine Ketones 3+ (Negative) H Urine Blood 3+ /uL (Negative) H Urine Nitrite Negative (Negative) Urine Bilirubin Negative (Negative) Urine Urobilinogen Normal mg/dL (Negative) Urine Leukocyte Esterase Trace /uL (Negative) Urine RBC 312 /hpf (0 - 4) Urine Microscopic WBC 27 /HPF (0-5) H Urine Squamous Epithelial Cells Few /hpf (<5) Urine Bacteria None seen /hpf (None Seen) Urine Mucus Few (None Seen) Urine Glucose Normal mg/dL (Normal) Assessment/Plan Assessment/Plan 29-year-old young female with a known history of insulin-dependent diabetes mellitus, currently on insulin pump presented to the hospital with the abdominal pain nausea and vomiting found to have 1. Abdominal pain nausea and vomiting secondary to DKA 2. Metabolic acidosis, watch for reoccurrence of DKA 3. Epigastric pain 4. Insulin-dependent diabetes mellitus currently on insulin pump -CT abdomen and pelvis -aggressive IV fluids hydration normal saline at 200 mL/hour, repeat BNP at 7:00 p.m. and call on-call physician. -Accu-Cheks AC and HS, patient is going for EGD today -after EGD start clear liquid diet as tolerated. Plan discussed with: Patient My Orders Orders - NICKO THOMPSON MD Procedure Category Date Status Time Communication Order ORDERS 03/27/25 Transmitted 19:27 Communication Order ORDERS 03/27/25 Transmitted 21:05 * Endocrinology CONS 03/28/25 Transmitted Consult 12:45 Sucralfate Susp PHA 03/28/25 In Process (Carafate Susp) 22:00 Dicyclomine Capsule PHA 03/28/25 In Process (Bentyl Capsule) 18:00 Alprazolam Tablet PHA 03/28/25 In Process (Xanax Tablet) 14:15 Date of Service: Mar 28, 2025 Billing Provider: NICKO THOMPSON MD Common Visit Codes: [id number] INP/OBS CARE(MOD) NICKO THOMPSON MD Mar 28, 2025 17:06
[2025-03-28] MEDS: DICYCLOMINE HCL 10 MG CAP PO SCH (17:18)
--- NOTE | 2025-03-28 18:30 | DVHINCON2 ---
Date of service: Mar 28, 2025 History of Present Illness 29-year-old female with history of type 1 diabetes mellitus on OmniPod with Humalog who presented to the hospital on 03/24 with acute onset weakness, chest pa in, nausea, vomiting. Upon presentation vital signs showed blood pressure 140/103, respiratory rate 25, pulse 124, afebrile satting well on 2 L nasal cannula. Labs notable for sodium 138, glucose 176, calcium 11, creatinine 1.2, anion gap 18, CO2 19, beta hydroxybutyrate 4.5. Patient was provided IV fluid resuscitation and continued her insulin pump with regular metabolic panel monitoring. On 03/26 patient underwent EGD for evaluation of her chronic nausea, vomiting, epigastric pain. EGD showed minimal gastritis, 1 cm sliding-type hiatal hernia without esophagitis. Patient is a clinic patient of [facility] last seen December 15, 2024. At that time some evidence of recurrent hypoglycemia due to stacking multiple insulin doses with postprandial hyperglycemia. Carb ratio strengthened at that time. Current insulin pump settings: 24 hours: Basal 1.1 Insulin carb ratio 1:6.5 Insulin sensitivity factor I:32 Family History: Cervical cancer G8 MOTHER Allergies: Coded Allergies: Soy Allergy (Verified Allergy, Severe, sob, 05/14/23) Home Meds Active Scripts Insulin Detemir (Levemir) Inj, 25 ' SC HS, #30 INJ Prov:ROSELIA BAUM MD 08/12/24 Insulin Aspart (Novolog) 100 Unit/Ml Inj, 10 UNIT IJ TID, #30 INJ Prov:ROSELIA BAUM MD 08/12/24 Current Medications Current Medications Medications (Trade) Dose Ordered Sig/Alfie Route PRN Reason Start Time Stop Time Status Last Admin Sucralfate (Carafate Susp) 1 gm BID@0600,2200 PO 03/28/25 22:00 Dicyclomine HCl (Bentyl Capsule) 20 mg QID PO 03/28/25 18:00 03/28/25 17:18 Alprazolam (Xanax Tablet) 0.5 mg Q8HPRN PRN PO ANXIETY 03/28/25 14:15 Review of Systems Negative except HPI Vital Signs Vital Signs Date Time Temp Pulse Resp B/P (MAP) Pulse Ox O2 Delivery O2 Flow Rate FiO2 03/28/25 16:40 98.4 112 19 159/99 (119) 99 98.4 7/9/25 08:00 Room Air* 0 21 Physical Exam Gen - no acute distress HEENT - no thyromegaly CV - RRR, no m/r/g Resp - CTAB Ext - no edema Labs/Diagnostic Data Labs Test 03/28/25 17:15 03/28/25 08:57 03/27/25 06:00 03/25/25 14:08 Range/Units POC Glucose 98 70-106 mg/dl White Blood Count 5.9 # 4.4-10.8 10^3/uL Red Blood Count 4.73 4.0-5.20 10^6/uL Hemoglobin 13.1 12.2-16.2 g/dL Hematocrit 39.4 36.0-46.0 % Mean Corpuscular Volume 83.3 80.0-100.0 fL Mean Corpuscular Hemoglobin 27.8 L 28.0-32.0 pg Mean Corpuscular Hemoglobin Concent 33.3 32.0-36.0 g/dL Red Cell Distribution Width 15.0 H 11.8-14.3 % Platelet Count 353 140-450 10^3/uL Mean Platelet Volume 7.3 6.9-10.8 fL Neutrophils (%) (Auto) 70.7 37.0-80.0 % Lymphocytes (%) (Auto) 22.8 10.0-50.0 % Monocytes (%) (Auto) 4.9 0.0-12.0 % Eosinophils (%) (Auto) 1.2 0.0-7.0 % Basophils (%) (Auto) 0.4 0.0-2.0 % Neutrophils # (Auto) 4.2 1.6-8.6 10 ^3/uL Lymphocytes # (Auto) 1.4 0.4-5.4 10 ^3/uL Monocytes # (Auto) 0.3 0-1.3 10 ^3/uL Eosinophils # (Auto) 0.1 0-0.8 10 ^3/uL Basophils # (Auto) 0 0-0.2 10 ^3/uL Nucleated Red Blood Cells 0.1 % Sodium Level 140 136-145 mmol/L Potassium Level 3.8 3.5-5.1 mmol/L Chloride Level 108 H 98-107 mmol/L Carbon Dioxide Level 17 L 20-31 mmol/L Anion Gap 15 5-15 Blood Urea Nitrogen 6 L 9-23 mg/dL Creatinine 0.81 0.550-1.02 mg/dL Glomerular Filtration Rate Calc 102 >90 mL/min BUN/Creatinine Ratio 7.4 L 10.0-20.0 Serum Glucose 96 74-106 mg/dL Calcium Level 9.4 8.7-10.4 mg/dL Prothrombin Time 12.4 H 9.3-11.8 sec Prothrombin Time INR 1.19 H 0.9-1.15 Activated Partial Thromboplast Time 30.2 24.5-34.5 SEC Beta HCG, Quantitative 0.1 L 1.5-4.2 mIU/mL Total Bilirubin 0.5 0.2-1.0 mg/dL Direct Bilirubin 0.2 <0.3 mg/dL Aspartate Amino Transferase (AST) 14 13-40 U/L Alanine Aminotransferase (ALT) < 9 7-40 U/L Alkaline Phosphatase 40 L 46-116 U/L Total Protein 6.5 5.7-8.2 g/dL Albumin 4.0 3.2-4.8 g/dL Amylase Level 59 30-118 U/L Lipase 28 12-53 U/L Test 03/25/25 05:30 03/24/25 15:10 03/24/25 14:26 03/24/25 13:54 Range/Units Urine Color Yellow Yellow Urine Clarity Turbid H Clear Urine pH 6.0 5.0-9.0 Urine Specific [place] 1.028 1.001-1.035 Urine Protein 1+ H Negative Urine Ketones 3+ H Negative Urine Blood 3+ H Negative /uL Urine Nitrite Negative Negative Urine Bilirubin Negative Negative Urine Urobilinogen Normal Negative mg/dL Urine Leukocyte Esterase Trace Negative /uL Urine RBC 312 0 - 4 /hpf Urine Microscopic WBC 27 H 0-5 /HPF Urine Squamous Epithelial Cells Few <5 /hpf Urine Bacteria None seen None Seen /hpf Urine Mucus Few None Seen Urine Glucose Normal Normal mg/dL Troponin I High Sensitivity 5 </=34 ng/L Blood Gas Specimen Type Arterial Blood Gas Sample Site Right radial Blood Gas Patient Temperature 37.0 Arterial Blood Date Drawn [id number] Arterial Blood pH 7.561 *H 7.350-7.450 Arterial Blood Partial Pressure CO2 20.9 L 32.0-45.0 mmHg Arterial Blood Partial Pressure O2 104.0 83.0-108.0 mmHg Arterial Blood HCO3 18.3 L 21.0-28.0 mmol/L Arterial Blood Oxygen Saturation 98.6 H 94.0-98.0 % Arterial Blood Base Excess -1.6 -2.0-3.0 mmol/L Arterial Blood Oxyhemoglobin 97.0 94.0-98.0 % Arterial Blood Carboxyhemoglobin 1.1 0.5-1.5 % Arterial Blood Methemoglobin 0.5 0.0-1.5 % Zenon Test Yes Blood Gas Total Hemoglobin 14.20 12.0-16.0 g/dL Blood Gas Modality Nasal cannula FiO2 % 28.0 Blood Gas Critical Value Read Back yes Blood Gas Notified Whom antwon Brasher md Blood Gas Notified Time [id number] Blood Gas Notified By Dog Track Kennel Manager dona chowdhury Beta-Hydroxybutyric Acid 4.462 H < 0.4 mmol/L Assessment 1. Diabetic ketoacidosis 2. Uncontrolled type 1 diabetes mellitus 3. Chronic nausea, vomiting Longstanding hx of dysglycemia with acute, reucrrent onset of nausea/vomiting. Given degree of dysglycemia and duration very likely patient has developed autonomic dysfunction with regards to GI motility (gastroparesis) resulting in her nausea/vomiting. Continue insulin pump with Humalog. Settings verified. Ensure adequate supplies on hand. - Small frequent meals. Avoid high fat, high fiber foods. Consider more liquid based foods during exacerbation of symptoms. Avoid carbonated beverages - Consider GI consultation. May consider short term metoclopramide as needed. Plan discussed with: Patient NANDO PACHECO MD Mar 28, 2025 18:29
[2025-03-28] MEDS: SUCRALFATE 1 GM/10 ML ORAL SUSP PO SCH (21:59)
[2025-03-28 22:33] LABS: Sodium 141 mmol/L (136-145)
[2025-03-28 22:34] LABS: Anion Gap 16 (5-15); Calcium 8.9 mg/dL (8.7-10.4)
[2025-03-28 22:39] LABS: Glucose 100 mg/dL (74-106)
[2025-03-28 22:47] LABS: BUN/Creatinine Ratio 6.3 (10.0-20.0); Blood Urea Nitrogen < 5 mg/dL (9-23); Carbon Dioxide 17 mmol/L (20-31); Chloride 108 mmol/L (98-107); Potassium 2.9 mmol/L (3.5-5.1)
--- NOTE | 2025-03-28 23:09 | DVHPN2 ---
Progress Note - Dictate Date Seen: Mar 28, 2025 Medical Necessity Reason Pt with a Central, PICC or Fol: No Subjective Patient continues to complain of epigastric pain and dyspepsia Her EGD findings were nonspecific and benign similar to previous endoscopy in 2022 Her gallbladder ultrasound is also negative and there was no pancreatitis vital signs Vital Sign Date Time Temp Pulse Resp B/P (MAP) Pulse Ox O2 Delivery O2 Flow Rate FiO2 03/28/25 21:00 98.9 96 16 155/102 (119) 99 98.9 03/28/25 08:00 Room Air* 0 21 Total Intake and Output 03/27/25 03/27/25 03/28/25 15:00 23:00 07:00 Intake Total 1100 ml 2150 ml Output Total 1100 ml Balance 1100 ml 1050 ml medications Current Medications Medications Dose Ordered Sig/Alfie Route Start Time Stop Time Status Last Admin Dose Admin Docusate Sodium 100 mg BIDPRN PRN PO 03/24/25 20:15 Acetaminophen 650 mg Q6HP PRN PO 03/24/25 20:15 Acetaminophen/ Hydrocodone Bitart 1 tab Q4HP PRN PO 03/24/25 20:15 Diagnostic Test (Pha) 1 strip Q6HR 03/25/25 06:00 03/28/25 17:20 1 STRIP Insulin Human Regular Q6HR SC 03/25/25 06:00 03/27/25 17:24 4 UNITS Dextrose 50 ml UD PRN IV 03/25/25 01:15 Ondansetron HCl 4 mg Q4HPRN PRN IV 03/25/25 11:00 03/28/25 21:46 4 MG Pantoprazole Sodium 40 mg BID IV 03/25/25 22:00 03/28/25 21:46 40 MG Morphine Sulfate 4 mg Q2HR PRN IV 03/25/25 17:30 03/28/25 18:51 4 MG Metoclopramide HCl 5 mg Q8HPRN PRN IV 03/25/25 18:00 03/28/25 12:36 5 MG Sodium Chloride 1,000 ml @ 200 mls/hr Q5H IV 03/27/25 14:30 UNV Sodium Chloride 1,000 ml @ 200 mls/hr Q5H IV 03/27/25 17:00 03/28/25 14:27 200 MLS/HR Sucralfate 1 gm BID@0600,2200 PO 03/28/25 22:00 03/28/25 21:59 1 GM Dicyclomine HCl 20 mg QID PO 03/28/25 18:00 03/28/25 21:57 20 MG Alprazolam 0.5 mg Q8HPRN PRN PO 03/28/25 14:15 objective Generally well nourished well developed. Mild distress HEENT-atraumatic, normocephalic Heart-sinus tachycardic Lungs to auscultate bilaterally Abdomen soft, epigastric tenderness, nondistended Musculoskeletal-no edema cyanosis Neuro-AO x3, no focal deficit laboratory and microbiology Laboratory Tests 03/28/25 22:06 03/28/25 08:57 Test 03/28/25 22:06 Range/Units Serum Glucose 100 74-106 mg/dL Problems(with codes): (1) Nausea & vomiting (2) Epigastric pain (3) DKA (diabetic ketoacidosis) (4) Uncontrolled diabetes mellitus (5) Tachycardia (6) Sepsis Prognosis Plan Continue IV fluid hydration Diabetic diet as tolerated Endocrinology consult appreciated Monitor labs Bentyl 10 mg p.o. twice a day as needed for abdominal pain Carafate 1 g p.o. twice a day as needed for abdominal pain Anxiety management Gallbladder ultrasound although her liver enzymes are normal Dietary Evaluation Review Comments: 1) Advance to [facility] 60gm as medically feasible 2) Refer CDE on DC Expected Outcomes/Goals: To meet >75% estimated needs Fu 3-5 days Plan discussed with: Other (Dr Bautista) DENTON CULP MD Mar 28, 2025 23:09
[2025-03-29] VITALS (8 sets, daily range): BP systolic 135–152; BP diastolic 83–101; PULSE 91–109; RESP 14–19; TEMP 98.2–99; O2SAT 97–98
--- NOTE | 2025-03-29 01:20 | DVH ---
INDICATION: n/v/epigastric pain TECHNIQUE: Multiple real-time sonographic images were obtained of the right upper quadrant. COMPARISON: US RIGHT LOWER QUAD on DOS: 03/05/23 FINDINGS: The liver demonstrates moderately heterogeneous echotexture without focal mass lesions. The liver measures 14.6 cm. Normal hepatopetal portal flow identified. No evidence of pleural effusion or abdominal ascites. There is no intrahepatic or extrahepatic ductal dilatation. The common duct measures 0.6 cm. The gallbladder is without evidence of stone or sludge. The gallbladder wall measures 0.2 cm and is w ithin normal limits. Negative sonographic Swanson's sign. The right kidney measures 12.3 cm. [id number] hydronephrosis. The right kidney is otherwise nor mal in contour, size and shape. The echogenicity is normal. The left kidney measures 11.8 cm. [id number] hydronephrosis. The right kidney is otherwise norm al in contour, size and shape. The echogenicity is normal. The pancreas is not well visualized due to overlying bowel gas. IMPRESSION: 1. Mildly heterogeneous hepatic parenchymal echotexture. 2. [id number] bilateral hydronephrosis.
[2025-03-29 06:56] LABS: Alanine Aminotransferase 16 U/L (7-40); Albumin 4.2 g/dL (3.2-4.8); Alkaline Phosphatase 47 U/L (46-116); Anion Gap 18 (5-15); Calcium 8.8 mg/dL (8.7-10.4); Chloride 106 mmol/L (98-107); Glucose 101 mg/dL (74-106); Lipase 45 U/L (12-53); Sodium 140 mmol/L (136-145); Total Protein 7.2 g/dL (5.7-8.2)
[2025-03-29 06:57] LABS: BUN/Creatinine Ratio 6.3 (10.0-20.0); Bilirubin, Total 0.7 mg/dL (0.2-1.0); Blood Urea Nitrogen < 5 mg/dL (9-23); Carbon Dioxide 16 mmol/L (20-31); Potassium 3.0 mmol/L (3.5-5.1)
[2025-03-29 07:28] LABS: Hematocrit 40.2 % (36.0-46.0); Hemoglobin 13.8 g/dL (12.2-16.2); Mean Corpuscular Hemoglobin 28.2 pg (28.0-32.0); Mean Corpuscular Volume 82.2 fL (80.0-100.0); Nucleated Red Blood Cells % 0.4 %
[2025-03-29 11:22] LABS: Anion Gap 15 (5-15); Calcium 8.8 mg/dL (8.7-10.4); Chloride 106 mmol/L (98-107); Sodium 140 mmol/L (136-145)
[2025-03-29 11:23] LABS: Carbon Dioxide 19 mmol/L (20-31); Potassium 2.7 mmol/L (3.5-5.1)
[2025-03-29 11:28] LABS: BUN/Creatinine Ratio 6.4 (10.0-20.0); Blood Urea Nitrogen < 5 mg/dL (9-23); Glucose 129 mg/dL (74-106)
[2025-03-29] MEDS: IOHEXOL 300 MG/ML 100ML BOTTLE IJ ONE (13:28)
--- NOTE | 2025-03-29 13:55 | DVH ---
Exam: CT CT AB PEL WITH IV CON ONLY History: kidney stones COMPARISON: CT CT AB PEL WITH IV CON ONLY on DOS: 08/02/24 Technique: Multidetector spiral CT of the abdomen and pelvis was performed from lung bases to pubic s ymphysis. Intravenous contrast was administered during this examination. Portal venous imaging was obtained. Axial, coronal and sagittal multiplanar reformats were performed by the technologist on a separate workstation. Radiation Dose : 1. Abdomen/Pelvis: CTDIvol 6.6 mGy, DLP 371 mGy*cm. CONTRAST: Type of contrast: Omnipaque Contrast injected: 100 ml Findings: Lung Bases: No acute or significant lung base finding. Normal heart size. No pleural or pericardial effusion. Liver: Hypoattenuating mass is seen in hepatic segment 4A/ b which measures 3.1 x 4.8 cm. Gallbladder and Biliary Tree: Unremarkable Spleen: Unremarkable Pancreas: The pancreas is normal in appearance without focal lesions or abnormal enhancement. Adrenal Glands: Unremarkable Kidneys: No hydronephrosis. No nephrolithiasis. Bladder: Markedly distended urinary bladder. Bowel: The stomach is grossly normal in appearance. Small bowel and colon are normal in caliber and d istribution. The appendix is not visualized; however, no secondary findings of acute appendicitis id entified. Ascites: Absent Lymphadenopathy: No mesenteric, retroperitoneal or periportal lymphadenopathy. Abdominal Wall and Mesentery: Unremarkable. Vasculature: The visualized abdominal aorta is normal in size and caliber. Abdominal and pelvic vess els demonstrate normal enhancement. Pelvic Organs: Unremarkable Musculoskeletal: No aggressive focal bony lesions, acute fractures or dislocation. IMPRESSION: 1. Markedly distended urinary bladder. Please correlate for urinary retention 2. Hypoattenuating mass is seen in hepatic segment 4A/ b which measures 3.1 x 4.8 cm. Recommend contr ast-enhanced abdominal MRI for further evaluation. 3. No nephrolithiasis or hydronephrosis Radiation optimization: All CT scans at this facility use at least one of these dose optimization mary carmen hniques: automated exposure control mA and/or kV adjustment per patient size (includes targeted exam s where dose is matched to clinical indication) or iterative reconstruction.
[2025-03-29] MEDS: POTASSIUM CHL 20MEQ/100ML 100 ML IV SCH (15:11)
--- NOTE | 2025-03-29 15:39 | DVHINCON2 ---
Date of service: Mar 29, 2025 Referring Physician Hospitalist Reason for Consultation urinary retention History of Present Illness History Source: Patient, RN Notes, MD Notes, Old Records Exam Limitations: No limitations HPI 29 yo female admitted for DKA. Urology consulted for bladder distention and bilateral hydro. This appears chronic per review of imaging dating back 2 years. She has had urinary frequency and difficulty emptying more than usual for last week. No UTIs. No prior urology evaluation. Pt had solorio placed. Home Meds Active Scripts Insulin Detemir (Levemir) Inj, 25 ' SC HS, #30 INJ Prov:ROSELIA BAUM MD 08/12/24 Insulin Aspart (Novolog) 100 Unit/Ml Inj, 10 UNIT IJ TID, #30 INJ Prov:ROSELIA BAUM MD 08/12/24 Past Medical History Endocrine: IDDM Patient Family History: Cervical cancer G8 MOTHER Review of Systems Constitutional: Malaise, Weakness Gastrointestinal: Nausea, Vomiting, Abdominal Pain Genitourinary: Frequency, Retention H&P Exam Vital Signs Vital Signs Date Time Temp Pulse Resp B/P (MAP) Pulse Ox O2 Delivery O2 Flow Rate FiO2 03/29/25 15:15 102 14 149/88 03/29/25 13:00 98.4 98 98.4 03/29/25 08:00 Room Air* 0 21 Labs/Xrays [place] [id number] Ph: [phone] DIAGNOSTIC IMAGING Diagnostic Imaging Report : [id number] Signed PATIENT: FERNANDO LUCASACCT: [id number] UNIT: [id number] : 1995 LOC: [facility] ROOM / BED: [facility] [[email or web address] / A AGE / SEX: 29 / F ADM STATUS: ADM IN SERVICE 1254 ORDERING PHYSICIAN: NICKO THOMPSON MD PROCEDURE(s): ABPLIV - CT AB PEL WITH IV CON ONLY REASON: kidney stones ORDER NUMBER(s): [id number], ACCESSION NUMBER(s): [id number] Exam: CT CT AB PEL WITH IV CON ONLY History: kidney stones COMPARISON: CT CT AB PEL WITH IV CON ONLY on DOS: 08/02/24 Technique: Multidetector spiral CT of the abdomen and pelvis was performed from lung bases to pubic symphysis. Intravenous contrast was administered during this examination. Portal venous imaging was obtained. Axial, coronal and sagittal multiplanar reformats were performed by the technologist on a separate workstation. Radiation Dose : 1. Abdomen/Pelvis: CTDIvol 6.6 mGy, DLP 371 mGy*cm. CONTRAST: Type of contrast: Omnipaque Contrast injected: 100 ml Findings: Lung Bases: No acute or significant lung base finding. Normal heart size. No pleural or pericardial effusion. Liver: Hypoattenuating mass is seen in hepatic segment 4A/ b which measures 3.1 x 4.8 cm. Gallbladder and Biliary Tree: Unremarkable Spleen: Unremarkable Pancreas: The pancreas is normal in appearance without focal lesions or abnormal enhancement. Adrenal Glands: Unremarkable Kidneys: No hydronephrosis. No nephrolithiasis. Bladder: Markedly distended urinary bladder. Bowel: The stomach is grossly normal in appearance. Small bowel and colon are normal in caliber and distribution. The appendix is not visualized; however, no secondary findings of acute appendicitis identified. Ascites: Absent Lymphadenopathy: No mesenteric, retroperitoneal or periportal lymphadenopathy. Abdominal Wall and Mesentery: Unremarkable. Vasculature: The visualized abdominal aorta is normal in size and caliber. Abdominal and pelvic vessels demonstrate normal enhancement. Pelvic Organs: Unremarkable Musculoskeletal: No aggressive focal bony lesions, acute fractures or dislocation. IMPRESSION: 1. Markedly distended urinary bladder. Please correlate for urinary retention 2. Hypoattenuating mass is seen in hepatic segment 4A/ b which measures 3.1 x 4.8 cm. Recommend contrast-enhanced abdominal MRI for further evaluation. 3. No nephrolithiasis or hydronephrosis Radiation optimization: All CT scans at this facility use at least one of these dose optimization techniques: automated exposure control mA and/or kV adjustment per patient size (includes targeted exams where dose is matched to clinical indication) or iterative reconstruction. ATED BY: ERIC PRIDE MD DICTATED DATE/TIME: 03/29/25 1353 SIGNED BY: ERIC PRIDE MD SIGNED DATE/TIME: 03/29/25 1353 CC: Labs Test 03/29/25 10:35 03/29/25 10:33 03/29/25 04:49 03/27/25 06:00 Range/Units POC Glucose 128 H 70-106 mg/dl Sodium Level 140 136-145 mmol/L Potassium Level 2.7 L 3.5-5.1 mmol/L Chloride Level 106 98-107 mmol/L Carbon Dioxide Level 19 L 20-31 mmol/L Anion Gap 15 5-15 Blood Urea Nitrogen < 5 L 9-23 mg/dL Creatinine 0.78 0.550-1.02 mg/dL Glomerular Filtration Rate Calc 107 >90 mL/min BUN/Creatinine Ratio 6.4 L 10.0-20.0 Serum Glucose 129 H 74-106 mg/dL Calcium Level 8.8 8.7-10.4 mg/dL White Blood Count 7.3 4.4-10.8 10^3/uL Red Blood Count 4.89 4.0-5.20 10^6/uL Hemoglobin 13.8 12.2-16.2 g/dL Hematocrit 40.2 36.0-46.0 % Mean Corpuscular Volume 82.2 80.0-100.0 fL Mean Corpuscular Hemoglobin 28.2 28.0-32.0 pg Mean Corpuscular Hemoglobin Concent 34.3 32.0-36.0 g/dL Red Cell Distribution Width 15.1 H 11.8-14.3 % Platelet Count 372 140-450 10^3/uL Mean Platelet Volume 8.0 6.9-10.8 fL Neutrophils (%) (Auto) 68.4 37.0-80.0 % Lymphocytes (%) (Auto) 26.3 10.0-50.0 % Monocytes (%) (Auto) 4.2 0.0-12.0 % Eosinophils (%) (Auto) 0.7 0.0-7.0 % Basophils (%) (Auto) 0.4 0.0-2.0 % Neutrophils # (Auto) 5.0 1.6-8.6 10 ^3/uL Lymphocytes # (Auto) 1.9 0.4-5.4 10 ^3/uL Monocytes # (Auto) 0.3 0-1.3 10 ^3/uL Eosinophils # (Auto) 0 0-0.8 10 ^3/uL Basophils # (Auto) 0 0-0.2 10 ^3/uL Nucleated Red Blood Cells 0.4 % Total Bilirubin 0.7 0.2-1.0 mg/dL Aspartate Amino Transferase (AST) 19 13-40 U/L Alanine Aminotransferase (ALT) 16 7-40 U/L Alkaline Phosphatase 47 46-116 U/L Total Protein 7.2 5.7-8.2 g/dL Albumin 4.2 3.2-4.8 g/dL Lipase 45 12-53 U/L Prothrombin Time 12.4 H 9.3-11.8 sec Prothrombin Time INR 1.19 H 0.9-1.15 Activated Partial Thromboplast Time 30.2 24.5-34.5 SEC Beta HCG, Quantitative 0.1 L 1.5-4.2 mIU/mL Test 03/25/25 14:08 03/25/25 05:30 03/24/25 15:10 03/24/25 14:26 Range/Units Direct Bilirubin 0.2 <0.3 mg/dL Amylase Level 59 30-118 U/L Urine Color Yellow Yellow Urine Clarity Turbid H Clear Urine pH 6.0 5.0-9.0 Urine Specific [place] 1.028 1.001-1.035 Urine Protein 1+ H Negative Urine Ketones 3+ H Negative Urine Blood 3+ H Negative /uL Urine Nitrite Negative Negative Urine Bilirubin Negative Negative Urine Urobilinogen Normal Negative mg/dL Urine Leukocyte Esterase Trace Negative /uL Urine RBC 312 0 - 4 /hpf Urine Microscopic WBC 27 H 0-5 /HPF Urine Squamous Epithelial Cells Few <5 /hpf Urine Bacteria None seen None Seen /hpf Urine Mucus Few None Seen Urine Glucose Normal Normal mg/dL Troponin I High Sensitivity 5 </=34 ng/L Blood Gas Specimen Type Arterial Blood Gas Sample Site Right radial Blood Gas Patient Temperature 37.0 Arterial Blood Date Drawn [id number] Arterial Blood pH 7.561 *H 7.350-7.450 Arterial Blood Partial Pressure CO2 20.9 L 32.0-45.0 mmHg Arterial Blood Partial Pressure O2 104.0 83.0-108.0 mmHg Arterial Blood HCO3 18.3 L 21.0-28.0 mmol/L Arterial Blood Oxygen Saturation 98.6 H 94.0-98.0 % Arterial Blood Base Excess -1.6 -2.0-3.0 mmol/L Arterial Blood Oxyhemoglobin 97.0 94.0-98.0 % Arterial Blood Carboxyhemoglobin 1.1 0.5-1.5 % Arterial Blood Methemoglobin 0.5 0.0-1.5 % Zenon Test Yes Blood Gas Total Hemoglobin 14.20 12.0-16.0 g/dL Blood Gas Modality Nasal cannula FiO2 % 28.0 Blood Gas Critical Value Read Back yes Blood Gas Notified Whom antwon Brasher md Blood Gas Notified Time [id number] Blood Gas Notified By Graphic Production Artist dona chowdhury 03/24/25 13:54 Range/Units Beta-Hydroxybutyric Acid 4.462 H < 0.4 mmol/L Assessment/Plan Problem List: (1) Hydronephrosis (2) Neurogenic bladder (3) DKA (diabetic ketoacidosis) Plan solorio to gravity outpt cystoscopy and urodynamics TBA urine culture Plan discussed with: Patient AISHA FLORES NP Mar 29, 2025 15:39
--- NOTE | 2025-03-29 15:43 | DVHPN2 ---
Subjective Overnight events noted. Patient is status post EGD shows no evidence of any acute findings pt, patient's BNP shows evidence of metabolic acidosis may going into DKA. 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 Medications Current Medications Medications Dose Ordered Sig/Alfie Route Start Time Stop Time Status Last Admin Dose Admin Docusate Sodium 100 mg BIDPRN PRN PO 03/24/25 20:15 Acetaminophen 650 mg Q6HP PRN PO 03/24/25 20:15 Acetaminophen/ Hydrocodone Bitart 1 tab Q4HP PRN PO 03/24/25 20:15 Diagnostic Test (Pha) 1 strip Q6HR 03/25/25 06:00 03/29/25 11:19 1 STRIP Insulin Human Regular Q6HR SC 03/25/25 06:00 03/27/25 17:24 4 UNITS Dextrose 50 ml UD PRN IV 03/25/25 01:15 Ondansetron HCl 4 mg Q4HPRN PRN IV 03/25/25 11:00 03/29/25 12:33 4 MG Pantoprazole Sodium 40 mg BID IV 03/25/25 22:00 03/29/25 08:41 40 MG Morphine Sulfate 4 mg Q2HR PRN IV 03/25/25 17:30 03/29/25 15:15 4 MG Metoclopramide HCl 5 mg Q8HPRN PRN IV 03/25/25 18:00 03/29/25 14:56 5 MG Sodium Chloride 1,000 ml @ 200 mls/hr Q5H IV 03/27/25 14:30 UNV Sodium Chloride 1,000 ml @ 200 mls/hr Q5H IV 03/27/25 17:00 03/29/25 15:20 200 MLS/HR Sucralfate 1 gm BID@0600,2200 PO 03/28/25 22:00 03/29/25 06:18 1 GM Dicyclomine HCl 20 mg QID PO 03/28/25 18:00 03/29/25 12:33 20 MG Alprazolam 0.5 mg Q8HPRN PRN PO 03/28/25 14:15 Potassium Chloride 100 ml @ 50 mls/hr Q2H IV 03/29/25 13:00 03/29/25 20:59 03/29/25 15:11 50 MLS/HR Laboratory Results Laboratory Tests 03/29/25 04:49 03/29/25 10:33 Chemistry Test 03/28/25 22:06 03/29/25 04:49 03/29/25 10:33 Calcium Level 8.9 mg/dL (8.7-10.4) 8.8 mg/dL (8.7-10.4) 8.8 mg/dL (8.7-10.4) Albumin 4.2 g/dL (3.2-4.8) Total Protein 7.2 g/dL (5.7-8.2) Lipid panel Test 03/29/25 04:49 Lipase 45 U/L (12-53) LFT Test 03/29/25 04:49 Alanine Aminotransferase (ALT) 16 U/L (7-40) Alkaline Phosphatase 47 U/L (46-116) Aspartate Amino Transferase (AST) 19 U/L (13-40) Total Bilirubin 0.7 mg/dL (0.2-1.0) Urinalysis Test 03/25/25 05:30 Urine Color Yellow (Yellow) Urine Clarity Turbid (Clear) H Urine pH 6.0 (5.0-9.0) Urine Specific [place] 1.028 (1.001-1.035) Urine Protein 1+ (Negative) H Urine Ketones 3+ (Negative) H Urine Blood 3+ /uL (Negative) H Urine Nitrite Negative (Negative) Urine Bilirubin Negative (Negative) Urine Urobilinogen Normal mg/dL (Negative) Urine Leukocyte Esterase Trace /uL (Negative) Urine RBC 312 /hpf (0 - 4) Urine Microscopic WBC 27 /HPF (0-5) H Urine Squamous Epithelial Cells Few /hpf (<5) Urine Bacteria None seen /hpf (None Seen) Urine Mucus Few (None Seen) Urine Glucose Normal mg/dL (Normal) Assessment/Plan Assessment/Plan 29-year-old young female with a known history of insulin-dependent diabetes mellitus, currently on insulin pump presented to the hospital with the abdominal pain nausea and vomiting found to have 1. Abdominal pain nausea and vomiting secondary to DKA, improved 2. Metabolic acidosis, improved 3. Epigastric pain status post EGD shows no evidence of any gross pathology likely gastroparesis 4. Insulin-dependent diabetes mellitus currently on insulin pump 5. Hypokalemia 6. Anxiety disorder 7. Urinary retention/neurogenic urinary bladder 8. Hypo echoic mass in the liver, MRI with contrast was recommended which can be done as an outpatient with the primary within 1-2 weeks to assess for any underlying malignancy(noted patient just had the contrast today be can not give contrast for another 48-72 hours.} -aggressive IV fluids hydration normal saline at 200 mL/hour, n. -Accu-Cheks AC and HS, status post Plan discussed with: Patient, Other My Orders Orders - NICKO THOMPSON MD Procedure Category Date Status Time Ct Ab Pel With Iv Con CT 03/29/25 Resulted Only 12:54 Potassium Chl PHA 03/29/25 In Process 20meq/100ml 13:00 Insert/Manage Urinary MOY 03/29/25 In Process Catheter 14:23 * Urology Consult CONS 03/29/25 Transmitted 14:23 Date of Service: Mar 29, 2025 Billing Provider: NICKO THOMPSON MD Common Visit Codes: [id number] INP/OBS CARE(MOD) NICKO THOMPSON MD Mar 29, 2025 15:43
[2025-03-29 22:13] LABS: Chloride 104 mmol/L (98-107); Sodium 137 mmol/L (136-145)
[2025-03-29 22:14] LABS: Anion Gap 15 (5-15)
[2025-03-29 22:19] LABS: BUN/Creatinine Ratio 7.0 (10.0-20.0); Blood Urea Nitrogen < 5 mg/dL (9-23); Calcium 8.4 mg/dL (8.7-10.4); Carbon Dioxide 18 mmol/L (20-31); Glucose 139 mg/dL (74-106); Potassium 3.0 mmol/L (3.5-5.1)
--- NOTE | 2025-03-29 23:24 | DVHPN2 ---
Progress Note - Dictate Date Seen: Mar 29, 2025 Medical Necessity Reason Pt with a Central, PICC or Fol: No Subjective Patient retaining urine, urology consult pending Her EGD findings were nonspecific and benign similar to previous endoscopy in 2022 Her gallbladder ultrasound is also negative and there was no pancreatitis vital signs Vital Sign Date Time Temp Pulse Resp B/P (MAP) Pulse Ox O2 Delivery O2 Flow Rate FiO2 03/29/25 21:44 86 17 127/85 03/29/25 21:00 99.0 98 99.0 03/29/25 08:00 Room Air* 0 21 Total Intake and Output 03/28/25 03/28/25 03/29/25 15:00 23:00 07:00 Intake Total 1600 ml 2400 ml Balance 1600 ml 2400 ml medications Current Medications Medications Dose Ordered Sig/Alfie Route Start Time Stop Time Status Last Admin Dose Admin Docusate Sodium 100 mg BIDPRN PRN PO 03/24/25 20:15 Acetaminophen 650 mg Q6HP PRN PO 03/24/25 20:15 Acetaminophen/ Hydrocodone Bitart 1 tab Q4HP PRN PO 03/24/25 20:15 Diagnostic Test (Pha) 1 strip Q6HR 03/25/25 06:00 03/29/25 17:27 1 STRIP Insulin Human Regular Q6HR SC 03/25/25 06:00 03/27/25 17:24 4 UNITS Dextrose 50 ml UD PRN IV 03/25/25 01:15 Ondansetron HCl 4 mg Q4HPRN PRN IV 03/25/25 11:00 03/29/25 21:12 4 MG Pantoprazole Sodium 40 mg BID IV 03/25/25 22:00 03/29/25 21:12 40 MG Morphine Sulfate 4 mg Q2HR PRN IV 03/25/25 17:30 03/29/25 21:14 4 MG Metoclopramide HCl 5 mg Q8HPRN PRN IV 03/25/25 18:00 03/29/25 14:56 5 MG Sodium Chloride 1,000 ml @ 200 mls/hr Q5H IV 03/27/25 14:30 UNV Sodium Chloride 1,000 ml @ 200 mls/hr Q5H IV 03/27/25 17:00 03/29/25 15:20 200 MLS/HR Sucralfate 1 gm BID@0600,2200 PO 03/28/25 22:00 03/29/25 21:12 1 GM Dicyclomine HCl 20 mg QID PO 03/28/25 18:00 03/29/25 21:12 20 MG Alprazolam 0.5 mg Q8HPRN PRN PO 03/28/25 14:15 objective Generally well nourished well developed. Mild distress HEENT-atraumatic, normocephalic Heart-sinus tachycardic Lungs to auscultate bilaterally Abdomen soft, epigastric tenderness, nondistended Musculoskeletal-no edema cyanosis Neuro-AO x3, no focal deficit laboratory and microbiology Laboratory Tests 03/29/25 21:52 03/29/25 04:49 Test 03/29/25 21:52 Range/Units Serum Glucose 139 H 74-106 mg/dL Problems(with codes): (1) Neurogenic bladder (2) Hydronephrosis (3) Nausea & vomiting (4) Epigastric pain (5) DKA (diabetic ketoacidosis) (6) Uncontrolled diabetes mellitus Prognosis PLAN Urology consult noted Recommendations noted solorio to gravity outpt cystoscopy and urodynamics TBA urine culture Continue Protonix Carafate and Bentyl as needed as needed Supportive care Advance diet monitor labs treat DKA Dietary Evaluation Review Comments: 1) [facility] as medically feasible 2) Refer CDE on DC Expected Outcomes/Goals: To meet >75% estimated needs Fu 3-5 days Plan discussed with: Other (None) DENTON CULP MD Mar 29, 2025 23:24
[2025-03-30] VITALS (8 sets, daily range): BP systolic 114–151; BP diastolic 84–102; PULSE 79–126; RESP 16–20; TEMP 97.9–99.6; O2SAT 95–100
[2025-03-30 13:58] LABS: Anion Gap 12 (5-15); Carbon Dioxide 23 mmol/L (20-31); Chloride 102 mmol/L (98-107); Sodium 137 mmol/L (136-145)
[2025-03-30 14:04] LABS: BUN/Creatinine Ratio 7.7 (10.0-20.0); Blood Urea Nitrogen < 5 mg/dL (9-23); Calcium 8.2 mg/dL (8.7-10.4); Glucose 116 mg/dL (74-106); Potassium 2.8 mmol/L (3.5-5.1)
[2025-03-30 14:06] LABS: Magnesium 1.3 mg/dL (1.6-2.6)
[2025-03-30 14:51] LABS: Opiate Scree,Urine Neg (NEGATIVE)
[2025-03-30 15:04] LABS: Amphetamine Screen, Urine Neg (NEGATIVE); Barbiturate Scree,Urine Neg (NEGATIVE); Benzodiazephine Screen, Urine Neg (NEGATIVE); Cannabinoid Screen, Urine Neg (NEGATIVE); Cocaine Screen, Urine Neg (NEGATIVE); Phencyclidine Screen, Urine Neg (NEGATIVE)
[2025-03-30] MEDS: MAGNESIUM SULFATE 1GM/100ML 100 ML IV SCH (15:23)
[2025-03-30] MEDS: POTASSIUM CHLORIDE 40 MEQ, LIDOCAINE 1% (LOCAL ANESTH.) 4 ML in SODIUM CHL 0.9% 250 ML IV ONE (15:24)
--- NOTE | 2025-03-30 15:47 | DVHPN2 ---
Subjective Patient is still having some episodes of intermittent nausea. Poor oral intake. Reviewed: Care Plan Changes from previous H/P or p: No Changes Objective Vitals Vital Signs Date Time Temp Pulse Resp B/P (MAP) Pulse Ox O2 Delivery O2 Flow Rate FiO2 03/30/25 13:00 98.6 109 18 114/86 (95) 100 98.6 03/30/25 08:00 Room Air* 0 21 Intake/Output Intake and Output 03/30/25 07:00 Intake Total 1000 ml Output Total 3625 ml Balance -2625 ml Intake Oral 800 ml IV Total 200 ml Output Urine Total 3325 ml Emesis 300 ml # Voids 2 Exam Alert awake oriented x3. Comfortable in bed. Her significant other is at bedside. HEENT pupils equal round react to light. Heart regular rate and rhythm S1-S2. Lungs without rales wheezes. Abdomen obese soft nontender positive bowel sounds. Extremities no edema positive pulses. Medications Current Medications Medications Dose Ordered Sig/Alfie Route Start Time Stop Time Status Last Admin Dose Admin Docusate Sodium 100 mg BIDPRN PRN PO 03/24/25 20:15 Acetaminophen 650 mg Q6HP PRN PO 03/24/25 20:15 Acetaminophen/ Hydrocodone Bitart 1 tab Q4HP PRN PO 03/24/25 20:15 Diagnostic Test (Pha) 1 strip Q6HR 03/25/25 06:00 03/30/25 11:17 1 STRIP Insulin Human Regular Q6HR SC 03/25/25 06:00 03/30/25 00:42 2 UNITS Dextrose 50 ml UD PRN IV 03/25/25 01:15 Ondansetron HCl 4 mg Q4HPRN PRN IV 03/25/25 11:00 03/30/25 15:23 4 MG Pantoprazole Sodium 40 mg BID IV 03/25/25 22:00 03/30/25 08:27 40 MG Morphine Sulfate 4 mg Q2HR PRN IV 03/25/25 17:30 03/30/25 01:57 4 MG Sodium Chloride 1,000 ml @ 200 mls/hr Q5H IV 03/27/25 14:30 UNV Sodium Chloride 1,000 ml @ 200 mls/hr Q5H IV 03/27/25 17:00 03/30/25 11:17 200 MLS/HR Sucralfate 1 gm BID@0600,2200 PO 03/28/25 22:00 03/30/25 07:00 1 GM Dicyclomine HCl 20 mg QID PO 03/28/25 18:00 03/30/25 07:00 20 MG Alprazolam 0.5 mg Q8HPRN PRN PO 03/28/25 14:15 Metoclopramide HCl 5 mg Q6HR IV 03/30/25 18:00 Magnesium Sulfate/ Dextrose 100 ml @ 100 mls/hr Q1HR IV 03/30/25 15:00 03/30/25 16:59 03/30/25 15:23 100 MLS/HR Laboratory Results Laboratory Tests 03/29/25 04:49 03/30/25 13:31 Chemistry Test 03/29/25 21:52 03/30/25 13:31 Calcium Level 8.4 mg/dL (8.7-10.4) L 8.2 mg/dL (8.7-10.4) L Magnesium Level 1.3 mg/dL (1.6-2.6) L Urinalysis Test 03/25/25 05:30 Urine Color Yellow (Yellow) Urine Clarity Turbid (Clear) H Urine pH 6.0 (5.0-9.0) Urine Specific [place] 1.028 (1.001-1.035) Urine Protein 1+ (Negative) H Urine Ketones 3+ (Negative) H Urine Blood 3+ /uL (Negative) H Urine Nitrite Negative (Negative) Urine Bilirubin Negative (Negative) Urine Urobilinogen Normal mg/dL (Negative) Urine Leukocyte Esterase Trace /uL (Negative) Urine RBC 312 /hpf (0 - 4) Urine Microscopic WBC 27 /HPF (0-5) H Urine Squamous Epithelial Cells Few /hpf (<5) Urine Bacteria None seen /hpf (None Seen) Urine Mucus Few (None Seen) Urine Glucose Normal mg/dL (Normal) Assessment/Plan Assessment/Plan Given her history of diabetes with a intractable nausea vomiting possible diabetic gastroparesis. Encouraged activity ambulation and continue liquid diet. I will start her on scheduled dose of Reglan to see if it will help her symptoms while in the hospital. Encouraged Protonix Carafate as well. Continue rest of supportive care and treatment. Replace her electrolytes including potassium magnesium as needed. Otherwise further clinical management per clinical course. Discussed with the patient and nurse regarding care plan Plan discussed with: Patient, Other My Orders Orders - JUAN CARLOS VOGEL MD Procedure Category Date Status Time Metoclopramide PHA 03/30/25 In Process Injection (Reglan 18:00 Magnesium Sulfate PHA 03/30/25 In Process 1gm/100ml 15:00 Potassium Chloride PHA 03/30/25 In Process (Potassium Chloride). 14:45 Problem List: (1) Uncontrolled diabetes mellitus (2) DKA (diabetic ketoacidosis) (3) Epigastric pain (4) Nausea & vomiting (5) Neurogenic bladder Date of Service: Mar 30, 2025 Billing Provider: JUAN CARLOS VOGEL MD Common Visit Codes: [id number] INP/OBS CARE(MOD) JUAN CARLOS VOGEL MD Mar 30, 2025 15:47
[2025-03-30] MEDS: METOCLOPRAMIDE HCL 5MG/ml INJ 2ml VIAL IV SCH (17:13)
[2025-03-31] VITALS (9 sets, daily range): BP systolic 96–133; BP diastolic 54–91; PULSE 78–119; RESP 16–19; TEMP 97.7–99.1; O2SAT 97–99
[2025-03-31 06:40] LABS: Albumin 3.4 g/dL (3.2-4.8); Anion Gap 13 (5-15); Carbon Dioxide 23 mmol/L (20-31); Chloride 101 mmol/L (98-107); Magnesium 1.7 mg/dL (1.6-2.6); Sodium 137 mmol/L (136-145); Total Protein 5.9 g/dL (5.7-8.2)
[2025-03-31 06:42] LABS: Alanine Aminotransferase < 9 U/L (7-40); Alkaline Phosphatase 38 U/L (46-116); BUN/Creatinine Ratio 7.6 (10.0-20.0); Bilirubin, Total 0.6 mg/dL (0.2-1.0); Blood Urea Nitrogen < 5 mg/dL (9-23); Calcium 8.4 mg/dL (8.7-10.4); Glucose 143 mg/dL (74-106); Potassium 2.6 mmol/L (3.5-5.1)
[2025-03-31 06:44] LABS: Hematocrit 35.3 % (36.0-46.0); Hemoglobin 12.4 g/dL (12.2-16.2); Mean Corpuscular Hemoglobin 28.2 pg (28.0-32.0); Mean Corpuscular Volume 80.4 fL (80.0-100.0); Nucleated Red Blood Cells % 0.1 %
[2025-03-31] MEDS ORDERED: POTASSIUM CHL 20MEQ/100ML 100 ML IV ONE (08:45)
[2025-03-31] MEDS: MAGNESIUM SULFATE 1GM/100ML 100 ML IV ONE ×2 (09:52→11:49)
--- NOTE | 2025-03-31 13:18 | DVHPN2 ---
Subjective Patient is still having some episodes of intermittent nausea. Poor oral intake. Reviewed: Care Plan Changes from previous H/P or p: No Changes Objective Vitals Vital Signs Date Time Temp Pulse Resp B/P (MAP) Pulse Ox O2 Delivery O2 Flow Rate FiO2 03/31/25 08:31 98.6 81 18 132/88 (103) 97 98.6 03/31/25 08:00 Room Air* 0 21 Intake/Output Intake and Output 03/31/25 07:00 Intake Total 2000 ml Output Total 2425 ml Balance -425 ml Intake Oral 1000 ml IV Total 1000 ml Output Urine Total 2425 ml Exam Alert awake oriented x3. Comfortable in bed. Her significant other is at bedside. HEENT pupils equal round react to light. Heart regular rate and rhythm S1-S2. Lungs without rales wheezes. Abdomen obese soft nontender positive bowel sounds. Extremities no edema positive pulses. Medications Current Medications Medications Dose Ordered Sig/Alfie Route Start Time Stop Time Status Last Admin Dose Admin Docusate Sodium 100 mg BIDPRN PRN PO 03/24/25 20:15 Acetaminophen 650 mg Q6HP PRN PO 03/24/25 20:15 Acetaminophen/ Hydrocodone Bitart 1 tab Q4HP PRN PO 03/24/25 20:15 Diagnostic Test (Pha) 1 strip Q6HR 03/25/25 06:00 03/31/25 11:49 1 STRIP Insulin Human Regular Q6HR SC 03/25/25 06:00 03/31/25 11:55 6 UNITS Dextrose 50 ml UD PRN IV 03/25/25 01:15 Ondansetron HCl 4 mg Q4HPRN PRN IV 03/25/25 11:00 03/31/25 09:51 4 MG Pantoprazole Sodium 40 mg BID IV 03/25/25 22:00 03/31/25 09:51 40 MG Morphine Sulfate 4 mg Q2HR PRN IV 03/25/25 17:30 03/30/25 21:12 4 MG Sodium Chloride 1,000 ml @ 200 mls/hr Q5H IV 03/27/25 14:30 UNV Sodium Chloride 1,000 ml @ 200 mls/hr Q5H IV 03/27/25 17:00 03/31/25 09:52 200 MLS/HR Sucralfate 1 gm BID@0600,2200 PO 03/28/25 22:00 03/31/25 05:42 1 GM Dicyclomine HCl 20 mg QID PO 03/28/25 18:00 03/31/25 11:49 20 MG Alprazolam 0.5 mg Q8HPRN PRN PO 03/28/25 14:15 Metoclopramide HCl 5 mg Q6HR IV 03/30/25 18:00 03/31/25 11:48 5 MG Laboratory Results Laboratory Tests 03/31/25 05:32 Chemistry Test 03/30/25 13:31 03/31/25 05:32 Calcium Level 8.2 mg/dL (8.7-10.4) L 8.4 mg/dL (8.7-10.4) L Magnesium Level 1.3 mg/dL (1.6-2.6) L 1.7 mg/dL (1.6-2.6) Albumin 3.4 g/dL (3.2-4.8) Total Protein 5.9 g/dL (5.7-8.2) LFT Test 03/31/25 05:32 Alanine Aminotransferase (ALT) < 9 U/L (7-40) Alkaline Phosphatase 38 U/L (46-116) L Aspartate Amino Transferase (AST) 12 U/L (13-40) L Total Bilirubin 0.6 mg/dL (0.2-1.0) HgA1c, TSH Test 03/31/25 05:32 Hemoglobin A1c 6.0 % A1C (<5.7) H Urinalysis Test 03/25/25 05:30 Urine Color Yellow (Yellow) Urine Clarity Turbid (Clear) H Urine pH 6.0 (5.0-9.0) Urine Specific [place] 1.028 (1.001-1.035) Urine Protein 1+ (Negative) H Urine Ketones 3+ (Negative) H Urine Blood 3+ /uL (Negative) H Urine Nitrite Negative (Negative) Urine Bilirubin Negative (Negative) Urine Urobilinogen Normal mg/dL (Negative) Urine Leukocyte Esterase Trace /uL (Negative) Urine RBC 312 /hpf (0 - 4) Urine Microscopic WBC 27 /HPF (0-5) H Urine Squamous Epithelial Cells Few /hpf (<5) Urine Bacteria None seen /hpf (None Seen) Urine Mucus Few (None Seen) Urine Glucose Normal mg/dL (Normal) Assessment/Plan Assessment/Plan Given her persistent symptoms we will continue current management as she is on. Continue to replace electrolytes potassium and magnesium. We will keep her on full liquid diet. Otherwise further clinical management per clinical course. Discussed with the nurse regarding care plan. Plan discussed with: Patient, Other My Orders Orders - JUAN CARLOS VOGEL MD Procedure Category Date Status Time Potassium Chloride PHA 03/31/25 In Process (Potassium Chloride). 11:15 Full Liq Diet DIET 03/31/25 Transmitted Lunch Problem List: (1) Diabetes mellitus with hyperglycemia (2) Nausea & vomiting (3) Epigastric pain (4) Uncontrolled diabetes mellitus (5) Gastritis determined by endoscopy (6) Abnormal finding on GI tract imaging Date of Service: Mar 31, 2025 Billing Provider: JUAN CARLOS VOGEL MD Common Visit Codes: [id number] INP/OBS CARE(MOD) JUAN CARLOS VOGEL MD Mar 31, 2025 13:18
[2025-03-31] MEDS: POTASSIUM CHLORIDE 60 MEQ, LIDOCAINE 1% (LOCAL ANESTH.) 6 ML in SODIUM CHL 0.9% 500 ML IV ONE (13:34)
--- NOTE | 2025-03-31 21:53 | DVHPN2 ---
Progress Note - Dictate Date Seen: Mar 31, 2025 (Late entry Patient seen at bedside at 10:00 a.m.) Medical Necessity Reason Pt with a Central, PICC or Fol: No Subjective Patient is sleeping comfortably at this time Her EGD findings were nonspecific and benign similar to previous endoscopy in 2022 Her gallbladder ultrasound is also negative and there was no pancreatitis Mild nausea and dyspepsia vital signs Vital Sign Date Time Temp Pulse Resp B/P (MAP) Pulse Ox O2 Delivery O2 Flow Rate FiO2 03/31/25 20:00 19 Room Air* 0 21 03/31/25 16:51 98.6 98 133/86 (102) 98 98.6 Total Intake and Output 03/30/25 03/30/25 03/31/25 15:00 23:00 07:00 Intake Total 1000 ml 1000 ml Output Total 1200 ml 1225 ml Balance -200 ml -225 ml medications Current Medications Medications Dose Ordered Sig/Alfie Route Start Time Stop Time Status Last Admin Dose Admin Docusate Sodium 100 mg BIDPRN PRN PO 03/24/25 20:15 Acetaminophen 650 mg Q6HP PRN PO 03/24/25 20:15 Acetaminophen/ Hydrocodone Bitart 1 tab Q4HP PRN PO 03/24/25 20:15 Diagnostic Test (Pha) 1 strip Q6HR 03/25/25 06:00 03/31/25 17:08 1 STRIP Insulin Human Regular Q6HR SC 03/25/25 06:00 03/31/25 17:08 4 UNITS Dextrose 50 ml UD PRN IV 03/25/25 01:15 Ondansetron HCl 4 mg Q4HPRN PRN IV 03/25/25 11:00 03/31/25 15:37 4 MG Pantoprazole Sodium 40 mg BID IV 03/25/25 22:00 03/31/25 21:08 40 MG Morphine Sulfate 4 mg Q2HR PRN IV 03/25/25 17:30 03/30/25 21:12 4 MG Sodium Chloride 1,000 ml @ 200 mls/hr Q5H IV 03/27/25 14:30 UNV Sodium Chloride 1,000 ml @ 200 mls/hr Q5H IV 03/27/25 17:00 03/31/25 21:07 200 MLS/HR Sucralfate 1 gm BID@0600,2200 PO 03/28/25 22:00 03/31/25 21:07 1 GM Dicyclomine HCl 20 mg QID PO 03/28/25 18:00 03/31/25 21:08 20 MG Alprazolam 0.5 mg Q8HPRN PRN PO 03/28/25 14:15 Metoclopramide HCl 5 mg Q6HR IV 03/30/25 18:00 03/31/25 17:06 5 MG objective Generally well nourished well developed. Mild distress HEENT-atraumatic, normocephalic Heart-sinus tachycardic Lungs to auscultate bilaterally Abdomen soft, epigastric tenderness, nondistended Musculoskeletal-no edema cyanosis Neuro-AO x3, no focal deficit laboratory and microbiology Laboratory Tests 03/31/25 05:32 Test 03/31/25 05:32 Range/Units Serum Glucose 143 H 74-106 mg/dL Problems(with codes): (1) Gastritis determined by endoscopy (2) Abnormal finding on GI tract imaging (3) Hydronephrosis (4) Nausea & vomiting (5) Epigastric pain (6) DKA (diabetic ketoacidosis) (7) UTI (urinary tract infection) Prognosis Plan Check urine bacterial culture and consider treatment with antibiotics Continue PPI and Carafate at bedtime Advance diet as tolerated Supportive care from GI point of view Dietary Evaluation Review Comments: 1) Advance to [facility] 60gm as medically feasible 2) Refer CDE on DC Expected Outcomes/Goals: To meet >75% estimated needs Fu 3-5 days Plan discussed with: Patient DENTON CULP MD Mar 31, 2025 21:53
[2025-03-31 21:59] LABS: Magnesium 2.0 mg/dL (1.6-2.6)
[2025-03-31 22:06] LABS: Potassium 4.3 mmol/L (3.5-5.1)
[2025-04-01] VITALS (8 sets, daily range): BP systolic 124–144; BP diastolic 84–91; PULSE 82–111; RESP 16–18; TEMP 97.8–98.7; O2SAT 98–99
--- NOTE | 2025-04-01 13:42 | DVHPN2 ---
Subjective She is feeling little bit better today. Potassium has been corrected. Reviewed: Care Plan Changes from previous H/P or p: No Changes Objective Vitals Vital Signs Date Time Temp Pulse Resp B/P (MAP) Pulse Ox O2 Delivery O2 Flow Rate FiO2 04/01/25 09:13 98.7 111 16 124/87 (99) 99 98.7 04/01/25 08:00 Room Air* 0 21 Intake/Output Intake and Output 04/01/25 07:00 Intake Total 1840 ml Output Total 2000 ml Balance -160 ml Intake Oral 640 ml IV Total 1200 ml Output Urine Total 2000 ml Exam Alert awake oriented x3. Comfortable in bed. Her significant other is at bedside. HEENT pupils equal round react to light. Heart regular rate and rhythm S1-S2. Lungs without rales wheezes. Abdomen obese soft nontender positive bowel sounds. Extremities no edema positive pulses. Medications Current Medications Medications Dose Ordered Sig/Alfie Route Start Time Stop Time Status Last Admin Dose Admin Docusate Sodium 100 mg BIDPRN PRN PO 03/24/25 20:15 Acetaminophen 650 mg Q6HP PRN PO 03/24/25 20:15 Acetaminophen/ Hydrocodone Bitart 1 tab Q4HP PRN PO 03/24/25 20:15 Diagnostic Test (Pha) 1 strip Q6HR 03/25/25 06:00 04/01/25 11:39 1 STRIP Insulin Human Regular Q6HR SC 03/25/25 06:00 04/01/25 11:39 4 UNITS Dextrose 50 ml UD PRN IV 03/25/25 01:15 Ondansetron HCl 4 mg Q4HPRN PRN IV 03/25/25 11:00 04/01/25 09:41 4 MG Pantoprazole Sodium 40 mg BID IV 03/25/25 22:00 04/01/25 09:41 40 MG Morphine Sulfate 4 mg Q2HR PRN IV 03/25/25 17:30 03/30/25 21:12 4 MG Sodium Chloride 1,000 ml @ 200 mls/hr Q5H IV 03/27/25 14:30 UNV Sodium Chloride 1,000 ml @ 200 mls/hr Q5H IV 03/27/25 17:00 04/01/25 09:41 200 MLS/HR Sucralfate 1 gm BID@0600,2200 PO 03/28/25 22:00 04/01/25 05:20 1 GM Dicyclomine HCl 20 mg QID PO 03/28/25 18:00 04/01/25 11:39 20 MG Alprazolam 0.5 mg Q8HPRN PRN PO 03/28/25 14:15 Metoclopramide HCl 5 mg Q6HR IV 03/30/25 18:00 04/01/25 11:39 5 MG Laboratory Results Laboratory Tests 03/31/25 05:32 03/31/25 21:31 Chemistry Test 03/31/25 21:31 Magnesium Level 2.0 mg/dL (1.6-2.6) Urinalysis Test 03/25/25 05:30 Urine Color Yellow (Yellow) Urine Clarity Turbid (Clear) H Urine pH 6.0 (5.0-9.0) Urine Specific [place] 1.028 (1.001-1.035) Urine Protein 1+ (Negative) H Urine Ketones 3+ (Negative) H Urine Blood 3+ /uL (Negative) H Urine Nitrite Negative (Negative) Urine Bilirubin Negative (Negative) Urine Urobilinogen Normal mg/dL (Negative) Urine Leukocyte Esterase Trace /uL (Negative) Urine RBC 312 /hpf (0 - 4) Urine Microscopic WBC 27 /HPF (0-5) H Urine Squamous Epithelial Cells Few /hpf (<5) Urine Bacteria None seen /hpf (None Seen) Urine Mucus Few (None Seen) Urine Glucose Normal mg/dL (Normal) Assessment/Plan Assessment/Plan Continue present management as she is on. Encouraged activity ambulation. We will bladder train her by calm being the Yan catheter and bladder scan every 6 hours. Consider removing catheter tomorrow. Otherwise further clinical management per clinical course. Discussed with the patient and nurse regarding care plan. Plan discussed with: Patient, Other My Orders Orders - JUAN CARLOS VOGEL MD Procedure Category Date Status Time Communication Order ORDERS 04/01/25 Transmitted 11:29 Bladder Scan ORDERS 04/01/25 Transmitted 11:29 Bladder Scan ORDERS 04/01/25 Transmitted 17:29 Bladder Scan ORDERS 04/01/25 Transmitted 23:29 Bladder Scan ORDERS 04/02/25 Transmitted 05:29 Bladder Scan ORDERS 04/02/25 Transmitted 11:29 Bladder Scan ORDERS 04/02/25 Transmitted 17:29 Bladder Scan ORDERS 04/02/25 Transmitted 23:29 Bladder Scan ORDERS 04/03/25 Transmitted 05:29 Problem List: (1) Gastritis determined by endoscopy (2) Diabetes mellitus with hyperglycemia (3) Neurogenic bladder (4) Nausea & vomiting (5) Epigastric pain Date of Service: Apr 01, 2025 Billing Provider: JUAN CARLOS VOGEL MD Common Visit Codes: [id number] INP/OBS CARE(MOD) JUAN CARLOS VOGEL MD Apr 01, 2025 13:42
[2025-04-01] MEDS: TAMSULOSIN HYDROCHLORIDE 0.4 MG CAP PO SCH (17:05)
--- NOTE | 2025-04-01 18:19 | DVHPN2 ---
Progress Note - Dictate Date Seen: Apr 01, 2025 Medical Necessity Reason Pt with a Central, PICC or Fol: No Subjective No new complaints, patient is feeling better Her EGD findings were nonspecific and benign similar to previous endoscopy in 2022 Her gallbladder ultrasound is also negative and there was no pancreatitis vital signs Vital Sign Date Time Temp Pulse Resp B/P (MAP) Pulse Ox O2 Delivery O2 Flow Rate FiO2 04/01/25 17:16 98.3 97 16 135/84 (101) 99 98.3 04/01/25 08:00 Room Air* 0 21 Total Intake and Output 03/31/25 03/31/25 04/01/25 15:00 23:00 07:00 Intake Total 1200 ml 260 ml 380 ml Output Total 1100 ml 900 ml Balance 1200 ml -840 ml -520 ml medications Current Medications Medications Dose Ordered Sig/Alfie Route Start Time Stop Time Status Last Admin Dose Admin Docusate Sodium 100 mg BIDPRN PRN PO 03/24/25 20:15 Acetaminophen 650 mg Q6HP PRN PO 03/24/25 20:15 Acetaminophen/ Hydrocodone Bitart 1 tab Q4HP PRN PO 03/24/25 20:15 Diagnostic Test (Pha) 1 strip Q6HR 03/25/25 06:00 04/01/25 17:05 1 STRIP Insulin Human Regular Q6HR SC 03/25/25 06:00 04/01/25 17:06 6 UNITS Dextrose 50 ml UD PRN IV 03/25/25 01:15 Ondansetron HCl 4 mg Q4HPRN PRN IV 03/25/25 11:00 04/01/25 13:59 4 MG Pantoprazole Sodium 40 mg BID IV 03/25/25 22:00 04/01/25 09:41 40 MG Morphine Sulfate 4 mg Q2HR PRN IV 03/25/25 17:30 03/30/25 21:12 4 MG Sodium Chloride 1,000 ml @ 200 mls/hr Q5H IV 03/27/25 14:30 UNV Sodium Chloride 1,000 ml @ 200 mls/hr Q5H IV 03/27/25 17:00 04/01/25 14:52 200 MLS/HR Sucralfate 1 gm BID@0600,2200 PO 03/28/25 22:00 04/01/25 05:20 1 GM Dicyclomine HCl 20 mg QID PO 03/28/25 18:00 04/01/25 17:04 20 MG Alprazolam 0.5 mg Q8HPRN PRN PO 03/28/25 14:15 Metoclopramide HCl 5 mg Q6HR IV 03/30/25 18:00 04/01/25 17:05 5 MG Tamsulosin HCl 0.4 mg QPM PO 04/01/25 18:00 04/01/25 17:05 0.4 MG objective Generally well nourished well developed. Mild distress HEENT-atraumatic, normocephalic Heart-sinus tachycardic Lungs to auscultate bilaterally Abdomen soft, epigastric tenderness, nondistended Musculoskeletal-no edema cyanosis Neuro-AO x3, no focal deficit laboratory and microbiology Laboratory Tests 03/31/25 21:31 03/31/25 05:32 Test 03/31/25 05:32 Range/Units Serum Glucose 143 H 74-106 mg/dL Problems(with codes): (1) UTI (urinary tract infection) (2) Gastritis determined by endoscopy (3) Abnormal finding on GI tract imaging (4) Neurogenic bladder (5) Nausea & vomiting (6) Vomiting (7) Epigastric pain (8) DKA (diabetic ketoacidosis) Prognosis PLAN Continue present management DC Yan catheter Continue supportive care Pain control with Bentyl; this medication may aggravate her neurogenic bladder and I will discontinue it Ppi and Carafate Dietary Evaluation Review Comments: 1) Advance to [facility] [place] 60gm as medically feasible 2) Refer CDE on DC Expected Outcomes/Goals: To meet >75% estimated needs Fu 3-5 days Plan discussed with: Other (None) DENTON CULP MD Apr 01, 2025 18:19
[2025-04-02] VITALS (8 sets, daily range): BP systolic 94–139; BP diastolic 48–91; PULSE 85–110; RESP 16–20; TEMP 97.6–98.6; O2SAT 94–99
[2025-04-02] MEDS: ACETAMINOPHEN 325 MG TAB PO PRN (02:53)
--- NOTE | 2025-04-02 13:28 | DVHPN2 ---
Subjective Today she says she is not feeling well. Complains of nausea. Patient is able to feel her bladder full. Bladder training is being done. Reviewed: Care Plan Changes from previous H/P or p: No Changes Objective Vitals Vital Signs Date Time Temp Pulse Resp B/P (MAP) Pulse Ox O2 Delivery O2 Flow Rate FiO2 04/02/25 09:00 97.8 105 19 127/81 (96) 99 97.8 04/02/25 08:00 Room Air* 0 21 Intake/Output Intake and Output 04/02/25 07:00 Intake Total 5130 ml Output Total 2350 ml Balance 2780 ml Intake Oral 1130 ml IV Total 4000 ml Output Urine Total 2350 ml # Bowel Movements 2 Exam Alert awake oriented x3. Comfortable in bed. Her significant other is at bedside. HEENT pupils equal round react to light. Heart regular rate and rhythm S1-S2. Lungs without rales wheezes. Abdomen obese soft nontender positive bowel sounds. Extremities no edema positive pulses. Medications Current Medications Medications Dose Ordered Sig/Alfie Route Start Time Stop Time Status Last Admin Dose Admin Docusate Sodium 100 mg BIDPRN PRN PO 03/24/25 20:15 Acetaminophen 650 mg Q6HP PRN PO 03/24/25 20:15 04/02/25 02:53 650 MG Acetaminophen/ Hydrocodone Bitart 1 tab Q4HP PRN PO 03/24/25 20:15 Diagnostic Test (Pha) 1 strip Q6HR 03/25/25 06:00 04/02/25 11:52 1 STRIP Insulin Human Regular Q6HR SC 03/25/25 06:00 04/02/25 11:52 4 UNITS Dextrose 50 ml UD PRN IV 03/25/25 01:15 Ondansetron HCl 4 mg Q4HPRN PRN IV 03/25/25 11:00 04/02/25 09:35 4 MG Pantoprazole Sodium 40 mg BID IV 03/25/25 22:00 04/02/25 09:35 40 MG Morphine Sulfate 4 mg Q2HR PRN IV 03/25/25 17:30 03/30/25 21:12 4 MG Sodium Chloride 1,000 ml @ 200 mls/hr Q5H IV 03/27/25 14:30 UNV Sucralfate 1 gm BID@0600,2200 PO 03/28/25 22:00 04/02/25 05:28 1 GM Alprazolam 0.5 mg Q8HPRN PRN PO 03/28/25 14:15 Tamsulosin HCl 0.4 mg QPM PO 04/01/25 18:00 04/01/25 17:05 0.4 MG Metoclopramide HCl 10 mg Q6HR IV 04/02/25 18:00 Erythromycin Lactobionate 250 mg/Sodium Chloride 100 ml @ 100 mls/hr Q6HR IV 04/02/25 18:00 Laboratory Results Laboratory Tests 03/31/25 05:32 03/31/25 21:31 Urinalysis Test 03/25/25 05:30 Urine Color Yellow (Yellow) Urine Clarity Turbid (Clear) H Urine pH 6.0 (5.0-9.0) Urine Specific [place] 1.028 (1.001-1.035) Urine Protein 1+ (Negative) H Urine Ketones 3+ (Negative) H Urine Blood 3+ /uL (Negative) H Urine Nitrite Negative (Negative) Urine Bilirubin Negative (Negative) Urine Urobilinogen Normal mg/dL (Negative) Urine Leukocyte Esterase Trace /uL (Negative) Urine RBC 312 /hpf (0 - 4) Urine Microscopic WBC 27 /HPF (0-5) H Urine Squamous Epithelial Cells Few /hpf (<5) Urine Bacteria None seen /hpf (None Seen) Urine Mucus Few (None Seen) Urine Glucose Normal mg/dL (Normal) Microbiology Microbiology Date/Time Source Procedure Growth Status 04/01/25 10:30 Urine - Midstream Clean Catch Urine Culture - Preliminary Resulted Assessment/Plan Assessment/Plan Given patient is not significantly improved from her nausea felt secondary to probable diabetic gastroparesis. Patient is on low-dose IV Reglan. I will increase the Reglan to 10 mg 3 times a day. I will also add erythromycin as a promotility agent to see combination of these two medications we will improve her gastroparesis. Given her bladder function has improved we will remove Yan catheter. Encouraged activity and ambulation. Otherwise continue rest of supportive care and treatment as he is on. Further clinical management per clinical course. Discussed with the patient and boyfriend regarding care plan. Plan discussed with: Patient, Other (Boyfriend at bedside) My Orders Orders - JUAN CARLOS VOGEL MD Procedure Category Date Status Time Tamsulosin PHA 04/01/25 In Process Hydrochloride (Flomax) 18:00 Basic Metabolic Panel LAB 04/02/25 Logged 10:23 Complete Blood Count LAB 04/02/25 Logged 10:23 Magnesium LAB 04/02/25 Logged 10:23 Metoclopramide PHA 04/02/25 In Process Injection (Reglan 18:00 Erythromycin PHA 04/02/25 In Process Lactobionate 18:00 Discontinue Yan MOY 04/02/25 In Process Catheter 13:00 Pt Request For Service PT 04/02/25 Logged 13:00 Problem List: (1) Neurogenic bladder (2) Diabetes mellitus with hyperglycemia (3) Gastritis determined by endoscopy (4) Nausea & vomiting Date of Service: Apr 02, 2025 Billing Provider: JUAN CARLOS VOGEL MD Common Visit Codes: [id number] INP/OBS CARE(MOD) JUAN CARLOS VOGEL MD Apr 02, 2025 13:28
[2025-04-02 15:54] LABS: Hematocrit 33.6 % (36.0-46.0); Hemoglobin 11.7 g/dL (12.2-16.2); Mean Corpuscular Hemoglobin 28.3 pg (28.0-32.0); Mean Corpuscular Volume 81.1 fL (80.0-100.0); Nucleated Red Blood Cells % 0.1 %
[2025-04-02 16:02] LABS: Chloride 102 mmol/L (98-107); Sodium 136 mmol/L (136-145)
[2025-04-02 16:03] LABS: Anion Gap 17 (5-15)
[2025-04-02 16:05] LABS: Calcium 8.3 mg/dL (8.7-10.4); Carbon Dioxide 17 mmol/L (20-31); Potassium 2.9 mmol/L (3.5-5.1)
[2025-04-02 16:09] LABS: BUN/Creatinine Ratio 6.4 (10.0-20.0); Blood Urea Nitrogen < 5 mg/dL (9-23); Glucose 247 mg/dL (74-106)
[2025-04-02 16:15] LABS: Magnesium 1.3 mg/dL (1.6-2.6)
[2025-04-02] MEDS: MAGNESIUM SULFATE 1GM/100ML 100 ML IV SCH (17:34)
[2025-04-02] MEDS: METOCLOPRAMIDE HCL 5MG/ml INJ 2ml VIAL IV SCH (17:42)
[2025-04-02] MEDS ORDERED: DEXTROSE (50%) 50ML SYRG IV PRN (17:45)
[2025-04-02] MEDS: ERYTHROMYCIN LACTOBIONATE 250 MG in SODIUM CHL 0.9% 100 ML IV SCH ×2 (18:00→22:33)
[2025-04-02] MEDS: InsuLIN REG 1unit/0.01ml Soln (100units/ml) SC SCH (18:25)
[2025-04-02] MEDS: ACCU-CHEK COMFORT CURVE STRIP VI SCH (18:25)
[2025-04-02 20:17] LABS: Chloride 104 mmol/L (98-107); Sodium 137 mmol/L (136-145)
[2025-04-02 20:18] LABS: Anion Gap 18 (5-15); Calcium 8.7 mg/dL (8.7-10.4)
[2025-04-02 20:25] LABS: BUN/Creatinine Ratio 5.3 (10.0-20.0); Blood Urea Nitrogen < 5 mg/dL (9-23); Carbon Dioxide 15 mmol/L (20-31); Glucose 255 mg/dL (74-106)
[2025-04-02 20:29] LABS: Potassium 2.5 mmol/L (3.5-5.1)
[2025-04-02] MEDS: SOD CHL 0.9%/ KCL 20MEQ 1,000 ML IV SCH (20:56)
[2025-04-02] MEDS: POTASSIUM CHLORIDE 80 MEQ, LIDOCAINE 1% (LOCAL ANESTH.) 6 ML in SODIUM CHL 0.9% 500 ML IV ONE (20:57)
[2025-04-02] MEDS: INSULIN LANTUS (GLARGINE) 1 /0.01ml (100units/ml) SC SCH (22:57)
[2025-04-03] VITALS (9 sets, daily range): BP systolic 101–131; BP diastolic 55–90; PULSE 86–118; RESP 12–18; TEMP 97.8–98.8; O2SAT 98–100
[2025-04-03 07:36] LABS: Anion Gap 14 (5-15); Chloride 106 mmol/L (98-107); Sodium 138 mmol/L (136-145)
[2025-04-03 07:43] LABS: BUN/Creatinine Ratio 5.9 (10.0-20.0); Blood Urea Nitrogen < 5 mg/dL (9-23); Calcium 8.3 mg/dL (8.7-10.4); Carbon Dioxide 18 mmol/L (20-31); Glucose 160 mg/dL (74-106); Potassium 2.6 mmol/L (3.5-5.1)
[2025-04-03] MEDS ORDERED: DEXTROSE (50%) 50ML SYRG IV PRN (13:00)
[2025-04-03] MEDS: MAGNESIUM SULFATE 1GM/100ML 100 ML IV SCH (13:02)
--- NOTE | 2025-04-03 13:06 | DVHPN2 ---
Subjective She is feeling better. Complains of less nausea. Yan catheter removed and she is voiding urine without issues. Had a bowel movement. However electrolytes potassium magnesium is low therefore being corrected. Reviewed: Care Plan Changes from previous H/P or p: No Changes Objective Vitals Vital Signs Date Time Temp Pulse Resp B/P (MAP) Pulse Ox O2 Delivery O2 Flow Rate FiO2 04/03/25 08:52 86 04/03/25 08:30 97.8 18 124/79 (94) 98 97.8 04/02/25 20:00 Room Air* 0 21 Intake/Output Intake and Output 04/03/25 07:00 Intake Total 3000 ml Balance 3000 ml Intake Oral 600 ml IV Total 2400 ml # Voids 1 Exam Comfortable in bed sleeping but easily arousable. Alert awake oriented to place and person. Heart regular rate and rhythm S1-S2. Lungs without rales wheezes poor inspiratory effort. Abdomen soft nontender positive bowel sounds obese. Extremities no edema positive pulses Medications Current Medications Medications Dose Ordered Sig/Alfie Route Start Time Stop Time Status Last Admin Dose Admin Docusate Sodium 100 mg BIDPRN PRN PO 03/24/25 20:15 Acetaminophen 650 mg Q6HP PRN PO 03/24/25 20:15 04/02/25 02:53 650 MG Acetaminophen/ Hydrocodone Bitart 1 tab Q4HP PRN PO 03/24/25 20:15 Ondansetron HCl 4 mg Q4HPRN PRN IV 03/25/25 11:00 04/03/25 08:52 4 MG Pantoprazole Sodium 40 mg BID IV 03/25/25 22:00 04/03/25 08:52 40 MG Morphine Sulfate 4 mg Q2HR PRN IV 03/25/25 17:30 03/30/25 21:12 4 MG Sodium Chloride 1,000 ml @ 200 mls/hr Q5H IV 03/27/25 14:30 UNV Sucralfate 1 gm BID@0600,2200 PO 03/28/25 22:00 04/03/25 05:30 1 GM Alprazolam 0.5 mg Q8HPRN PRN PO 03/28/25 14:15 Tamsulosin HCl 0.4 mg QPM PO 04/01/25 18:00 04/02/25 17:35 0.4 MG Metoclopramide HCl 10 mg Q6HR IV 04/02/25 18:00 04/03/25 11:13 10 MG Potassium Chloride/Sodium Chloride 1,000 ml @ 100 mls/hr Q10H IV 04/02/25 17:45 04/03/25 06:34 100 MLS/HR Diagnostic Test (Pha) 1 strip Q6HR 04/02/25 18:00 04/03/25 11:14 1 STRIP Insulin Human Regular Q6HR SC 04/02/25 18:00 04/03/25 05:41 3 UNITS Dextrose 50 ml UD PRN IV 04/02/25 17:45 Insulin Glargine 10 units BID@0700,2200 SC 04/02/25 22:00 04/03/25 06:11 10 UNITS Erythromycin Lactobionate 250 mg/Sodium Chloride 100 ml @ 100 mls/hr Q6H IV 04/02/25 21:00 04/03/25 08:43 100 MLS/HR Magnesium Sulfate/ Dextrose 100 ml @ 100 mls/hr Q1HR IV 04/03/25 11:00 04/03/25 14:59 Potassium Chloride 100 ml @ 50 mls/hr Q2H IV 04/03/25 11:45 04/03/25 15:44 Laboratory Results Laboratory Tests 04/02/25 15:31 04/03/25 06:42 Chemistry Test 04/02/25 15:31 04/02/25 19:52 04/03/25 06:42 Calcium Level 8.3 mg/dL (8.7-10.4) L 8.7 mg/dL (8.7-10.4) 8.3 mg/dL (8.7-10.4) L Magnesium Level 1.3 mg/dL (1.6-2.6) L Urinalysis Test 03/25/25 05:30 Urine Color Yellow (Yellow) Urine Clarity Turbid (Clear) H Urine pH 6.0 (5.0-9.0) Urine Specific [place] 1.028 (1.001-1.035) Urine Protein 1+ (Negative) H Urine Ketones 3+ (Negative) H Urine Blood 3+ /uL (Negative) H Urine Nitrite Negative (Negative) Urine Bilirubin Negative (Negative) Urine Urobilinogen Normal mg/dL (Negative) Urine Leukocyte Esterase Trace /uL (Negative) Urine RBC 312 /hpf (0 - 4) Urine Microscopic WBC 27 /HPF (0-5) H Urine Squamous Epithelial Cells Few /hpf (<5) Urine Bacteria None seen /hpf (None Seen) Urine Mucus Few (None Seen) Urine Glucose Normal mg/dL (Normal) Microbiology Microbiology Date/Time Source Procedure Growth Status 04/01/25 10:30 Urine - Midstream Clean Catch Urine Culture - Final Complete Assessment/Plan Assessment/Plan Continue current promotility agents Reglan and erythromycin as started for diabetic gastroparesis. It appears patient is getting some relief from them. Continue to replace potassium magnesium. Blood sugars have significantly improved after starting Lantus. Continue sliding scale and rest of supportive care and treatment as she is on. She is encouraged to ambulate guarded out of bed as much as possible to prevent general deconditioning and risks of DVT and PE. Discussed with the nurse regarding care plan as well Plan discussed with: Patient, Other My Orders Orders - JUAN CARLOS VOGEL MD Procedure Category Date Status Time Discontinue Yan MOY 04/02/25 In Process Catheter 13:00 Pt Request For Service PT 04/02/25 Logged 13:00 Sod Chl 0.9%/ Kcl PHA 04/02/25 In Process 20meq 17:45 Glucose Blood PHA 04/02/25 In Process (Accu-Chek Comfort 18:00 Insulin R (Human) PHA 04/02/25 In Process (Insulin R) 18:00 Dextrose 50% Syringe PHA 04/02/25 In Process 17:45 Insulin Lantus PHA 04/02/25 In Process (Glargine) (Lantus) 22:00 Basic Metabolic Panel LAB 04/03/25 Logged 12:00 Erythromycin PHA 04/02/25 In Process Lactobionate 21:00 Magnesium Sulfate PHA 04/03/25 In Process 1gm/100ml 11:00 Problem List: (1) Uncontrolled diabetes mellitus (2) Nausea & vomiting (3) Neurogenic bladder (4) Gastritis determined by endoscopy (5) Diabetes mellitus with hyperglycemia Date of Service: Apr 03, 2025 Billing Provider: JUAN CARLOS VOGEL MD Common Visit Codes: [id number] INP/OBS CARE(MOD) JUAN CARLOS VOGEL MD Apr 03, 2025 13:06
[2025-04-03 13:15] LABS: Chloride 105 mmol/L (98-107); Sodium 137 mmol/L (136-145)
[2025-04-03 13:16] LABS: Anion Gap 15 (5-15)
[2025-04-03 13:17] LABS: Calcium 8.9 mg/dL (8.7-10.4)
[2025-04-03 13:20] LABS: Carbon Dioxide 17 mmol/L (20-31); Potassium 2.8 mmol/L (3.5-5.1)
[2025-04-03 13:23] LABS: BUN/Creatinine Ratio 6.2 (10.0-20.0); Blood Urea Nitrogen < 5 mg/dL (9-23); Glucose 110 mg/dL (74-106)
--- NOTE | 2025-04-03 13:23 | DVHPN2 ---
Consult Progress Note Date Seen: Apr 03, 2025 Subjective Other Systems: History of Present Illness 29-year-old female with history of type 1 diabetes mellitus on OmniPod with Humalog who presented to the hospital on 03/24 with acute onset weakness, chest pain, nausea, vomiting.Upon presentation vital signs showed blood pressure 140/103, respiratory rate 25, pulse 124, afebrile satting well on 2 L nasal cannula. Labs notable for sodium 138, glucose 176, calcium 11, creatinine 1.2, anion gap 18, CO2 19, beta hydroxybutyrate 4.5. Patient was provided IV fluid resuscitation, was started on insulin Lantus and sliding scale insulin. On 03/26 patient underwent EGD for evaluation of her chronic nausea, vomiting, epigastric pain. EGD showed minimal gastritis, 1 cm sliding-type hiatal hernia without esophagitis. Patient is a clinic patient of Dr Pacheco. last seen December 15, 2024. At that time some evidence of recurrent hypoglycemia due to stacking multiple insulin doses with postprandial hyperglycemia. Carb ratio strengthened at that time. Current insulin pump settings: 24 hours: Basal 1.1 Insulin carb ratio 1:6.5 Insulin sensitivity factor I:32 04/03/25: Patient mentions weakness and mild muscle soreness. Patient had episode of vomiting in the morning. Also mentioned some chest pressure whenever she has feeling of nausea Denied any other complaints of dizziness, headache, shortness of breath. Objective vital signs Vital Sign Date Time Temp Pulse Resp B/P (MAP) Pulse Ox O2 Delivery O2 Flow Rate FiO2 04/03/25 08:52 86 04/03/25 08:30 97.8 18 124/79 (94) 98 97.8 04/02/25 20:00 Room Air* 0 21 Total Intake and Output 04/02/25 04/02/25 04/03/25 15:00 23:00 07:00 Intake Total 1200 ml 100 ml 1700 ml Balance 1200 ml 100 ml 1700 ml medications Current Medications Medications Dose Ordered Sig/Alfie Route Start Time Stop Time Status Last Admin Dose Admin Docusate Sodium 100 mg BIDPRN PRN PO 03/24/25 20:15 Acetaminophen 650 mg Q6HP PRN PO 03/24/25 20:15 04/02/25 02:53 650 MG Acetaminophen/ Hydrocodone Bitart 1 tab Q4HP PRN PO 03/24/25 20:15 Ondansetron HCl 4 mg Q4HPRN PRN IV 03/25/25 11:00 04/03/25 08:52 4 MG Pantoprazole Sodium 40 mg BID IV 03/25/25 22:00 04/03/25 08:52 40 MG Morphine Sulfate 4 mg Q2HR PRN IV 03/25/25 17:30 03/30/25 21:12 4 MG Sodium Chloride 1,000 ml @ 200 mls/hr Q5H IV 03/27/25 14:30 UNV Sucralfate 1 gm BID@0600,2200 PO 03/28/25 22:00 04/03/25 05:30 1 GM Alprazolam 0.5 mg Q8HPRN PRN PO 03/28/25 14:15 Tamsulosin HCl 0.4 mg QPM PO 04/01/25 18:00 04/02/25 17:35 0.4 MG Metoclopramide HCl 10 mg Q6HR IV 04/02/25 18:00 04/03/25 11:13 10 MG Potassium Chloride/Sodium Chloride 1,000 ml @ 100 mls/hr Q10H IV 04/02/25 17:45 04/03/25 06:34 100 MLS/HR Insulin Glargine 10 units BID@0700,2200 HI 04/02/25 22:00 04/03/25 06:11 10 UNITS Erythromycin Lactobionate 250 mg/Sodium Chloride 100 ml @ 100 mls/hr Q6H IV 04/02/25 21:00 04/03/25 08:43 100 MLS/HR Magnesium Sulfate/ Dextrose 100 ml @ 100 mls/hr Q1HR IV 04/03/25 11:00 04/03/25 14:59 04/03/25 13:02 100 MLS/HR Potassium Chloride 100 ml @ 50 mls/hr Q2H IV 04/03/25 11:45 04/03/25 15:44 Insulin Human Lispro 5 units AC HI 04/03/25 17:00 UNV Diagnostic Test (Pha) 1 strip ACHS 04/03/25 17:00 UNV Insulin Human Regular KINDLY USE HUMALOG ... ACHS HI 04/03/25 17:00 UNV Dextrose 50 ml UD PRN IV 04/03/25 13:00 UNV Examination: GENERAL:Normal, LUNGS:Normal, CVS:Normal, ABDOMEN:Normal laboratory and microbiology Laboratory Tests 04/02/25 15:31 Test 04/03/25 12:59 Range/Units Serum Glucose Pending Problem List/Assessment/Plan Problem List/Assessment/Plan Assessment/Plan # DKA, resolved # DM1, on insulin pump at home # Chronic Nausea, Vomiting, Possible Gastroparesis # Chest Pain, likely due to GERD # UTI # Gastritis, as per endoscopy # Hypokalemia due to excessive vomiting # Hypomagnesemia Plan Longstanding hx of dysglycemia with acute, recurrent onset of nausea/vomiting. Given degree of dysglycemia and duration very likely patient has developed autonomic dysfunction with regards to GI motility (gastroparesis) resulting in her nausea/vomiting. -Changed insulin regimen to Lantus 10units BID plus Pre-meal scheduled Insulin Humalog 5 units plus mild sliding scale insulin with humalog ACHS( Basal Bolus Regimen plus sliding scale insulin ) Patient is mentioning she doesn't currently have insulin pump- -Small frequent meals. Avoid high fat, high fiber foods. Consider more liquid based foods during exacerbation of symptoms. Avoid carbonated beverages -currently on erythropoietin for possible gastroparesis, started by the primary team. Case discussion with Dr Pacheco I personally saw and evaluated the patient together with the resident. I performed my own independent history and physical examination, and I reviewed the patients data, clinical findings, and plan of care. I agree with the residents documentation and medical decision-making. Plan discussed with: Patient, Other Dietary Evaluation Review Comments: 1) Advance to [facility] 60gm as medically feasible 2) Refer CDE on DC Expected Outcomes/Goals: To meet >75% estimated needs Fu 3-5 days ANNA MARIE PENA RESIDENT Apr 03, 2025 13:23 NANDO PACHECO MD Apr 04, 2025 11:25
[2025-04-03] MEDS: ACCU-CHEK COMFORT CURVE STRIP VI SCH (17:25)
[2025-04-03] MEDS: POTASSIUM CHL 20MEQ/100ML 100 ML IV SCH ×2 (17:29→19:30)
[2025-04-03] MEDS: INSULIN LISPRO (HUMAN) 100 UNITS/ML ML SC SCH (17:52)
[2025-04-03] MEDS: InsuLIN REG 1unit/0.01ml Soln (100units/ml) SC SCH (22:00)
[2025-04-03] MEDS: POTASSIUM CHL 20 Meq TABLET PO ONE (22:04)
--- NOTE | 2025-04-03 22:37 | DVHPN2 ---
Progress Note - Dictate Date Seen: Apr 03, 2025 Medical Necessity Reason Pt with a Central, PICC or Fol: No Subjective No new complaints, patient is feeling better; sleeping comfortably Her EGD findings were nonspecific and benign similar to previous endoscopy in 2022 Her gallbladder ultrasound is also negative and there was no pancreatitis vital signs Vital Sign Date Time Temp Pulse Resp B/P (MAP) Pulse Ox O2 Delivery O2 Flow Rate FiO2 04/03/25 21:00 98.4 108 12 119/83 (95) 100 98.4 04/03/25 08:30 Room Air* 0 21 Total Intake and Output 04/02/25 04/02/25 04/03/25 15:00 23:00 07:00 Intake Total 1200 ml 100 ml 1700 ml Balance 1200 ml 100 ml 1700 ml medications Current Medications Medications Dose Ordered Sig/Alfie Route Start Time Stop Time Status Last Admin Dose Admin Docusate Sodium 100 mg BIDPRN PRN PO 03/24/25 20:15 Acetaminophen 650 mg Q6HP PRN PO 03/24/25 20:15 04/02/25 02:53 650 MG Acetaminophen/ Hydrocodone Bitart 1 tab Q4HP PRN PO 03/24/25 20:15 Ondansetron HCl 4 mg Q4HPRN PRN IV 03/25/25 11:00 04/03/25 08:52 4 MG Pantoprazole Sodium 40 mg BID IV 03/25/25 22:00 04/03/25 08:52 40 MG Morphine Sulfate 4 mg Q2HR PRN IV 03/25/25 17:30 03/30/25 21:12 4 MG Sodium Chloride 1,000 ml @ 200 mls/hr Q5H IV 03/27/25 14:30 UNV Sucralfate 1 gm BID@0600,2200 PO 03/28/25 22:00 04/03/25 05:30 1 GM Alprazolam 0.5 mg Q8HPRN PRN PO 03/28/25 14:15 Tamsulosin HCl 0.4 mg QPM PO 04/01/25 18:00 04/03/25 17:53 0.4 MG Metoclopramide HCl 10 mg Q6HR IV 04/02/25 18:00 04/03/25 17:53 10 MG Potassium Chloride/Sodium Chloride 1,000 ml @ 100 mls/hr Q10H IV 04/02/25 17:45 04/03/25 17:26 100 MLS/HR Insulin Glargine 10 units BID@0700,2200 MS 04/02/25 22:00 04/03/25 06:11 10 UNITS Insulin Human Lispro 5 units AC MS 04/03/25 17:00 04/03/25 17:52 5 UNITS Diagnostic Test (Pha) 1 strip ACHS 04/03/25 17:00 04/03/25 17:25 1 STRIP Insulin Human Regular KINDLY USE HUMALOG ... ACHS SC 04/03/25 17:00 Dextrose 50 ml UD PRN IV 04/03/25 13:00 Erythromycin Lactobionate 250 mg/Sodium Chloride 100 ml @ 100 mls/hr Q6H IV 04/04/25 00:00 objective Generally well nourished well developed. Mild distress HEENT-atraumatic, normocephalic Heart-sinus tachycardic Lungs to auscultate bilaterally Abdomen soft, epigastric tenderness, nondistended Musculoskeletal-no edema cyanosis Neuro-AO x3, no focal deficit laboratory and microbiology Laboratory Tests 04/03/25 19:00 04/03/25 12:59 04/02/25 15:31 Test 04/03/25 12:59 Range/Units Serum Glucose 110 H 74-106 mg/dL Problems(with codes): (1) UTI (urinary tract infection) (2) Diabetes mellitus with hyperglycemia (3) Abnormal finding on GI tract imaging (4) Neurogenic bladder (5) Nausea & vomiting Prognosis Plan Encourage ambulation Correct electrolytes Discharge planning as per hospitalist No further GI workup at this time Dietary Evaluation Review Comments: 1) Advance to [facility] 60 as medically feasible 2) Refer CDE on DC Expected Outcomes/Goals: To meet >75% estimated needs Fu 3-5 days Plan discussed with: Other (Dr Madrid) DENTON CULP MD Apr 03, 2025 22:37
[2025-04-04] VITALS (7 sets, daily range): BP systolic 120–137; BP diastolic 78–90; PULSE 75–96; RESP 12–16; TEMP 97.7–98.7; O2SAT 97–99
[2025-04-04] MEDS: ERYTHROMYCIN LACTOBIONATE 250 MG in SODIUM CHL 0.9% 100 ML IV SCH (00:09)
[2025-04-04 09:27] LABS: Anion Gap 9 (5-15); Carbon Dioxide 25 mmol/L (20-31); Chloride 105 mmol/L (98-107); Sodium 139 mmol/L (136-145)
[2025-04-04 09:29] LABS: Calcium 8.5 mg/dL (8.7-10.4); Potassium 3.1 mmol/L (3.5-5.1)
[2025-04-04 09:33] LABS: BUN/Creatinine Ratio 6.6 (10.0-20.0); Blood Urea Nitrogen < 5 mg/dL (9-23); Glucose 153 mg/dL (74-106)
[2025-04-04] MEDS ORDERED: INSULIN LISPRO (HUMAN) 100 UNITS/ML ML SC SCH (12:00)
[2025-04-04] MEDS ORDERED: SUCR1SUS26 PO (12:12)
[2025-04-04] MEDS ORDERED: POTA-220 PO (12:12)
[2025-04-04] MEDS ORDERED: METO-281 PO (12:12)
[2025-04-04] MEDS ORDERED: PANT40TA2 PO (12:12)
--- NOTE | 2025-04-04 12:26 | DVHDS2 ---
Discharge Summary Date of Admission Mar 24, 2025 at 20:10 Date of Discharge: Apr 04, 2025 Labs/Diagnostic Data: Laboratory Results Test 04/04/25 11:17 04/04/25 08:58 04/03/25 19:00 04/02/25 15:31 POC Glucose 201 mg/dl (70-106) Sodium Level 139 mmol/L (136-145) Potassium Level 3.1 mmol/L (3.5-5.1) Chloride Level 105 mmol/L (98-107) Carbon Dioxide Level 25 mmol/L (20-31) Anion Gap 9 (5-15) Blood Urea Nitrogen < 5 mg/dL (9-23) Creatinine 0.76 mg/dL (0.550-1.02) Glomerular Filtration Rate Calc 110 mL/min (>90) BUN/Creatinine Ratio 6.6 (10.0-20.0) Serum Glucose 153 mg/dL (74-106) Calcium Level 8.5 mg/dL (8.7-10.4) Magnesium Level 2.3 mg/dL (1.6-2.6) White Blood Count 6.3 10^3/uL (4.4-10.8) Red Blood Count 4.15 10^6/uL (4.0-5.20) Hemoglobin 11.7 g/dL (12.2-16.2) Hematocrit 33.6 % (36.0-46.0) Mean Corpuscular Volume 81.1 fL (80.0-100.0) Mean Corpuscular Hemoglobin 28.3 pg (28.0-32.0) Mean Corpuscular Hemoglobin Concent 34.9 g/dL (32.0-36.0) Red Cell Distribution Width 15.2 % (11.8-14.3) Platelet Count 342 10^3/uL (140-450) Mean Platelet Volume 7.5 fL (6.9-10.8) Neutrophils (%) (Auto) 70.1 % (37.0-80.0) Lymphocytes (%) (Auto) 23.8 % (10.0-50.0) Monocytes (%) (Auto) 4.6 % (0.0-12.0) Eosinophils (%) (Auto) 1.0 % (0.0-7.0) Basophils (%) (Auto) 0.5 % (0.0-2.0) Neutrophils # (Auto) 4.4 10 ^3/uL (1.6-8.6) Lymphocytes # (Auto) 1.5 10 ^3/uL (0.4-5.4) Monocytes # (Auto) 0.3 10 ^3/uL (0-1.3) Eosinophils # (Auto) 0.1 10 ^3/uL (0-0.8) Basophils # (Auto) 0 10 ^3/uL (0-0.2) Nucleated Red Blood Cells 0.1 % Test 03/31/25 05:32 03/30/25 13:41 03/29/25 04:49 03/27/25 06:00 Hemoglobin A1c 6.0 % A1C (<5.7) Total Bilirubin 0.6 mg/dL (0.2-1.0) Aspartate Amino Transferase (AST) 12 U/L (13-40) Alanine Aminotransferase (ALT) < 9 U/L (7-40) Alkaline Phosphatase 38 U/L (46-116) Total Protein 5.9 g/dL (5.7-8.2) Albumin 3.4 g/dL (3.2-4.8) Urine Opiates Screen Neg (NEGATIVE) Urine Fentanyl Screen Neg (NEGATIVE) Urine Barbiturates Screen Neg (NEGATIVE) Urine Phencyclidine Screen Neg (NEGATIVE) Urine Amphetamines Screen Neg (NEGATIVE) Urine Benzodiazepines Screen Neg (NEGATIVE) Urine Cocaine Screen Neg (NEGATIVE) Urine Cannabinoids Screen Neg (NEGATIVE) Lipase 45 U/L (12-53) Prothrombin Time 12.4 sec (9.3-11.8) Prothrombin Time INR 1.19 (0.9-1.15) Activated Partial Thromboplast Time 30.2 SEC (24.5-34.5) Beta HCG, Quantitative 0.1 mIU/mL (1.5-4.2) Test 03/25/25 14:08 03/25/25 05:30 03/24/25 15:10 03/24/25 14:26 Direct Bilirubin 0.2 mg/dL (<0.3) Amylase Level 59 U/L (30-118) Urine Color Yellow (Yellow) Urine Clarity Turbid (Clear) Urine pH 6.0 (5.0-9.0) Urine Specific [place] 1.028 (1.001-1.035) Urine Protein 1+ (Negative) Urine Ketones 3+ (Negative) Urine Blood 3+ /uL (Negative) Urine Nitrite Negative (Negative) Urine Bilirubin Negative (Negative) Urine Urobilinogen Normal mg/dL (Negative) Urine Leukocyte Esterase Trace /uL (Negative) Urine RBC 312 /hpf (0 - 4) Urine Microscopic WBC 27 /HPF (0-5) Urine Squamous Epithelial Cells Few /hpf (<5) Urine Bacteria None seen /hpf (None Seen) Urine Mucus Few (None Seen) Urine Glucose Normal mg/dL (Normal) Troponin I High Sensitivity 5 ng/L (</=34) Blood Gas Specimen Type Arterial Blood Gas Sample Site Right radial Blood Gas Patient Temperature 37.0 Arterial Blood Date Drawn [id number] Arterial Blood pH 7.561 (7.350-7.450) Arterial Blood Partial Pressure CO2 20.9 mmHg (32.0-45.0) Arterial Blood Partial Pressure O2 104.0 mmHg (83.0-108.0) Arterial Blood HCO3 18.3 mmol/L (21.0-28.0) Arterial Blood Oxygen Saturation 98.6 % (94.0-98.0) Arterial Blood Base Excess -1.6 mmol/L (-2.0-3.0) Arterial Blood Oxyhemoglobin 97.0 % (94.0-98.0) Arterial Blood Carboxyhemoglobin 1.1 % (0.5-1.5) Arterial Blood Methemoglobin 0.5 % (0.0-1.5) [place]on Test Yes Blood Gas Total Hemoglobin 14.20 g/dL (12.0-16.0) Blood Gas Modality Nasal cannula FiO2 % 28.0 Blood Gas Critical Value Read Back yes Blood Gas Notified Whom antwon Brasher md Blood Gas Notified Time [id number] Blood Gas Notified By Angel chowdhury i. Test 03/24/25 13:54 Beta-Hydroxybutyric Acid 4.462 mmol/L (< 0.4) Other Laboratory Tests 04/04/25 08:58 04/02/25 15:31 Brief Hx & Hospital Course: 29-year-old female with PMHx DM presents with a chief complaint of weakness, chest pain, nausea, vomiting, headache, abdominal pain, and SOB x 3 days. Patient was sent over from Urgent Care due to chest pain and SOB. Patient states that she normally gets this way when she is in DKA, sugar was 173 in triage. Patient denies any diarrhea, rectal bleeding, hematemesis, or syncope. During hospital stay got better, having sever nausea and vomiting, hag EGD findings were nonspecific and benign. Advanced diet and tolerated During hospital stay also developed hypokalemia requiring IV replacement Condition at Discharge: Good Final Diagnosis/Problems List gastroparesis Anion gap metabolic acidosis Ketoacidosis Type 1 diabetes on insulin pump Hypokalemia Discharge Disposition: Home Discharge Instruct/Medications Diet: Regular Activity: No Restrictions, As Tolerated Follow Up/Referral: PCP in 7 days Medications: reglan, sucralfate, pantoprazole Scheduled Insulin Aspart (Novolog), 10 UNIT IJ TID Insulin Detemir (Levemir), 25 ' SC HS Metoclopramide Hcl (Reglan), 10 MG PO TID Potassium Chloride (Klor-Con M20), 20 MEQ PO BID Sucralfate (Carafate Susp), 10 ML PO BID Scheduled PRN Pantoprazole Sodium Sesquihydr (Protonix), 40 MG PO DAILY PRN Discharge Statement: "Patient was advised to return to the ER or call 911 if any headaches, dizziness, shortness of breath, chest pain, abdominal pain, bleeding, fevers, or worsening of medical condition. Patient was counseled about treatment plan, medications, possible side effects, patientverbalized understanding. All questions were answered to the best of my ability. This discharge took greater then 30 minutes in planning, reviewing documentation, counseling the patient, and discussing with other team members." ASSESSMENT ASSESSMENT Assessment gastroparesis Date of Service: Apr 04, 2025 Billing Provider: THA NEWTON MD Common Visit Codes: 49443-FTY/OBS DISCH DAY >30min THA NEWTON MD Apr 04, 2025 12:26
[2025-04-04] MEDS: INSULIN LISPRO (HUMAN) 100 UNITS/ML ML SC SCH (14:18)
== END 2025-04-04 15:00 | disposition home or self-care (01) | DRG 638 ==
LOC: ER 13:41 → OVERFLOW 20:10 → TELE-WESTW 03-25 20:44
PROVIDERS: ADMIT Hospitalist; ATTEND Hospitalist
PROC: 0DB68ZX Excision of Stomach, Via Natural or Artificial Opening Endoscopic, Diagnostic (ICD-10-PCS; 2025-03-27)
PROC: 0DB98ZX Excision of Duodenum, Via Natural or Artificial Opening Endoscopic, Diagnostic (ICD-10-PCS; 2025-03-27)
PROC: 0DB48ZX Excision of Esophagogastric Junction, Via Natural or Artificial Opening Endoscopic, Diagnostic (ICD-10-PCS; principal; 2025-03-27 14:20)
DX: E10.10 Type 1 diabetes mellitus with ketoacidosis without coma (principal); N39.0 Urinary tract infection, site not specified; E10.43 Type 1 diabetes mellitus with diabetic autonomic (poly)neuropathy; F32.A Depression, unspecified; K44.9 Diaphragmatic hernia without obstruction or gangrene; K31.84 Gastroparesis; K29.70 Gastritis, unspecified, without bleeding; E83.42 Hypomagnesemia; E87.6 Hypokalemia; F41.9 Anxiety disorder, unspecified; K21.9 Gastro-esophageal reflux disease without esophagitis; N31.9 Neuromuscular dysfunction of bladder, unspecified; Z79.4 Long term (current) use of insulin; Z85.41 Personal history of malignant neoplasm of cervix uteri; Z80.49 Family history of malignant neoplasm of other genital organs; Z96.41 Presence of insulin pump (external) (internal); Z91.018 Allergy to other foods; Z79.899 Other long term (current) drug therapy
CPT/HCPCS: 36415; 36600; 43239; 71045; 74176; 74177; 76705; 80048; 80053; 80076; 80307; 81001; 82010; 82150; 82805; 82962; 83036; 83690; 83735; 84132; 84484; 84702; 85025; 85610; 85730; 86850; 86900; 86901; 87086; 93005; 97110; 97116; 97163; 97530; 99291; 99292; G0378; J1815; J2003; J2250; J2405; J2470; J3480

== ENCOUNTER 2025-04-11 09:57 | Inpatient (IN) | payer BC, MEDICAID ==
[~2025-04-11] VITALS: Ht 170.2 cm; Wt 75.5 kg
[~2025-04-11 09:57] MED LIST changes: +METO-281 PO; +PANT40TA2 PO; +POTA-220 PO; +SUCR1SUS26 PO
--- NOTE | 2025-04-11 10:36 | ED.PDOC ---
History of Present Illness HPI Comments Patient is a 29-year-old female with a medical history of type 1 diabetes presented to the ED with a chief complaint of nausea vomiting abdominal pain. Patient has a 2 was recently discharged from the hospital about a week ago when she was admitted for similar complaints and was found to be in ketoacidosis. Patient reports that since yesterday she has not been able to eat much and only had 1 small meal yesterday in the morning. Currently reports of intractable nausea and vomiting associated with the abdominal pain. Patient denied any chest pain, shortness of breath, headache. Chief Complaint: General Weakness Time Seen by MD: 10:02 Primary Care Provider: Shivani WOLFE Allergies: Coded Allergies: Soy Allergy (Verified Allergy, Severe, sob, 05/14/23) Home Meds Active Scripts Potassium Chloride (Klor-Con M20) 20 Meq Tab, 20 MEQ PO BID for 5 Days, #10 TAB Prov:THA NEWTON MD 04/04/25 Sucralfate (CARAFATE SUSP) 1 Gm/10 Ml Ss, 10 ML PO BID for 90 Days, #600 ML 1 Refill Prov:THA NEWTON MD 04/04/25 Pantoprazole Sodium Sesquihydr (Protonix) 40 Mg Tab, 40 MG PO DAILY PRN for 90 Days, #90 TAB Prov:THA NEWTON MD 04/04/25 Metoclopramide Hcl (Reglan) 10 Mg Tab, 10 MG PO TID for 90 Days, #270 TAB Prov:THA NEWTON MD 04/04/25 Insulin Detemir (Levemir) Inj, 25 ' SC HS, #30 INJ Prov:ROSELIA BAUM MD 08/12/24 Insulin Aspart (Novolog) 100 Unit/Ml Inj, 10 UNIT IJ TID, #30 INJ Prov:ROSELIA BAUM MD 08/12/24 Past Medical History PAST MEDICAL HISTORY: DM Surgical History: Denies all surgeries TONGUE PRESSER History: Denies all TONGUE PRESSER Hx Family History Family History: Reviewed,noncontributory to illness Social History Smoker: Non-Smoker Alcohol: Denies ETOH Use Drugs: Marijuana Lives In: Home Constitutional: reports: diaphoresis, fatigue EENTM: denies: blurred vision, double vision, ear bleeding, ear discharge, ear drainage, ear pain, ear ringing, eye pain, eye redness, hearing loss, mouth pain, mouth swelling, nasal discharge, nose bleeding, nose congestion, nose pain, photophobia, tearing, throat pain, throat swelling, voice changes, others Respiratory: denies: cough, hemoptysis, orthopnea, SOB at rest, shortness of breath, SOB with excertion, stridor, wheezing, others Cardiovascular: denies: chest pain, dizzy spells, diaphoresis, Dyspnea on exertion, edema, irregular heart beat, left arm pain, lightheadedness, palpitations, PND, syncope, others Gastrointestinal: reports: abdominal pain, nausea, vomiting Genitourinary: denies: abnormal vagina bleeding, burning, dyspareunia, dysuria, flank pain, frequency, hematuria, incontinence, pain, , vagina discharge, urgency, others Neurological: denies: dizziness, fainting, headache, left sided numbness, left sided weakness, numbness, paresthesia, pre-existing deficit, right sided numbness, right sided weakness, seizure, speech problems, tingling, tremors, weakness, others Musculoskeletal: denies: back pain, gout, joint pain, joint swelling, muscle pain, muscle stiffness, neck pain, others Integumetry: denies: bruises, change in color, change in hair/nails, dryness, laceration, lesions, lumps, rash, wounds, others Allergic/Immunocompromised: denies: Difficulty Healing, Frequent Infections, Hives, Itching, others Hematologic/Lymphatic: denies: anemia, blood clots, easy bleeding, easy bruising, swollen glands, others Endocrine: denies: excessive hunger, excessive sweating, excessive thirst, excessive urination, flushing, intolerance to cold, intolerance to heat, unexplained weight gain, unexplained weight loss, others Psychiatric: denies: anxiety, bipolar disorder, depression, hopeless, panic disorder, schizophrenia, sleepless, suicidal, others Physical Exam General Appearance: Mild Distress, Moderate Distress HEENT: PERRL/EOMI, Pharynx Normal Neck: Full Range of Motion, Non-Tender, Normal Inspection Respiratory: Lungs Clear, No Accessory Muscle Use, No Respiratory Distress, Normal Breath Sounds Cardiovascular: No Edema, No JVD, No Murmur, Tachycardia Breast Exam: Deferred Gastrointestinal: Diffuse, No Organomegaly, Normal Bowel Sounds, Soft, Tenderness Genitalia: Deferred Pelvic: Deferred Rectal: Deferred Extremities: No calf tenderness, Normal inspection, Normal range of motion, No pedal edema Neurologic: Alert, Dizziness, No Motor Deficits, No Sensory Deficits Cerebellar Function: NOT DONE Reflexes: NOT DONE Skin: Dry, Normal Color, Warm Peripheral Pulses: 2+ dorsalis pedis (R), 2+ dorsalis pedis (L), 2+ Radial (R), 2+ Radial (L) Lymphatic: No Adenopathy Was a procedure done? Was a procedure done?: No Differential Dx Considerations may include: DKA, gastroenteritis, gastritis, esophagitis X-Ray, Labs, Meds, VS Vital Signs Date Time Temp Pulse Resp B/P (MAP) Pulse Ox O2 Delivery O2 Flow Rate FiO2 04/11/25 16:00 116 17 110/56 (74) 99 04/11/25 13:00 111 17 108/63 (78) 98 04/11/25 12:00 121 19 106/61 (76) 99 04/11/25 11:37 121 04/11/25 11:00 119 14 122/80 (94) 99 04/11/25 11:00 119 14 99 Room Air* 0 21 04/11/25 10:58 98.0 122 16 114/80 (91) 99 98.0 04/11/25 10:05 97.7 132 26 132/66 (88) 99 97.7 Lab Test 04/11/25 17:12 04/11/25 15:34 04/11/25 15:24 04/11/25 13:24 Range/Units POC Glucose 152 H 160 H 70-106 mg/dl Lactic Acid Level 1.3 0.4-2.0 mmol/L Troponin I High Sensitivity 3 L < 3 L </=34 ng/L Sodium Level 137 136-145 mmol/L Potassium Level 4.3 3.5-5.1 mmol/L Chloride Level 107 98-107 mmol/L Carbon Dioxide Level < 10 *L 20-31 mmol/L Anion Gap 20.04358 H 5-15 Blood Urea Nitrogen 16 9-23 mg/dL Creatinine 0.95 0.550-1.02 mg/dL Glomerular Filtration Rate Calc 84 >90 mL/min BUN/Creatinine Ratio 16.8 10.0-20.0 Serum Glucose 312 H 74-106 mg/dL Calcium Level 7.8 L 8.7-10.4 mg/dL Test 7/23/25 13:23 04/11/25 11:40 04/11/25 11:18 04/11/25 10:38 Range/Units POC Glucose 289 H 350 H 70-106 mg/dl Blood Gas Specimen Type Arterial Blood Gas Sample Site Right radial Blood Gas Patient Temperature 37.0 Arterial Blood Date Drawn [id number] Arterial Blood pH 7.299 L 7.350-7.450 Arterial Blood Partial Pressure CO2 18.7 *L 32.0-45.0 mmHg Arterial Blood Partial Pressure O2 94.0 83.0-108.0 mmHg Arterial Blood HCO3 9.0 L 21.0-28.0 mmol/L Arterial Blood Oxygen Saturation 96.8 94.0-98.0 % Arterial Blood Base Excess -15.0 L -2.0-3.0 mmol/L Arterial Blood Oxyhemoglobin 95.3 94.0-98.0 % Arterial Blood Carboxyhemoglobin 0.8 0.5-1.5 % Arterial Blood Methemoglobin 0.7 0.0-1.5 % Zenon Test Yes Blood Gas Total Hemoglobin 13.90 12.0-16.0 g/dL Blood Gas Modality Room air FiO2 % 21.0 Blood Gas Critical Value Read Back Yes Blood Gas Notified Whom Dr. wing jhajj Blood Gas Notified Time [id number] Blood Gas Notified By White Blood Count 7.5 4.4-10.8 10^3/uL Red Blood Count 5.07 4.0-5.20 10^6/uL Hemoglobin 14.4 12.2-16.2 g/dL Hematocrit 43.2 36.0-46.0 % Mean Corpuscular Volume 85.4 80.0-100.0 fL Mean Corpuscular Hemoglobin 28.5 28.0-32.0 pg Mean Corpuscular Hemoglobin Concent 33.3 32.0-36.0 g/dL Red Cell Distribution Width 16.8 H 11.8-14.3 % Platelet Count 397 140-450 10^3/uL Mean Platelet Volume 7.5 6.9-10.8 fL Neutrophils (%) (Auto) 68.5 37.0-80.0 % Lymphocytes (%) (Auto) 24.2 10.0-50.0 % Monocytes (%) (Auto) 5.3 0.0-12.0 % Eosinophils (%) (Auto) 1.3 0.0-7.0 % Basophils (%) (Auto) 0.7 0.0-2.0 % Neutrophils # (Auto) 5.2 1.6-8.6 10 ^3/uL Lymphocytes # (Auto) 1.8 0.4-5.4 10 ^3/uL Monocytes # (Auto) 0.4 0-1.3 10 ^3/uL Eosinophils # (Auto) 0.1 0-0.8 10 ^3/uL Basophils # (Auto) 0.1 0-0.2 10 ^3/uL Nucleated Red Blood Cells 0.0 % Sodium Level 133 L 136-145 mmol/L Potassium Level 4.4 3.5-5.1 mmol/L Chloride Level 99 98-107 mmol/L Carbon Dioxide Level 12 L 20-31 mmol/L Anion Gap 22 H 5-15 Blood Urea Nitrogen 14 9-23 mg/dL Creatinine 1.35 H 0.550-1.02 mg/dL Glomerular Filtration Rate Calc 55 >90 mL/min BUN/Creatinine Ratio 10.4 10.0-20.0 Serum Glucose 259 H 74-106 mg/dL Serum Osmolality 304 H 278-298 mOsm/kg Lactic Acid Level 2.8 *H 0.4-2.0 mmol/L Calcium Level 10.8 H 8.7-10.4 mg/dL Phosphorus Level 4.3 2.4-5.1 mg/dL Magnesium Level 2.3 1.6-2.6 mg/dL Troponin I High Sensitivity < 3 L </=34 ng/L Beta-Hydroxybutyric Acid > 4.500 H < 0.4 mmol/L Beta HCG, Quantitative 1.1 L 1.5-4.2 mIU/mL Test 04/11/25 10:07 Range/Units POC Glucose 247 H 70-106 mg/dl Current Medications Medications (Trade) Dose Ordered Sig/Alfie Route Start Time Stop Time Status Last Admin Sodium Chloride 1,000 ml @ 1,000 mls/hr Q1H ONCE IV 04/11/25 10:15 04/11/25 11:14 DC 04/11/25 10:42 Ondansetron HCl (Zofran) 4 mg ONCE ONCE IV 04/11/25 11:30 04/11/25 11:31 DC 04/11/25 11:43 Insulin Human (Reg)/Sodium Chloride 100 ml @ 0.5 mls/hr Q24H IV 04/11/25 11:45 04/11/25 12:03 Diagnostic Test (Pha) (Accu-Chek Comfort Curve T) 1 strip Q90MIN 04/11/25 12:00 04/11/25 17:14 Insulin Glargine (Lantus) 15 units ONCE ONCE SC 04/11/25 11:45 04/11/25 11:49 DC 04/11/25 12:02 Sodium Chloride 1,000 ml @ 1,000 mls/hr Q1H ONCE IV 04/11/25 12:00 04/11/25 12:59 DC 04/11/25 12:42 Sodium Chloride 1,000 ml @ 250 mls/hr Q4H ONCE IV 04/11/25 12:15 04/11/25 16:14 DC 04/11/25 14:23 Ondansetron HCl (Zofran) 4 mg ONCE ONCE IV 04/11/25 15:30 04/11/25 15:31 DC 04/11/25 15:32 Patient is a 29-year-old female with a medical history of type 1 diabetes mellitus is presented to the ED with the intractable nausea vomiting and abdominal pain since yesterday. Initial labs including ABG and BNP showed anion gap metabolic acidosis with elevated beta hydroxybutyrate and hyperglycemia. Patient with a history of type 1 diabetes is likely in diabetic ketoacidosis and started on insulin drip and will need further inpatient management and ICU/TERE level of care. Per [facility], patient is unstable for transfer. Tracking #- [id number] Time of 1ST Reevaluation: 11:39 Reevaluation 1ST: Unchanged Patient Education/Counseling: Diagnosis, Treatment Family Education/Counseling: Diagnosis, Treatment SEPSIS Sepsis Screen Physician Orders Urinalysis (04/11/25 10:01) Electrocardigram (04/11/25 10:16) Drug Screen (04/11/25 10:12) Blood Culture (04/11/25 10:37) Sepsis Initial Assessment ONCE (04/11/25 10:37) Sepsis Reassessment After Flui (04/11/25 10:38) Initiate Sepsis Protocol (04/11/25 10:37) Abg W/ Co-Ox (04/11/25 10:59) Insulin Drip Protocol (04/11/25 ) Insulin Drip 100 Unit/100ml (Myxredlin 1 (04/11/25 11:45) Dextrose 50% Syringe (04/11/25 11:45) Glucose Blood (Accu-Chek Comfort Curve T (04/11/25 12:00) Basic Metabolic Panel (04/11/25 18:30) Basic Metabolic Panel (04/11/25 22:30) Basic Metabolic Panel (04/12/25 02:30) Neurological Assessment (04/11/25 11:41) Vs/Hemodynamics .PER UNIT PROTOCOL (04/11/25 11:41) Insulin Lantus (Glargine) (Lantus) (04/12/25 10:00) D5w/Sod Chl 0.45% (D5w 1/2ns) (04/11/25 17:15) Sodium Chloride 0.9% (04/11/25 17:15) Vital Signs Date Time Temp Pulse Resp B/P (MAP) Pulse Ox O2 Delivery O2 Flow Rate FiO2 04/11/25 16:00 116 17 110/56 (74) 99 04/11/25 13:00 111 17 108/63 (78) 98 04/11/25 12:00 121 19 106/61 (76) 99 04/11/25 11:37 121 04/11/25 11:00 119 14 122/80 (94) 99 04/11/25 11:00 119 14 99 Room Air* 0 21 04/11/25 10:58 98.0 122 16 114/80 (91) 99 98.0 04/11/25 10:05 97.7 132 26 132/66 (88) 99 97.7 Laboratory Tests Test 04/11/25 10:38 04/11/25 15:34 Lactic Acid Level 2.8 mmol/L (0.4-2.0) *H 1.3 mmol/L (0.4-2.0) White Blood Count 7.5 10^3/uL (4.4-10.8) Medications Medications Dose Ordered Sig/Alfie Route Start Time Stop Time Status Last Admin Dose Admin Diagnostic Test (Pha) 1 strip Q90MIN 04/11/25 12:00 04/11/25 17:14 Insulin Glargine 15 units ONCE ONCE SC 04/11/25 11:45 04/11/25 11:49 DC 04/11/25 12:02 Insulin Human (Reg)/Sodium Chloride 100 ml @ 0.5 mls/hr Q24H IV 04/11/25 11:45 04/11/25 12:03 Ondansetron HCl 4 mg ONCE ONCE IV 04/11/25 11:30 04/11/25 11:31 DC 04/11/25 11:43 Ondansetron HCl 4 mg ONCE ONCE IV 04/11/25 15:30 04/11/25 15:31 DC 04/11/25 15:32 Sodium Chloride 1,000 ml @ 250 mls/hr Q4H ONCE IV 04/11/25 12:15 04/11/25 16:14 DC 04/11/25 14:23 Sodium Chloride 1,000 ml @ 1,000 mls/hr Q1H ONCE IV 04/11/25 10:15 04/11/25 11:14 DC 04/11/25 10:42 Sodium Chloride 1,000 ml @ 1,000 mls/hr Q1H ONCE IV 04/11/25 12:00 04/11/25 12:59 DC 04/11/25 12:42 Departure 1 Departure Time of Disposition: 12:25 Impression: Primary Impression: DKA (diabetic ketoacidosis) Additional Impression: Diabetes mellitus with hyperglycemia Disposition: 09 ADMITTED INPATIENT Admit to: [facility] Condition: Fair Critical Care Note Critical Care Time?: Yes (1 hr-critical care time only) Stability Stability form required: No Heart Score Heart Score: Heart Score Response (Comments) Value History N/A 0 EKG N/A 0 Age N/A 0 Risk Factors N/A 0 Troponin N/A 0 Total 0 DASHAWN SOUTH RESIDENT Apr 11, 2025 10:36
[2025-04-11] MEDS: SODIUM CHLORIDE 0.9% 1,000 ML IV ONE ×4 (10:42→17:15)
[2025-04-11 11:00] VITALS: PULSE 119; RESP 14; O2SAT 99
[2025-04-11 11:21] LABS: Hematocrit 43.2 % (36.0-46.0); Hemoglobin 14.4 g/dL (12.2-16.2); Mean Corpuscular Hemoglobin 28.5 pg (28.0-32.0); Mean Corpuscular Volume 85.4 fL (80.0-100.0); Nucleated Red Blood Cells % 0.0 %
[2025-04-11 11:25] LABS: Base Excess -15.0 mmol/L (-2.0-3.0)
[2025-04-11 11:34] LABS: Chloride 99 mmol/L (98-107); Potassium 4.4 mmol/L (3.5-5.1)
[2025-04-11 11:35] LABS: Anion Gap 22 (5-15)
--- NOTE | 2025-04-11 11:38 | ECG ---
[facility] Test Date: 2025-04-11 Test Time: 11:37:15 Pat Name: FERNANDO LUCAS Department: ED Room: Gender: F [employer] Guide: simone : 1995 Requested By: DASHAWN SOUTH Order Number: [id number] Reading MD: Mcaiej Espinal Measurements Intervals Comfort Rate: 121 P: 67 ME: 150 QRS: 101 QRSD: 73 T: 53 QT: 318 QTc: 452 Interpretive Statements Sinus tachycardia Borderline right axis deviation Baseline wander in lead(s) V5 Electronically Signed On 04-11-2025 17:03:03 PDT by Maciej Espinal Please click the below link to view image of tracing.
[2025-04-11 11:39] LABS: Calcium 10.8 mg/dL (8.7-10.4); Carbon Dioxide 12 mmol/L (20-31); Sodium 133 mmol/L (136-145)
[2025-04-11 11:40] LABS: BUN/Creatinine Ratio 10.4 (10.0-20.0); Blood Urea Nitrogen 14 mg/dL (9-23); Glucose 259 mg/dL (74-106)
[2025-04-11] MEDS: ONDANSETRON HCL 4 MG/2 ML VIAL IV ONE ×3 (11:43→19:38)
[2025-04-11] MEDS ORDERED: DEXTROSE (50%) 50ML SYRG IV PRN (11:45)
[2025-04-11] MEDS: INSULIN LANTUS (GLARGINE) 1 /0.01ml (100units/ml) SC ONE (12:02)
[2025-04-11] MEDS: INSULIN DRIP 100 UNIT/100ML 100 ML IV SCH (12:03)
[2025-04-11] MEDS: ACCU-CHEK COMFORT CURVE STRIP VI SCH (12:03)
[2025-04-11 13:32] LABS: Lactic Acid w/Reflex 2.8 mmol/L (0.4-2.0)
[2025-04-11 13:38] LABS: Magnesium 2.3 mg/dL (1.6-2.6)
[2025-04-11 14:02] LABS: Chloride 107 mmol/L (98-107); Potassium 4.3 mmol/L (3.5-5.1); Sodium 137 mmol/L (136-145)
[2025-04-11 14:03] LABS: Anion Gap 20.00001 (5-15)
[2025-04-11 14:10] LABS: Calcium 7.8 mg/dL (8.7-10.4); Glucose 312 mg/dL (74-106)
[2025-04-11 14:11] LABS: Carbon Dioxide < 10 mmol/L (20-31)
[2025-04-11 15:04] LABS: BUN/Creatinine Ratio 16.8 (10.0-20.0); Blood Urea Nitrogen 16 mg/dL (9-23)
[2025-04-11] MEDS: D5W/SOD CHL 0.45% 1,000 ML IV ONE (17:15)
[2025-04-11 19:06] LABS: Potassium 4.2 mmol/L (3.5-5.1); Sodium 140 mmol/L (136-145)
[2025-04-11 19:07] LABS: Anion Gap 19 (5-15)
[2025-04-11 19:12] LABS: BUN/Creatinine Ratio 13.4 (10.0-20.0); Blood Urea Nitrogen 13 mg/dL (9-23); Calcium 8.1 mg/dL (8.7-10.4); Carbon Dioxide 13 mmol/L (20-31); Chloride 108 mmol/L (98-107); Glucose 154 mg/dL (74-106)
[2025-04-11] MEDS ORDERED: HYDROcodone-ACET 5/325MG TAB PO PRN (19:45)
[2025-04-11] MEDS ORDERED: DOCUSATE SOD 100 MG CAP PO PRN (19:45)
--- NOTE | 2025-04-11 19:58 | DVHHP2 ---
Admitting Diagnosis: DKA History of Present Illness Patient is a 29-year-old female with a medical history of type 1 diabetes presented to the ED with a chief complaint of nausea vomiting abdominal pain. Patient has a 2 was recently discharged from the hospital about a week ago when she was admitted for similar complaints and was found to be in ketoacidosis. Patient reports that since yesterday she has not been able to eat much and only had 1 small meal yesterday in the morning. Currently reports of intractable nausea and vomiting associated with the abdominal pain. Patient denied any c hest pain, shortness of breath, headache. PAST MEDICAL HISTORY: DM Surgical History: Denies all surgeries MEDICAL TERMINOLOGIST History: Denies all MEDICAL TERMINOLOGIST Hx Family History: Reviewed,noncontributory to illness Smoker: Non-Smoker Alcohol: Denies ETOH Use Drugs: Marijuana Lives In: Home Patient Family History: Cervical cancer G8 MOTHER Allergies: Coded Allergies: Soy Allergy (Verified Allergy, Severe, sob, 05/14/23) Home Meds Active Scripts Potassium Chloride (Klor-Con M20) 20 Meq Tab, 20 MEQ PO BID for 5 Days, #10 TAB Prov:THA NEWTON MD 04/04/25 Sucralfate (CARAFATE SUSP) 1 Gm/10 Ml Ss, 10 ML PO BID for 90 Days, #600 ML 1 Refill Prov:THA NEWTON MD 04/04/25 Pantoprazole Sodium Sesquihydr (Protonix) 40 Mg Tab, 40 MG PO DAILY PRN for 90 Days, #90 TAB Prov:THA NEWTON MD 04/04/25 Metoclopramide Hcl (Reglan) 10 Mg Tab, 10 MG PO TID for 90 Days, #270 TAB Prov:THA NEWTON MD 04/04/25 Insulin Detemir (Levemir) Inj, 25 ' SC HS, #30 INJ Prov:ROSELIA BAUM MD 08/12/24 Insulin Aspart (Novolog) 100 Unit/Ml Inj, 10 UNIT IJ TID, #30 INJ Prov:ROSELIA BAUM MD 08/12/24 Current Medications Current Medications Medications (Trade) Dose Ordered Sig/Alfie Route PRN Reason Start Time Stop Time Status Last Admin Insulin Human (Reg)/Sodium Chloride 100 ml @ 0.5 mls/hr Q24H IV 04/11/25 11:45 04/11/25 12:03 Dextrose 50 ml UD PRN IV SEE CURRENT ALGORITHM or SCALE 04/11/25 11:45 Diagnostic Test (Pha) (Accu-Chek Comfort Curve T) 1 strip Q90MIN 04/11/25 12:00 04/11/25 19:29 Insulin Glargine (Lantus) 15 units DAILY SC 04/12/25 10:00 Pantoprazole Sodium (Protonix Tablet) 40 mg DAILY PO 04/12/25 10:00 Sucralfate (Carafate Susp) 1 gm BID PO 04/11/25 22:00 Sodium Chloride (Saline Lock Ns) 10 ml Q8HR IV 04/11/25 22:00 Docusate Sodium (Colace Capsule) 100 mg BIDPRN PRN PO FOR CONSTIPATION 04/11/25 19:45 Acetaminophen (Tylenol Tablet) 650 mg Q6HP PRN PO PAIN SCALE 1-3 OR TEMP>100.4 04/11/25 19:45 Acetaminophen/ Hydrocodone Bitart (Sodus 5/325MG Tab) 1 tab Q4HP PRN PO MODERATE PAIN (4-6 PAIN SCALE) 04/11/25 19:45 Ondansetron HCl (Zofran) 4 mg Q4HP PRN IV NAUSEA / VOMITING 04/11/25 19:45 Enoxaparin Sodium (Lovenox) 40 mg DAILY SC 04/12/25 10:00 Vital Signs Vital Signs Date Time Temp Pulse Resp B/P (MAP) Pulse Ox O2 Delivery O2 Flow Rate FiO2 04/11/25 19:20 Room Air* 0 21 04/11/25 19:00 113 16 132/86 (101) 99 04/11/25 10:58 98.0 98.0 Physical Exam gen 29 woman, wn, wd, moderate distress HEENT: AT/NC Heart: sinus tachy Lung: CTA b/l Abd: soft, mild epigastric tender, non-distended Msk: no edema or cyanosis Neuro: ao x3, no focal deficit SEPSIS Sepsis Screen Date sepsis recognized/suspect: Apr 11, 2025 Time Sepsis recognized/suspect: 1005 Recent Procedure: No On Antibiotic Therapy: No Respiratory Rate >20: Yes Heart Rate >90: Yes Temp<36 C (96.8 F) or >38.3 C: No SBP <90 or MAP <65 mmHG: No New Acute Mental Status Change: No Is the patient on CPAP, BIPAP,: No Physician Orders Electrocardigram (04/11/25 10:16) Blood Culture (04/11/25 10:37) Sepsis Initial Assessment ONCE (04/11/25 10:37) Sepsis Reassessment After Flui (04/11/25 10:38) Initiate Sepsis Protocol (04/11/25 10:37) Abg W/ Co-Ox (04/11/25 10:59) Insulin Drip Protocol (04/11/25 ) Insulin Drip 100 Unit/100ml (Myxredlin 1 (04/11/25 11:45) Dextrose 50% Syringe (04/11/25 11:45) Glucose Blood (Accu-Chek Comfort Curve T (04/11/25 12:00) Basic Metabolic Panel (04/11/25 22:30) Basic Metabolic Panel (04/12/25 02:30) Neurological Assessment (04/11/25 11:41) Vs/Hemodynamics .PER UNIT PROTOCOL (04/11/25 11:41) Insulin Lantus (Glargine) (Lantus) (04/12/25 10:00) Pantoprazole Tablet (Protonix Tablet) (04/12/25 10:00) Sucralfate Susp (Carafate Susp) (04/11/25 22:00) Admit (04/11/25 19:38) Code Status (04/11/25 19:38) Vital Signs .PER UNIT PROTOCOL (04/11/25 19:38) Review Orders With Adm. (04/11/25 19:38) Encourage Activity As Tolerate (04/11/25 19:38) Npo (Nothing By Mouth) Diet (04/12/25 Breakfast) Sodium Chloride Lock (Saline Lock Ns) (04/11/25 22:00) Docusate Sodium Capsule (Colace Capsule) (04/11/25 19:45) Acetaminophen Tablet (Tylenol Tablet) (04/11/25 19:45) Notify Md Of Changes From Base (04/11/25 19:38) Advance Directive (04/11/25 19:38) Patient Condition (04/11/25 19:38) Allergies (04/11/25 19:38) Hydrocodone-Acet 5/325mg Tab (Sodus 5/32 (04/11/25 19:45) Ondansetron Hcl (Zofran) (04/11/25 19:45) Enoxaparin Sodium (Lovenox) (04/12/25 10:00) Sodium Bicarb 50meq/50ml Vial (04/11/25 19:45) Vital Signs Date Time Temp Pulse Resp B/P (MAP) Pulse Ox O2 Delivery O2 Flow Rate FiO2 04/11/25 19:20 Room Air* 0 21 04/11/25 19:00 113 16 132/86 (101) 99 04/11/25 18:00 114 17 137/89 (105) 99 04/11/25 16:00 116 17 110/56 (74) 99 04/11/25 13:00 111 17 108/63 (78) 98 04/11/25 12:00 121 19 106/61 (76) 99 04/11/25 11:37 121 04/11/25 11:00 119 14 122/80 (94) 99 04/11/25 11:00 119 14 99 Room Air* 0 21 04/11/25 10:58 98.0 122 16 114/80 (91) 99 98.0 04/11/25 10:05 97.7 132 26 132/66 (88) 99 97.7 Laboratory Tests Test 04/11/25 10:38 04/11/25 15:34 Lactic Acid Level 2.8 mmol/L (0.4-2.0) *H 1.3 mmol/L (0.4-2.0) White Blood Count 7.5 10^3/uL (4.4-10.8) Medications Medications Dose Ordered Sig/Alfie Route Start Time Stop Time Status Last Admin Dose Admin Dextrose/Sodium Chloride 1,000 ml @ 100 mls/hr Q10H ONCE IV 04/11/25 17:15 04/11/25 20:21 DC 04/11/25 17:15 Diagnostic Test (Pha) 1 strip Q90MIN 04/11/25 12:00 04/11/25 19:29 Insulin Glargine 15 units ONCE ONCE SC 04/11/25 11:45 04/11/25 11:49 DC 04/11/25 12:02 Insulin Human (Reg)/Sodium Chloride 100 ml @ 0.5 mls/hr Q24H IV 04/11/25 11:45 04/11/25 12:03 Ondansetron HCl 4 mg ONCE ONCE IV 04/11/25 11:30 04/11/25 11:31 DC 04/11/25 11:43 Ondansetron HCl 4 mg ONCE ONCE IV 04/11/25 15:30 04/11/25 15:31 DC 04/11/25 15:32 Ondansetron HCl 4 mg ONCE ONCE IV 04/11/25 19:45 04/11/25 19:46 DC 04/11/25 19:38 Sodium Chloride 1,000 ml @ 250 mls/hr Q4H ONCE IV 04/11/25 12:15 04/11/25 16:14 DC 04/11/25 14:23 Sodium Chloride 1,000 ml @ 500 mls/hr Q2H ONCE IV 04/11/25 17:15 04/11/25 19:14 DC 04/11/25 17:15 Sodium Chloride 1,000 ml @ 1,000 mls/hr Q1H ONCE IV 04/11/25 10:15 04/11/25 11:14 DC 04/11/25 10:42 Sodium Chloride 1,000 ml @ 1,000 mls/hr Q1H ONCE IV 04/11/25 12:00 04/11/25 12:59 DC 04/11/25 12:42 Results Labs Test 04/11/25 19:52 04/11/25 19:28 04/11/25 18:34 04/11/25 15:34 Range/Units Urine Color Colorless Yellow Urine Clarity Turbid H Clear Urine pH 5.5 5.0-9.0 Urine Specific [place] 1.021 1.001-1.035 Urine Protein 1+ H Negative Urine Ketones 4+ H Negative Urine Blood 3+ H Negative /uL Urine Nitrite Negative Negative Urine Bilirubin Negative Negative Urine Urobilinogen Normal Negative mg/dL Urine Leukocyte Esterase 1+ Negative /uL Urine RBC 28 0 - 4 /hpf Urine Microscopic WBC 12 H 0-5 /HPF Urine Squamous Epithelial Cells Many <5 /hpf Urine Bacteria Few H None Seen /hpf Urine Glucose 4+ H Normal mg/dL Urine Opiates Screen Neg NEGATIVE Urine Fentanyl Screen Neg NEGATIVE Urine Barbiturates Screen Neg NEGATIVE Urine Phencyclidine Screen Neg NEGATIVE Urine Amphetamines Screen Neg NEGATIVE Urine Benzodiazepines Screen Neg NEGATIVE Urine Cocaine Screen Neg NEGATIVE Urine Cannabinoids Screen Neg NEGATIVE POC Glucose 147 H 70-106 mg/dl Sodium Level 140 136-145 mmol/L Potassium Level 4.2 3.5-5.1 mmol/L Chloride Level 108 H 98-107 mmol/L Carbon Dioxide Level 13 L 20-31 mmol/L Anion Gap 19 H 5-15 Blood Urea Nitrogen 13 9-23 mg/dL Creatinine 0.97 0.550-1.02 mg/dL Glomerular Filtration Rate Calc 82 >90 mL/min BUN/Creatinine Ratio 13.4 10.0-20.0 Serum Glucose 154 H 74-106 mg/dL Calcium Level 8.1 L 8.7-10.4 mg/dL Lactic Acid Level 1.3 0.4-2.0 mmol/L Troponin I High Sensitivity 3 L </=34 ng/L Test 04/11/25 11:18 04/11/25 10:38 Range/Units Blood Gas Specimen Type Arterial Blood Gas Sample Site Right radial Blood Gas Patient Temperature 37.0 Arterial Blood Date Drawn [id number] Arterial Blood pH 7.299 L 7.350-7.450 Arterial Blood Partial Pressure CO2 18.7 *L 32.0-45.0 mmHg Arterial Blood Partial Pressure O2 94.0 83.0-108.0 mmHg Arterial Blood HCO3 9.0 L 21.0-28.0 mmol/L Arterial Blood Oxygen Saturation 96.8 94.0-98.0 % Arterial Blood Base Excess -15.0 L -2.0-3.0 mmol/L Arterial Blood Oxyhemoglobin 95.3 94.0-98.0 % Arterial Blood Carboxyhemoglobin 0.8 0.5-1.5 % Arterial Blood Methemoglobin 0.7 0.0-1.5 % Zenon Test Yes Blood Gas Total Hemoglobin 13.90 12.0-16.0 g/dL Blood Gas Modality Room air FiO2 % 21.0 Blood Gas Critical Value Read Back Yes Blood Gas Notified Whom Dr. maciej ibanezjj Blood Gas Notified Time [id number] Blood Gas Notified By White Blood Count 7.5 4.4-10.8 10^3/uL Red Blood Count 5.07 4.0-5.20 10^6/uL Hemoglobin 14.4 12.2-16.2 g/dL Hematocrit 43.2 36.0-46.0 % Mean Corpuscular Volume 85.4 80.0-100.0 fL Mean Corpuscular Hemoglobin 28.5 28.0-32.0 pg Mean Corpuscular Hemoglobin Concent 33.3 32.0-36.0 g/dL Red Cell Distribution Width 16.8 H 11.8-14.3 % Platelet Count 397 140-450 10^3/uL Mean Platelet Volume 7.5 6.9-10.8 fL Neutrophils (%) (Auto) 68.5 37.0-80.0 % Lymphocytes (%) (Auto) 24.2 10.0-50.0 % Monocytes (%) (Auto) 5.3 0.0-12.0 % Eosinophils (%) (Auto) 1.3 0.0-7.0 % Basophils (%) (Auto) 0.7 0.0-2.0 % Neutrophils # (Auto) 5.2 1.6-8.6 10 ^3/uL Lymphocytes # (Auto) 1.8 0.4-5.4 10 ^3/uL Monocytes # (Auto) 0.4 0-1.3 10 ^3/uL Eosinophils # (Auto) 0.1 0-0.8 10 ^3/uL Basophils # (Auto) 0.1 0-0.2 10 ^3/uL Nucleated Red Blood Cells 0.0 % Serum Osmolality 304 H 278-298 mOsm/kg Phosphorus Level 4.3 2.4-5.1 mg/dL Magnesium Level 2.3 1.6-2.6 mg/dL Beta-Hydroxybutyric Acid > 4.500 H < 0.4 mmol/L Beta HCG, Quantitative 1.1 L 1.5-4.2 mIU/mL Primary Diagnosis DKA Plan Elevated beta hydroxybutyrate, metabolic acidosis ABG shows metabolic acidosis, elevated anion gap Start insulin drip per ICU protocol IV fluids D5 sodium bicarb until acidosis improves . Switch to LR once anion gap is closed and acidosis improved NPO except meds Antiemetic Pain control Full code Lovenox for DVT prophylaxis PPI for GI prophylaxis Plan discussed with: Patient Date of Service: Apr 11, 2025 Billing Provider: RONNY MARTINEZ MD Common Visit Codes: [id number] INP/OBS CARE (HIGH) RONNY MARTINEZ MD Apr 11, 2025 19:58
[2025-04-11 20:09] LABS: Urine Protein, UAD 1+ (Negative)
[2025-04-11 20:19] LABS: Amphetamine Screen, Urine Neg (NEGATIVE); Barbiturate Scree,Urine Neg (NEGATIVE); Benzodiazephine Screen, Urine Neg (NEGATIVE); Cocaine Screen, Urine Neg (NEGATIVE); Opiate Scree,Urine Neg (NEGATIVE); Phencyclidine Screen, Urine Neg (NEGATIVE)
[2025-04-11 20:20] LABS: Cannabinoid Screen, Urine Neg (NEGATIVE)
[2025-04-11] MEDS: SODIUM BICARB 8.4% 50Meq/50ml SYR Vial IV ONE (20:34)
[2025-04-11] MEDS: SODIUM BICARB 50mEq/50ml Vial 150 ML in D5W 5% 1,000 ML IV ONE (20:37)
[2025-04-11 20:50] LABS: Hematocrit 34.6 % (36.0-46.0); Hemoglobin 11.4 g/dL (12.2-16.2); Mean Corpuscular Hemoglobin 28.6 pg (28.0-32.0); Mean Corpuscular Volume 86.7 fL (80.0-100.0); Nucleated Red Blood Cells % 0.0 %
[2025-04-11] MEDS ORDERED: HYDROmorphone HCL 2 MG/ML VL/or syr IV PRN (22:00)
[2025-04-11] MEDS: SODIUM CHLOR 0.9% PF (SALINE LOCK) 10ML VIAL/SYR IV SCH (22:00)
[2025-04-11] MEDS: SUCRALFATE 1 GM/10 ML ORAL SUSP PO SCH (22:02)
[2025-04-11 22:50] LABS: Potassium 3.5 mmol/L (3.5-5.1); Sodium 143 mmol/L (136-145)
[2025-04-11 22:51] LABS: Anion Gap 16 (5-15); Carbon Dioxide 20 mmol/L (20-31); Chloride 107 mmol/L (98-107)
[2025-04-11 22:52] LABS: Calcium 8.1 mg/dL (8.7-10.4)
[2025-04-11 22:57] LABS: BUN/Creatinine Ratio 10.3 (10.0-20.0); Blood Urea Nitrogen 10 mg/dL (9-23); Glucose 182 mg/dL (74-106)
[2025-04-12] MEDS ORDERED: METOCLOPRAMIDE HCL 5MG/ml INJ 2ml VIAL IV SCH
[2025-04-12 03:05] LABS: Chloride 107 mmol/L (98-107); Sodium 143 mmol/L (136-145)
[2025-04-12 03:06] LABS: Anion Gap 13 (5-15); Carbon Dioxide 23 mmol/L (20-31)
[2025-04-12] MEDS: METOCLOPRAMIDE HCL 5MG/ml INJ 2ml VIAL IV PRN (03:09)
[2025-04-12 03:11] LABS: BUN/Creatinine Ratio 9.6 (10.0-20.0)
[2025-04-12 03:27] LABS: Blood Urea Nitrogen 8 mg/dL (9-23); Calcium 8.0 mg/dL (8.7-10.4); Glucose 153 mg/dL (74-106); Potassium 3.1 mmol/L (3.5-5.1)
[2025-04-12] MEDS: SODIUM CHLORIDE 0.9% 1,000 ML IV ONE (07:45)
[2025-04-12 08:00] VITALS: PULSE 116; RESP 12; O2SAT 97
[2025-04-12] MEDS: D5W/SOD CHL 0.45% 1,000 ML IV SCH (08:00)
[2025-04-12] MEDS: POTASSIUM CHLORIDE 60 MEQ, LIDOCAINE 1% (LOCAL ANESTH.) 6 ML in SODIUM CHL 0.9% 500 ML IV ONE (09:13)
[2025-04-12] MEDS: PANTOPRAZOLE 40 MG TAB PO SCH (10:00)
[2025-04-12] MEDS ORDERED: INSULIN LANTUS (GLARGINE) 1 /0.01ml (100units/ml) SC SCH (10:00)
[2025-04-12 10:51] VITALS: PULSE 93; RESP 15; O2SAT 96
[2025-04-12] MEDS ORDERED: DEXTROSE (50%) 50ML SYRG IV PRN ×2 (11:00→12:30)
[2025-04-12 11:01] VITALS: BP 163/106; PULSE 107; RESP 18; TEMP 98.2; O2SAT 99
[2025-04-12] MEDS: ENOXAPARIN SOD 40 MG/0.4 ML SYRINGE SC SCH (11:17)
[2025-04-12] MEDS: INSULIN LANTUS (GLARGINE) 1 /0.01ml (100units/ml) SC ONE (11:28)
[2025-04-12] MEDS ORDERED: InsuLIN REG 1unit/0.01ml Soln (100units/ml) SC SCH (12:00)
[2025-04-12] MEDS ORDERED: ACCU-CHEK COMFORT CURVE STRIP VI SCH (12:00)
--- NOTE | 2025-04-12 14:05 | DVHPN2 ---
Subjective Patient reports that her nausea has improved. Reviewed: Care Plan, H&P, Labs, Medications Changes from previous H/P or p: No Changes General: Per HPI Objective Vitals Vital Signs Date Time Temp Pulse Resp B/P (MAP) Pulse Ox O2 Delivery O2 Flow Rate FiO2 04/12/25 11:01 98.2 107 18 163/106 (125) 99 98.2 04/12/25 10:51 Room Air* 0 21 Intake/Output Intake and Output 04/12/25 07:00 Intake Total 1903 ml Balance 1903 ml IV Total 1903 ml General Appearance: Alert, Oriented X3, Cooperative, mild distress HEENT: Atraumatic, PERRLA Cardiovascular: Normal S1, Normal S2 Abdomen: Normal bowel sounds, Soft, No tenderness, No hepatospenomegaly Musculoskeletal: Normal sensory function, Normal motor function Skin: Dry, Intact Psych/Mental Status: Mental status NL, Mood NL Medications Current Medications Medications Dose Ordered Sig/Alfie Route Start Time Stop Time Status Last Admin Dose Admin Pantoprazole Sodium 40 mg DAILY PO 04/12/25 10:00 Sucralfate 1 gm BID PO 04/11/25 22:00 04/11/25 22:02 1 GM Sodium Chloride 10 ml Q8HR IV 04/11/25 22:00 04/12/25 05:55 10 ML Docusate Sodium 100 mg BIDPRN PRN PO 04/11/25 19:45 Acetaminophen 650 mg Q6HP PRN PO 04/11/25 19:45 Acetaminophen/ Hydrocodone Bitart 1 tab Q4HP PRN PO 04/11/25 19:45 Ondansetron HCl 4 mg Q4HP PRN IV 04/11/25 19:45 Enoxaparin Sodium 40 mg DAILY SC 04/12/25 10:00 04/12/25 11:17 40 MG Hydromorphone HCl 0.5 mg Q4HP PRN IV 04/11/25 22:00 Metoclopramide HCl 5 mg Q6HPRN PRN IV 04/12/25 00:00 04/12/25 11:16 5 MG Diagnostic Test (Pha) 1 strip ACHS 04/12/25 17:00 Insulin Human Regular HS SC 04/12/25 22:00 Insulin Human Regular AC SC 04/12/25 17:00 Dextrose 50 ml UD PRN IV 04/12/25 12:30 Laboratory Results Laboratory Tests 04/11/25 20:42 04/12/25 02:39 Chemistry Test 04/11/25 18:34 04/11/25 22:26 04/12/25 02:39 Calcium Level 8.1 mg/dL (8.7-10.4) L 8.1 mg/dL (8.7-10.4) L 8.0 mg/dL (8.7-10.4) L Urinalysis Test 04/11/25 19:52 Urine Color Colorless (Yellow) Urine Clarity Turbid (Clear) H Urine pH 5.5 (5.0-9.0) Urine Specific [place] 1.021 (1.001-1.035) Urine Protein 1+ (Negative) H Urine Ketones 4+ (Negative) H Urine Blood 3+ /uL (Negative) H Urine Nitrite Negative (Negative) Urine Bilirubin Negative (Negative) Urine Urobilinogen Normal mg/dL (Negative) Urine Leukocyte Esterase 1+ /uL (Negative) Urine RBC 28 /hpf (0 - 4) Urine Microscopic WBC 12 /HPF (0-5) H Urine Squamous Epithelial Cells Many /hpf (<5) Urine Bacteria Few /hpf (None Seen) H Urine Glucose 4+ mg/dL (Normal) H Microbiology Microbiology Date/Time Source Procedure Growth Status 04/11/25 11:08 Blood Blood Culture - Preliminary NO GROWTH AFTER 24 HOURS OF INCUBATION. Resulted Labs and/or images reviewed: Labs reviewed by me, Image(s) reviewed by me Assessment/Plan Assessment/Plan Impression: -diabetic ketoacidosis -juvenile diabetes -recurrent admissions for diabetes mellitus -gastroparesis -acute kidney injury, vasomotor nephropathy -hypokalemia Plan: -advanced to consistent carbohydrate diet -continue regular insulin sliding scale, add Lantus 15 units q.h.s. -Reglan 10 mg a.c. HS -potassium replacement -repeat labs in a.m. -antiemetics Total time spent with patient discussing and formulating plan of care: 35 minutes. This medical document was created using an electronic medical record system with [employer] system. Although this document has been carefully reviewed, there may still be some phonetic and typographical errors. These areas are purely typographical due to imperfections of the software programs, and do not reflect any compromise in the patient's medical care. Plan discussed with: Patient, Other (RN) My Orders Orders - YAS GONZALES NP Procedure Category Date Status Time Basic Metabolic Panel LAB 04/13/25 Verified 04:00 Complete Blood Count LAB 04/13/25 Verified 04:00 Glucose Blood PHA 04/12/25 In Process (Accu-Chek Comfort 17:00 Insulin R (Human) PHA 04/12/25 In Process (Insulin R) 22:00 Insulin R (Human) PHA 04/12/25 In Process (Insulin R) 17:00 Dextrose 50% Syringe PHA 04/12/25 In Process 12:30 Date of Service: Apr 12, 2025 Billing Provider: YAS GONZALES NP Common Visit Codes: [id number] INP/OBS CARE(HIGH) YAS GONZALES NP Apr 12, 2025 14:05
[2025-04-12] MEDS: ONDANSETRON HCL 4 MG/2 ML VIAL IV PRN (14:27)
[2025-04-12 16:43] VITALS: BP 129/85; PULSE 116; RESP 18; TEMP 98.8; O2SAT 97
[2025-04-12] MEDS: METOCLOPRAMIDE HCL 10 MG TAB PO SCH (17:30)
[2025-04-12] MEDS: ACCU-CHEK COMFORT CURVE STRIP VI SCH (17:30)
[2025-04-12] MEDS: InsuLIN REG 1unit/0.01ml Soln (100units/ml) SC SCH ×2 (17:34→22:00)
[2025-04-12 20:00] VITALS: PULSE 89; RESP 18; O2SAT 99
[2025-04-12 21:00] VITALS: BP 127/89; PULSE 111; RESP 18; TEMP 100.3; O2SAT 99
[2025-04-12] MEDS: INSULIN LANTUS (GLARGINE) 1 /0.01ml (100units/ml) SC SCH (22:09)
[2025-04-13] VITALS (8 sets, daily range): BP systolic 115–157; BP diastolic 85–106; PULSE 81–131; RESP 18–20; TEMP 97–99.3; O2SAT 97–99
[2025-04-13 05:17] LABS: Hematocrit 31.5 % (36.0-46.0); Hemoglobin 10.9 g/dL (12.2-16.2); Mean Corpuscular Hemoglobin 28.5 pg (28.0-32.0); Mean Corpuscular Volume 82.4 fL (80.0-100.0); Nucleated Red Blood Cells % 0.1 %
[2025-04-13 05:23] LABS: Anion Gap 8 (5-15); Carbon Dioxide 29 mmol/L (20-31); Chloride 102 mmol/L (98-107); Sodium 139 mmol/L (136-145)
[2025-04-13 05:39] LABS: BUN/Creatinine Ratio 7.5 (10.0-20.0); Blood Urea Nitrogen < 5 mg/dL (9-23); Calcium 8.4 mg/dL (8.7-10.4); Glucose 63 mg/dL (74-106); Potassium 2.9 mmol/L (3.5-5.1)
[2025-04-13] MEDS ORDERED: DEXTROSE (50%) 50ML SYRG IV PRN ×2 (07:30→16:30)
[2025-04-13] MEDS: ACCU-CHEK COMFORT CURVE STRIP VI SCH ×2 (08:00→16:50)
[2025-04-13] MEDS: InsuLIN REG 1unit/0.01ml Soln (100units/ml) SC SCH (09:04)
[2025-04-13] MEDS: POTASSIUM CHLORIDE 40 MEQ, LIDOCAINE 1% (LOCAL ANESTH.) 4 ML in SODIUM CHL 0.9% 250 ML IV ONE (10:19)
[2025-04-13] MEDS: ACETAMINOPHEN 325 MG TAB PO PRN (10:35)
--- NOTE | 2025-04-13 13:40 | DVHPN2 ---
Subjective Patient reporting nausea today Reviewed: Care Plan, H&P, Labs, Medications Changes from previous H/P or p: Changes General: Per HPI Objective Vitals Vital Signs Date Time Temp Pulse Resp B/P (MAP) Pulse Ox O2 Delivery O2 Flow Rate FiO2 04/13/25 09:00 97.0 95 20 141/93 (109) 99 97.0 04/13/25 08:00 Room Air* 0 21 Intake/Output Intake and Output 04/13/25 07:00 Intake Total 975 ml Balance 975 ml Intake Oral 975 ml # Voids 5 General Appearance: Alert, Oriented X3, Cooperative, mild distress HEENT: Atraumatic, PERRLA Cardiovascular: Normal S1, Normal S2 Abdomen: Normal bowel sounds, Soft, No tenderness, No hepatospenomegaly Musculoskeletal: Normal sensory function, Normal motor function Skin: Dry, Intact Psych/Mental Status: Mental status NL, Mood NL Medications Current Medications Medications Dose Ordered Sig/Alfie Route Start Time Stop Time Status Last Admin Dose Admin Pantoprazole Sodium 40 mg DAILY PO 04/12/25 10:00 Sucralfate 1 gm BID PO 04/11/25 22:00 04/13/25 08:53 1 GM Sodium Chloride 10 ml Q8HR IV 04/11/25 22:00 04/13/25 12:11 10 ML Docusate Sodium 100 mg BIDPRN PRN PO 04/11/25 19:45 Acetaminophen 650 mg Q6HP PRN PO 04/11/25 19:45 04/13/25 10:35 650 MG Acetaminophen/ Hydrocodone Bitart 1 tab Q4HP PRN PO 04/11/25 19:45 Ondansetron HCl 4 mg Q4HP PRN IV 04/11/25 19:45 04/13/25 00:50 4 MG Enoxaparin Sodium 40 mg DAILY SC 04/12/25 10:00 04/13/25 08:53 40 MG Metoclopramide HCl 10 mg ACHS PO 04/12/25 17:00 04/13/25 08:54 10 MG Insulin Glargine 10 units HS SC 04/13/25 22:00 Diagnostic Test (Pha) 1 strip IQ4HR 04/13/25 08:00 04/13/25 12:11 1 STRIP Insulin Human Regular IQ4HR SC 04/13/25 08:00 04/13/25 09:04 3 UNITS Dextrose 50 ml UD PRN IV 04/13/25 07:30 Sodium Chloride 1,000 ml @ 60 mls/hr [id number] IV 04/13/25 13:45 UNV Laboratory Results Laboratory Tests 04/13/25 04:00 Chemistry Test 04/13/25 04:00 Calcium Level 8.4 mg/dL (8.7-10.4) L Urinalysis Test 04/11/25 19:52 Urine Color Colorless (Yellow) Urine Clarity Turbid (Clear) H Urine pH 5.5 (5.0-9.0) Urine Specific [place] 1.021 (1.001-1.035) Urine Protein 1+ (Negative) H Urine Ketones 4+ (Negative) H Urine Blood 3+ /uL (Negative) H Urine Nitrite Negative (Negative) Urine Bilirubin Negative (Negative) Urine Urobilinogen Normal mg/dL (Negative) Urine Leukocyte Esterase 1+ /uL (Negative) Urine RBC 28 /hpf (0 - 4) Urine Microscopic WBC 12 /HPF (0-5) H Urine Squamous Epithelial Cells Many /hpf (<5) Urine Bacteria Few /hpf (None Seen) H Urine Glucose 4+ mg/dL (Normal) H Microbiology Microbiology Date/Time Source Procedure Growth Status 04/12/25 13:05 Nose MRSA Screen - Final Methicillin Resistant S.aureus Complete 04/11/25 11:08 Blood Blood Culture - Preliminary NO GROWTH AFTER 48 HOURS OF INCUBATION. Resulted Labs and/or images reviewed: Labs reviewed by me, Image(s) reviewed by me Assessment/Plan Assessment/Plan Impression: -diabetic ketoacidosis -juvenile diabetes -recurrent admissions for diabetes mellitus -gastroparesis -acute kidney injury, vasomotor nephropathy -hypokalemia Plan: Events: Hypoglycemia this a.m.. Continues to have poor oral intake. -endocrinology consultation for repeated admissions for DKA -potassium replacement -repeat serum acetone level -advanced to consistent carbohydrate diet -continue regular insulin sliding scale, add Lantus 15 units q.h.s. -Reglan 10 mg a.c. HS -repeat labs in a.m. -antiemetics Total time spent with patient discussing and formulating plan of care: 35 minutes. This medical document was created using an electronic medical record system with [employer] dictation system. Although this document has been carefully reviewed, there may still be some phonetic and typographical errors. These areas are purely typographical due to imperfections of the software programs, and do not reflect any compromise in the patient's medical care. Plan discussed with: Patient, Other (RN) My Orders Orders - YAS GONZALES NP Procedure Category Date Status Time Metoclopramide Tablet PHA 04/12/25 In Process (Reglan Tablet) 17:00 Consistent DIET 04/12/25 Transmitted Carb(Ccho)Diabetes Dinner Insulin Lantus PHA 04/13/25 In Process (Glargine) (Lantus) 22:00 Glucose Blood PHA 04/13/25 In Process (Accu-Chek Comfort 08:00 Insulin R (Human) PHA 04/13/25 In Process (Insulin R) 08:00 Dextrose 50% Syringe PHA 04/13/25 In Process 07:30 Sodium Chloride 0.9% PHA 04/13/25 Logged 13:45 Acetone LAB 04/13/25 Logged 13:35 * Endocrinology CONS 04/13/25 Transmitted Consult 13:36 Mupirocin 2% Oint PHA 04/13/25 Verified Mrsa Nares (Bactroban 22:00 Basic Metabolic Panel LAB 04/14/25 Verified 04:00 Magnesium LAB 04/14/25 Verified 04:00 Date of Service: Apr 13, 2025 Billing Provider: YAS GONZALES NP Common Visit Codes: [id number] INP/OBS CARE(HIGH) YAS GONZALES NP Apr 13, 2025 13:40
[2025-04-13] MEDS: SODIUM CHLORIDE 0.9% 1,000 ML IV SCH (15:02)
[2025-04-13] MEDS ORDERED: INSULIN LISPRO (HUMAN) 100 UNITS/ML ML SC PRN (16:00)
--- NOTE | 2025-04-13 16:45 | DVHCONRES ---
Date Seen: Apr 13, 2025 Resident Creating Document: ANNA MARIE PENA RESIDENT Referring Physician Mathieu Myers Reason for Consultation recurrent DKA History of Present Illness History of Present Illness 29-year-old female with history of type 1 diabetes mellitus on OmniPod with Humalog who presented to the hospital complaints of nausea, vomiting, abdominal pain. Patient was found to be in DKA in the hospital, was started on insulin drip and later was switched to subcutaneous insulin. The patient is currently on 10 units of Lantus with mild sliding scale insulin with regular insulin q.4hr. Patient was recently admitted in the hospital on 03/24/2025 where she was having chest pain, nausea, vomiting, generalized weakness, was found to be in DKA. Patient had EGD done which showed gastritis and had possible gastroparesis. Patient was discharged on Protonix, sucralfate, insulin detemir male and insulin lispro. She mentioned that she was only taking lispro before meals but was not taking insulin that term air as she thought it is not required. Patient is a clinic patient of Dr Pacheco. last seen December 15, 2024. At that time some evidence of recurrent hypoglycemia due to stacking multiple insulin doses with postprandial hyperglycemia. Carb ratio strengthened at that time. Current insulin pump settings: 24 hours: Basal 1.1 Insulin carb ratio 1:6.5 Insulin sensitivity factor I:32 Patient is not currently using OmniPod because she mentioned she is waiting for the glucometer to be approved. Past Medical History PAST MEDICAL HISTORY: DM1 Family History Family History: Reviewed,noncontributory to illness Social History Smoker: Non-Smoker Alcohol: Denies ETOH Use Drugs: Marijuana Lives In: Home Family History: Cervical cancer G8 MOTHER Allergies: Coded Allergies: Soy Allergy (Verified Allergy, Severe, sob, 05/14/23) Home Meds Active Scripts Potassium Chloride (Klor-Con M20) 20 Meq Tab, 20 MEQ PO BID for 5 Days, #10 TAB Prov:THA NEWTON MD 04/04/25 Sucralfate (CARAFATE SUSP) 1 Gm/10 Ml Ss, 10 ML PO BID for 90 Days, #600 ML 1 Refill Prov:THA NEWTON MD 04/04/25 Pantoprazole Sodium Sesquihydr (Protonix) 40 Mg Tab, 40 MG PO DAILY PRN for 90 Days, #90 TAB Prov:THA NEWTON MD 04/04/25 Metoclopramide Hcl (Reglan) 10 Mg Tab, 10 MG PO TID for 90 Days, #270 TAB Prov:THA NEWTON MD 04/04/25 Insulin Detemir (Levemir) Inj, 25 ' SC HS, #30 INJ Prov:ROSELIA BAUM MD 08/12/24 Insulin Aspart (Novolog) 100 Unit/Ml Inj, 10 UNIT IJ TID, #30 INJ Prov:ROSELIA BAUM MD 08/12/24 Current Medications Current Medications Medications (Trade) Dose Ordered Sig/Alfie Route PRN Reason Start Time Stop Time Status Last Admin Diagnostic Test (Pha) (Accu-Chek Comfort Curve T) 1 strip ACHS 04/12/25 17:00 04/13/25 07:31 DC 04/13/25 05:50 Insulin Human Regular (InsuLIN R) HS SC 04/12/25 22:00 04/13/25 07:31 DC Insulin Human Regular (InsuLIN R) AC SC 04/12/25 17:00 04/13/25 07:31 DC 04/12/25 17:34 Metoclopramide HCl (Reglan Tablet) 10 mg ACHS PO 04/12/25 17:00 04/13/25 08:54 Insulin Glargine (Lantus) 15 units HS SC 04/12/25 22:00 04/13/25 07:31 DC 04/12/25 22:09 Insulin Glargine (Lantus) 10 units HS SC 04/13/25 22:00 Diagnostic Test (Pha) (Accu-Chek Comfort Curve T) 1 strip IQ4HR 04/13/25 08:00 04/13/25 15:43 DC 04/13/25 12:11 Insulin Human Regular (InsuLIN R) IQ4HR SC 04/13/25 08:00 04/13/25 15:43 DC 04/13/25 09:04 Dextrose 50 ml UD PRN IV Blood Sugar LESS THAN 60 04/13/25 07:30 04/13/25 15:43 DC Sodium Chloride 1,000 ml @ 60 mls/hr [id number] IV 04/13/25 13:45 04/13/25 15:02 Mupirocin (Bactroban 2% Ointment) 1 applic BID EACHNOSTRI 04/13/25 22:00 04/18/25 21:59 Insulin Human Lispro (HumaLOG) 3 units AC SC 04/13/25 17:00 Insulin Human Lispro (HumaLOG) If BS<60, ... ACHS PRN SC Blood Sugar LESS THAN 60 04/13/25 16:00 Diagnostic Test (Pha) (Accu-Chek Comfort Curve T) 1 strip ACHS 04/13/25 17:00 Dextrose 50 ml UD PRN IV Blood Sugar LESS THAN 60 04/13/25 16:30 Review of Systems As described in the HPI Vital Signs Vital Signs Date Time Temp Pulse Resp B/P (MAP) Pulse Ox O2 Delivery O2 Flow Rate FiO2 04/13/25 13:00 97.6 97 20 134/96 (109) 99 97.6 04/13/25 08:00 Room Air* 0 21 Physical Exam Examination General Appearance: Alert, Oriented X3, Cooperative, No acute distress HEENT: EOMI Respiratory: Clear to auscultation, Normal air movement Cardiovascular: Regular rate, Normal S1, Normal S2 Abdominal: Normal bowel sounds Extremities: No cyanosis, No edema, Normal pulses, No tenderness/swelling Skin: No rashes, No breakdown Neuro: Normal gait, Normal speech, Strength at 5/5 X4 ext, Normal tone, Sensation intact, Cranial nerves 3-12 NL, Reflexes 2+ Psych/Mental Status: Mental status NL, Mood NL Labs/Diagnostic Data Labs Test 04/13/25 12:07 04/13/25 04:00 04/11/25 19:52 04/11/25 15:34 Range/Units POC Glucose 101 70-106 mg/dl White Blood Count 7.0 4.4-10.8 10^3/uL Red Blood Count 3.82 L 4.0-5.20 10^6/uL Hemoglobin 10.9 L 12.2-16.2 g/dL Hematocrit 31.5 L 36.0-46.0 % Mean Corpuscular Volume 82.4 # 80.0-100.0 fL Mean Corpuscular Hemoglobin 28.5 28.0-32.0 pg Mean Corpuscular Hemoglobin Concent 34.6 32.0-36.0 g/dL Red Cell Distribution Width 15.8 H 11.8-14.3 % Platelet Count 284 140-450 10^3/uL Mean Platelet Volume 7.1 6.9-10.8 fL Neutrophils (%) (Auto) 47.9 37.0-80.0 % Lymphocytes (%) (Auto) 41.3 10.0-50.0 % Monocytes (%) (Auto) 8.5 0.0-12.0 % Eosinophils (%) (Auto) 1.9 0.0-7.0 % Basophils (%) (Auto) 0.4 0.0-2.0 % Neutrophils # (Auto) 3.3 1.6-8.6 10 ^3/uL Lymphocytes # (Auto) 2.9 0.4-5.4 10 ^3/uL Monocytes # (Auto) 0.6 0-1.3 10 ^3/uL Eosinophils # (Auto) 0.1 0-0.8 10 ^3/uL Basophils # (Auto) 0 0-0.2 10 ^3/uL Nucleated Red Blood Cells 0.1 % Sodium Level 139 136-145 mmol/L Potassium Level 2.9 L 3.5-5.1 mmol/L Chloride Level 102 98-107 mmol/L Carbon Dioxide Level 29 20-31 mmol/L Anion Gap 8 5-15 Blood Urea Nitrogen < 5 L 9-23 mg/dL Creatinine 0.67 0.550-1.02 mg/dL Glomerular Filtration Rate Calc 123 >90 mL/min BUN/Creatinine Ratio 7.5 L 10.0-20.0 Serum Glucose 63 L 74-106 mg/dL Calcium Level 8.4 L 8.7-10.4 mg/dL Beta-Hydroxybutyric Acid 0.428 H < 0.4 mmol/L Urine Color Colorless Yellow Urine Clarity Turbid H Clear Urine pH 5.5 5.0-9.0 Urine Specific [place] 1.021 1.001-1.035 Urine Protein 1+ H Negative Urine Ketones 4+ H Negative Urine Blood 3+ H Negative /uL Urine Nitrite Negative Negative Urine Bilirubin Negative Negative Urine Urobilinogen Normal Negative mg/dL Urine Leukocyte Esterase 1+ Negative /uL Urine RBC 28 0 - 4 /hpf Urine Microscopic WBC 12 H 0-5 /HPF Urine Squamous Epithelial Cells Many <5 /hpf Urine Bacteria Few H None Seen /hpf Urine Glucose 4+ H Normal mg/dL Urine Opiates Screen Neg NEGATIVE Urine Fentanyl Screen Neg NEGATIVE Urine Barbiturates Screen Neg NEGATIVE Urine Phencyclidine Screen Neg NEGATIVE Urine Amphetamines Screen Neg NEGATIVE Urine Benzodiazepines Screen Neg NEGATIVE Urine Cocaine Screen Neg NEGATIVE Urine Cannabinoids Screen Neg NEGATIVE Lactic Acid Level 1.3 0.4-2.0 mmol/L Troponin I High Sensitivity 3 L </=34 ng/L Test 04/11/25 11:18 04/11/25 10:38 Range/Units Blood Gas Specimen Type Arterial Blood Gas Sample Site Right radial Blood Gas Patient Temperature 37.0 Arterial Blood Date Drawn [id number] Arterial Blood pH 7.299 L 7.350-7.450 Arterial Blood Partial Pressure CO2 18.7 *L 32.0-45.0 mmHg Arterial Blood Partial Pressure O2 94.0 83.0-108.0 mmHg Arterial Blood HCO3 9.0 L 21.0-28.0 mmol/L Arterial Blood Oxygen Saturation 96.8 94.0-98.0 % Arterial Blood Base Excess -15.0 L -2.0-3.0 mmol/L Arterial Blood Oxyhemoglobin 95.3 94.0-98.0 % Arterial Blood Carboxyhemoglobin 0.8 0.5-1.5 % Arterial Blood Methemoglobin 0.7 0.0-1.5 % Zenon Test Yes Blood Gas Total Hemoglobin 13.90 12.0-16.0 g/dL Blood Gas Modality Room air FiO2 % 21.0 Blood Gas Critical Value Read Back Yes Blood Gas Notified Whom Dr. wing jhajj Blood Gas Notified Time [id number] Blood Gas Notified By Serum Osmolality 304 H 278-298 mOsm/kg Phosphorus Level 4.3 2.4-5.1 mg/dL Magnesium Level 2.3 1.6-2.6 mg/dL Beta HCG, Quantitative 1.1 L 1.5-4.2 mIU/mL Microbiology Date/Time Source Procedure Growth Status 04/12/25 13:05 Nose MRSA Screen - Final Methicillin Resistant S.aureus Complete 04/11/25 11:08 Blood Blood Culture - Preliminary NO GROWTH AFTER 48 HOURS OF INCUBATION. Resulted Plan/Recommendation Assessment/plan Assessment # DKA, currently resolved # type 1 diabetes # recurrent DKA likely due to uncontrolled diabetes due to nonadherence of insulin # history of gastritis per EGD, currently on pantoprazole and Carafate # possible gastroparesis Plan Consistent carbohydrate diet Accu-Cheks a.c. HS Keep blood sugar between 140-180 Start patient on insulin Lantus 10 units with Humalog 3 units pre meal with mild sliding scale with Humalog a.c. HS We will calculate total amount of extra insulin required per sliding scale in next 24 hours and readjust the dose accordingly. Monitor for signs/symptoms of hypoglycemia Patient can be considered to be discharged on basal bolus regimen with insulin Lantus and insulin home lispro pre meal till the patient is back on Omnipod Outpatient follow up with endocrine Thank you for consulting Please feel free to ask If you have any questions or need additional information. Case discussion with Dr. Pacheco I have independently reviewed the patient's history, performed a physical exam, and discussed the findings with the resident. I agree with the aforementioned assessment and plan. Plan discussed with: Patient, Other ANNA MARIE PENA RESIDENT Apr 13, 2025 16:45 NANDO PACHECO MD Apr 14, 2025 13:11
[2025-04-13] MEDS: INSULIN LISPRO (HUMAN) 100 UNITS/ML ML SC SCH (18:10)
[2025-04-13] MEDS: INSULIN LANTUS (GLARGINE) 1 /0.01ml (100units/ml) SC SCH (22:00)
[2025-04-13] MEDS: MUPIROCIN 2% OINT 15gm or 22gm FOR MRSA NARES EACHNOSTRI SCH (22:00)
[2025-04-14] VITALS (8 sets, daily range): BP systolic 114–134; BP diastolic 85–95; PULSE 85–119; RESP 14–19; TEMP 98.2–99.7; O2SAT 95–99
[2025-04-14 08:21] LABS: Calcium 8.8 mg/dL (8.7-10.4); Chloride 98 mmol/L (98-107); Potassium 3.5 mmol/L (3.5-5.1); Sodium 134 mmol/L (136-145)
[2025-04-14 08:27] LABS: Glucose 177 mg/dL (74-106)
[2025-04-14 08:28] LABS: Magnesium 1.6 mg/dL (1.6-2.6)
[2025-04-14 08:29] LABS: BUN/Creatinine Ratio 8.1 (10.0-20.0); Blood Urea Nitrogen < 5 mg/dL (9-23)
[2025-04-14 09:06] LABS: Anion Gap 10 (5-15); Carbon Dioxide 26 mmol/L (20-31)
--- NOTE | 2025-04-14 13:15 | DVHPN2 ---
Progress Note - Dictate Date Seen: Apr 14, 2025 Medical Necessity Reason Pt with a Central, PICC or Fol: No Subjective Persistent fasting and postprandial hyperglycemia. Glargine not given last night. vital signs Vital Sign Date Time Temp Pulse Resp B/P (MAP) Pulse Ox O2 Delivery O2 Flow Rate FiO2 04/14/25 12:36 98.7 94 14 129/92 (104) 96 98.7 04/14/25 08:00 Room Air* 0 21 Total Intake and Output 04/13/25 04/13/25 04/14/25 15:00 23:00 07:00 Intake Total 900 ml 1520 ml Output Total 100 ml Balance 800 ml 1520 ml medications Current Medications Medications Dose Ordered Sig/Alfie Route Start Time Stop Time Status Last Admin Dose Admin Pantoprazole Sodium 40 mg DAILY PO 04/12/25 10:00 04/14/25 10:10 40 MG Sucralfate 1 gm BID PO 04/11/25 22:00 04/14/25 10:10 1 GM Sodium Chloride 10 ml Q8HR IV 04/11/25 22:00 04/14/25 05:43 10 ML Docusate Sodium 100 mg BIDPRN PRN PO 04/11/25 19:45 Acetaminophen 650 mg Q6HP PRN PO 04/11/25 19:45 04/13/25 10:35 650 MG Acetaminophen/ Hydrocodone Bitart 1 tab Q4HP PRN PO 04/11/25 19:45 Ondansetron HCl 4 mg Q4HP PRN IV 04/11/25 19:45 04/13/25 00:50 4 MG Enoxaparin Sodium 40 mg DAILY SC 04/12/25 10:00 04/14/25 10:11 40 MG Metoclopramide HCl 10 mg ACHS PO 04/12/25 17:00 04/14/25 11:43 10 MG Insulin Glargine 10 units HS SC 04/13/25 22:00 Sodium Chloride 1,000 ml @ 60 mls/hr [id number] IV 04/13/25 13:45 04/14/25 05:43 60 MLS/HR Mupirocin 1 applic BID EACHNOSTRI 04/13/25 22:00 04/18/25 21:59 04/14/25 10:11 1 APPLIC Insulin Human Lispro 3 units AC SC 04/13/25 17:00 7/26/25 11:44 3 UNITS Insulin Human Lispro If BS<60, ... ACHS PRN SC 04/13/25 16:00 Diagnostic Test (Pha) 1 strip ACHS 04/13/25 17:00 04/14/25 11:44 1 STRIP Dextrose 50 ml UD PRN IV 04/13/25 16:30 objective Gen - no acute distress HEENT - no thyromegaly CV - RRR, no m/r/g Resp - CTAB Ext - no edema laboratory and microbiology Laboratory Tests 04/14/25 05:07 04/13/25 04:00 Test 04/14/25 05:07 Range/Units Serum Glucose 177 H 74-106 mg/dL Assessment/Plan # DKA # Type 1 diabetes # Gastritis # Gastroparesis - Continue glargine 10 units daily. Give first dose now and switch to qam. P atient is type I DM and always needs daily glargine. If concern of hypoglycemia please call me at number in directory. - Continue lispro 3 units tidac - Continue low intensity SSI lispro tidac, qhs. Give additional 6 units now. Currently not being administered. Discussed with nursing staff to work with pharmacy to ensure medication is scheduled and provided appropriately. - POC BG tidac, qhs - Hypoglycemia protocol Dietary Evaluation Review Comments: 1) Refer [employer] for diabetes education 2) Continue current plan of care Expected Outcomes/Goals: To meet >75% estimated needs Fu 3-5 days Plan discussed with: Patient NANDO PACHECO MD Apr 14, 2025 13:15
[2025-04-14] MEDS ORDERED: DEXTROSE (50%) 50ML SYRG IV PRN (14:15)
[2025-04-14] MEDS: INSULIN LISPRO (HUMAN) 100 UNITS/ML ML SC ONE (14:25)
[2025-04-14] MEDS: INSULIN LANTUS (GLARGINE) 1 /0.01ml (100units/ml) SC ONE (14:28)
[2025-04-14] MEDS: INSULIN LISPRO (HUMAN) 100 UNITS/ML ML SC SCH (17:25)
[2025-04-14] MEDS: ACCU-CHEK COMFORT CURVE STRIP VI SCH (17:25)
--- NOTE | 2025-04-14 18:46 | DVHPN2 ---
Subjective better Reviewed: Care Plan, H&P, Labs, Medications Changes from previous H/P or p: No Changes General: Per HPI Objective Vitals Vital Signs Date Time Temp Pulse Resp B/P (MAP) Pulse Ox O2 Delivery O2 Flow Rate FiO2 04/14/25 16:48 98.3 117 16 114/85 (95) 97 98.3 04/14/25 08:00 Room Air* 0 21 Intake/Output Intake and Output 04/14/25 07:00 Intake Total 2420 ml Output Total 100 ml Balance 2320 ml Intake Oral 1640 ml IV Total 780 ml Output Emesis 100 ml # Voids 6 General Appearance: Alert, Oriented X3, Cooperative HEENT: Atraumatic Lungs: Clear to auscultation Cardiovascular: Regular rate Abdomen: Normal bowel sounds, Soft, No tenderness Psych/Mental Status: Mental status NL, Mood NL Medications Current Medications Medications Dose Ordered Sig/Alfie Route Start Time Stop Time Status Last Admin Dose Admin Pantoprazole Sodium 40 mg DAILY PO 04/12/25 10:00 04/14/25 10:10 40 MG Sucralfate 1 gm BID PO 04/11/25 22:00 04/14/25 10:10 1 GM Sodium Chloride 10 ml Q8HR IV 04/11/25 22:00 04/14/25 14:28 10 ML Docusate Sodium 100 mg BIDPRN PRN PO 04/11/25 19:45 Acetaminophen 650 mg Q6HP PRN PO 04/11/25 19:45 04/13/25 10:35 650 MG Acetaminophen/ Hydrocodone Bitart 1 tab Q4HP PRN PO 04/11/25 19:45 Ondansetron HCl 4 mg Q4HP PRN IV 04/11/25 19:45 04/13/25 00:50 4 MG Enoxaparin Sodium 40 mg DAILY SC 04/12/25 10:00 04/14/25 10:11 40 MG Metoclopramide HCl 10 mg ACHS PO 04/12/25 17:00 04/14/25 17:23 10 MG Sodium Chloride 1,000 ml @ 60 mls/hr [id number] IV 04/13/25 13:45 04/14/25 05:43 60 MLS/HR Mupirocin 1 applic BID EACHNOSTRI 04/13/25 22:00 04/18/25 21:59 04/14/25 10:11 1 APPLIC Insulin Human Lispro 3 units AC SC 04/13/25 17:00 04/14/25 17:24 3 UNITS Insulin Glargine 10 units QAM SC 04/15/25 07:00 Insulin Human Lispro If BS<60, ... ACHS SC 04/14/25 17:00 04/14/25 17:25 4 UNITS Diagnostic Test (Pha) 1 strip ACHS 04/14/25 17:00 04/14/25 17:25 1 STRIP Dextrose 50 ml UD PRN IV 04/14/25 14:15 Laboratory Results Laboratory Tests 04/13/25 04:00 04/14/25 05:07 Chemistry Test 04/14/25 05:07 Calcium Level 8.8 mg/dL (8.7-10.4) Magnesium Level 1.6 mg/dL (1.6-2.6) Urinalysis Test 04/11/25 19:52 Urine Color Colorless (Yellow) Urine Clarity Turbid (Clear) H Urine pH 5.5 (5.0-9.0) Urine Specific [place] 1.021 (1.001-1.035) Urine Protein 1+ (Negative) H Urine Ketones 4+ (Negative) H Urine Blood 3+ /uL (Negative) H Urine Nitrite Negative (Negative) Urine Bilirubin Negative (Negative) Urine Urobilinogen Normal mg/dL (Negative) Urine Leukocyte Esterase 1+ /uL (Negative) Urine RBC 28 /hpf (0 - 4) Urine Microscopic WBC 12 /HPF (0-5) H Urine Squamous Epithelial Cells Many /hpf (<5) Urine Bacteria Few /hpf (None Seen) H Urine Glucose 4+ mg/dL (Normal) H Microbiology Microbiology Date/Time Source Procedure Growth Status 04/12/25 13:05 Nose MRSA Screen - Final Methicillin Resistant S.aureus Complete 04/11/25 11:08 Blood Blood Culture - Preliminary NO GROWTH AFTER 72 HOURS OF INCUBATION. Resulted Assessment/Plan Assessment/Plan STATUS POST DKA UTI GASTROENTERITIS DIABETES TYPE 1 ACUTE KIDNEY INJURY NOSE POSITIVE FOR MRSA PLAN: Continue current plan of care. Possible home tomorrow stable Plan discussed with: Patient Date of Service: Apr 14, 2025 Billing Provider: LISA MARTINEZ MD Common Visit Codes: [id number] INP/OBS CARE(HIGH) LISA MARTINEZ MD Apr 14, 2025 18:46
[2025-04-15] VITALS (8 sets, daily range): BP systolic 106–137; BP diastolic 67–96; PULSE 87–109; RESP 16–19; TEMP 97.5–98.6; O2SAT 95–99
[2025-04-15] MEDS: INSULIN LANTUS (GLARGINE) 1 /0.01ml (100units/ml) SC SCH (06:36)
--- NOTE | 2025-04-15 10:08 | DVHPN2 ---
Progress Note - Dictate Date Seen: Apr 15, 2025 Medical Necessity Reason Pt with a Central, PICC or Fol: No Subjective Persistent fasting and postprandial hyperglycemia. Tachycardic with ambulation. vital signs Vital Sign Date Time Temp Pulse Resp B/P (MAP) Pulse Ox O2 Delivery O2 Flow Rate FiO2 04/15/25 09:00 97.5 87 16 120/82 (95) 98 97.5 04/15/25 08:04 Room Air* 0 21 Total Intake and Output 04/14/25 04/14/25 04/15/25 15:00 23:00 07:00 Intake Total 700 ml 700 ml 700 ml Balance 700 ml 700 ml 700 ml medications Current Medications Medications Dose Ordered Sig/Alfie Route Start Time Stop Time Status Last Admin Dose Admin Pantoprazole Sodium 40 mg DAILY PO 04/12/25 10:00 04/15/25 09:04 40 MG Sucralfate 1 gm BID PO 04/11/25 22:00 04/15/25 09:04 1 GM Sodium Chloride 10 ml Q8HR IV 04/11/25 22:00 04/15/25 06:01 10 ML Docusate Sodium 100 mg BIDPRN PRN PO 04/11/25 19:45 Acetaminophen 650 mg Q6HP PRN PO 04/11/25 19:45 04/13/25 10:35 650 MG Acetaminophen/ Hydrocodone Bitart 1 tab Q4HP PRN PO 04/11/25 19:45 Ondansetron HCl 4 mg Q4HP PRN IV 04/11/25 19:45 04/13/25 00:50 4 MG Enoxaparin Sodium 40 mg DAILY SC 04/12/25 10:00 04/15/25 09:05 40 MG Metoclopramide HCl 10 mg ACHS PO 04/12/25 17:00 04/15/25 06:37 10 MG Sodium Chloride 1,000 ml @ 60 mls/hr [id number] IV 04/13/25 13:45 04/14/25 22:03 60 MLS/HR Mupirocin 1 applic BID EACHNOSTRI 04/13/25 22:00 04/18/25 21:59 04/15/25 09:04 1 APPLIC Insulin Human Lispro 3 units AC SC 04/13/25 17:00 04/15/25 06:33 3 UNITS Insulin Glargine 10 units QAM SC 04/15/25 07:00 04/15/25 06:36 10 UNITS Insulin Human Lispro If BS<60, ... ACHS SC 04/14/25 17:00 04/15/25 06:34 6 UNITS Diagnostic Test (Pha) 1 strip ACHS 04/14/25 17:00 04/15/25 06:37 1 STRIP Dextrose 50 ml UD PRN IV 04/14/25 14:15 objective Gen - no acute distress HEENT - no thyromegaly CV - RRR, no m/r/g Resp - CTAB Ext - no edema laboratory and microbiology Laboratory Tests 04/14/25 05:07 04/13/25 04:00 Test 04/14/25 05:07 Range/Units Serum Glucose 177 H 74-106 mg/dL Assessment/Plan # DKA # Type 1 diabetes # Gastritis # Gastroparesis - Increase glargine 20 units qd. Patient is type I DM and always needs daily glargine. If concern of hypoglycemia please call me at number in directory. - Increase lispro 8 units tidac - Continue low intensity SSI lispro tidac, qhs - POC BG tidac, qhs - Hypoglycemia protocol - Increase NS to 150cc/hr Dietary Evaluation Review Comments: 1) Refer Mechanical Process Engineer for diabetes education 2) Continue current plan of care Expected Outcomes/Goals: To meet >75% estimated needs Fu 3-5 days Plan discussed with: Patient NANDO PACHECO MD Apr 15, 2025 10:08
[2025-04-15] MEDS: SODIUM CHLORIDE 0.9% 1,000 ML IV SCH (11:37)
[2025-04-15] MEDS: INSULIN LANTUS (GLARGINE) 1 /0.01ml (100units/ml) SC ONE (11:38)
[2025-04-15] MEDS: INSULIN LISPRO (HUMAN) 100 UNITS/ML ML SC SCH ×2 (11:40→17:33)
[2025-04-15 15:22] LABS: Urine Protein, UAD Negative (Negative)
--- NOTE | 2025-04-15 16:08 | DVHPN2 ---
Subjective better. She develops tachycardia with heart rate in the 150s when she gets up and walks to the restroom. Endocrinology increased normal saline rate to 150 per hour Reviewed: Care Plan, H&P, Labs, Medications Changes from previous H/P or p: No Changes General: Per HPI Objective Vitals Vital Signs Date Time Temp Pulse Resp B/P (MAP) Pulse Ox O2 Delivery O2 Flow Rate FiO2 04/15/25 13:00 98.4 106 16 113/70 (84) 97 98.4 04/15/25 08:04 Room Air* 0 21 Intake/Output Intake and Output 04/15/25 07:00 Intake Total 2100 ml Balance 2100 ml Intake Oral 2100 ml # Voids 6 # Bowel Movements 2 General Appearance: Alert, Oriented X3, Cooperative HEENT: Atraumatic Lungs: Clear to auscultation Cardiovascular: Regular rate Abdomen: Normal bowel sounds, Soft, No tenderness Psych/Mental Status: Mental status NL, Mood NL Medications Current Medications Medications Dose Ordered Sig/Alfie Route Start Time Stop Time Status Last Admin Dose Admin Pantoprazole Sodium 40 mg DAILY PO 04/12/25 10:00 04/15/25 09:04 40 MG Sucralfate 1 gm BID PO 04/11/25 22:00 04/15/25 09:04 1 GM Sodium Chloride 10 ml Q8HR IV 04/11/25 22:00 04/15/25 14:00 10 ML Docusate Sodium 100 mg BIDPRN PRN PO 04/11/25 19:45 Acetaminophen 650 mg Q6HP PRN PO 04/11/25 19:45 04/13/25 10:35 650 MG Acetaminophen/ Hydrocodone Bitart 1 tab Q4HP PRN PO 04/11/25 19:45 Ondansetron HCl 4 mg Q4HP PRN IV 04/11/25 19:45 04/13/25 00:50 4 MG Enoxaparin Sodium 40 mg DAILY SC 04/12/25 10:00 04/15/25 09:05 40 MG Metoclopramide HCl 10 mg ACHS PO 04/12/25 17:00 04/15/25 11:37 10 MG Mupirocin 1 applic BID EACHNOSTRI 04/13/25 22:00 04/18/25 21:59 04/15/25 09:04 1 APPLIC Insulin Human Lispro If BS<60, ... ACHS SC 04/14/25 17:00 04/15/25 11:39 4 UNITS Diagnostic Test (Pha) 1 strip ACHS 04/14/25 17:00 04/15/25 11:40 1 STRIP Dextrose 50 ml UD PRN IV 04/14/25 14:15 Insulin Human Lispro 8 units AC SC 04/15/25 11:30 04/15/25 11:40 8 UNITS Sodium Chloride 1,000 ml @ 150 mls/hr Q6H40M IV 04/15/25 10:15 04/15/25 11:37 150 MLS/HR Insulin Glargine 20 units QAM [place] 04/16/25 07:00 Nitrofurantoin Macrocrystals 100 mg BID PO 04/15/25 22:00 Laboratory Results Laboratory Tests 04/13/25 04:00 04/14/25 05:07 Urinalysis Test 04/15/25 15:10 Urine Color Light-yellow (Yellow) Urine Clarity Clear (Clear) Urine pH 6.5 (5.0-9.0) Urine Specific [place] 1.003 (1.001-1.035) Urine Protein Negative (Negative) Urine Ketones Negative (Negative) Urine Blood 3+ /uL (Negative) H Urine Nitrite Negative (Negative) Urine Bilirubin Negative (Negative) Urine Urobilinogen Normal mg/dL (Negative) Urine Leukocyte Esterase Negative /uL (Negative) Urine RBC 2 /hpf (0 - 4) Urine Microscopic WBC 1 /HPF (0-5) Urine Squamous Epithelial Cells Few /hpf (<5) Urine Bacteria None seen /hpf (None Seen) Urine Glucose 2+ mg/dL (Normal) H Microbiology Microbiology Date/Time Source Procedure Growth Status 04/12/25 13:05 Nose MRSA Screen - Final Methicillin Resistant S.aureus Complete 04/11/25 11:08 Blood Blood Culture - Preliminary NO GROWTH AFTER 72 HOURS OF INCUBATION. Resulted Assessment/Plan Assessment/Plan STATUS POST DKA UTI/start Rocephin and stop Macrobid. Recheck urinalysis and culture GASTROENTERITIS DIABETES TYPE 1 ACUTE KIDNEY INJURY NOSE POSITIVE FOR MRSA Orthostatic tachycardia PLAN: Continue normal saline 150 cc/hour for now. Continue monitoring. Not stable today for discharge. Possible home tomorrow if stable Plan discussed with: Patient, Other (Nursing) My Orders Orders - LISA MARTINEZ MD Procedure Category Date Status Time Nitrofurantoin PHA 04/15/25 In Process Capsule (Macrobid) 22:00 Date of Service: Apr 15, 2025 Billing Provider: LISA MARTINEZ MD Common Visit Codes: [id number] INP/OBS CARE(HIGH) LISA MARTINEZ MD Apr 15, 2025 16:08
[2025-04-15] MEDS: cefTRIAXone 1GM/50ML D5W 50 ML IV ONE (17:32)
[2025-04-16] VITALS (9 sets, daily range): BP systolic 101–140; BP diastolic 54–98; PULSE 75–107; RESP 16–22; TEMP 97.6–98.3; O2SAT 91–100
[2025-04-16] MEDS ORDERED: DEXTROSE (50%) 50ML SYRG IV PRN ×2 (03:15→13:45)
[2025-04-16] MEDS: ACCU-CHEK COMFORT CURVE STRIP VI SCH ×2 (05:18→18:23)
[2025-04-16] MEDS: InsuLIN REG 1unit/0.01ml Soln (100units/ml) SC SCH (05:20)
[2025-04-16] MEDS: INSULIN LANTUS (GLARGINE) 1 /0.01ml (100units/ml) SC SCH (06:32)
[2025-04-16] MEDS: cefTRIAXone 1GM/50ML D5W 50 ML IV SCH (08:36)
--- NOTE | 2025-04-16 10:19 | DVHPN2 ---
Subjective Denying any complaints Reviewed: Care Plan, H&P, Labs, Medications, Previous Orders, Radiology, Other (Consultation) Changes from previous H/P or p: No Changes Objective Vitals Vital Signs Date Time Temp Pulse Resp B/P (MAP) Pulse Ox O2 Delivery O2 Flow Rate FiO2 04/16/25 08:39 97.7 99 19 119/78 (92) 97 97.7 04/15/25 20:00 Room Air* 0 21 Intake/Output Intake and Output 04/16/25 07:00 Intake Total 3400 ml Output Total 600 ml Balance 2800 ml Intake Oral 1400 ml IV Total 2000 ml Output Urine Total 600 ml # Voids 8 # Bowel Movements 3 General Appearance: Alert, Oriented X3, Cooperative HEENT: Atraumatic Lungs: Clear to auscultation Cardiovascular: Regular rate Abdomen: Normal bowel sounds, Soft, No tenderness Psych/Mental Status: Mental status NL, Mood NL Medications Current Medications Medications Dose Ordered Sig/Alfie Route Start Time Stop Time Status Last Admin Dose Admin Pantoprazole Sodium 40 mg DAILY PO 04/12/25 10:00 04/15/25 09:04 40 MG Sucralfate 1 gm BID PO 04/11/25 22:00 04/15/25 22:00 1 GM Sodium Chloride 10 ml Q8HR IV 04/11/25 22:00 04/16/25 05:18 10 ML Docusate Sodium 100 mg BIDPRN PRN PO 04/11/25 19:45 Acetaminophen 650 mg Q6HP PRN PO 04/11/25 19:45 04/13/25 10:35 650 MG Acetaminophen/ Hydrocodone Bitart 1 tab Q4HP PRN PO 04/11/25 19:45 Ondansetron HCl 4 mg Q4HP PRN IV 04/11/25 19:45 04/13/25 00:50 4 MG Enoxaparin Sodium 40 mg DAILY SC 04/12/25 10:00 04/15/25 09:05 40 MG Metoclopramide HCl 10 mg ACHS PO 04/12/25 17:00 04/16/25 06:30 10 MG Mupirocin 1 applic BID EACHNOSTRI 04/13/25 22:00 04/18/25 21:59 04/15/25 22:00 1 APPLIC Diagnostic Test (Pha) 1 strip ACHS 04/14/25 17:00 04/16/25 06:32 1 STRIP Dextrose 50 ml UD PRN IV 04/14/25 14:15 Sodium Chloride 1,000 ml @ 150 mls/hr Q6H40M IV 04/15/25 10:15 04/16/25 05:27 150 MLS/HR Insulin Glargine 20 units QAM SC 04/16/25 07:00 04/16/25 06:32 20 UNITS Ceftriaxone Sodium 50 ml @ 100 mls/hr DAILY@09 IV 04/16/25 09:00 04/16/25 08:36 100 MLS/HR Insulin Human Lispro 4 units AC SC 04/15/25 17:15 04/16/25 06:30 4 UNITS Diagnostic Test (Pha) 1 strip Q6HR 04/16/25 06:00 04/16/25 05:18 1 STRIP Insulin Human Regular Q6HR SC 04/16/25 06:00 04/16/25 05:20 6 UNITS Dextrose 50 ml UD PRN IV 04/16/25 03:15 Laboratory Results Laboratory Tests 04/13/25 04:00 04/14/25 05:07 Urinalysis Test 04/15/25 15:10 Urine Color Light-yellow (Yellow) Urine Clarity Clear (Clear) Urine pH 6.5 (5.0-9.0) Urine Specific [place] 1.003 (1.001-1.035) Urine Protein Negative (Negative) Urine Ketones Negative (Negative) Urine Blood 3+ /uL (Negative) H Urine Nitrite Negative (Negative) Urine Bilirubin Negative (Negative) Urine Urobilinogen Normal mg/dL (Negative) Urine Leukocyte Esterase Negative /uL (Negative) Urine RBC 2 /hpf (0 - 4) Urine Microscopic WBC 1 /HPF (0-5) Urine Squamous Epithelial Cells Few /hpf (<5) Urine Bacteria None seen /hpf (None Seen) Urine Glucose 2+ mg/dL (Normal) H Microbiology Microbiology Date/Time Source Procedure Growth Status 04/15/25 15:10 Voided Urine Urine Culture - Preliminary Resulted 04/12/25 13:05 Nose MRSA Screen - Final Methicillin Resistant S.aureus Complete 04/11/25 11:08 Blood Blood Culture - Preliminary NO GROWTH AFTER 72 HOURS OF INCUBATION. Resulted Labs and/or images reviewed: Labs reviewed by me, Image(s) reviewed by me Assessment/Plan Assessment/Plan Covering: # DKA due to nonadherence in the setting of diabetes mellitus type 1; DKA resolved # FER; most likely vasomotor nephropathy; resolved # MRSA positive nasal screening; on Bactroban ointment # Normocytic anemia; most likely inflammatory # Complicated UTI # Nonadherence # Gastroparesis # Overweight Continue IV ceftriaxone Reviewed lab work and imaging studies Urine cultures; pending; blood cultures with no growth so far Continue diabetes mellitus type 1 management as per Endocrinology Counseled the patient on the importance of adherence to medical management and insulin therapy Counseled the patient on the importance of adopting healthy lifestyle with diet and exercise Contact precautions for MRSA positive nasal screening No signs/symptoms of active bleeding On GI and DVT prophylaxis Endocrinology is following Avoid nephrotoxic agents Continue monitoring Goals of care discussed with the patient for 20 minutes; full code Late Entry. This medical document was created using an electronic medical record system with computerized dictation system. Although this document has been carefully reviewed, there might still be some phonetic and typographical errors. These areas are purely typographical due to imperfections of the software programs, and do not reflect any compromise in the patient's medical care. Plan discussed with: Patient, Other Date of Service: Apr 16, 2025 Billing Provider: BENITO CHILD MD Common Visit Codes: [id number] INP/OBS CARE(HIGH) Secondary Visit Codes: [id number] CARE PLAN 30 MINUTES (20 minutes) BENITO CHILD MD Apr 16, 2025 10:19
--- NOTE | 2025-04-16 13:31 | DVHPN2 ---
Progress Note - Dictate Date Seen: Apr 16, 2025 Medical Necessity Reason Pt with a Central, PICC or Fol: No Subjective Persistent fasting and postprandial hyperglycemia vital signs Vital Sign Date Time Temp Pulse Resp B/P (MAP) Pulse Ox O2 Delivery O2 Flow Rate FiO2 04/16/25 13:09 98.2 91 22 140/97 (111) 92 98.2 04/15/25 20:00 Room Air* 0 21 Total Intake and Output 04/15/25 04/15/25 04/16/25 15:00 23:00 07:00 Intake Total 800 ml 2600 ml Output Total 600 ml Balance 800 ml 2000 ml medications Current Medications Medications Dose Ordered Sig/Alfie Route Start Time Stop Time Status Last Admin Dose Admin Pantoprazole Sodium 40 mg DAILY PO 04/12/25 10:00 04/16/25 10:46 40 MG Sucralfate 1 gm BID PO 04/11/25 22:00 04/16/25 10:46 1 GM Sodium Chloride 10 ml Q8HR IV 04/11/25 22:00 04/16/25 05:18 10 ML Docusate Sodium 100 mg BIDPRN PRN PO 04/11/25 19:45 Acetaminophen 650 mg Q6HP PRN PO 04/11/25 19:45 04/13/25 10:35 650 MG Acetaminophen/ Hydrocodone Bitart 1 tab Q4HP PRN PO 04/11/25 19:45 Ondansetron HCl 4 mg Q4HP PRN IV 04/11/25 19:45 04/13/25 00:50 4 MG Enoxaparin Sodium 40 mg DAILY SC 04/12/25 10:00 04/16/25 10:46 40 MG Metoclopramide HCl 10 mg ACHS PO 04/12/25 17:00 04/16/25 10:46 10 MG Mupirocin 1 applic BID EACHNOSTRI 04/13/25 22:00 04/18/25 21:59 04/16/25 10:46 1 APPLIC Diagnostic Test (Pha) 1 strip ACHS 04/14/25 17:00 04/16/25 12:16 1 STRIP Dextrose 50 ml UD PRN IV 04/14/25 14:15 Sodium Chloride 1,000 ml @ 150 mls/hr Q6H40M IV 04/15/25 10:15 04/16/25 05:27 150 MLS/HR Ceftriaxone Sodium 50 ml @ 100 mls/hr DAILY@09 IV 04/16/25 09:00 04/16/25 08:36 100 MLS/HR Diagnostic Test (Pha) 1 strip Q6HR 04/16/25 06:00 04/16/25 12:16 1 STRIP Insulin Human Regular Q6HR SC 04/16/25 06:00 04/16/25 05:20 6 UNITS Dextrose 50 ml UD PRN IV 04/16/25 03:15 Insulin Human Lispro 8 units TIDBM SC 04/16/25 15:00 UNV Insulin Glargine 24 units QAM SC 04/17/25 07:00 UNV objective Gen - no acute distress HEENT - no thyromegaly CV - RRR, no m/r/g Resp - CTAB Ext - no edema laboratory and microbiology Laboratory Tests 04/14/25 05:07 04/13/25 04:00 Test 04/14/25 05:07 Range/Units Serum Glucose 177 H 74-106 mg/dL Assessment/Plan # DKA # Type 1 diabetes # Gastritis # Gastroparesis - Continue glargine 20 units qd - Increase lispro 6 units tidac - Continue low intensity SSI lispro tidac, qhs - Discontinue regular insulin - POC BG tidac, qhs - Hypoglycemia protocol Dietary Evaluation Review Comments: 1) Refer Knowledge Engineer for diabetes education 2) Continue current plan of care Expected Outcomes/Goals: To meet >75% estimated needs Fu 3-5 days Plan discussed with: Patient NANDO PACHECO MD Apr 16, 2025 13:30
--- NOTE | 2025-04-16 13:52 | DVHPNRES ---
Progress Note Date Seen: Apr 16, 2025 Resident Creating Document: LORI RODRIGUEZ RESIDENT Medical Necessity Reason Pt with a Central, PICC or Fol: No Subjective Review of Systems This is a 29-year-old female with past medical history of type 1 diabetes mellitus diagnosed 11 years ago when she was 18 years old. No significant past medical history. The patient states that has an Omnipod pump and currently use that at home for controlling her type 1 diabetes. She also mentioned that has a backup of Lantus 25 units daily and lispro 10 units t.i.d. before meals in case Omnipod is turned off or not working. The patient presented to the ED due to nausea, vomiting and abdominal pain. On admission, patient was on DKA for which was placed on insulin drip, electrolyte replacement such as potassium. After anion gap was closed then patient was started on lantus 20units QAM and lipro 4 units before meals with subsequent sliding scale insulin. patinet was admitted for further assessment and management. Patient seen and examined at bedside. patient has no major complaints at this time but still hyperglycemic before breakfast. Currently on lantus 20units QAM. We will increase lantus to 24units QAM. We will increase lispro to 6units before meals with sliding scale insulin. e will discontinue current regular sliding scale insulin and start lispro sliding scale insulin. We will continue monitor blood glucose closely. ROS Constitutional: Denies weight loss, fever and chills. HEENT: Denies changes in vision and hearing. Respiratory: Denies shortness of breath and cough Cardiovascular: Denies chest discomfort or palpitations GI: Denies abdominal pain, nausea, vomiting and diarrhea. : Denies dysuria and urinary frequency. Musculoskeletal: Denies myalgias and joint pain Skin: Denies rash and pruritus. Neurological: Denies dizziness, headache, vision or hearing problems Objective vital signs Vital Sign Date Time Temp Pulse Resp B/P (MAP) Pulse Ox O2 Delivery O2 Flow Rate FiO2 04/16/25 08:39 97.7 99 19 119/78 (92) 97 97.7 04/15/25 20:00 Room Air* 0 21 Total Intake and Output 04/15/25 04/15/25 04/16/25 15:00 23:00 07:00 Intake Total 800 ml 2600 ml Output Total 600 ml Balance 800 ml 2000 ml medications Current Medications Medications Dose Ordered Sig/Alfie Route Start Time Stop Time Status Last Admin Dose Admin Pantoprazole Sodium 40 mg DAILY PO 04/12/25 10:00 04/16/25 10:46 40 MG Sucralfate 1 gm BID PO 04/11/25 22:00 04/16/25 10:46 1 GM Sodium Chloride 10 ml Q8HR IV 04/11/25 22:00 04/16/25 05:18 10 ML Docusate Sodium 100 mg BIDPRN PRN PO 04/11/25 19:45 Acetaminophen 650 mg Q6HP PRN PO 04/11/25 19:45 04/13/25 10:35 650 MG Acetaminophen/ Hydrocodone Bitart 1 tab Q4HP PRN PO 04/11/25 19:45 Ondansetron HCl 4 mg Q4HP PRN IV 04/11/25 19:45 04/13/25 00:50 4 MG Enoxaparin Sodium 40 mg DAILY SC 04/12/25 10:00 04/16/25 10:46 40 MG Metoclopramide HCl 10 mg ACHS PO 04/12/25 17:00 04/16/25 10:46 10 MG Mupirocin 1 applic BID EACHNOSTRI 04/13/25 22:00 04/18/25 21:59 04/16/25 10:46 1 APPLIC Diagnostic Test (Pha) 1 strip ACHS 04/14/25 17:00 04/16/25 12:16 1 STRIP Dextrose 50 ml UD PRN IV 04/14/25 14:15 Sodium Chloride 1,000 ml @ 150 mls/hr Q6H40M IV 04/15/25 10:15 04/16/25 05:27 150 MLS/HR Insulin Glargine 20 units QAM SC 04/16/25 07:00 04/16/25 06:32 20 UNITS Ceftriaxone Sodium 50 ml @ 100 mls/hr DAILY@09 IV 04/16/25 09:00 04/16/25 08:36 100 MLS/HR Diagnostic Test (Pha) 1 strip Q6HR 04/16/25 06:00 04/16/25 12:16 1 STRIP Insulin Human Regular Q6HR SC 04/16/25 06:00 04/16/25 05:20 6 UNITS Dextrose 50 ml UD PRN IV 04/16/25 03:15 Insulin Human Lispro 8 units TIDBM SC 04/16/25 15:00 UNV Examination Physical Examination General: Patient alert and oriented in person, place and time. Patient following commands. HEENT: Normocephalic, atraumatic, moist mucous membranes Respiratory/pulmonary: Clear lungs bilaterally, no associated crackles or wheezes. Cardiovascular: Normal heart sounds S1 and S2 with no associated murmurs Abdomen: Abdomen nondistended, there is no pain to palpation in any of the abdominal quadrants, no palpable masses. Extremities: There is no peripheral edema present at the lower extremities. Skin: No rashes or pruritus, there is no sacral edema present at this time. Neurological: Intact cranial nerves with no focal neurologic deficits laboratory and microbiology Laboratory Tests 04/14/25 05:07 04/13/25 04:00 Test 04/14/25 05:07 Range/Units Serum Glucose 177 H 74-106 mg/dL Microbiology Date/Time Source Procedure Growth Status 04/15/25 15:10 Voided Urine Urine Culture - Preliminary Resulted 04/12/25 13:05 Nose MRSA Screen - Final Methicillin Resistant S.aureus Complete 04/11/25 11:08 Blood Blood Culture - Final NO GROWTH AFTER 5 DAYS OF INCUBATION. Complete Problem List/Assessment/Plan Problem List/Assessment/Plan Assessment/Plan Uncontrolled type I Diabetes Mellitus with DKA, resolved Acute DKA, resolved UTI FER likely due to VMN, resolved MRSA naires positive Plan -Increase Lantus to 24units QAM -Increase lispro to 6 Units before meals (TID) -Discontinue sliding scale regular insulin and start sliding scale insulin (LISPRO) -Monitor blood glucose closely -continue IV fluids Goals of care discussed with patient at bedside for >25min, FULL CODE Plan discussed with Dr. Munroe Plan discussed with: Patient My Orders My Orders Orders - LORI RODRIGUEZ Procedure Category Date Status Time Insulin Lispro PHA 04/16/25 Logged (Human) (Humalog) 15:00 Dietary Evaluation Review Comments: 1) Refer Parts Processor for diabetes education 2) Continue current plan of care Expected Outcomes/Goals: To meet >75% estimated needs Fu 3-5 days LORI RODRIGUEZ Apr 16, 2025 13:52
[2025-04-16] MEDS: INSULIN LISPRO (HUMAN) 100 UNITS/ML ML SC ONE (14:48)
[2025-04-16] MEDS ORDERED: INSULIN LISPRO (HUMAN) 100 UNITS/ML ML SC SCH (15:00)
[2025-04-16] MEDS: INSULIN LISPRO (HUMAN) 100 UNITS/ML ML SC SCH ×2 (18:18→18:23)
[2025-04-16 19:44] LABS: Urine Protein, UAD Negative (Negative)
[2025-04-17] VITALS (7 sets, daily range): BP systolic 107–141; BP diastolic 78–94; PULSE 84–159; RESP 14–17; TEMP 97.8–98.2; O2SAT 97–98
[2025-04-17] MEDS: INSULIN LANTUS (GLARGINE) 1 /0.01ml (100units/ml) SC SCH (06:07)
[2025-04-17 06:46] LABS: Hematocrit 29.7 % (36.0-46.0); Hemoglobin 10.4 g/dL (12.2-16.2); Mean Corpuscular Hemoglobin 29.2 pg (28.0-32.0); Mean Corpuscular Volume 83.6 fL (80.0-100.0); Nucleated Red Blood Cells % 0.0 %
[2025-04-17 06:49] LABS: Alanine Aminotransferase 17 U/L (7-40); Alkaline Phosphatase 55 U/L (46-116); Anion Gap 9 (5-15); BUN/Creatinine Ratio 7.4 (10.0-20.0); Calcium 8.8 mg/dL (8.7-10.4); Carbon Dioxide 25 mmol/L (20-31); Chloride 101 mmol/L (98-107); Potassium 3.9 mmol/L (3.5-5.1)
[2025-04-17 06:50] LABS: Albumin 3.5 g/dL (3.2-4.8)
[2025-04-17 07:00] LABS: Sodium 135 mmol/L (136-145)
[2025-04-17 07:01] LABS: Bilirubin, Total 0.2 mg/dL (0.2-1.0); Blood Urea Nitrogen 7 mg/dL (9-23); Glucose 471 mg/dL (74-106); Total Protein 5.6 g/dL (5.7-8.2)
--- NOTE | 2025-04-17 07:16 | DVHPN2 ---
Subjective Denying any complaints Reviewed: Care Plan, H&P, Labs, Medications, Previous Orders, Radiology, Other (Consultation) Changes from previous H/P or p: No Changes Objective Vitals Vital Signs Date Time Temp Pulse Resp B/P (MAP) Pulse Ox O2 Delivery O2 Flow Rate FiO2 04/17/25 05:00 98.1 97 14 136/91 (106) 97 98.1 04/16/25 20:00 Room Air* 0 21 Intake/Output Intake and Output 04/17/25 07:00 Intake Total 2420 ml Balance 2420 ml Intake Oral 1370 ml IV Total 1050 ml # Voids 8 # Bowel Movements 7 General Appearance: Alert, Oriented X3, Cooperative HEENT: Atraumatic Lungs: Clear to auscultation Cardiovascular: Regular rate Abdomen: Normal bowel sounds, Soft, No tenderness Psych/Mental Status: Mental status NL, Mood NL Medications Current Medications Medications Dose Ordered Sig/Alfie Route Start Time Stop Time Status Last Admin Dose Admin Pantoprazole Sodium 40 mg DAILY PO 04/12/25 10:00 04/16/25 10:46 40 MG Sucralfate 1 gm BID PO 04/11/25 22:00 04/16/25 21:02 1 GM Sodium Chloride 10 ml Q8HR IV 04/11/25 22:00 04/17/25 06:00 10 ML Docusate Sodium 100 mg BIDPRN PRN PO 04/11/25 19:45 Acetaminophen 650 mg Q6HP PRN PO 04/11/25 19:45 04/13/25 10:35 650 MG Acetaminophen/ Hydrocodone Bitart 1 tab Q4HP PRN PO 04/11/25 19:45 Ondansetron HCl 4 mg Q4HP PRN IV 04/11/25 19:45 04/13/25 00:50 4 MG Enoxaparin Sodium 40 mg DAILY SC 04/12/25 10:00 04/16/25 10:46 40 MG Metoclopramide HCl 10 mg ACHS PO 04/12/25 17:00 04/17/25 05:55 10 MG Mupirocin 1 applic BID EACHNOSTRI 04/13/25 22:00 04/18/25 21:59 04/16/25 21:02 1 APPLIC Sodium Chloride 1,000 ml @ 150 mls/hr Q6H40M IV 04/15/25 10:15 04/17/25 02:15 150 MLS/HR Ceftriaxone Sodium 50 ml @ 100 mls/hr DAILY@09 IV 04/16/25 09:00 04/16/25 08:36 100 MLS/HR Insulin Glargine 24 units QAM WV 04/17/25 07:00 04/17/25 06:07 24 UNITS Insulin Human Lispro 6 units TIDAC SC 04/16/25 17:00 04/16/25 18:18 6 UNITS Diagnostic Test (Pha) 1 strip ACHS 04/16/25 17:00 04/17/25 06:08 1 STRIP Insulin Human Lispro ACHS SC 04/16/25 17:00 04/17/25 06:06 10 UNITS Dextrose 50 ml UD PRN IV 04/16/25 13:45 Laboratory Results Laboratory Tests 04/17/25 05:14 Chemistry Test 04/17/25 05:14 Albumin 3.5 g/dL (3.2-4.8) Calcium Level 8.8 mg/dL (8.7-10.4) Total Protein 5.6 g/dL (5.7-8.2) L LFT Test 04/17/25 05:14 Alanine Aminotransferase (ALT) 17 U/L (7-40) Alkaline Phosphatase 55 U/L (46-116) Aspartate Amino Transferase (AST) 20 U/L (13-40) Total Bilirubin 0.2 mg/dL (0.2-1.0) Urinalysis Test 04/16/25 13:30 Urine Color Light-yellow (Yellow) Urine Clarity Clear (Clear) Urine pH 7.0 (5.0-9.0) Urine Specific [place] 1.010 (1.001-1.035) Urine Protein Negative (Negative) Urine Ketones Negative (Negative) Urine Blood 2+ /uL (Negative) H Urine Nitrite Negative (Negative) Urine Bilirubin Negative (Negative) Urine Urobilinogen Normal mg/dL (Negative) Urine Leukocyte Esterase Negative /uL (Negative) Urine RBC 6 /hpf (0 - 4) Urine Microscopic WBC 1 /HPF (0-5) Urine Squamous Epithelial Cells Few /hpf (<5) Urine Bacteria None seen /hpf (None Seen) Urine Mucus Few (None Seen) Urine Glucose 2+ mg/dL (Normal) H Microbiology Microbiology Date/Time Source Procedure Growth Status 04/15/25 15:10 Voided Urine Urine Culture - Preliminary Resulted 04/12/25 13:05 Nose MRSA Screen - Final Methicillin Resistant S.aureus Complete 04/11/25 11:08 Blood Blood Culture - Final NO GROWTH AFTER 5 DAYS OF INCUBATION. Complete Labs and/or images reviewed: Labs reviewed by me, Image(s) reviewed by me Assessment/Plan Assessment/Plan Covering: # DKA due to nonadherence in the setting of diabetes mellitus type 1; DKA resolved; worsening hyperglycemia # FER; most likely vasomotor nephropathy; resolved # MRSA positive nasal screening; on Bactroban ointment # Normocytic anemia; most likely inflammatory # Complicated UTI # Nonadherence # Gastroparesis # Overweight Continue IV ceftriaxone Reviewed lab work and imaging studies Urine cultures: Pending; blood cultures with no growth so far Continue diabetes mellitus type 1 management as per Endocrinology Counseled the patient on the importance of adherence to medical management and insulin therapy Counseled the patient on the importance of adopting healthy lifestyle with diet and exercise Contact precautions for MRSA positive nasal screening No signs/symptoms of active bleeding On GI and DVT prophylaxis Endocrinology is following Avoid nephrotoxic agents Continue monitoring Late Entry. This medical document was created using an electronic medical record system with computerized dictation system. Although this document has been carefully reviewed, there might still be some phonetic and typographical errors. These areas are purely typographical due to imperfections of the software programs, and do not reflect any compromise in the patient's medical care. Plan discussed with: Patient, Other (Nurse) My Orders Orders - BENITO CHILD MD Procedure Category Date Status Time Urine Bacterial MEREDITH 04/16/25 In Process Culture 13:30 Date of Service: Apr 17, 2025 Billing Provider: BENITO CHILD MD Common Visit Codes: [id number] INP/OBS CARE(HIGH) BENITO CHILD MD Apr 17, 2025 07:16
--- NOTE | 2025-04-17 16:39 | DVHDS2 ---
Discharge Summary Date of Admission Apr 11, 2025 at 19:38 Date of Discharge: Apr 17, 2025 Admitting Diagnosis Abdominal pain with nausea and vomiting Labs/Diagnostic Data: Laboratory Results Test 04/17/25 05:59 04/17/25 05:14 04/16/25 13:30 04/14/25 05:07 POC Glucose 408 mg/dl (70-106) White Blood Count 5.2 10^3/uL (4.4-10.8) Red Blood Count 3.56 10^6/uL (4.0-5.20) Hemoglobin 10.4 g/dL (12.2-16.2) Hematocrit 29.7 % (36.0-46.0) Mean Corpuscular Volume 83.6 fL (80.0-100.0) Mean Corpuscular Hemoglobin 29.2 pg (28.0-32.0) Mean Corpuscular Hemoglobin Concent 35.0 g/dL (32.0-36.0) Red Cell Distribution Width 16.4 % (11.8-14.3) Platelet Count 228 10^3/uL (140-450) Mean Platelet Volume 7.6 fL (6.9-10.8) Neutrophils (%) (Auto) 58.8 % (37.0-80.0) Lymphocytes (%) (Auto) 31.5 % (10.0-50.0) Monocytes (%) (Auto) 6.1 % (0.0-12.0) Eosinophils (%) (Auto) 2.9 % (0.0-7.0) Basophils (%) (Auto) 0.7 % (0.0-2.0) Neutrophils # (Auto) 3.1 10 ^3/uL (1.6-8.6) Lymphocytes # (Auto) 1.6 10 ^3/uL (0.4-5.4) Monocytes # (Auto) 0.3 10 ^3/uL (0-1.3) Eosinophils # (Auto) 0.1 10 ^3/uL (0-0.8) Basophils # (Auto) 0 10 ^3/uL (0-0.2) Nucleated Red Blood Cells 0.0 % Sodium Level 135 mmol/L (136-145) Potassium Level 3.9 mmol/L (3.5-5.1) Chloride Level 101 mmol/L (98-107) Carbon Dioxide Level 25 mmol/L (20-31) Anion Gap 9 (5-15) Blood Urea Nitrogen 7 mg/dL (9-23) Creatinine 0.95 mg/dL (0.550-1.02) Glomerular Filtration Rate Calc 84 mL/min (>90) BUN/Creatinine Ratio 7.4 (10.0-20.0) Serum Glucose 471 mg/dL (74-106) Calcium Level 8.8 mg/dL (8.7-10.4) Total Bilirubin 0.2 mg/dL (0.2-1.0) Aspartate Amino Transferase (AST) 20 U/L (13-40) Alanine Aminotransferase (ALT) 17 U/L (7-40) Alkaline Phosphatase 55 U/L (46-116) Total Protein 5.6 g/dL (5.7-8.2) Albumin 3.5 g/dL (3.2-4.8) Urine Color Light-yellow (Yellow) Urine Clarity Clear (Clear) Urine pH 7.0 (5.0-9.0) Urine Specific [place] 1.010 (1.001-1.035) Urine Protein Negative (Negative) Urine Ketones Negative (Negative) Urine Blood 2+ /uL (Negative) Urine Nitrite Negative (Negative) Urine Bilirubin Negative (Negative) Urine Urobilinogen Normal mg/dL (Negative) Urine Leukocyte Esterase Negative /uL (Negative) Urine RBC 6 /hpf (0 - 4) Urine Microscopic WBC 1 /HPF (0-5) Urine Squamous Epithelial Cells Few /hpf (<5) Urine Bacteria None seen /hpf (None Seen) Urine Mucus Few (None Seen) Urine Glucose 2+ mg/dL (Normal) Magnesium Level 1.6 mg/dL (1.6-2.6) Test 04/13/25 04:00 04/11/25 19:52 04/11/25 15:34 04/11/25 11:18 Beta-Hydroxybutyric Acid 0.428 mmol/L (< 0.4) Urine Opiates Screen Neg (NEGATIVE) Urine Fentanyl Screen Neg (NEGATIVE) Urine Barbiturates Screen Neg (NEGATIVE) Urine Phencyclidine Screen Neg (NEGATIVE) Urine Amphetamines Screen Neg (NEGATIVE) Urine Benzodiazepines Screen Neg (NEGATIVE) Urine Cocaine Screen Neg (NEGATIVE) Urine Cannabinoids Screen Neg (NEGATIVE) Lactic Acid Level 1.3 mmol/L (0.4-2.0) Troponin I High Sensitivity 3 ng/L (</=34) Blood Gas Specimen Type Arterial Blood Gas Sample Site Right radial Blood Gas Patient Temperature 37.0 Arterial Blood Date Drawn [id number] Arterial Blood pH 7.299 (7.350-7.450) Arterial Blood Partial Pressure CO2 18.7 mmHg (32.0-45.0) Arterial Blood Partial Pressure O2 94.0 mmHg (83.0-108.0) Arterial Blood HCO3 9.0 mmol/L (21.0-28.0) Arterial Blood Oxygen Saturation 96.8 % (94.0-98.0) Arterial Blood Base Excess -15.0 mmol/L (-2.0-3.0) Arterial Blood Oxyhemoglobin 95.3 % (94.0-98.0) Arterial Blood Carboxyhemoglobin 0.8 % (0.5-1.5) Arterial Blood Methemoglobin 0.7 % (0.0-1.5) Eznon Test Yes Blood Gas Total Hemoglobin 13.90 g/dL (12.0-16.0) Blood Gas Modality Room air FiO2 % 21.0 Blood Gas Critical Value Read Back Yes Blood Gas Notified Whom Dr. maciej bronsonajj Blood Gas Notified Time [id number] Blood Gas Notified By Test 04/11/25 10:38 Serum Osmolality 304 mOsm/kg (278-298) Phosphorus Level 4.3 mg/dL (2.4-5.1) Beta HCG, Quantitative 1.1 mIU/mL (1.5-4.2) Other Laboratory Tests 04/17/25 05:14 Brief Hx & Hospital Course: Covering: A 29 year old female patient; nonadherence; type 1 diabetes mellitus; who presented with the abdominal pain with nausea and vomiting due to DKA. Details as below and as per EMR: # DKA due to nonadherence in the setting of diabetes mellitus type 1; DKA resolved # FER; most likely vasomotor nephropathy; resolved # MRSA positive nasal screening; on Bactroban ointment # Normocytic anemia; most likely inflammatory # Complicated UTI # Nonadherence # Gastroparesis # Overweight Continue IV ceftriaxone; left AMA Reviewed lab work and imaging studies; left AMA Urine cultures: Pending; blood cultures with no growth so far; left AMA Continue diabetes mellitus type 1 management as per Endocrinology; left AMA Counseled the patient on the importance of adherence to medical management and insulin therapy; left AMA Counseled the patient on the importance of adopting healthy lifestyle with diet and exercise; left AMA Contact precautions for MRSA positive nasal screening; left AMA No signs/symptoms of active bleeding; left AMA On GI and DVT prophylaxis; left AMA Endocrinology is following; left AMA Avoid nephrotoxic agents; left AMA Continue monitoring; left AMA The patient left AMA before the results of urine cultures and with worsening hyperglycemia. Late Entry. This medical document was created using an electronic medical record system with computerized dictation system. Although this document has been carefully reviewed, there might still be some phonetic and typographical errors. These areas are purely typographical due to imperfections of the software programs, and do not reflect any compromise in the patient's medical care. Consults/Reason for consult Endocrine for DKA Condition at Discharge: Undetermined (Left AMA) Final Diagnosis/Problems List DKA Type 1 diabetes mellitus Nonadherence Rest of diagnoses as above Discharge Disposition: AMA Discharge Instruct/Medications Diet: See Comment Diet comment: Left AMA Activity: See Comment Activity comment: Left AMA Follow Up/Referral: Left AMA Medications: Left AMA Scheduled Insulin Aspart (Novolog), 10 UNIT IJ TID Insulin Detemir (Levemir), 25 ' SC HS Metoclopramide Hcl (Reglan), 10 MG PO TID Potassium Chloride (Klor-Con M20), 20 MEQ PO BID Sucralfate (Carafate Susp), 10 ML PO BID Scheduled PRN Pantoprazole Sodium Sesquihydr (Protonix), 40 MG PO DAILY PRN Discharge Statement: "Patient was advised to return to the ER or call 911 if any headaches, dizziness, shortness of breath, chest pain, abdominal pain, bleeding, fevers, or worsening of medical condition. Patient was counseled about treatment plan, medications, possible side effects, patientverbalized understanding. All questions were answered to the best of my ability. This discharge took greater then 30 minutes in planning, reviewing documentation, counseling the patient, and discussing with other team members." ASSESSMENT ASSESSMENT Assessment Date of Service: Apr 17, 2025 Billing Provider: BENITO CHILD MD Common Visit Codes: [id number]/[id number] DISCH DAY >30min BENITO CHILD MD Apr 17, 2025 16:39
== END 2025-04-17 12:00 | disposition left against medical advice (07) | DRG 637 ==
LOC: ER 09:57 → OVERFLOW 19:38 → TELE-WESTW 04-12 10:45 → TELE-CENTR 04-13 15:55
PROVIDERS: ADMIT Internal Medicine; ATTEND Internal Medicine
DX: E10.10 Type 1 diabetes mellitus with ketoacidosis without coma (principal); N17.0 Acute kidney failure with tubular necrosis; N39.0 Urinary tract infection, site not specified; E10.43 Type 1 diabetes mellitus with diabetic autonomic (poly)neuropathy; D64.9 Anemia, unspecified; K52.9 Noninfective gastroenteritis and colitis, unspecified; K31.84 Gastroparesis; E87.6 Hypokalemia; K29.70 Gastritis, unspecified, without bleeding; R00.0 Tachycardia, unspecified; E66.3 Overweight; Z53.29 Procedure and treatment not carried out because of patient's decision for other reasons; Z68.24 Body mass index [BMI] 24.0-24.9, adult; Z80.49 Family history of malignant neoplasm of other genital organs; Z79.4 Long term (current) use of insulin; Z22.322 Carrier or suspected carrier of Methicillin resistant Staphylococcus aureus; Z91.018 Allergy to other foods
CPT/HCPCS: 36415; 36600; 80048; 80053; 80307; 81001; 82010; 82805; 82962; 83605; 83735; 83930; 84100; 84484; 84702; 85025; 87040; 87081; 87086; 93005; 96374; 99291; G0378; J1815; J2003; J2405